=== PATIENT | female | born 1960 | race Caucasian/White ===

== ENCOUNTER 2023-12-07 20:04 | Inpatient (IN) | payer OTHER, SELFPAY ==
[2023-12-07 15:18] VITALS: BP 152/59
--- NOTE | 2023-12-07 15:21 | ED.PDOC.TRB ---
ED Provider Triage
-
Patient seen by provider in Triage?: Seen in Triage
Attestation: A medical screening examination has been initiated by a qualified medical provider. Based on the assessment performed at this time, it has been determined that an emergent medical condition may exist and the patient has been informed
that further medical evaluation and possible additional diagnostic testing may be needed.
HPI: 63-year-old female presents for evaluation of generalized, nausea, urinary urgency, dysuria, and right flank pain. Symptoms have been ongoing for at least the past 2 weeks, saw her primary care physician last week and was started on Cipro.
She has taken half of the antibiotics thus far. She suspects her doctor did send a urine culture but there is no results available to her yet. No fevers or vomiting
GENERAL: Alert , in no apparent distress
EYE: No visual abnormalities.
NECK: Trachea midline
ENT: No visible abnormalities.
LUNGS: No acute respiratory distress
NEUROLOGICAL: Alert and oriented
SKIN: Skin intact. No visible changes.
MUSCULOSKELETAL: Moving extremities normally
PSYCH: Normal and appropriate interaction.
Assessment: Patient appears well clinically and vital signs are stable. Will check basic labs and repeat urinalysis. No urine culture is noted on the chart at this time
This is a medical evaluation conducted in person to initiate diagnostic evaluation and provide initial therapeutics. Please see further documentation by the treating clinician.
[2023-12-07 15:48] LABS: % Basophils 0.1 % (0-2); % Eosinophils 0.3 % (0-6); % Immature Granulocytes 0.3 % (0-0.5); % Lymphocytes 13.5 % (20.5-51.1); % Monocytes 6.4 % (1.7-9.3); % Neutrophils 79.4 % (42.2-75.2); Absolute Lymphocytes 0.9 10^3/uL (1.2-3.4); Absolute Monocytes 0.4 10^3/uL (0.1-0.6); Absolute Neutrophils 5.4 10^3/uL (1.4-6.5); Hematocrit 29.9 % (37.0-47.0); Hemoglobin 10.4 g/dL (12.0-16.0); Mean Corp Hgb Conc. 34.8 g/dL (33.0-37.0); Mean Corpuscular Hgb 30.4 pg (27.0-31.0); Mean Corpuscular Volume 87.4 fL (81.0-99.0); Mean Platelet Volume 10.4 fL (7.4-10.4); Nucleated Red Blood Cells % 0 %; Platelet Count 156 10^3/uL (130-400); Red Blood Cell Count 3.42 10^6/uL (4.20-5.40); Red Cell Dist. Width 13.5 % (11.5-14.5); White Blood Cell Count 6.8 10^3/uL (4.8-10.8)
[2023-12-07 16:09] LABS: Urine Albumin Trace (Neg - Trace); Urine Bilirubin Negative (Negative); Urine Character Clear (Clear); Urine Color Straw; Urine Glucose Negative (Negative); Urine Ketone Negative (Negative); Urine Leukocyte Negative (Negative); Urine Nitrite Negative (Negative); Urine Occult Blood 3+ (Negative); Urine Urobilinogen Negative (Neg - 1+)
[2023-12-07 16:14] LABS: ALT (SGPT) 12 U/L (0-35); AST (SGOT) 20 U/L (14-36); Albumin 4.4 g/dl (3.5-5.0); Alkaline Phosphatase 56 U/L (38-126); Blood Urea Nitrogen 58 mg/dl (7-17); Calcium 9.5 mg/dl (8.4-10.2); Carbon Dioxide 19 mmol/L (22-30); Chloride 103 mmol/L (98-107); Glucose 105 mg/dl (70-99); Potassium 5.1 mmol/L (3.5-5.1); Sodium 141 mmol/L (135-145); Total Bilirubin 0.6 mg/dl (0.2-1.3); Total Protein 6.6 g/dl (6.3-8.2); eGFR 11.07
[2023-12-07 16:31] LABS: Urine Bacteria Few (Negative)
--- NOTE | 2023-12-07 16:52 | ED.GENMED ---
History of Present Illness
General
Chief Complaint: Urinary Symptoms
Source: patient
Time Seen by Provider: 12/07/23 16:12
History of Present Illness
History of Present Illness:
63-year-old female with past medical history of cervical cancer, left kidney atrophy/dysfunction, bipolar disorder/depression presenting to the emergency department for evaluation of urinary frequency noting she often goes to the bathroom 8 or 9
times overnight, nausea, no vomiting but does admit to decreased p.o. intake to solids, generalized fatigue and generally feeling unwell. This has been ongoing since the end of October, saw primary care provider about 1 week ago and was started on
ciprofloxacin for suspected UTI. Patient estimates she is taken about half of the pills for UTI but states she is not feeling any better and possibly worse. Patient denies any fevers, chills, rigors, abdominal pain, back or flank pain, hematuria,
dysuria, stool changes or any other concerns. She does note that at a follow-up visit at [facility] 2 weeks ago her creatinine was 1.7 and had a GFR of 35 which was atypical for her.
Past History
Past History
ED Past Medical History: Cancer (cervical), Psychiatric and Other (lactose intolerance, gallstones, migraines)
ED Past Surgical History: Gynecological, Tonsilectomy and Urological
Social History
Tobacco: Non-smoker
Alcohol: Occasional
Drug: None
Personal: Single
Living: with family (Lives with mother)
Family History
Family History: Unable to obtain
Review of Systems
Review of Systems
All Other Systems: ROS reviewed and negative except as documented in HPI and ROS
Phy Exam
Physical Exam
Physical Exam:
GENERAL: Alert , in no apparent distress, thin, soft-spoken but pleasant
EYE: clear conjunctiva b/l
HEAD: NCAT
ENT: o/p clr, mmm.
CARDIAC: Regular rate and rhythm .
LUNGS: Clear breath sounds bilaterally, no acute respiratory distress, no wheezes/rales/rhonchi
ABDOMEN: Soft, without focal tenderness, no r/g, no cvat
NEUROLOGICAL: Alert and oriented
SKIN: Warm and dry, skin intact.
MUSCULOSKELETAL: No edema, well perfused.
PSYCH: Normal and appropriate interaction.
Scores
Heart Failure Risk
Heart Failure Risk Score: Not Applicable
Heart Score for Chest Pain Patients
STEMI patient?: Not applicable
Withdrawal Assessment of Alcohol
Withdrawal Assessment Completed?: Not applicable
Course
Orders/Labs/Results
Orders:
Orders
12/07/23 Lunch
Potassium, 2 Gram
12/07/23 15:32
Complete Blood Count/With Diff Urgent
Comprehensive Metabolic Panel Urgent
Urinalysis Reflex To Culture Urgent
Date Specimen was Collected: 12/07/23
Time Specimen was Collected: 15:28
Urine Creatinine Urgent
Date Specimen was Collected: 12/07/23
Time Specimen was Collected: 15:28
Comment: ADD ON
Urine Microscopic Reflex Cult Urgent
Urine Protein Urgent
Date Specimen was Collected: 12/07/23
Time Specimen was Collected: 15:28
Comment: ADD ON
12/07/23 16:26
CT Abd/pel Without Iv Or Oral Urgent
Comment:
Reason For Exam: acute renal failure, micro hematuria
12/07/23 16:27
Electrocardiogram (*1) Urgent
Reason for Study: Other
Other Reason for Exam: renal failure
EKG- Treatment ONCE
12/07/23 17:07
Add On- LAB Urgent
Tests Added?: Urine Creatine Urine Protein
12/07/23 17:15
NEPHROLOGY CONSULT Routine
Consulting Provider: Manuel Levin
Was physician already notified: Yes
Reason for consult: acute renal failure
12/07/23 17:44
Appiah Catheter [Catheter- Indwelling] As Directed
Reason for insertion: Acute Kidney Injury
Discontinue Date/Time: 12/10/23 0600
12/07/23 17:45
0.9% Sodium Chloride 1000 ml [Nss] 1,000 ml IV 80 mls/hr
12/07/23 17:46
Intake/ Output As Directed
Frequency: Per unit guidelines
Comment: strict intake and output monitoring
Weight As Directed
Frequency: Daily
12/07/23 19:33
Admit/Transfer Patient As Directed
Co-Sign Provider:
Level of Care: Inpatient admission
Assign to:: Telemetry
Physician / Group: Darrin Wellington
Diagnosis: LUCHO w new right hydronephrosis
Reason for Telemetry: Arrhythmia
Date to Stop Telemetry: 12/10/23
Time to Stop Telemetry: 11:00
Reason for Hospitalization: LUCHO w new right hydronephrosis
Expected length of stay greater than two midnights?: Yes
ELOS- Estimated Length of Stay in days: 2
I certify the patient meets the requirements for IP care: Yes
PRN Pain Medication Management As Directed
May give lesser potent ordered pain med per pt: Yes
preference::
Protocol:: Medication orders for pain may be administered in a
manner that supports deferring to patient preference
when the pt is:
- Requesting an ordered lesser potent pain medication.
Least to most potent pain medications are defined
as: acetaminophen < NSAID < tramadol < opioids
(morphine, oxycodone, hydromorphone).
- Requesting a lesser dose of the same medication IF
ORDERED.
- Requesting a less intrusive route of administration
if both routes are prescribed by the provider (PO <
IV).
12/07/23 19:40
Code Status As Directed
Resuscitation Status: Full Code
12/08/23 Breakfast
NPO
Allow oral meds: Yes
Allow clear liquids: Sips of Clears
NPO with Ice Chips: Yes
12/10/23 11:00
DC Protocol for Telemetry ONCE
Abnormal Lab Results
12/07/23
15:32
RBC 3.42 L 10^6/uL
(4.20-5.40)
Hgb 10.4 L g/dL
(12.0-16.0)
Hct 29.9 L %
(37.0-47.0)
Absolute Lymphs (auto) 0.9 L 10^3/uL
(1.2-3.4)
Neutrophils % 79.4 H %
(42.2-75.2)
Lymphocytes % 13.5 L %
(20.5-51.1)
Carbon Dioxide 19 L mmol/L
(22-30)
BUN 58 H mg/dl
(7-17)
Creatinine 4.3 H* mg/dL
(0.6-1.0)
Glucose 105 H mg/dl
(70-99)
Ur Occult Blood Reflex 3+ A
(Negative)
Urine RBC 11-15 A /HPF
(0-2)
Urine Bacteria (Reflex) Few A
(Negative)
Urine Total Protein 34 H mg/dl
(0-12)
12/07/23 15:32
12/07/23 15:32
Vital Signs
Initial and Last Documented VS:
Initial Vital Signs
Pulse Resp BP Pulse Ox
66 18 152/59 98
12/07/23 15:18 12/07/23 15:18 12/07/23 15:18 12/07/23 15:18
Last Documented Vital Signs
Pulse Resp BP Pulse Ox
66 18 152/59 98
12/07/23 15:18 12/07/23 15:18 12/07/23 15:18 12/07/23 19:15
MDM/Problems Addressed
Differential Diagnosis Includes:
Diabetes, urinary tract infection, renal dysfunction, less concern for an acute infectious etiology other than a urinary source, kidney stone
MDM/Problems Addressed:
63-year-old female presenting to the emergency department for evaluation of urinary frequency, nausea, diminished p.o. intake and generally feeling unwell over close to 3 weeks. No change in symptoms today but continues to feel unwell. Was at [facility] 2 weeks ago as part of follow-up visits, currently not undergoing any chemotherapy. Arrives to the ER hemodynamically stable. Labs were initiated in triage. Awaiting urinalysis. Disposition pending
*Radiology
Radiology exam reviewed: radiology read reviewed
*Pulse Oximetry
Patient hypoxic: no
*School Services Officer Interpretation
Rate: normal
Rhythm: sinus
*Critical Care Note
Total Time (30-74mins, 75-104mins- exclusive of procedures): Not Applicable
Data Reviewed
Review of Other/Old Records Reveals: Labs and Records
Source: patient
Comment
Comment:
Patient's labs reveal a mild anemia and there is significant acute kidney injury with patient having a BUN of 58, creatinine of 4.3 and a GFR of 11. I did add on a CT scan given patient's urinalysis had 3+ blood to evaluate for possible stone.
This would also evaluate for hydronephrosis or other obstructive process. Given her acute kidney injury I do feel patient would be best served being admitted with nephrology team in consult. Will admit to hospitalist team pending CT scan results.
Patient Management
Discussion with other providers: Hospitalist and Chief Internal Auditor
Escalation/DeEscalation of care consider admission/obs:
CT scan shows new right-sided moderate hydronephrosis. Nephrology aware and will consult. Hospitalist team is aware and accepts for continued evaluation and treatment.
ED Attending Note
-
Portions of this chart may have been created with voice recognition software.� Occasional wrong word or��sound alike� substitutions may have occurred due to the inherent limitations of voice recognition software.
Discharge Plan
Departure
Patient Disposition: Admit
Date of Disposition: 12/07/23
Time of Disposition: 17:07
Presentation/result/management discussed w/ accepting MD/DO: Hospitalist
Discharge Problem:
Acute renal failure, Hydronephrosis of right kidney
Interventions
Interventions:
*Risk Screen - Suicide Last Done: 12/07/23 17:00
*General Assessment Last Done: 12/07/23 17:00
ED- Fall Risk Assessment Last Done: 12/07/23 17:00
*ED COVID-19 Vaccine History Last Done: 12/07/23 17:00
ED-Female Genitourinary Assessment Last Done: 12/07/23 17:00
[2023-12-07 17:06] VITALS: BMI 17.6
[2023-12-07 17:29] LABS: Urine Protein 34 mg/dl (0-12)
--- NOTE | 2023-12-07 17:34 | W.CON.NEPH ---
Consultation
-
Date/Time Consultation Requested: 12/07/23 1600
Date/Time Consultation Performed: 12/07/23 1730
Requesting Provider: Dr. Buitrago
Performing Provider:
Reason for Consultation: LUCHO
Medical History
-
Chief Complaint: Malaise
History of Present Illness:
This is a 63-year-old female who has known left renal atrophy due to obstructive uropathy in the past. This was followed back in 2019 by her report. She had stenting performed but ultimately was felt that no recovery of kidney function would be
possible in the left side. She follows with urology at [facility]. Her creatinine however at baseline is typically around 1.0. She does have history of stage Ib cervical cancer status post total hysterectomy and radiation. She also has bipolar
disorder controlled with Prozac. She says that she had recent blood work on November 15 which showed a creatinine of 1.7 with a GFR of 35. Also given recent complaints of urinary frequency she was given ciprofloxacin though this did not change her
symptoms. She had then come to the emergency room for evaluation and was noted to have a creatinine of 4.3. Her potassium was upper limit of normal. CT scan disclosed new right-sided hydronephrosis. No stone could be seen.
Past Medical History
Cervical cancer, radiation, hysterectomy
Chronic left hydronephrosis
Bipolar
Migraines
Gallstones
Radiation colitis
Social History
Tobacco: Non-Smoker
Alcohol: Occasional
Family History
Family History: Not Pertinent
Allergies / Home Medications
Allergy/AdvReac Type Severity Reaction Status Date / Time
nitrofurantoin Allergy fever Verified 12/07/23 15:21
macrocrystalline
[From Macrodantin]
tuberculin,PPD,multi-puncture Allergy Rash Verified 12/07/23 15:21
Dairy Allergy Unknown Uncoded 12/07/23 15:21
�Medication �Instructions �Recorded �Confirmed �Type
fluoxetine 20 mg capsule 60 mg PO DAILY Mental 01/16/20 12/07/23 History
Health/Anxiety
alprazolam 1 mg tablet 1 mg PO HS 12/07/23 12/07/23 History
ascorbic acid (vitamin C) 500 mg 500 mg PO DAILY 12/07/23 12/07/23 History
tablet (Vitamin C)
cholecalciferol (vitamin D3) 25 25 mcg PO DAILY 12/07/23 12/07/23 History
mcg (1,000 unit) tablet
ciprofloxacin HCl 250 mg tablet 250 mg PO Q12H 12/07/23 12/07/23 History
divalproex 500 mg tablet,delayed 500 mg PO DAILY 12/07/23 12/07/23 History
release
magnesium oxide 400 mg (241.3 mg 400 mg PO DAILY 12/07/23 12/07/23 History
magnesium) tablet
lxwztkeh-vjjrzzmp-ypu C 250 1 tab PO DAILY 12/07/23 12/07/23 History
mg-herbal no.124 11.66 mg
chewable tablet (Airborne Gummy)
Review of Systems
-
Urinary frequency, malaise, nausea
All other systems: Negative unless noted
Physical Exam
Vital Signs
Vital Signs
Pulse Resp BP Pulse Ox
66 18 152/59 98
12/07/23 15:18 12/07/23 15:18 12/07/23 15:18 12/07/23 15:18
Lab Results
WBC 6.8 10^3/uL (4.8-10.8) 12/07/23 15:32
RBC 3.42 10^6/uL (4.20-5.40) L 12/07/23 15:32
Hgb 10.4 g/dL (12.0-16.0) L 12/07/23 15:32
Hct 29.9 % (37.0-47.0) L 12/07/23 15:32
Plt Count 156 10^3/uL (130-400) 12/07/23:
Sodium 141 mmol/L (135-145) 12/07/23:
Potassium 5.1 mmol/L (3.5-5.1) 12/07/23:
Chloride 103 mmol/L (98-107) 12/07/23:
Carbon Dioxide 19 mmol/L (22-30) L 12/07/23:
BUN 58 mg/dl (7-17) H 12/07/23:
Creatinine 4.3 mg/dL (0.6-1.0) H* 12/07/23
eGFR 11.07 12/07/23:
Glucose 105 mg/dl (70-99) H 12/07/23:
Calcium 9.5 mg/dl (8.4-10.2) 12/07/23:
Albumin 4.4 g/dl (3.5-5.0) 12/07/23:
CT
FINDINGS:
There is severe left-sided hydronephrosis and left hydroureter with severe loss of renal cortical volume left suggesting that this is standing
There is moderate right-sided hydronephrosis, new when compared with the prior study
There is hysterectomy with multiple surgical clips in the pelvis
No definitive distal ureteral calculi are demonstrated, however, with the presence of the multiple surgical clips, evaluation for distal ureteral calculi is limited.
Physical Exam
Patient is awake alert oriented and in no distress. Mood and affect were pleasant, insight and judgment were good. Pupils are equal round and reactive to light, extraocular movements are intact, sclera were anicteric. Hearing was normal, ears and
nose are intact. Oropharynx was clear. Neck was supple with trachea midline and no thyromegaly. Heart was regular rate and rhythm without rubs. Lower extremities without edema. Lungs were clear to auscultation bilaterally and with normal
excursion. Abdomen was soft, nontender, with normal active bowel sounds, and no hepatosplenomegaly. Skin was without rash and with normal turgor.
Data Reviewed
-
CT Scan: Report Reviewed by me
Labs: Labs Reviewed by me
Old Records: Reviewed
Assessment/Plan
-
Assessment
Acute kidney injury
New right hydronephrosis
Chronic left hydronephrosis, essential solitary functioning right kidney
History of cervical cancer with hysterectomy and clips
Migraines
Plan
Appiah catheter
Urology evaluation
Follow BMP
IV fluids with saline
Treat potassium as necessary
--- NOTE | 2023-12-07 19:33 | HPS.HSE ---
Family Physician
-
Family Physician: Jarek Pereira
Chief Complaint
-
Urinary Frequency
History of Present Illness
63F hx cervical cancer, left kidney atrophy/dysfunction/chronic hydronephrosis, bipolar disorder/depression p/w urinary frequency, nausea, general malaise, fatigue ongoing since end october, pcp evaluated 1 week ago and started pt on ciprofloxacin
suspected UTI. Prescribed 7 days, patient completed 3 days without any relief or improvement in symptoms prompting ED evaluation. Denies fevers, abdominal pain, back/flank pain, or dysuria. Reported having labwork 2 weeks ago where her Cr was
noted at 1.7. VSS, labs notable for significant rise in Cr 4.3. CT was also notable for new moderate right-sided hydronephrosis. No ureteral stones were noted. However, per report study limited by surgical clips from past hysterectomy.
Medical History
Past Medical History
Past Medical History: Reports Other (as above)
Past Surgical History: Reports Other (as above)
Social History
Tobacco: Non-smoker
Alcohol: None
Drug: None
Personal: Other (Engaged)
Living: Other (Lives w/ Fiancee)
Family History
Family History: Not pertinent (reviewed)
Allergies / Home Medications
Allergies reflects when Allergies were last updated in [facility].
Home Medications with original date entered in [facility]
Allergy/Medication List:
Allergies
Allergy/AdvReac Type Severity Reaction Status Date / Time
Milk Containing Products Allergy Unknown Verified 12/07/23 17:57
(Dairy)
nitrofurantoin Allergy fever Verified 12/07/23 15:21
macrocrystalline
[From Macrodantin]
tuberculin,PPD,multi-puncture Allergy Rash Verified 12/07/23 15:21
Home Medications
fluoxetine 20 mg capsule 60 mg PO DAILY Mental Health/Anxiety 01/16/20
alprazolam 1 mg tablet 1 mg PO HS 12/07/23
ascorbic acid (vitamin C) 500 mg tablet (Vitamin C) 500 mg PO DAILY 12/07/23
cholecalciferol (vitamin D3) 25 mcg (1,000 unit) tablet 25 mcg PO DAILY 12/07/23
ciprofloxacin HCl 250 mg tablet 250 mg PO Q12H 12/07/23
divalproex 500 mg tablet,delayed release 500 mg PO DAILY 12/07/23
magnesium oxide 400 mg (241.3 mg magnesium) tablet 400 mg PO DAILY 12/07/23
jrqkyvvq-yitjddzm-ics C 250 mg-herbal no.124 11.66 mg chewable tablet (Airborne Gummy) 1 tab PO DAILY 12/07/23
Review of Systems
-
A 12 point ROS was completed and negative except as noted: Yes
Constitutional: Reports Sleep Disturbance (as below)
Physical Exam
Vital Signs
Vital Signs
Pulse Resp BP Pulse Ox
66 18 152/59 98
12/07/23 15:18 12/07/23 15:18 12/07/23 15:18 12/07/23 19:15
Physical Exam
General: Other (as below)
Laboratory Results
-
12/07/23 15:32
12/07/23 15:32
Laboratory Results
Total Bilirubin 0.6 mg/dl (0.2-1.3) 12/07/23 15:32
AST 20 U/L (14-36) 12/07/23 15:32
ALT 12 U/L (0-35) 12/07/23 15:32
Alkaline Phosphatase 56 U/L (38-126) 12/07/23 15:32
Impression/Plan
-
ROS
General: Denies fever reports chronic chills weight loss
Neuro: Denies seizure shaking loss of consciousness dizziness vertigo
Psych: denies depression hallucinations confusion manic episodes
Endocrine: Denies polyuria polydipsia polyphagia heat/cold intolerance
HEENT: Denies blindness visual disturbances epistaxis
Pulmonary: denies coughing hemoptysis sneezing sob dyspnea on exertion
Cardiovascular: denies chest pain palpitations leg swelling
Hematology: denies signs symptoms of anemia easy bruising/bleeding
Gastrointestinal: reports intermittent nausea denies vomiting constipation hematemesis hematochezia melena reports chronic issues with appetite
Genito-Urinary: Reports urinary frequency/urgency denies dysuria flank pain
Musculoskeletal: denies joint pain weakness
Dermatology: denies rash laceration bruising
Physical Exam
General: No pallor, cyanosis, or jaundice. Cachectic Appearance
HEENT: Throat clear. PERRLA Normocephalic atraumatic
NECK: Supple. No JVD Carotid Bruits
RESPIRATORY: Lungs clear to auscultation. No crackles wheezes stridor
CVS: S1, S2 normal. RRR. No murmur, rub or gallop.
ABDOMEN: Soft, non-tender. No distension. BS+/normal.
EXTREMITIES: No peripheral cyanosis or edema.
CENSUS ENUMERATOR: AOx3. No focal deficits.
IMPRESSION:
63F hx cervical cancer, left kidney atrophy/dysfunction/chronic hydronephrosis, bipolar disorder/depression p/w urinary frequency, nausea, general malaise, fatigue ongoing since end of October, pcp evaluated 1 week ago and started pt on ciprofloxacin
suspected UTI. Prescribed 7 days, patient completed 3 days without any relief or improvement in symptoms prompting ED evaluation. Denies fevers, abdominal pain, back/flank pain, or dysuria. Reported having labwork 2 weeks ago where her Cr was
noted at 1.7. VSS, labs notable for significant rise in Cr 4.3. CT was also notable for new moderate right-sided hydronephrosis. No ureteral stones were noted. However, per report study limited by surgical clips from past hysterectomy.
PLAN:
#LUCHO
#New Right Hydronephrosis no flank pain
#Possible urinary frequency d/t urinary retention overflow incontinence
Nephro eval appreciated
IVF
Appiah
Monitor Renal Function
Potassium restricted diet for now (K at high side of normal), npo after midnight for possible urologic intervention tomorrow
urology eval requested
Urinalysis not suggestive of UTI at this time, though patient did complete 3 days cipro
Monitor for signs of systemic infection off abx for now
If develops fever
-check blood cultures
-start empiric ceftriaxone
#Bipolar/depression
#Insomnia
Cont home divalproex, fluoxetine, bedtime Xanax
Check Valproate level in AM
#Cachectic Appearance
#Endorses chronic poor appetite
nutrition eval
dvt ppx scd
Full Code
Discussed with patient and patient's tomy Feldman
I spent a total of 80 minutes with the patient or on the floor. More than 50% of this time involved counseling and coordination of care.
[2023-12-07 19:52] VITALS: BP 116/58
[2023-12-07 20:30] VITALS: BP 105/56; BMI 15.7
--- NOTE | 2023-12-07 20:45 | PTCARENOTE ---
Received pt from ED via stretcher. Pt ambulated to bed independently. Anxious. flexographic press set up operator placed. AAOx3. Pt complained of migraine, WINDOW DECORATOR made aware, new order provided, pt refused medication. Assessed and oriented to room. Pt verbalize
understanding of call warner. Call warner within close reach. Will continue to monitor.
[2023-12-07] MEDS: NSS 1000 IV (21:57)
[2023-12-07] MEDS: XANAX 1 MG PO (22:08)
--- NOTE | 2023-12-07 22:30 | PTCARENOTE ---
Pt vomiting. STIFF NECK LOADER made aware, new order provided, see MAR.
[2023-12-07] MEDS: ZOFRAN 4 MG IV (22:48)
--- NOTE | 2023-12-07 23:30 | PTCARENOTE ---
Orders reviewed, indwelling Appiah catheter placed per order. Pt tolerated. Pt complained of itching and burning around catheter. Perineal area cleansed with wipes, burning and itching continued. Pt stated, 'I need you to take this out, I am going to
refuse it and I will talk to the doctor tomorrow about it'. OPTICS TECHNICAL OFFICER made aware. Appiah catheter removed.
[2023-12-07 23:43] VITALS: BP 110/52
[2023-12-08] VITALS (9 sets, daily range): BP systolic 103–154; BP diastolic 53–78; BMI 15.6
--- NOTE | 2023-12-08 03:12 | W.PN.UPDATE ---
Update Note
Progress Note Update
pt allowed RN to place thompson per nephrology order, but shortly after insertion made RN remove it due to discomfort.
--- NOTE | 2023-12-08 04:01 | DOWNTIME ---
There was a [facility] Client Vp Ancillary Downtime on 12/08/2023 from 0100 to 12/08/2023 at 0300. Downtime documentation of patient's care, including medication administrations, has been reconciled in the electronic record per guidelines. Refer to the
patient's paper chart under the miscellaneous tab to see printed paper medication records and downtime forms.
--- NOTE | 2023-12-08 07:16 | CON.MD ---
Addendum entered and electronically signed by Chao Gallego Jr., MD 12/08/23 08:39:
reviewed again with pt
she is willing to have precs placed
arranged with IR- should be done later today
Original Note:
Consultation - Medical
-
see dictated note
in brief- pt has a hx of cervical cancer s/p resection and xrt
long hx of what was believed to be xrt stx of left ureter
managed with stent at one point and considered for reconstruction- but pt declined and had stent removed and observed
followed at [facility] for both oncology and urology
recent visit with urology in oct- at that time had studies dating back to oct 2022- cr at 1.2/ had PET concerning for ca recurrent in pelvic- also there was a suspicion for possible fistula- bx and cysto were rec- pt declined saying she would refuse
any other treatment and declined f/u PET
now with recurrent infx's- bladder irritation
presents with bladder discomfort/nausea/fatigue
ct shows now bilateral hydro and cr up to 4- also i thing there is a pelvic mass
pt comfortable and non-toxic this am
plan
extensive review with pt at bedside
concerned that right hydro now due to ca recurrence
i would rec bilateral PCN's with IR as stents are unlikely to be effective in this case and pt has had a severe intolerance in the past- ignacia slater then f/u with [facility] urology and oncology to discuss next steps
she wnats to consider and i will be in contact with her and arrange with IR if she wants to proceed with perc's
[2023-12-08 07:44] LABS: Hemoglobin 9.6 g/dL (12.0-16.0); Mean Corp Hgb Conc. 35.6 g/dL (33.0-37.0); Mean Corpuscular Hgb 29.4 pg (27.0-31.0); Mean Corpuscular Volume 82.8 fL (81.0-99.0); Mean Platelet Volume 10.1 fL (7.4-10.4); Platelet Count 132 10^3/uL (130-400); Red Blood Cell Count 3.26 10^6/uL (4.20-5.40); Red Cell Dist. Width 13.5 % (11.5-14.5); White Blood Cell Count 5.5 10^3/uL (4.8-10.8)
[2023-12-08 07:58] LABS: INR 1.18; PT 15.1 Sec (11.4-14.6)
--- NOTE | 2023-12-08 08:08 | W.PN.HOSP.TC ---
Today's Communication/Plan
-
NPO for b/l nephrostomy tubes placement w/ IR
once lokelma
Psych eval
monitor renal function
cont IVF
monitor K, restrict potassium intake when diet resumed
Assessment / Plan
Assessment / Plan
Physical Exam
General: No pallor, cyanosis, or jaundice. Cachectic Appearance
HEENT: Throat clear. PERRLA Normocephalic atraumatic
NECK: Supple. No JVD Carotid Bruits
RESPIRATORY: Lungs clear to auscultation. No crackles wheezes stridor
CVS: S1, S2 normal. RRR. No murmur, rub or gallop.
ABDOMEN: Soft, non-tender. No distension. BS+/normal.
EXTREMITIES: No peripheral cyanosis or edema.
SLIPCOVER CUTTER: AOx3. No focal deficits.
IMPRESSION:
63F hx cervical cancer, left kidney atrophy/dysfunction/chronic hydronephrosis, bipolar disorder/depression p/w urinary frequency, nausea, general malaise, fatigue ongoing since end of October, pcp evaluated 1 week ago and started pt on ciprofloxacin
suspected UTI. Prescribed 7 days, patient completed 3 days without any relief or improvement in symptoms prompting ED evaluation. Denies fevers, abdominal pain, back/flank pain, or dysuria. Reported having labwork 2 weeks ago where her Cr was
noted at 1.7. VSS, labs notable for significant rise in Cr 4.3. CT was also notable for new moderate right-sided hydronephrosis. No ureteral stones were noted. However, per report study limited by surgical clips from past hysterectomy.
PLAN:
#LUCHO
#New Right Hydronephrosis no flank pain likely due to cancer resurgence resulting in outlet obstruction
#Possible urinary frequency d/t urinary retention overflow incontinence
#Hyperkalemia
once lokelma
Nephro eval appreciated
IVF
[facility] patient unfortunately could not tolerate since discontinued
Monitor Renal Function
urology IR eval appreciated NPO for b/l nephrostomy placement
Urinalysis not suggestive of UTI at this time, though patient did complete 3 days cipro
Monitor for signs of systemic infection off abx for now
If develops fever
-check blood cultures
-start empiric ceftriaxone
#Bipolar/depression
#Insomnia
Cont home divalproex, fluoxetine, bedtime Xanax
Valproate level therapeutic
Psych eval appreciated
#Cachectic Appearance
#Endorses chronic poor appetite
#Cervical ca hx hysterectomy radiation chemo
#suspected cancer resurgence, pt follows [facility] urology
nutrition eval
Follow up with [facility] recommended
dvt ppx scd
DNR as per patient's request
Discussed with patient, patient's mother Grecia, and patient's Brother Serg
I spent a total of 50 minutes with the patient or on the floor. More than 50% of this time involved counseling and coordination of care.
Anticipated Discharge: 24 - 48 hours
Subjective/Interval History
-
Date of Service: December 08, 2023
Seen and examined a bedside in no acute distress. Family at bedside during evaluation (Mother Grecia and Brother Serg)
Objective Data
-
Labs:
Laboratory Results
12/08/23
07:33
WBC 5.5
Hgb 9.6 L
Hct 27.0 L
Plt Count 132
PT 15.1 H
INR 1.18
Sodium Pending
Potassium Pending
Chloride Pending
Carbon Dioxide Pending
BUN Pending
Creatinine Pending
Glucose Pending
Calcium Pending
Vital Signs:
Vital Signs
Temp Pulse Resp BP Pulse Ox
97.8 F 59 17 120/65 100
12/08/23 07:52 12/08/23 07:52 12/08/23 07:52 12/08/23 07:52 12/08/23 07:52
I&O
12/07/23 12/08/23 12/09/23
06:59 06:59 06:59
Intake Total 1000 / 1000
Output Total 400 / 400
Balance 600 / 600
[2023-12-08 08:34] LABS: Blood Urea Nitrogen 57 mg/dl (7-17); Calcium 9.3 mg/dl (8.4-10.2); Carbon Dioxide 20 mmol/L (22-30); Chloride 106 mmol/L (98-107); Estimated Creatinine Clearance 9 ml/min; Glucose 82 mg/dl (70-99); Magnesium 1.6 mg/dl (1.6-2.3); Potassium 5.7 mmol/L (3.5-5.1); Sodium 139 mmol/L (135-145); eGFR 11.07
[2023-12-08] MEDS: PROZAC 60 MG PO (09:09)
[2023-12-08] MEDS: MAG-TAB SR PO ×2 (09:10→09:35)
[2023-12-08] MEDS: VITAMIN C 500 MG PO (09:10)
[2023-12-08] MEDS: DEPAKOTE (12 HR RELEASE) 500 MG PO (09:10)
[2023-12-08] MEDS: VITAMIN D3 (cholecalciferol) 25 MCG PO (09:10)
[2023-12-08] MEDS: LOKELMA 5 GRAM PO ×2 (09:10→13:28)
[2023-12-08] MEDS: NSS 1000 IV (09:14)
--- NOTE | 2023-12-08 12:43 | W.PN.NEPH.PH ---
Today's Communication / Plan
-
Lokelma
labs later today
Assessment/Plan
-
Assessment
Acute kidney injury
New right hydronephrosis
Chronic left hydronephrosis, essential solitary functioning right kidney
History of cervical cancer with hysterectomy and clips
Migraines
Plan
LUCHO-obstructive uropathy
cr stable at 4.3, oliguria with thompson
plan bilat PCN today by IR- follows
pt hesitant for PCN and wants to , on further conversation agreeable for procedure, remains DNR
Thompson catheter per
hyperkalemia-likely from above, Lokelma total 10gm
wean off IVF if once po intake is adequate
d/w pt in detail and mom at bedside
d/w nursing
-
-
Date of Service: December 08, 2023
CC / HPI / ROS
-
Chief Complaint:
LUCHO
History of Present Illness:
cr no change at 4.3, k high 5.7
met acidosis stable bicarb 20
BP improving
oliguria with thompson
Review of Systems:
no fever
no n/v
Labs
-
Labs:
WBC 5.5 10^3/uL (4.8-10.8) 12/08/23 07:33
RBC 3.26 10^6/uL (4.20-5.40) L 12/08/23 07:33
Hgb 9.6 g/dL (12.0-16.0) L 12/08/23 07:33
Hct 27.0 % (37.0-47.0) L 12/08/23 07:33
Plt Count 132 10^3/uL (130-400) 12/08/23 07:33
Sodium 139 mmol/L (135-145) 12/08/23 07:33
Potassium 5.7 mmol/L (3.5-5.1) H 12/08/23 07:33
Chloride 106 mmol/L (98-107) 12/08/23 07:33
Carbon Dioxide 20 mmol/L (22-30) L 12/08/23 07:33
BUN 57 mg/dl (7-17) H 12/08/23 07:33
Creatinine 4.3 mg/dL (0.6-1.0) H* 12/08/23 07:33
eGFR 11.07 12/08/23 07:33
Glucose 82 mg/dl (70-99) 12/08/23 07:33
Calcium 9.3 mg/dl (8.4-10.2) 12/08/23 07:33
Albumin 4.4 g/dl (3.5-5.0) 12/07/23 15:32
Physical Exam
-
Vital Signs:
Vital Signs
Temp Pulse Resp BP Pulse Ox
98.6 F 63 17 154/74 99
12/08/23 11:32 12/08/23 11:32 12/08/23 11:32 12/08/23 11:32 12/08/23 11:32
Cardiovascular:: Regular rate and rhythm
Respiratory:: Bilateral: CTA
Lung Excursion:: Normal
Abdomen:: Nontender and Soft
Extremity Edema:: None: Bilateral:
Thompson Catheter: Yes
--- NOTE | 2023-12-08 12:48 | CON.MD ---
Consultation - Medical
-
patient seen chart reviewed. discussed w nursing. mother and brother at bedside. the patient is a 63 year old woman dx w cervical cancer in 2016. at the time stage was 1 b. she has since undergone radiation which she feels did more harm than good
and hysterectomy. she comes to with urinary sx and was found to have bilateral obstructive uropathy. she said she was always told at [facility] where she is treated that they did not 'get all the cancer' and it is possible mets are the cause of
her current kidney issue cr is 4.3. she had initially refused procedure to relieve pressure on kidney but today she has agreed to bilateral pcn tube placement. she is considering how far she wishes to go w her medical rx and there seems to be some
conflict between her wishes and her family's wishes for her. she has changed today to dnr. she has hx of depression for many years. she has a psych dr tasha de la rosa. she takes depakote 500 mg daily prozac 60 mg daily and xanax one mg hs dx
bipolar . she has taken these for years without ill effects and feels they help her. she is NOT suicidal. there is nothing to suggest psychosis. she has little appetite and poor energy which she attributes to her medical illness
medical/psych hx patient w hx anxiety and affective disorder see above. ecg is normal qtc 436 cr 4.3 hx migraine. patient has had meningitis yeasr ago. she has hx gallstones renal stones and radiation colitis
fh non contributory
substance abuse denied
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 mother and father alive but dad's parkinson's has taken a turn for the worse this summer and he is in
a nh which is very upsetting for patient
mse alert ox3 cooperative speech and thought process nl affect is appropriate mood is s/w anxious no si no psychosis above aver intelligence insight and judgment are good
recommendations patient does seem to benefit from support. there does seem to be a lot of pressure on her from family to do everything possible in terms of her rx but she may not want to and i reassured her that this is her prerogative. also
however recommended to her that she take things one day at a t aracely. she has decided to do the procedure....see how it goes....ask a lot of questions so she is clear about the possibilities etc and she is free to decide yes or no re continuing. she
has taken the step of opting for dnr. she is aware that hospice is a possibility. will dc xanax which is metabolized by kidney. substitute ativan 1 mg q hs for xanax and have written a prn for anxiety of o.5 mg will follow
[2023-12-08] MEDS: ROCEPHIN 2000 MG IV (16:14)
[2023-12-08] MEDS: STERILE WATER FOR INJECTION 20 ML IV (16:14)
--- NOTE | 2023-12-08 16:50 | CM ---
Alert awake oriented patient who lives with her sascha Lynch in a 2 story home with 0 steps to enter and 13 steps to bed/bathroom. She is independent in driving and all activates of daily living.She uses no DME.No adaptive devices.Pt for surgery today.
Had VN in past . No SNF hx
Pharmacy [facility]
PCP Dr Pereira
PLAN Home with no anticipated needs
[2023-12-08] MEDS: ATIVAN 1 MG PO (21:30)
[2023-12-08 22:00] LABS: Blood Urea Nitrogen 54 mg/dl (7-17); Calcium 8.4 mg/dl (8.4-10.2); Carbon Dioxide 18 mmol/L (22-30); Chloride 107 mmol/L (98-107); Estimated Creatinine Clearance 10 ml/min; Glucose 100 mg/dl (70-99); Sodium 141 mmol/L (135-145); eGFR 11.72
[2023-12-09] MEDS: NSS 1000 IV (01:41)
[2023-12-09 03:49] VITALS: BP 119/68
[2023-12-09 06:00] VITALS: BMI 15.8
[2023-12-09 06:16] LABS: Hematocrit 24.9 % (37.0-47.0); Hemoglobin 8.7 g/dL (12.0-16.0); Mean Corp Hgb Conc. 34.9 g/dL (33.0-37.0); Mean Corpuscular Hgb 29.4 pg (27.0-31.0); Mean Corpuscular Volume 84.1 fL (81.0-99.0); Mean Platelet Volume 10.9 fL (7.4-10.4); Platelet Count 116 10^3/uL (130-400); Red Blood Cell Count 2.96 10^6/uL (4.20-5.40); Red Cell Dist. Width 13.7 % (11.5-14.5); White Blood Cell Count 5.2 10^3/uL (4.8-10.8)
[2023-12-09 06:51] LABS: Blood Urea Nitrogen 49 mg/dl (7-17); Calcium 8.3 mg/dl (8.4-10.2); Carbon Dioxide 20 mmol/L (22-30); Chloride 107 mmol/L (98-107); Estimated Creatinine Clearance 10 ml/min; Glucose 135 mg/dl (70-99); Magnesium 1.4 mg/dl (1.6-2.3); Potassium 4.8 mmol/L (3.5-5.1); Sodium 143 mmol/L (135-145); eGFR 12.07
--- NOTE | 2023-12-09 07:32 | W.PN.HOSP.TC ---
Today's Communication/Plan
-
Potassium restriction diet lifted
completed IVF
monitor renal function
Assessment / Plan
Assessment / Plan
Physical Exam
General: No pallor, cyanosis, or jaundice. Cachectic Appearance
HEENT: Throat clear. PERRLA Normocephalic atraumatic
NECK: Supple. No JVD Carotid Bruits
RESPIRATORY: Lungs clear to auscultation. No crackles wheezes stridor
CVS: S1, S2 normal. RRR. No murmur, rub or gallop.
ABDOMEN: Soft, non-tender. No distension. BS+/normal.
EXTREMITIES: No peripheral cyanosis or edema.
BOBBIN DUMPER: AOx3. No focal deficits.
IMPRESSION:
63F hx cervical cancer, left kidney atrophy/dysfunction/chronic hydronephrosis, bipolar disorder/depression p/w urinary frequency, nausea, general malaise, fatigue ongoing since end of October, pcp evaluated 1 week ago and started pt on ciprofloxacin
suspected UTI. Prescribed 7 days, patient completed 3 days without any relief or improvement in symptoms prompting ED evaluation. Denies fevers, abdominal pain, back/flank pain, or dysuria. Reported having labwork 2 weeks ago where her Cr was
noted at 1.7. VSS, labs notable for significant rise in Cr 4.3. CT was also notable for new moderate right-sided hydronephrosis. No ureteral stones were noted. However, per report study limited by surgical clips from past hysterectomy.
PLAN:
#LUCHO
#New Right Hydronephrosis no flank pain likely due to cancer resurgence resulting in outlet obstruction
#Possible urinary frequency d/t urinary retention overflow incontinence
#Hyperkalemia resolved
once lokelma
Nephro eval appreciated
IVF completed
[facility] patient unfortunately could not tolerate since discontinued
Monitor Renal Function
urology IR eval appreciated right nephrostomy tube placed (b/l was recommended but patient refused)
Urinalysis not suggestive of UTI at this time, though patient did complete 3 days cipro
Monitor for signs of systemic infection off abx for now
If develops fever
-check blood cultures
-start empiric ceftriaxone
#Bipolar/depression
#Insomnia
Cont home divalproex, fluoxetine, bedtime Xanax
Valproate level therapeutic
Psych eval appreciated
#Cachectic Appearance
#Endorses chronic poor appetite
#Cervical ca hx hysterectomy radiation chemo
#suspected cancer resurgence, pt follows [facility] urology
nutrition eval
Follow up with [facility] recommended
#Anemia
monitor H&H
drop since admission likely dilutional
#Hypomagnesemia
monitor and replete as necessary
dvt ppx scd
DNR as per patient's request
Discussed with patient and patient's mother Grecia
I spent a total of 50 minutes with the patient or on the floor. More than 50% of this time involved counseling and coordination of care.
Anticipated Discharge: 24 - 48 hours
Subjective/Interval History
-
Date of Service: December 09, 2023
No acute distress appears comfortable. Mother present during evaluation. Right percutaneous nephrostomy tube in placed draining without issues.
Objective Data
-
Labs:
Laboratory Results
12/08/23 12/09/23
21:37 05:30
WBC 5.2
Hgb 8.7 L
Hct 24.9 L
Plt Count 116 L
Sodium 141 143
Potassium 5.0 4.8
Chloride 107 107
Carbon Dioxide 18 L 20 L
BUN 54 H 49 H
Creatinine 4.1 H* 4.0 H
Glucose 100 H 135 H
Calcium 8.4 8.3 L
Vital Signs:
Vital Signs
Temp Pulse Resp BP Pulse Ox
98.5 F 62 18 119/68 96
12/09/23 03:49 12/09/23 03:49 12/09/23 03:49 12/09/23 03:49 12/09/23 03:49
I&O
12/08/23 12/09/23 12/10/23
06:59 06:59 06:59
Intake Total 1000 / 1000 480 / 480
Output Total 400 / 400 2250 / 2250
Balance 600 / 600 -1770 / -1770
[2023-12-09 07:41] VITALS: BP 120/56
[2023-12-09] MEDS: PROZAC 60 MG PO (08:01)
[2023-12-09] MEDS: VITAMIN D3 (cholecalciferol) PO ×2 (08:02→08:22)
[2023-12-09] MEDS: DEPAKOTE (12 HR RELEASE) 500 MG PO (08:02)
[2023-12-09] MEDS: VITAMIN C PO ×2 (08:02→08:22)
[2023-12-09] MEDS: MAG-TAB SR PO ×2 (08:02→08:21)
--- NOTE | 2023-12-09 10:48 | W.PN.NEPH.PH ---
Today's Communication / Plan
-
wean off IVF, replace mg
Assessment/Plan
-
Assessment
Acute kidney injury
New right hydronephrosis
Chronic left hydronephrosis, essential solitary functioning right kidney
History of cervical cancer with hysterectomy and clips
Migraines
Plan
LUCHO-obstructive uropathy
cr improving slowly at 4, non oliguric with right PCN
hyperkalemia improved now
psych follows for depression
off Thompson catheter per
wean off IVF if once po intake is adequate
reaplce mg
d/w pt and mom at bedside
-
-
Date of Service: December 09, 2023
CC / HPI / ROS
-
Chief Complaint:
LUCHO
History of Present Illness:
cr better at 4 k better 4.8
met acidosis stable bicarb 20
BP improving
oliguria with thompson
hb decreasing 8.7 on IVF
Review of Systems:
no fever
no n/v
better emotionally
Labs
-
Labs:
WBC 5.2 10^3/uL (4.8-10.8) 12/09/23 05:30
RBC 2.96 10^6/uL (4.20-5.40) L 12/09/23 05:30
Hgb 8.7 g/dL (12.0-16.0) L 12/09/23 05:30
Hct 24.9 % (37.0-47.0) L 12/09/23 05:30
Plt Count 116 10^3/uL (130-400) L 12/09/23 05:30
Sodium 143 mmol/L (135-145) 12/09/23 05:30
Potassium 4.8 mmol/L (3.5-5.1) 12/09/23 05:30
Chloride 107 mmol/L (98-107) 12/09/23 05:30
Carbon Dioxide 20 mmol/L (22-30) L 12/09/23 05:30
BUN 49 mg/dl (7-17) H 12/09/23 05:30
Creatinine 4.0 mg/dL (0.6-1.0) H 12/09/23 05:30
eGFR 12.07 12/09/23 05:30
Glucose 135 mg/dl (70-99) H 12/09/23 05:30
Calcium 8.3 mg/dl (8.4-10.2) L 12/09/23 05:30
Albumin 4.4 g/dl (3.5-5.0) 12/07/23 15:32
Physical Exam
-
Vital Signs:
Vital Signs
Temp Pulse Resp BP Pulse Ox
98.5 F 62 17 120/56 94
12/09/23 07:41 12/09/23 07:41 12/09/23 07:41 12/09/23 07:41 12/09/23 07:41
Cardiovascular:: Regular rate and rhythm
Respiratory:: Bilateral: CTA
Lung Excursion:: Normal
Abdomen:: Nontender and Soft
Extremity Edema:: None: Bilateral:
Thompson Catheter: No
[2023-12-09 11:23] VITALS: BP 118/65
--- NOTE | 2023-12-09 11:41 | W.PN.UPDATE ---
Update Note
Progress Note Update
patient seen chart reviewed. mother at bedside. spoke with nursing. the patient is in a somewhat better frame of mind today. nephrostomy tube placed. she does have some questions....how will she be able to get dressed and go to work with external
urinary bag. we brainstormed how this might be accomplished. she was pleased w dr abbott felt he had been warm and kind. she said she almost refused to have the procedure but she felt [facility] had also been supportive. she has more questions re
duration of tube in placement...if renal function improves can it be removed. i encouraged her to keep a list of her questions and to ask them. she was happy that she slept better with the ativan last evening instead of xanax. there is some tiny
improvement in cr today. mother brought up that she needs to eat and drink more consistently. patient reports that for years she has had little or no appetite. she has a lot of food aversions....and even going through the menu in detail it was
difficult to find things she felt she might eat with interest. suggested spool carrier but she said she already spoke to her and it was not very helpful. patient expressed concern about mother having to visit her dad in [place] and her here at . mother
told her she should not feel guilty...mom wants to be here and be supportive to her d. will follow
[2023-12-09] MEDS: MAGNESIUM SULFATE 50 IV (12:01)
--- NOTE | 2023-12-09 12:32 | W.PN.URO.CBU ---
Today's Communication / Plan
-
continue perc tube
Assessment / Plan
-
ARF due to bilateral ureteral obstruction- on left combo of xrt stx (known) and pelvic mass- on right due to pelvic mass
suspected recurrent cervical ca
pt only agreed to right perc tube- refused thompson
urine clear
her renal function is stable- hopeful for recovery with high outpt from perc tube
bladder sx's due to mass- can use pyridium/ditropan/etc
ideally pt would have bilateral percs- but she refuses
not much left to do urologically- long conversation with pt and mother at bedside- when medically stable- discharge with perc and outpt f/u with [facility] to discuss options
[facility] consult for help with home management of perc tube
Diagnosis
-
Date of Service: December 09, 2023
-
Patient Diagnosis:
ARF
bilateral ureteral obstruction- chronic on left- acute right- likely malignant
Subjective
-
pt only agreed to right perc yesterday
high output- cr essentially unchanged
urine clear
please note- urology did NOT make a dispo on thompson- pt demanded it be removed
Objective
-
Vital Signs
Temp Pulse Resp BP Pulse Ox
98.6 F 68 17 118/65 97
12/09/23 11:23 12/09/23 11:23 12/09/23 11:23 12/09/23 11:23 12/09/23 11:23
Intake and Output
12/08/23 12/09/23 12/10/23
06:59 06:59 06:59
Intake Total 1000 / 1000 480 / 480
Output Total 400 / 400 2250 / 2250
Balance 600 / 600 -1770 / -1770
Intake:
Oral fluids 360 / 360 480 / 480
IV fluids (Total) 640 / 640
Output:
Emesis 100 / 100
Urinary Drain Output (Total) 2249 / 2249
Right Nephrostomy 2249 / 2249
Urine, Thompson 300 / 300
Other:
Number of approximated SMALL 2
amounts of urine
Number of approximated MODERATE 2 2
amounts of urine
Laboratory Results
12/09/23 05:30
Review of Systems
-
Constitutional: Fatigue
Respiratory: No Symptoms
Cardiac: No Symptoms
Abdomen/GI: Nausea
: Frequency
Physical Exam
-
General - no acute distress
Abdomen - soft, non-tender, right perc in place
Counseling
-
30 minutes spent counselling pt and mother on clinical course and options
[2023-12-09 12:59] LABS: Hematocrit 24.9 % (37.0-47.0); Hemoglobin 8.7 g/dL (12.0-16.0)
[2023-12-09 15:55] VITALS: BP 119/63
[2023-12-09] MEDS: DILAUDID 0.25 MG IV (18:16)
[2023-12-09 19:22] VITALS: BP 138/65
--- NOTE | 2023-12-09 21:33 | PTCARENOTE ---
Pt complaining of 10/10 migraine with nausea. Stated that tylenol does not help and takes excedrin at home. AUTO BRAKE TECHNICIAN made aware. Order obtained for compazine, see MAR. Care ongoing.
[2023-12-09] MEDS: ATIVAN 1 MG PO (21:35)
[2023-12-09] MEDS: COMPAZINE 5 MG IV (21:49)
[2023-12-09 23:09] VITALS: BP 115/61
--- NOTE | 2023-12-10 00:50 | PTCARENOTE ---
Pt complaining of 10/10 migraine with nausea. Stated that tylenol does not help and takes excedrin at home. UI ARCHITECT made aware. Order obtained for compazine, see MAR. Care ongoing.
[2023-12-10 03:12] VITALS: BP 128/67
[2023-12-10 06:00] VITALS: BMI 16.6
[2023-12-10 07:09] LABS: Hematocrit 28.5 % (37.0-47.0); Hemoglobin 9.9 g/dL (12.0-16.0); Mean Corp Hgb Conc. 34.7 g/dL (33.0-37.0); Mean Corpuscular Volume 86.4 fL (81.0-99.0); Mean Platelet Volume 10.4 fL (7.4-10.4); Platelet Count 125 10^3/uL (130-400); Red Cell Dist. Width 13.5 % (11.5-14.5); White Blood Cell Count 5.2 10^3/uL (4.8-10.8)
[2023-12-10] MEDS: TYLENOL 650 MG PO (07:27)
[2023-12-10] MEDS: PROZAC 60 MG PO (07:27)
[2023-12-10] MEDS: DEPAKOTE (12 HR RELEASE) 500 MG PO (07:28)
[2023-12-10] MEDS: MAG-TAB SR 84 MG PO (07:30)
[2023-12-10] MEDS: VITAMIN D3 (cholecalciferol) PO (07:30)
[2023-12-10] MEDS: VITAMIN C PO (07:30)
--- NOTE | 2023-12-10 07:32 | W.PN.HOSP.TC ---
Today's Communication/Plan
-
monitor renal function
prn antiemetic
pain control
check stool studies
Assessment / Plan
Assessment / Plan
Physical Exam
General: No pallor, cyanosis, or jaundice. Cachectic Appearance
HEENT: Throat clear. PERRLA Normocephalic atraumatic
NECK: Supple. No JVD Carotid Bruits
RESPIRATORY: Lungs clear to auscultation. No crackles wheezes stridor
CVS: S1, S2 normal. RRR. No murmur, rub or gallop.
ABDOMEN: Soft, non-tender. No distension. BS+/normal.
EXTREMITIES: No peripheral cyanosis or edema.
MEDICAL EDUCATION MANAGER: AOx3. No focal deficits.
IMPRESSION:
63F hx cervical cancer, left kidney atrophy/dysfunction/chronic hydronephrosis, bipolar disorder/depression p/w urinary frequency, nausea, general malaise, fatigue ongoing since end of October, pcp evaluated 1 week ago and started pt on ciprofloxacin
suspected UTI. Prescribed 7 days, patient completed 3 days without any relief or improvement in symptoms prompting ED evaluation. Denies fevers, abdominal pain, back/flank pain, or dysuria. Reported having labwork 2 weeks ago where her Cr was
noted at 1.7. VSS, labs notable for significant rise in Cr 4.3. CT was also notable for new moderate right-sided hydronephrosis. No ureteral stones were noted. However, per report study limited by surgical clips from past hysterectomy.
PLAN:
#LUCHO
#New Right Hydronephrosis no flank pain likely due to cancer resurgence resulting in outlet obstruction
#Possible urinary frequency d/t urinary retention overflow incontinence
#Hyperkalemia resolved
once lokelma
Nephro eval appreciated
IVF completed
[facility] patient unfortunately could not tolerate since discontinued
Monitor Renal Function
urology IR eval appreciated right nephrostomy tube placed (b/l was recommended but patient refused)
Urinalysis not suggestive of UTI at this time, though patient did complete 3 days cipro
Monitor for signs of systemic infection off abx for now
If develops fever
-check blood cultures
-start empiric ceftriaxone
#Bipolar/depression
#Insomnia
Cont home divalproex, fluoxetine, bedtime Xanax
Valproate level therapeutic
Psych eval appreciated
#Cachectic Appearance
#Endorses chronic poor appetite
#Cervical ca hx hysterectomy radiation chemo
#suspected cancer resurgence, pt follows [facility] urology
nutrition eval
Follow up with [facility] recommended
#Anemia
monitor H&H
drop since admission likely dilutional
#Hypomagnesemia
monitor and replete as necessary
#Loose Stools
follow up stool studies
dvt ppx scd
DNR
Discussed with patient and patient's mother Grecia
I spent a total of 50 minutes with the patient or on the floor. More than 50% of this time involved counseling and coordination of care.
Anticipated Discharge: 24 - 48 hours
Subjective/Interval History
-
Date of Service: December 10, 2023
Reports overall feeling well/improved. Intermittent nausea poor appetite persists. Hematuria also noted on right nephrostomy tube
Objective Data
-
Labs:
Laboratory Results
12/10/23
06:47
WBC 5.2
Hgb 9.9 L
Hct 28.5 L
Plt Count 125 L
Sodium Pending
Potassium Pending
Chloride Pending
Carbon Dioxide Pending
BUN Pending
Creatinine Pending
Glucose Pending
Calcium Pending
Vital Signs:
Vital Signs
Temp Pulse Resp BP Pulse Ox
98.7 F 78 16 128/67 97
12/10/23 03:12 12/10/23 03:12 12/10/23 03:12 12/10/23 03:12 12/10/23 03:12
I&O
12/09/23 12/10/23 12/11/23
06:59 06:59 06:59
Intake Total 480 / 480 120 / 120
Output Total 2250 / 2250 2750 / 2750 700 / 700
Balance -1770 / -1770 -2630 / -2630 -700 / -700
[2023-12-10 07:49] VITALS: BP 116/79
[2023-12-10 08:31] LABS: Blood Urea Nitrogen 34 mg/dl (7-17); Carbon Dioxide 19 mmol/L (22-30); Chloride 106 mmol/L (98-107); Estimated Creatinine Clearance 14 ml/min; Glucose 97 mg/dl (70-99); Magnesium 1.6 mg/dl (1.6-2.3); Potassium 4.4 mmol/L (3.5-5.1); Sodium 141 mmol/L (135-145); eGFR 17.75
--- NOTE | 2023-12-10 09:41 | W.PN.URO.CBU ---
Today's Communication / Plan
-
continue perc
call with any further questions
Assessment / Plan
-
ARF due to bilateral ureteral obstruction- on left combo of xrt stx (known) and pelvic mass- on right due to pelvic mass
suspected recurrent cervical ca
pt only agreed to right perc tube- refused thompson
urine clear
her renal function is stable- hopeful for recovery with high outpt from perc tube
bladder sx's due to mass- can use pyridium/ditropan/etc
ideally pt would have bilateral percs- but she refuses
plan to continue single perc
nephrology following
pt to schedule appointment at [facility]
are available for any ?'s- did emphasize to pt that perc will need exchange in 12 weeks and that she can contact our office to arrange
Diagnosis
-
Date of Service: December 10, 2023
-
Patient Diagnosis:
ARF
bilateral ureteral obstruction- chronic on left- acute right- likely malignant
s/p right nephrostomy 12/07
Subjective
-
pt with migraine
good UO from perc
cr downtrending
Objective
-
Vital Signs
Temp Pulse Resp BP Pulse Ox
98.5 F 74 16 116/79 96
12/10/23 07:49 12/10/23 07:49 12/10/23 07:49 12/10/23 07:49 12/10/23 07:49
Intake and Output
12/09/23 12/10/23 12/11/23
06:59 06:59 06:59
Intake Total 480 / 480 120 / 120
Output Total 2250 / 2250 2750 / 2750 700 / 700
Balance -1770 / -1770 -2630 / -2630 -700 / -700
Intake:
Oral fluids 480 / 480 120 / 120
Output:
Urinary Drain Output (Total) 2250 / 2250 2750 / 2750 700 / 700
Right Nephrostomy 2250 / 2250 2750 / 2750 700 / 700
Other:
Number of approximated SMALL 2
amounts of urine
Number of approximated MODERATE 2
amounts of urine
Number of immeasurable emeses? 1
Laboratory Results
12/10/23 06:47
12/10/23 06:47
Review of Systems
-
Constitutional: Fatigue
Respiratory: No Symptoms
Cardiac: No Symptoms
Abdomen/GI: Nausea (improved)
Neurological: Headache
Physical Exam
-
General - no acute distress
Abdomen - right perc in place
[2023-12-10 09:58] LABS: Phosphorus 4.9 mg/dl (2.5-4.5)
--- NOTE | 2023-12-10 10:18 | W.PN.NEPH.PH ---
Today's Communication / Plan
-
follow BMP
Assessment/Plan
-
Assessment
Acute kidney injury
New right hydronephrosis
Chronic left hydronephrosis, essential solitary functioning right kidney
History of cervical cancer with hysterectomy and clips
Migraines
Plan
follow BMP
maintain right PCN
eventually will need bx of pelvic mass as she would not do additional tx for CA if recurrent
-
-
Date of Service: December 10, 2023
CC / HPI / ROS
-
Chief Complaint:
LUCHO
History of Present Illness:
LUCHO/Cr down to 2.9
Hbg stable 9.9
met acidosis stable bicarb 19
BP stable
right PCN in place
Review of Systems:
no fever
no n/v
Labs
-
Labs:
WBC 5.2 10^3/uL (4.8-10.8) 12/10/23 06:47
RBC 3.30 10^6/uL (4.20-5.40) L 12/10/23 06:47
Hgb 9.9 g/dL (12.0-16.0) L 12/10/23 06:47
Hct 28.5 % (37.0-47.0) L 12/10/23 06:47
Plt Count 125 10^3/uL (130-400) L 12/10/23 06:47
Sodium 141 mmol/L (135-145) 12/10/23 06:47
Potassium 4.4 mmol/L (3.5-5.1) 12/10/23 06:47
Chloride 106 mmol/L (98-107) 12/10/23 06:47
Carbon Dioxide 19 mmol/L (22-30) L 12/10/23 06:47
BUN 34 mg/dl (7-17) H 12/10/23 06:47
Creatinine 2.9 mg/dL (0.6-1.0) H 12/10/23 06:47
eGFR 17.75 12/10/23 06:47
Glucose 97 mg/dl (70-99) 12/10/23 06:47
Calcium 9.0 mg/dl (8.4-10.2) 12/10/23 06:47
Phosphorus 4.9 mg/dl (2.5-4.5) H 12/10/23 06:47
Albumin 4.4 g/dl (3.5-5.0) 12/07/23 15:32
Physical Exam
-
Vital Signs:
Vital Signs
Temp Pulse Resp BP Pulse Ox
98.5 F 74 16 116/79 96
12/10/23 07:49 12/10/23 07:49 12/10/23 07:49 12/10/23 07:49 12/10/23 07:49
Cardiovascular:: Regular rate and rhythm
Respiratory:: Bilateral: CTA
Lung Excursion:: Normal
Abdomen:: Nontender and Soft
Bowel Sounds:: Normal
Extremity Edema:: None: Bilateral:
[2023-12-10 11:32] LABS: Urine Albumin 2+ (Neg - Trace); Urine Bilirubin Negative (Negative); Urine Character Slightly Cloudy (Clear); Urine Color Red; Urine Glucose Negative (Negative); Urine Ketone Negative (Negative); Urine Leukocyte 1+ (Negative); Urine Nitrite Negative (Negative); Urine Occult Blood 4+ (Negative); Urine Specific Gravity 1.015 (<1.030); Urine Urobilinogen Negative (Neg - 1+)
--- NOTE | 2023-12-10 11:37 | W.PN.UPDATE ---
Update Note
Progress Note Update
patient seen chart reviewed. spoke with nursing. mother and patient's brother are at bedside. patient was pleased to hear that creatinine is better (2.9). we discussed that hopefully this is the beginning of progress towards getting her out of
the hospital [facility] to [facility] for assessment and plan of treatment for the cervical cancer and urinary obstruction. she is still struggling to eat and drink adequately. she just has no appetite. i do not think this is as a result of her psych
medications. (depakote should actually fish bait picker the appetite). offered support. she does seem to be in a better frame of mind today than when she was seen on wednesday. psych will see her in the am
[2023-12-10 11:46] VITALS: BP 109/60
[2023-12-10 12:30] LABS: Urine Bacteria Few (Negative); Urine Red Blood Cell 70-80 /HPF (0-2); Urine Squamous Cell 0-2 /LPF (Few); Urine White Cell 0-2 /HPF (0-5)
--- NOTE | 2023-12-10 13:37 | CM ---
spoke with pt in room offered VN she declined .
she has nephrostomy tube.
IMM reviewed signed on chart,
SO will drive her home.
PLAN Home declined VN
[2023-12-10 16:06] VITALS: BP 114/70
[2023-12-10 19:57] VITALS: BP 117/72
[2023-12-10] MEDS: ATIVAN 1 MG PO (21:34)
[2023-12-10 23:58] VITALS: BP 101/68
[2023-12-11 03:18] VITALS: BP 108/57
[2023-12-11 06:00] VITALS: BMI 15.8
[2023-12-11 07:05] LABS: Hematocrit 30.3 % (37.0-47.0); Hemoglobin 10.5 g/dL (12.0-16.0); Mean Corp Hgb Conc. 34.7 g/dL (33.0-37.0); Mean Corpuscular Hgb 30.2 pg (27.0-31.0); Mean Corpuscular Volume 87.1 fL (81.0-99.0); Platelet Count 137 10^3/uL (130-400); Red Blood Cell Count 3.48 10^6/uL (4.20-5.40); Red Cell Dist. Width 13.3 % (11.5-14.5); White Blood Cell Count 4.6 10^3/uL (4.8-10.8)
[2023-12-11 07:26] LABS: Blood Urea Nitrogen 31 mg/dl (7-17); Calcium 9.1 mg/dl (8.4-10.2); Carbon Dioxide 28 mmol/L (22-30); Chloride 100 mmol/L (98-107); Estimated Creatinine Clearance 16 ml/min; Glucose 83 mg/dl (70-99); Magnesium 1.4 mg/dl (1.6-2.3); Potassium 4.4 mmol/L (3.5-5.1); Sodium 142 mmol/L (135-145); eGFR 21.21
--- NOTE | 2023-12-11 07:27 | W.PN.HOSP.TC ---
Today's Communication/Plan
-
resume IVF
ensure clear supplement
monitor renal function
Imodium prn
Assessment / Plan
Assessment / Plan
Physical Exam
General: No pallor, cyanosis, or jaundice. Cachectic Appearance
HEENT: Throat clear. PERRLA Normocephalic atraumatic
NECK: Supple. No JVD Carotid Bruits
RESPIRATORY: Lungs clear to auscultation. No crackles wheezes stridor
CVS: S1, S2 normal. RRR. No murmur, rub or gallop.
ABDOMEN: Soft, non-tender. No distension. BS+/normal.
EXTREMITIES: No peripheral cyanosis or edema.
MOTHER SUPERIOR: AOx3. No focal deficits.
IMPRESSION:
63F hx cervical cancer, left kidney atrophy/dysfunction/chronic hydronephrosis, bipolar disorder/depression p/w urinary frequency, nausea, general malaise, fatigue ongoing since end of October, pcp evaluated 1 week ago and started pt on ciprofloxacin
suspected UTI. Prescribed 7 days, patient completed 3 days without any relief or improvement in symptoms prompting ED evaluation. Denies fevers, abdominal pain, back/flank pain, or dysuria. Reported having labwork 2 weeks ago where her Cr was
noted at 1.7. VSS, labs notable for significant rise in Cr 4.3. CT was also notable for new moderate right-sided hydronephrosis. No ureteral stones were noted. However, per report study limited by surgical clips from past hysterectomy.
PLAN:
#LUCHO
#New Right Hydronephrosis no flank pain likely due to cancer resurgence resulting in outlet obstruction
#Possible urinary frequency d/t urinary retention overflow incontinence
#Hyperkalemia resolved
once lokelma
Nephro eval appreciated
IVF completed, resumed due to diarrhea slowing improvement in kidney function
[facility] patient unfortunately could not tolerate since discontinued
Monitor Renal Function
urology IR eval appreciated right nephrostomy tube placed (b/l was recommended but patient refused)
Urinalysis not suggestive of UTI at this time, cultures consistently neg of antibiotics (urinalysis culture repeated d/t hematuria right nephrostomy tube discussed with urology likely d/t irritation recommended to encourage hydration)
#Bipolar/depression
#Insomnia
Cont home divalproex, fluoxetine, bedtime Xanax
Valproate level therapeutic
Psych eval appreciated
#Cachectic Appearance
#Endorses chronic poor appetite
#Cervical ca hx hysterectomy radiation chemo
#suspected cancer resurgence, pt follows [facility] u[facility]
nutrition eval
Follow up with [facility] recommended
Ensure Clear Supplement (unable to tolerate Ensure w/ milk)
#Anemia
monitor H&H
drop since admission likely dilutional
Improving
#Hypomagnesemia
monitor and replete as necessary
#Loose Stools/diarrhea
Cdiff neg
stool cultures pending but suspicion low
imodium prn
dvt ppx scd
DNR
Discussed with patient and patient's mother Grecia
I spent a total of 50 minutes with the patient or on the floor. More than 50% of this time involved counseling and coordination of care.
Anticipated Discharge: 24 - 48 hours
Subjective/Interval History
-
Date of Service: December 11, 2023
Reports diarrhea. Hematuria right nephrostomy tube persists. Poor appetite oral intake also persists.
Objective Data
-
Labs:
Laboratory Results
12/11/23
06:30
WBC 4.6 L
Hgb 10.5 L
Hct 30.3 L
Plt Count 137
Sodium 142
Potassium 4.4
Chloride 100
Carbon Dioxide 28
BUN 31 H
Creatinine 2.5 H
Glucose 83
Calcium 9.1
Vital Signs:
Vital Signs
Temp Pulse Resp BP Pulse Ox
97.8 F 75 16 108/57 97
12/11/23 03:18 12/11/23 03:18 12/11/23 03:18 12/11/23 03:18 12/11/23 03:18
I&O
12/10/23 12/11/23 12/12/23
06:59 06:59 06:59
Intake Total 120 / 120 660 / 900 240 / 240
Output Total 2750 / 2750 1865 / 2590 725 / 725
Balance -2630 / -2630 -1205 / -1690 -485 / -485
[2023-12-11 07:35] VITALS: BP 115/70
[2023-12-11] MEDS: DEPAKOTE (12 HR RELEASE) 500 MG PO (08:14)
[2023-12-11] MEDS: PROZAC 60 MG PO (08:14)
[2023-12-11] MEDS: MAG-TAB SR 84 MG PO (08:14)
--- NOTE | 2023-12-11 09:06 | W.PN.NEPH.PH ---
Today's Communication / Plan
-
supplements
Assessment/Plan
-
Assessment
Acute kidney injury
New right hydronephrosis
Chronic left hydronephrosis, essential solitary functioning right kidney
History of cervical cancer with hysterectomy and clips
Migraines
Plan
follow BMP
maintain right PCN
eventually will need bx of pelvic mass as she would not do additional tx for CA if recurrent
add ensure clear
-
-
Date of Service: December 11, 2023
CC / HPI / ROS
-
Chief Complaint:
LUCHO
History of Present Illness:
LUCHO/Cr down to 2.5
Hbg stable 10.5
met acidosis better
BP stable
right PCN in place
Review of Systems:
no fever
no n/v
Labs
-
Labs:
WBC 4.6 10^3/uL (4.8-10.8) L 12/11/23 06:30
RBC 3.48 10^6/uL (4.20-5.40) L 12/11/23 06:30
Hgb 10.5 g/dL (12.0-16.0) L 12/11/23 06:30
Hct 30.3 % (37.0-47.0) L 12/11/23 06:30
Plt Count 137 10^3/uL (130-400) 12/11/23 06:30
Sodium 142 mmol/L (135-145) 12/11/23 06:30
Potassium 4.4 mmol/L (3.5-5.1) 12/11/23 06:30
Chloride 100 mmol/L (98-107) 12/11/23 06:30
Carbon Dioxide 28 mmol/L (22-30) 12/11/23 06:30
BUN 31 mg/dl (7-17) H 12/11/23 06:30
Creatinine 2.5 mg/dL (0.6-1.0) H 12/11/23 06:30
eGFR 21.21 12/11/23 06:30
Glucose 83 mg/dl (70-99) 12/11/23 06:30
Calcium 9.1 mg/dl (8.4-10.2) 12/11/23 06:30
Phosphorus 4.9 mg/dl (2.5-4.5) H 12/10/23 06:47
Albumin 4.4 g/dl (3.5-5.0) 12/07/23 15:32
Physical Exam
-
Vital Signs:
Vital Signs
Temp Pulse Resp BP Pulse Ox
98.4 F 68 16 115/70 97
12/11/23 07:35 12/11/23 07:35 12/11/23 07:35 12/11/23 07:35 12/11/23 07:35
Cardiovascular:: Regular rate and rhythm
Respiratory:: Bilateral: CTA
Lung Excursion:: Normal
Abdomen:: Nontender and Soft
Bowel Sounds:: Normal
Extremity Edema:: None: Bilateral:
[2023-12-11] MEDS: VITAMIN C PO (09:12)
[2023-12-11] MEDS: VITAMIN D3 (cholecalciferol) PO (09:13)
[2023-12-11] MEDS: MAGNESIUM SULFATE 50 IV (11:04)
[2023-12-11] MEDS: NSS 1000 IV ×2 (11:10→22:29)
[2023-12-11 11:20] VITALS: BP 135/63
--- NOTE | 2023-12-11 13:06 | W.PN.UPDATE ---
Update Note
Progress Note Update
Psychiatry follow up. Patient reports being in contact with her outpatient psychiatrist of many years Dr. Roy while in the hospital and states she has a tentative appointment scheduled with him for 12/13 if she is discharged by then. She
showed me her text messages between them and provided me his contact # ([phone]). She states she continues to struggle with depression/anxiety since both her own health issues and her father's have worsened. Reports strong family support.
MSE- thin, sitting on bed. cooperative. tearful at times. good eye contact. fluent speech. slowed thought process but goal directed. Denies active SI. Fair I/J.
A/P- 63 yo female with bipolar depression and anxiety. Continue current medications. Check VPA level. tentative follow up with outpatient psychiatrist 12/13. Will check in with her tomorrow.
[2023-12-11 15:37] VITALS: BP 107/62
[2023-12-11 19:39] VITALS: BP 101/59
[2023-12-11] MEDS: ATIVAN 0.5 MG PO (19:57)
--- NOTE | 2023-12-11 20:00 | PTCARENOTE ---
RN was altered to see pt in Room. Pt found in tears, insisting that she 'should have never agreed to get drain', while reaching back and pilling at dressing and tubing on PCN. Pt also verbalizing that she was 'very upset and not one has discussed
why I'm still here, what are they waiting for, why is this happening to me? What did I do to deserve this? who wished this on me. I can't work like this. My father has Parkinson's and just moved to [facility], he needs me. My poor mother has
to take care of us both. If I have to keep this tub I want to , I have no quality of life.' Administered PRN Ativan. Stayed with pt and reviewed notes and plan of care, and support channels, and spoke to her for a period of time until she was in
a calmer, more agreeable state. Pt aggreed to continue with plan of care and was ready for bed. Will continue to monitor and follow plan of care.
[2023-12-11] MEDS: IMODIUM LIQUID 4 MG PO (20:21)
[2023-12-11] MEDS: ATIVAN 1 MG PO (22:30)
[2023-12-11] MEDS: DILAUDID 0.25 MG IV (22:36)
[2023-12-11 23:28] VITALS: BP 114/58
[2023-12-12 03:14] VITALS: BP 113/98
[2023-12-12 06:00] VITALS: BMI 15.3
--- NOTE | 2023-12-12 07:16 | W.PN.HOSP.TC ---
Today's Communication/Plan
-
cont IVF support
encourage oral intake, Ensure Clear
monitor renal function
monitor electrolytes, replete as necessary
Assessment / Plan
Assessment / Plan
Physical Exam
General: No pallor, cyanosis, or jaundice. Cachectic Appearance
HEENT: Throat clear. PERRLA Normocephalic atraumatic
NECK: Supple. No JVD Carotid Bruits
RESPIRATORY: Lungs clear to auscultation. No crackles wheezes stridor
CVS: S1, S2 normal. RRR. No murmur, rub or gallop.
ABDOMEN: Soft, non-tender. No distension. BS+/normal.
EXTREMITIES: No peripheral cyanosis or edema.
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 No focal deficits.
IMPRESSION:
63F hx cervical cancer, left kidney atrophy/dysfunction/chronic hydronephrosis, bipolar disorder/depression p/w urinary frequency, nausea, general malaise, fatigue ongoing since end of October, pcp evaluated 1 week ago and started pt on ciprofloxacin
suspected UTI. Prescribed 7 days, patient completed 3 days without any relief or improvement in symptoms prompting ED evaluation. Denies fevers, abdominal pain, back/flank pain, or dysuria. Reported having labwork 2 weeks ago where her Cr was
noted at 1.7. VSS, labs notable for significant rise in Cr 4.3. CT was also notable for new moderate right-sided hydronephrosis. No ureteral stones were noted. However, per report study limited by surgical clips from past hysterectomy.
PLAN:
#LUCHO
#New Right Hydronephrosis no flank pain likely due to cancer resurgence resulting in outlet obstruction
#Possible urinary frequency d/t urinary retention overflow incontinence
#Hyperkalemia resolved
once lokelma
Nephro eval appreciated
IVF previously completed, resumed due to diarrhea slowing improvement in kidney function
[place] patient unfortunately could not tolerate since discontinued
Monitor Renal Function
urology IR eval appreciated right nephrostomy tube placed (b/l was recommended but patient refused)
Urinalysis not suggestive of UTI at this time, cultures consistently neg of antibiotics (urinalysis culture repeated d/t hematuria right nephrostomy tube discussed with urology, likely d/t irritation recommended to encourage hydration)
#Bipolar/depression
#Insomnia
Cont home divalproex, fluoxetine, bedtime Xanax
Valproate level therapeutic
Psych eval appreciated
#Cachectic Appearance
#Endorses chronic poor appetite
#Cervical ca hx hysterectomy radiation chemo
#suspected cancer resurgence, pt follows [facility] urology
nutrition eval
Follow up with [facility] recommended
Ensure Clear Supplement (unable to tolerate Ensure w/ milk)
#Anemia
monitor H&H
drop since admission likely dilutional
Improving
#Hypomagnesemia
monitor and replete as necessary
#Loose Stools/diarrhea
Cdiff neg
stool cultures pending but suspicion low
imodium prn, symptoms since improved
dvt ppx scd
DNR
Discussed with patient and patient's mother Grecia
I spent a total of 50 minutes with the patient or on the floor. More than 50% of this time involved counseling and coordination of care.
Anticipated Discharge: 24 - 48 hours
Subjective/Interval History
-
Date of Service: December 12, 2023
No acute distress. Reports improvement diarrhea w/ imodium. Appetite remains poor
Objective Data
-
Labs:
Laboratory Results
12/12/23
06:00
WBC Pending
Hgb Pending
Hct Pending
Plt Count Pending
Sodium Pending
Potassium Pending
Chloride Pending
Carbon Dioxide Pending
BUN Pending
Creatinine Pending
Glucose Pending
Calcium Pending
Vital Signs:
Vital Signs
Temp Pulse Resp BP Pulse Ox
98.0 F 75 17 113/98 98
12/12/23 03:14 12/12/23 03:14 12/12/23 03:14 12/12/23 03:14 12/12/23 03:14
I&O
12/11/23 12/12/23 12/13/23
06:59 06:59 06:59
Intake Total 660 / 900 2039 / 2039
Output Total 1865 / 2590 3065 / 3065
Balance -1205 / -1690 -1025 / -1025
[2023-12-12 07:45] VITALS: BP 110/58
[2023-12-12 09:00] LABS: Depakane 45.2 ug/ml (50.0-120.0)
[2023-12-12 09:17] LABS: Hematocrit 26.4 % (37.0-47.0); Hemoglobin 9.1 g/dL (12.0-16.0); Mean Corp Hgb Conc. 34.5 g/dL (33.0-37.0); Mean Corpuscular Hgb 29.1 pg (27.0-31.0); Mean Corpuscular Volume 84.3 fL (81.0-99.0); Mean Platelet Volume 10.4 fL (7.4-10.4); Platelet Count 118 10^3/uL (130-400); Red Blood Cell Count 3.13 10^6/uL (4.20-5.40); Red Cell Dist. Width 13.4 % (11.5-14.5); White Blood Cell Count 3.4 10^3/uL (4.8-10.8)
[2023-12-12 09:22] LABS: Blood Urea Nitrogen 27 mg/dl (7-17); Calcium 8.6 mg/dl (8.4-10.2); Carbon Dioxide 28 mmol/L (22-30); Chloride 105 mmol/L (98-107); Estimated Creatinine Clearance 18 ml/min; Glucose 84 mg/dl (70-99); Magnesium 1.6 mg/dl (1.6-2.3); Potassium 4.4 mmol/L (3.5-5.1); Sodium 141 mmol/L (135-145); eGFR 26.15
[2023-12-12] MEDS: DEPAKOTE (12 HR RELEASE) 500 MG PO (09:29)
[2023-12-12] MEDS: MAG-TAB SR 84 MG PO (09:29)
[2023-12-12] MEDS: VITAMIN D3 (cholecalciferol) 25 MCG PO (09:29)
[2023-12-12] MEDS: PROZAC 60 MG PO (09:29)
[2023-12-12] MEDS: VITAMIN C 500 MG PO (09:29)
[2023-12-12] MEDS: NSS 1000 IV ×2 (09:31→20:33)
--- NOTE | 2023-12-12 09:43 | W.PN.NEPH.PH ---
Today's Communication / Plan
-
follow BMP
Assessment/Plan
-
Assessment
Acute kidney injury
New right hydronephrosis
Chronic left hydronephrosis, essential solitary functioning right kidney
History of cervical cancer with hysterectomy and clips
Migraines
Plan
follow BMP
maintain right PCN
eventually will need bx of pelvic mass as she would not do additional tx for CA if recurrent
add ensure clear
-
-
Date of Service: December 12, 2023
CC / HPI / ROS
-
Chief Complaint:
LUCHO
History of Present Illness:
LUCHO/Cr down to 2.1
Hgb down to 9.1
met acidosis better
BP stable
right PCN in place
Review of Systems:
no fever
no n/v
Labs
-
Labs:
WBC 3.4 10^3/uL (4.8-10.8) L 12/12/23 08:24
RBC 3.13 10^6/uL (4.20-5.40) L 12/12/23 08:24
Hgb 9.1 g/dL (12.0-16.0) L 12/12/23 08:24
Hct 26.4 % (37.0-47.0) L 12/12/23 08:24
Plt Count 118 10^3/uL (130-400) L 12/12/23 08:24
Sodium 141 mmol/L (135-145) 12/12/23 08:24
Potassium 4.4 mmol/L (3.5-5.1) 12/12/23 08:24
Chloride 105 mmol/L (98-107) 12/12/23 08:24
Carbon Dioxide 28 mmol/L (22-30) 12/12/23 08:24
BUN 27 mg/dl (7-17) H 12/12/23 08:24
Creatinine 2.1 mg/dL (0.6-1.0) H 12/12/23 08:24
eGFR 26.15 12/12/23 08:24
Glucose 84 mg/dl (70-99) 12/12/23 08:24
Calcium 8.6 mg/dl (8.4-10.2) 12/12/23 08:24
Phosphorus 4.9 mg/dl (2.5-4.5) H 12/10/23 06:47
Albumin 4.4 g/dl (3.5-5.0) 12/07/23 15:32
Physical Exam
-
Vital Signs:
Vital Signs
Temp Pulse Resp BP Pulse Ox
98.2 F 82 16 110/58 97
12/12/23 07:45 12/12/23 07:45 12/12/23 07:45 12/12/23 07:45 12/12/23 07:45
Cardiovascular:: Regular rate and rhythm
Respiratory:: Bilateral: Coarse
Lung Excursion:: Normal
Abdomen:: Nontender and Soft
Bowel Sounds:: Normal
Extremity Edema:: None: Bilateral:
[2023-12-12 11:17] VITALS: BP 103/60
--- NOTE | 2023-12-12 12:53 | W.PN.UPDATE ---
Update Note
Progress Note Update
Psychiatry follow up. Patient is currently sleeping but arousable. She continues to struggle with depression/anxiety. Reports strong family support. Has a current visitor who is also sleeping.
VPA 45.2 today
A/P- 63 yo female with bipolar depression and anxiety. Continue current medications. Management will be continued as an outpatient. Has tentative follow up with outpatient psychiatrist Dr. Iraheta on [phone] if discharged by then.
[2023-12-12 16:00] VITALS: BP 110/57
--- NOTE | 2023-12-12 19:30 | PTCARENOTE ---
During walking rounds pt found sleeping comfortably in bed. Spoke with pt briefly about how she was doing today and plan of care. Pt said she was doing much better, and appeared as such. Pt did ask for PRN Ativan. Will review chart and continue plan
of care.
[2023-12-12] MEDS: ATIVAN 0.5 MG PO (20:33)
[2023-12-12 23:00] VITALS: BP 127/60
[2023-12-13] MEDS: ATIVAN 1 MG PO ×2 (00:11→21:27)
[2023-12-13 06:00] VITALS: BMI 15.4
[2023-12-13] MEDS: NSS 1000 IV (06:16)
[2023-12-13] MEDS: PROZAC 60 MG PO (07:42)
[2023-12-13] MEDS: MAG-TAB SR 84 MG PO (07:42)
[2023-12-13] MEDS: DEPAKOTE (12 HR RELEASE) 500 MG PO (07:42)
[2023-12-13] MEDS: VITAMIN D3 (cholecalciferol) PO (07:45)
[2023-12-13] MEDS: VITAMIN C PO (07:45)
[2023-12-13 07:53] VITALS: BP 136/72
[2023-12-13 08:19] LABS: Hematocrit 25.3 % (37.0-47.0); Hemoglobin 8.8 g/dL (12.0-16.0); Mean Corp Hgb Conc. 34.8 g/dL (33.0-37.0); Mean Corpuscular Hgb 29.5 pg (27.0-31.0); Mean Corpuscular Volume 84.9 fL (81.0-99.0); Mean Platelet Volume 10.1 fL (7.4-10.4); Platelet Count 122 10^3/uL (130-400); Red Blood Cell Count 2.98 10^6/uL (4.20-5.40); Red Cell Dist. Width 13.1 % (11.5-14.5); White Blood Cell Count 3.7 10^3/uL (4.8-10.8)
[2023-12-13 09:54] LABS: Blood Urea Nitrogen 23 mg/dl (7-17); Calcium 8.6 mg/dl (8.4-10.2); Carbon Dioxide 21 mmol/L (22-30); Chloride 107 mmol/L (98-107); Estimated Creatinine Clearance 21 ml/min; Glucose 83 mg/dl (70-99); Magnesium 1.2 mg/dl (1.6-2.3); Potassium 4.2 mmol/L (3.5-5.1); Sodium 141 mmol/L (135-145); eGFR 31.46
[2023-12-13 15:00] VITALS: BP 114/59
--- NOTE | 2023-12-13 15:38 | W.PN.NEPH.PH ---
Today's Communication / Plan
-
replace mg, d/c IVF
marinol
Assessment/Plan
-
Assessment
Acute kidney injury
New right hydronephrosis
Chronic left hydronephrosis, essential solitary functioning right kidney
History of cervical cancer with hysterectomy and clips
Migraines
Plan
improving renal function cr 1.8
maintain right PCN, non oliguric-d/c IVF
eventually will need bx of pelvic mass as she would not do additional tx for CA if recurrent
Pt also looking to get PET scan too
Mom concern of poor appetite and wants some medication
consider marinol
pt does not like Ensure and can not tolerate dairy products
follow h/h
BP stable
replace mg
-
-
Date of Service: December 13, 2023
CC / HPI / ROS
-
Chief Complaint:
LUCHO
History of Present Illness:
LUCHO/Cr down to 1.8
Hgb down to 8.8
met acidosis better
BP stable
right PCN in place, non oliguric
Review of Systems:
no fever
no n/v
mild hematuria
Labs
-
Labs:
WBC 3.7 10^3/uL (4.8-10.8) L 12/13/23 07:15
RBC 2.98 10^6/uL (4.20-5.40) L 12/13/23 07:15
Hgb 8.8 g/dL (12.0-16.0) L 12/13/23 07:15
Hct 25.3 % (37.0-47.0) L 12/13/23 07:15
Plt Count 122 10^3/uL (130-400) L 12/13/23 07:15
Sodium 141 mmol/L (135-145) 12/13/23 07:16
Potassium 4.2 mmol/L (3.5-5.1) 12/13/23 07:16
Chloride 107 mmol/L (98-107) 12/13/23 07:16
Carbon Dioxide 21 mmol/L (22-30) L 12/13/23 07:16
BUN 23 mg/dl (7-17) H 12/13/23 07:16
Creatinine 1.8 mg/dL (0.6-1.0) H 12/13/23 07:16
eGFR 31.46 12/13/23 07:16
Glucose 83 mg/dl (70-99) 12/13/23 07:16
Calcium 8.6 mg/dl (8.4-10.2) 12/13/23 07:16
Phosphorus 4.9 mg/dl (2.5-4.5) H 12/10/23 06:47
Albumin 4.4 g/dl (3.5-5.0) 12/07/23 15:32
Physical Exam
-
Vital Signs:
Vital Signs
Temp Pulse Resp BP Pulse Ox
98.3 F 73 20 136/72 97
12/13/23 07:53 12/13/23 07:53 12/13/23 07:53 12/13/23 07:53 12/13/23 07:53
Cardiovascular:: Regular rate and rhythm
Respiratory:: Bilateral: CTA
Lung Excursion:: Normal
Abdomen:: Nontender and Soft
Extremity Edema:: None: Bilateral:
[place] Catheter: No
[2023-12-13] MEDS: MAGNESIUM SULFATE 50 IV (15:59)
--- NOTE | 2023-12-13 16:53 | W.PN.HOSP.TC ---
Today's Communication/Plan
-
Monitor creatinine.
Right PCN is in place.
Assessment / Plan
Assessment / Plan
IMPRESSION:
63F hx cervical cancer, left kidney atrophy/dysfunction/chronic hydronephrosis, bipolar disorder/depression p/w urinary frequency, nausea, general malaise, fatigue ongoing since end of October, pcp evaluated 1 week ago and started pt on ciprofloxacin
suspected UTI. Prescribed 7 days, patient completed 3 days without any relief or improvement in symptoms prompting ED evaluation. Denies fevers, abdominal pain, back/flank pain, or dysuria. Reported having labwork 2 weeks ago where her Cr was
noted at 1.7. VSS, labs notable for significant rise in Cr 4.3. CT was also notable for new moderate right-sided hydronephrosis. No ureteral stones were noted. However, per report study limited by surgical clips from past hysterectomy.
PLAN:
#LUCHO
#New Right Hydronephrosis no flank pain likely due to cancer resurgence resulting in outlet obstruction
#Possible urinary frequency d/t urinary retention overflow incontinence
#Hyperkalemia resolved
once lokelma
Nephro eval appreciated
IVF previously completed, resumed due to diarrhea slowing improvement in kidney function
[place] patient unfortunately could not tolerate since discontinued
Monitor Renal Function
urology IR eval appreciated right nephrostomy tube placed (b/l was recommended but patient refused)
Urinalysis not suggestive of UTI at this time, cultures consistently neg of antibiotics (urinalysis culture repeated d/t hematuria right nephrostomy tube discussed with urology, likely d/t irritation recommended to encourage hydration)
#Bipolar/depression
#Insomnia
Cont home divalproex, fluoxetine, bedtime Xanax
Valproate level therapeutic
Psych eval appreciated
#Cachectic Appearance
#Endorses chronic poor appetite
#Cervical ca hx hysterectomy radiation chemo
#suspected cancer resurgence, pt follows [facility] urology
nutrition eval
Follow up with [facility] recommended
Ensure Clear Supplement (unable to tolerate Ensure w/ milk)
#Anemia
monitor H&H
drop since admission likely dilutional
Improving
#Hypomagnesemia
monitor and replete as necessary
#Loose Stools/diarrhea
Cdiff neg
stool cultures pending but suspicion low
imodium prn, symptoms since improved
dvt ppx scd
DNR
Discussed with patient and patient's mother Grecia
I spent a total of 50 minutes with the patient or on the floor. More than 50% of this time involved counseling and coordination of care.
Anticipated Discharge: 24 - 48 hours
Subjective/Interval History
-
Date of Service: December 13, 2023
Objective Data
-
Labs:
Laboratory Results
12/13/23 12/13/23
07:15 07:16
WBC 3.7 L
Hgb 8.8 L
Hct 25.3 L
Plt Count 122 L
Sodium 141
Potassium 4.2
Chloride 107
Carbon Dioxide 21 L
BUN 23 H
Creatinine 1.8 H
Glucose 83
Calcium 8.6
Vital Signs:
Vital Signs
Temp Pulse Resp BP Pulse Ox
98.2 F 77 17 114/59 99
12/13/23 15:00 12/13/23 15:00 12/13/23 15:00 12/13/23 15:00 12/13/23 15:00
I&O
12/12/23 12/13/23 12/14/23
06:59 06:59 06:59
Intake Total 2039 / 2039 3000 / 3000
Output Total 3065 / 3065 2700 / 2700
Balance -1025 / -1025 300 / 300
Physical Exam
-
General: Well Developed and No Apparent Distress
HEENT: Normocephalic, Atraumatic and Moist Mucous Membranes
Respiratory: Clear to Auscultation
Cardiac: Regular Rhythm and S1/S2; Negative Murmur, Rub or Gallop
GI: Soft, Nontender, Nondistended and Normal Bowel Sounds; Negative Organomegaly
Rectal: Deferred by Provider
Genito-urinary: Other (Right PCN is in place)
Musculoskeletal: No Clubbing, No Cyanosis and No Edema
Skin: Negative Rash
Neuro: Nonfocal/Grossly Intact
--- NOTE | 2023-12-13 17:13 | CM ---
Continues to watch Cr levels.
She has Right nephrostomy tube.
SO will drive her home.
PLAN Home declined VN
[2023-12-13] MEDS: NSS IV (17:53)
[2023-12-13 23:43] VITALS: BP 119/50
[2023-12-14 03:46] VITALS: BMI 15.5
[2023-12-14 07:46] VITALS: BP 116/58
[2023-12-14 07:47] LABS: Hematocrit 25.2 % (37.0-47.0); Hemoglobin 8.9 g/dL (12.0-16.0); Mean Corp Hgb Conc. 35.3 g/dL (33.0-37.0); Mean Corpuscular Hgb 29.3 pg (27.0-31.0); Mean Corpuscular Volume 82.9 fL (81.0-99.0); Mean Platelet Volume 10.1 fL (7.4-10.4); Platelet Count 121 10^3/uL (130-400); Red Blood Cell Count 3.04 10^6/uL (4.20-5.40); Red Cell Dist. Width 13.1 % (11.5-14.5); White Blood Cell Count 4.2 10^3/uL (4.8-10.8)
[2023-12-14] MEDS: MAG-TAB SR 84 MG PO (08:00)
[2023-12-14] MEDS: DEPAKOTE (12 HR RELEASE) 500 MG PO (08:00)
[2023-12-14] MEDS: PROZAC 60 MG PO (08:01)
[2023-12-14] MEDS: DILAUDID 0.25 MG IV (08:05)
[2023-12-14] MEDS: VITAMIN D3 (cholecalciferol) PO (08:11)
[2023-12-14] MEDS: VITAMIN C PO (08:11)
[2023-12-14 08:43] LABS: Blood Urea Nitrogen 23 mg/dl (7-17); Calcium 8.8 mg/dl (8.4-10.2); Carbon Dioxide 27 mmol/L (22-30); Chloride 103 mmol/L (98-107); Estimated Creatinine Clearance 23 ml/min; Glucose 81 mg/dl (70-99); Magnesium 1.7 mg/dl (1.6-2.3); Potassium 4.5 mmol/L (3.5-5.1); Sodium 140 mmol/L (135-145)
--- NOTE | 2023-12-14 12:08 | W.PN.NEPH.PH ---
Today's Communication / Plan
-
follow labs off IVF
Assessment/Plan
-
Assessment
Acute kidney injury
New right hydronephrosis
Chronic left hydronephrosis, essential solitary functioning right kidney
History of cervical cancer with hysterectomy and clips
Migraines
Plan
improving renal function cr 1.7
maintain right PCN, non oliguric-off IVF
eventually will need bx of pelvic mass as she would not do additional tx for CA if recurrent
Pt also looking to get PET scan too, asked to get through [facility]
Mom concern of poor appetite and wants some medication
consider marinol
follow h/h
BP stable
mg repleted
-
-
Date of Service: December 14, 2023
CC / HPI / ROS
-
Chief Complaint:
LUCHO
History of Present Illness:
LUCHO/Cr down to 1.7
Hgb stable at 8.9
met acidosis better
BP stable
right PCN in place, non oliguric
Review of Systems:
no fever
no n/v
mild hematuria intermittenly
Labs
-
Labs:
WBC 4.2 10^3/uL (4.8-10.8) L 12/14/23 07:17
RBC 3.04 10^6/uL (4.20-5.40) L 12/14/23 07:17
Hgb 8.9 g/dL (12.0-16.0) L 12/14/23 07:17
Hct 25.2 % (37.0-47.0) L 12/14/23 07:17
Plt Count 121 10^3/uL (130-400) L 12/14/23 07:17
Sodium 140 mmol/L (135-145) 12/14/23 07:17
Potassium 4.5 mmol/L (3.5-5.1) 12/14/23 07:17
Chloride 103 mmol/L (98-107) 12/14/23 07:17
Carbon Dioxide 27 mmol/L (22-30) 12/14/23 07:17
BUN 23 mg/dl (7-17) H 12/14/23 07:17
Creatinine 1.7 mg/dL (0.6-1.0) H 12/14/23 07:17
eGFR 33.70 12/14/23 07:17
Glucose 81 mg/dl (70-99) 12/14/23 07:17
Calcium 8.8 mg/dl (8.4-10.2) 12/14/23 07:17
Phosphorus 4.9 mg/dl (2.5-4.5) H 12/10/23 06:47
Albumin 4.4 g/dl (3.5-5.0) 12/07/23 15:32
Physical Exam
-
Vital Signs:
Vital Signs
Temp Pulse Resp BP Pulse Ox
98.5 F 74 16 116/58 97
12/14/23 07:46 12/14/23 07:46 12/14/23 07:46 12/14/23 07:46 12/14/23 07:46
Extremity Edema:: None: Bilateral:
Appiah Catheter: No
Other Findings::
Appears in no distress
skin no rashes in exposed area
speech clear, grossly non focal
--- NOTE | 2023-12-14 14:40 | W.DS.TRANS ---
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
-
Discharge Instructions:
Discharge Diagnosis/Procedures Obstructive uropathy
Diet Regular
Blood Work BMP on 12/17/23
Wound Care you may shower with perc tube in- chenge
dressing around perc tube daily and place small
amount of neosporin ointment on tube insertion
site each day with dressing change
Instructions:
Stand-Alone Forms:
Changes to Home Medications: No
Discharge Medications:
DC Medications w/original date entered in [facility]
fluoxetine 20 mg capsule 60 mg PO DAILY Mental Health/Anxiety 01/16/20
alprazolam 1 mg tablet 1 mg PO HS Mental Health/Anxiety 12/07/23
ascorbic acid (vitamin C) 500 mg tablet (Vitamin C) 500 mg PO DAILY Supplement 12/07/23
gbkrhgj-dqyhdoxuxgpns-ltkoejms 250 mg-250 mg-65 mg tablet (Excedrin Migraine) 250 tab PO PRN PRN Migraines 12/07/23
cholecalciferol (vitamin D3) 25 mcg (1,000 unit) tablet 25 mcg PO DAILY Supplement 12/07/23
divalproex 500 mg tablet,delayed release 500 mg PO DAILY mental health 12/07/23
magnesium oxide 400 mg (241.3 mg magnesium) tablet 400 mg PO DAILY Electrolyte Repletion 12/07/23
zlayvjyf-cjduvexp-hod C 250 mg-herbal no.124 11.66 mg chewable tablet (Airborne Gummy) 1 tab PO DAILY Supplement 12/07/23
Home Medication Changes
Pending Results: No
[2023-12-14 14:46] VITALS: BP 118/65
--- NOTE | 2023-12-14 14:49 | CM ---
MD entered a discharge order.
Spoke with pt she agreed with [facility] at [place]. Kyra Khan liaison [facility] aware of referral.
Syed SO will be driving her home.
She has Right nephrostomy tube.
IMM completed she agreed with ne today.
PLAN Home with [facility]
--- NOTE | 2023-12-14 15:04 | VNURNOTE ---
Home Health Liaison met with patient and friend at bedside to discuss [facility] nurse/therapy, visits, schedule and homebound status. Explained and assessed homebound requirements several times w/patient. Patient is agreeable and understands that
visits at home will be 2-3 x per week to assess and teach medical management. 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 Reinforced that patient has to be available and homebound for services. [facility] brochure provided with
contact information. Patient is aware that [facility] will contact them for start of care in 1-2 days after discharge from . [facility] referral completed in [facility].
--- NOTE | 2023-12-14 15:10 | PN.CDI ---
CDI
- -
CDI:
Physician Documentation Request
Admit Date: 12/07/23 20:04
Dear Doctor Belen,
Patient admitted for LUCHO.
Laboratory Tests
12/12/23 12/13/23 12/14/23
08:24 07:15 07:17
WBC 3.4 L 3.7 L 4.2 L
RBC 3.13 L 2.98 L 3.04 L
Hgb 9.1 L 8.8 L 8.9 L
Plt Count 118 L 122 L 121 L
Based on the above, could you clarify in the progress notes, the appropriate diagnosis, if significant, that supports the above abnormalities and additional evaluation, monitoring and/or treatment rendered:
Pancytopenia
Abnormal lab value insignificant
Other
Use of terms such as suspected, likely, concern for, or probable (associated with a specific diagnosis that is being evaluated, monitored, or treated as if it exists) are acceptable and can be coded in the inpatient setting, when documented at the
time of discharge.
Thank you,
Brandy Pratt RN, BSN
CDI Specialist
Available via Frannie text
Please use your independent medical judgment in providing your response.
== END 2023-12-14 15:39 | disposition home health service (06) | DRG 682 ==
LOC: 3 WEST ACU 20:04
PROVIDERS: Internal Medicine; Physician Assistant; Psychiatry & Neurology Psychiatry; Radiology Vascular & Interventional Radiology; ADMITTING PHYSICIAN Internal Medicine; ATTENDING PHYSICIAN Internal Medicine; CONSULT PHYSICIAN Psychiatry & Neurology Psychiatry; CONSULT PHYSICIAN Specialist; EMERGENCY PHYSICIAN Emergency Medicine; FAMILY PHYSICIAN Family Medicine
PROC: 0T9030Z Drainage of Right Kidney with Drainage Device, Percutaneous Approach (ICD-10-PCS; 2023-12-08)
DX: N17.9 Acute kidney failure, unspecified (principal); E43 Unspecified severe protein-calorie malnutrition; R64 Cachexia; Z68.1 Body mass index [BMI] 19.9 or less, adult; E87.20 Acidosis, unspecified; D61.818 Other pancytopenia; N13.1 Hydronephrosis with ureteral stricture, not elsewhere classified; N26.1 Atrophy of kidney (terminal); G43.909 Migraine, unspecified, not intractable, without status migrainosus; F31.9 Bipolar disorder, unspecified; G47.00 Insomnia, unspecified; E87.5 Hyperkalemia; R35.0 Frequency of micturition; D63.8 Anemia in other chronic diseases classified elsewhere; E73.8 Other lactose intolerance; R19.00 Intra-abdominal and pelvic swelling, mass and lump, unspecified site; F41.9 Anxiety disorder, unspecified; R19.7 Diarrhea, unspecified; Z90.710 Acquired absence of both cervix and uterus; Z88.3 Allergy status to other anti-infective agents; Z85.41 Personal history of malignant neoplasm of cervix uteri; Z79.899 Other long term (current) drug therapy; Z92.21 Personal history of antineoplastic chemotherapy; Z92.3 Personal history of irradiation
CPT/HCPCS: 50432; 74176; 80048; 80053; 80164; 81003; 81015; 82570; 83735; 84100; 84156; 85014; 85018; 85025; 85027; 85610; 86850; 86900; 86901; 87045; 87046; 87086; 87324; 87427; 87449; 93005; 99152; 99153; 99285; C1729; C1769

== ENCOUNTER 2024-01-01 18:58 | Emergency (ER) | payer OTHER, SELFPAY ==
[2024-01-01 19:00] VITALS: BP 92/57
--- NOTE | 2024-01-01 19:24 | ED.GENMED ---
History of Present Illness
General
Chief Complaint: Fever
Time Seen by Provider: 01/01/24 19:22
History of Present Illness
History of Present Illness:
TIME OF INITIAL ENCOUNTER: 7:30 PM
HPI: Patient comes in due to concerns of fevers and left-sided headache. She has some associated photophobia but no nausea. When she had meningitis in 2013, it was viral and it was diffuse headache. She has no shortness of breath or UTI symptoms
EXAM:
GENERAL: Appears chronically ill, she is febrile, appears cachectic
HEENT: Moist oral mucosa, excellent chin to chest, no meningeal signs, negative Brudzinski's and Kernig signs
CARDIOVASCULAR: No murmurs, borderline tachycardic heart rate, regular rhythm, No chest wall tenderness
PULMONARY: No respiratory distress, breath sounds are clear and equal
ABDOMEN: Soft with no peritoneal signs, no tenderness, nephrostomy tube noted
NEUROLOGIC: Fair strength all extremities, no coordination deficits
PSYCHIATRIC: Appropriate mental status, normal insight and judgement
EXTREMITIES: Nontender, no edema, moves all extremities equally
SKIN: No rash, no lesions
NUMBER AND COMPLEXITY OF PROBLEMS ADDRESSED AT THE ENCOUNTER
� Chronic conditions affecting care: Cervical cancer, bipolar, depression, CKD
� Acute Exacerbation and/or Progression of Chronic Illness: This is an acute problem
� Differential Diagnosis includes: Viral syndrome, sepsis, bacteremia, meningitis
AMOUNT AND/OR COMPLEXITY OF DATA TO BE REVIEWED AND ANALYZED
� I performed an independent evaluation of and my interpretation is:
EKG:
CT:
X-rays: Chest x-ray shows hyperaeration
Laboratory Studies: White count normal, hemoglobin 9.3 which is near baseline, creatinine 1.8 which is also near recent baseline, COVID-negative, flu negative
Other:
� Review of other/old records: I reviewed discharge summary from last month�the patient was here with LUCHO related to obstruction in the right ureter and now has nephrostomy tube
� Clinical information was obtained by an independent historian: I spoke to family number at bedside
� Prescriptions/Medications Considered but not given:
� Further testing considered but not performed:
RISK OF COMPLICATIONS AND/OR MORBIDITY OR MORTALITY OF PATIENT MANAGEMENT
� Social determinants of health affecting care: Lives at home
� Discussion with other providers:
� Escalation of care including admission/observation vs risk of discharge considered: Since patient has had viral meningitis in the past I offered and considered LP. However she has no meningeal signs, has excellent chin to
chest and appears fairly comfortable. She has 2+ leukocyte esterase on urinalysis but less than 5 white cells per high-powered field. Flu and COVID-negative. Chest x-ray negative.
ANY OTHER UPDATES:
8:40 PM: After patient was given IV fluids, Reglan and Benadryl, she overall feels improved. Blood pressure has been low but patient states that her normal blood pressure is 90/50. I again offered LP but she again declines to have LP performed.
9:20 PM: The patient overall feels improved. Tylenol given for fever. She was given IV fluids. Offered and considered admission given her comorbidities however the patient feels comfortable with going home. She was encouraged to return here if
worse.
Past History
Past History
ED Past Medical History: Cancer (cervical), Psychiatric and Other (lactose intolerance, gallstones, migraines)
ED Past Surgical History: Gynecological, Tonsilectomy and Urological
Social History
Tobacco: Non-smoker
Alcohol: Occasional
Drug: None
Personal: Single
Living: with family (Lives with mother)
Family History
Family History: Unable to obtain
Phy Exam
Physical Exam
Physical Exam:
See HPI
Sepsis
Sepsis Screening
Sepsis Assessment: Sepsis Ruled Out
Sepsis Screen
Sepsis Screen: Sepsis Ruled Out
Date: 01/01/24
Time: 21:48
Course
Orders/Labs/Results
Orders:
Orders
01/01/24 19:26
CR Chest Portable - 1 View Urgent
Comment:
Reason For Exam: sepsis
Reason Study Needs to be Portable: Patient Unstable
01/01/24 19:35
COVID-19 Antigen Urgent
Source: Nasal Swab
Complete Blood Count/With Diff Urgent
Comprehensive Metabolic Panel Urgent
Urinalysis Reflex To Culture Urgent
Date Specimen was Collected: 01/01/24
Time Specimen was Collected: 19:31
Urine Microscopic Reflex Cult Urgent
Blood Culture Routine
JEREMÍAS Source: Blood/Venous
Specimen Description:
Blood Culture Urgent
JEREMÍAS Source: Blood/Venous
Specimen Description:
Influenza A+B Rapid Molecular Urgent
JEREMÍAS Source: Nasal Swab
Specimen Description:
Urine Culture Urgent
JEREMÍAS Source: U
Specimen Description:
Date Specimen was Collected: 01/01/24
Time Specimen was Collected: 19:31
01/01/24 19:41
Diphenhydramine [Benadryl] 25 mg IV NOW STA
Metoclopramide [Reglan] 10 mg IV NOW STA
01/01/24 20:14
Lactic Acid Urgent
01/01/24 20:44
0.9% Sodium Chloride 500 ml [Nss] 500 ml IV BOLUS
01/01/24 21:11
Acetaminophen [Tylenol] 1,000 mg PO NOW STA
Abnormal Lab Results
01/01/24
19:35
RBC 3.22 L 10^6/uL
(4.20-5.40)
Hgb 9.3 L g/dL
(12.0-16.0)
Hct 26.4 L %
(37.0-47.0)
RDW 14.7 H %
(11.5-14.5)
Abs Immat Gran (auto) 0.1 H 10^3/uL
(0-0.05)
Absolute Lymphs (auto) 0.6 L 10^3/uL
(1.2-3.4)
Absolute Monos (auto) 0.7 H 10^3/uL
(0.1-0.6)
Immature Gran % 0.7 H %
(0-0.5)
Neutrophils % 82.0 H %
(42.2-75.2)
Lymphocytes % 7.5 L %
(20.5-51.1)
Monocytes % 9.6 H %
(1.7-9.3)
Sodium 134 L mmol/L
(135-145)
Potassium 3.3 L mmol/L
(3.5-5.1)
Chloride 95 L mmol/L
(98-107)
BUN 22 H mg/dl
(7-17)
Creatinine 1.8 H mg/dL
(0.6-1.0)
Glucose 102 H mg/dl
(70-99)
Ur Occult Blood Reflex 2+ A
(Negative)
Leukocyte Esterase Rfl 2+ A
(Negative)
Urine Bacteria (Reflex) Moderate A
(Negative)
Urine Albumin (Reflex) 1+ A
(Neg - Trace)
01/01/24 19:35
01/01/24 19:35
Vital Signs
Initial and Last Documented VS:
Initial Vital Signs
Temp Pulse Resp BP Pulse Ox
101 F H 102 16 92/57 97
01/01/24 19:00 01/01/24 19:00 01/01/24 19:00 01/01/24 19:00 01/01/24 19:00
Last Documented Vital Signs
Temp Pulse Resp BP Pulse Ox
101 F H 67 14 99/57 97
01/01/24 19:00 01/01/24 21:04 01/01/24 21:04 01/01/24 21:04 01/01/24 21:04
*Critical Care Note
Total Time (30-74mins, 75-104mins- exclusive of procedures): Not Applicable
ED Attending Note
-
Portions of this chart may have been created with voice recognition software.� Occasional wrong word or��sound alike� substitutions may have occurred due to the inherent limitations of voice recognition software.
Discharge Plan
Departure
Patient Disposition: Home (Routine Discharge)
Date of Disposition: 01/01/24
Time of Disposition: 21:11
Patient with high blood pressure during this ER visit?: Yes
Discharge Problem:
Viral syndrome
Prescriptions:
No Action
fluoxetine 20 MG capsule
60 mg PO DAILY
alprazolam 1 mg tablet
1 mg PO HS
Patient Comments:
12/07/2023: last filled 12/03/23, 60 tabs for 30 days from [id number]
divalproex 500 mg tablet,delayed release (DR/EC)
500 mg PO DAILY
magnesium oxide 400 mg (241.3 mg magnesium) tablet
400 mg PO DAILY
ascorbic acid (vitamin C) [Vitamin C] 500 mg Tablet
500 mg PO DAILY
cholecalciferol (vitamin D3) 25 mcg (1,000 unit) Tablet
25 mcg PO DAILY
Airborne Gummy 250-11.66 mg Tablet,Chewable
1 tab PO DAILY
Excedrin Migraine 250-250-65 mg Tablet
250 tab PO PRN PRN (Reason: Migraines)
Referrals:
Jarek Pereira, DO [Family Provider] -
Interventions
Interventions:
*Risk Screen - Suicide Last Done: 01/01/24 19:00
*Neglect/Abuse Screening Last Done: 01/01/24 19:00
ED- Fall Risk Assessment Last Done: 01/01/24 19:32
*Nursing Disposition Last Done: 01/01/24 21:31
ED- Neurological Assessment Last Done: 01/01/24 19:32
ED-Skin Assessment Last Done: 01/01/24 19:32
Discharge Date and Time
Discharge Date/Time: 01/01/24 21:32
Print Language: LIBYAN
[2024-01-01 19:51] LABS: % Basophils 0.1 % (0-2); % Eosinophils 0.1 % (0-6); % Immature Granulocytes 0.7 % (0-0.5); % Lymphocytes 7.5 % (20.5-51.1); % Monocytes 9.6 % (1.7-9.3); Absolute Immature Granulocytes 0.1 10^3/uL (0-0.05); Absolute Lymphocytes 0.6 10^3/uL (1.2-3.4); Absolute Monocytes 0.7 10^3/uL (0.1-0.6); Hematocrit 26.4 % (37.0-47.0); Hemoglobin 9.3 g/dL (12.0-16.0); Mean Corp Hgb Conc. 35.2 g/dL (33.0-37.0); Mean Corpuscular Hgb 28.9 pg (27.0-31.0); Mean Platelet Volume 10.1 fL (7.4-10.4); Nucleated Red Blood Cells % 0 %; Platelet Count 152 10^3/uL (130-400); Red Blood Cell Count 3.22 10^6/uL (4.20-5.40); Red Cell Dist. Width 14.7 % (11.5-14.5); White Blood Cell Count 7.3 10^3/uL (4.8-10.8)
[2024-01-01 20:07] LABS: COVID-19 Antigen Negative (Negative)
[2024-01-01] MEDS: REGLAN 10 MG IV (20:11)
[2024-01-01] MEDS: BENADRYL 25 MG IV (20:11)
[2024-01-01 20:15] LABS: ALT (SGPT) 13 U/L (0-35); AST (SGOT) 21 U/L (14-36); Albumin 3.7 g/dl (3.5-5.0); Alkaline Phosphatase 56 U/L (38-126); Blood Urea Nitrogen 22 mg/dl (7-17); Carbon Dioxide 22 mmol/L (22-30); Chloride 95 mmol/L (98-107); Glucose 102 mg/dl (70-99); Potassium 3.3 mmol/L (3.5-5.1); Sodium 134 mmol/L (135-145); Total Bilirubin 0.3 mg/dl (0.2-1.3); Total Protein 6.3 g/dl (6.3-8.2); eGFR 31.46
[2024-01-01 20:29] LABS: Urine Albumin 1+ (Neg - Trace); Urine Bilirubin Negative (Negative); Urine Character Very Cloudy (Clear); Urine Color Straw; Urine Glucose Negative (Negative); Urine Ketone Negative (Negative); Urine Leukocyte 2+ (Negative); Urine Nitrite Negative (Negative); Urine Occult Blood 2+ (Negative); Urine Specific Gravity 1.015 (<1.030); Urine Urobilinogen Negative (Neg - 1+)
[2024-01-01 20:35] LABS: Urine Squamous Cell 0-2 /LPF (Few)
[2024-01-01 20:36] LABS: Urine Bacteria Moderate (Negative)
[2024-01-01 20:37] LABS: Urine Red Blood Cell 0-2 /HPF (0-2)
[2024-01-01 20:46] LABS: Lactic Acid 0.9 mmol/L (0.7-2.0)
[2024-01-01] MEDS: NSS 500 IV (20:51)
[2024-01-01 21:04] VITALS: BP 99/57
[2024-01-01] MEDS: TYLENOL 1000 MG PO (21:24)
== END 2024-01-01 21:32 | disposition home or self-care (01) ==
LOC: EMR 18:58
PROVIDERS: EMERGENCY PHYSICIAN Emergency Medicine; FAMILY PHYSICIAN Family Medicine
DX: B34.9 Viral infection, unspecified (principal); Z11.52 Encounter for screening for COVID-19; R51.9 Headache, unspecified; R03.0 Elevated blood-pressure reading, without diagnosis of hypertension; G43.909 Migraine, unspecified, not intractable, without status migrainosus; E73.9 Lactose intolerance, unspecified; F31.9 Bipolar disorder, unspecified; F32.A Depression, unspecified; N18.9 Chronic kidney disease, unspecified; Z85.41 Personal history of malignant neoplasm of cervix uteri; Z86.61 Personal history of infections of the central nervous system; Z88.8 Allergy status to other drugs, medicaments and biological substances
CPT/HCPCS: 99284; 96374; 96375; 71045; 80053; 81003; 81015; 83605; 85025; 87040; 87086; 87502; 87811

== ENCOUNTER 2024-01-08 13:38 | Inpatient (IN) | payer OTHER, SELFPAY ==
[2024-01-08] VITALS (11 sets, daily range): BP systolic 81–129; BP diastolic 44–63; BMI 15.2; BMI 14.9
--- NOTE | 2024-01-08 10:32 | ED.GENMED ---
History of Present Illness
General
Chief Complaint: Fever
Source: patient
Time Seen by Provider: 01/08/24 10:05
History of Present Illness
History of Present Illness:
63-year-old female presents to the emergency room complaining of fevers. Patient states that her maximum temperature at home was 104.5. The last time she had a temperature at this level was 4 AM. She took 2 Excedrin. Patient states that she has
been feeling unwell for the past couple weeks. She was seen here in the emergency room a week ago and had a negative workup. Patient was hospitalized in November with failure that was deemed to progression of cervical cancer that was causing
ureteral obstruction on the right. Patient previously mwn-iien-kig junction on the left resulting in complete atrophy of the left kidney. During her recent hospitalization the patient had a nephrostomy tube placed. She denies any cough. She has
been tolerating oral intake but has poor appetite.
Past History
Past History
ED Past Medical History: Cancer (cervical), Psychiatric and Other (lactose intolerance, gallstones, migraines)
ED Past Surgical History: Gynecological, Tonsilectomy and Urological
Social History
Tobacco: Non-smoker
Alcohol: Occasional
Drug: None
Personal: Single
Living: with family (Lives with mother)
Family History
Family History: Unable to obtain
Phy Exam
Physical Exam
Physical Exam:
General: Awake, Alert, Oriented X3. Appears cachectic and chronically ill
Vitals: Hypotensive
Head: Atraumatic
Eyes: Pupils equal, EOMI
Throat: Airway intact, no exudates, dry mucosa
Neck: Trachea midline
Lungs: Clear and equal b/l
Heart: Regular rate, no murmurs
Abd: Soft, Nontender, No pulsatile mass
Back: Right nephrostomy tube in place. No erythema noted in the site
Neuro: Nonfocal
Skin: Warm, dry, no rash
Extremities: pulses equal b/l, no edema
Course
Orders/Labs/Results
Orders:
Orders
01/08/24 10:22
0.9% Sodium Chloride 1000 ml [Nss] 1,000 ml IV BOLUS
01/08/24 10:24
CR Chest - 2 Views Urgent
Comment:
Reason For Exam: fever
01/08/24 10:38
Complete Blood Count/With Diff Urgent
Comprehensive Metabolic Panel Urgent
Lactic Acid Q4H
Comment: CANCEL 2nd LACTIC ACID IF 1st LACTIC ACID IS LESS THAN 2
Procalcitonin Urgent
PCT Algorithmm Indication: Sepsis
Blood Culture Urgent
JEREMÍAS Source: Blood/Venous
Specimen Description:
01/08/24 10:49
Urinalysis Reflex To Culture Urgent
Date Specimen was Collected: 01/08/24
Time Specimen was Collected: 10:45
Comment: from nephrostomy
Urine Microscopic Reflex Cult Urgent
Urine Culture Urgent
JEREMÍAS Source: U
Specimen Description:
Date Specimen was Collected: 01/08/24
Time Specimen was Collected: 10:45
01/08/24 11:29
Blood Culture Routine
JEREMÍAS Source: Blood/Venous
Specimen Description:
01/08/24 12:12
Cefepime HCl [Maxipime] 2,000 mg IV NOW STA
01/08/24 12:19
Sterile Water [Sterile Water For Injection] 20 ml .ROUTE .STK-MED
01/08/24 12:20
CT Abd/pel Without Iv Or Oral Urgent
Comment:
Reason For Exam: fever, elevated creat, r nephrostomy tube
01/08/24 12:46
Admit/Transfer Patient As Directed
Co-Sign Provider:
Level of Care: Inpatient admission
Assign to:: IMU- Intermediate Care
Physician / Group: aden
Diagnosis: sepsis
Reason for Hospitalization: sepsis
Expected length of stay greater than two midnights?: Yes
ELOS- Estimated Length of Stay in days: 3
I certify the patient meets the requirements for IP care: Yes
01/08/24 12:48
Code Status As Directed
Resuscitation Status: Do not resuscitate
Reached after discussion with pt or family/Healthcare POA: Yes
DNR Bracelet Application ONCE
Abnormal Lab Results
01/08/24 01/08/24
10:38 10:49
WBC 16.6 H 10^3/uL
(4.8-10.8)
RBC 2.99 L 10^6/uL
(4.20-5.40)
Hgb 8.7 L g/dL
(12.0-16.0)
Hct 24.5 L %
(37.0-47.0)
RDW 15.2 H %
(11.5-14.5)
Abs Immat Gran (auto) 0.1 H 10^3/uL
(0-0.05)
Absolute Neuts (auto) 15.0 H 10^3/uL
(1.4-6.5)
Absolute Lymphs (auto) 0.6 L 10^3/uL
(1.2-3.4)
Absolute Monos (auto) 0.8 H 10^3/uL
(0.1-0.6)
Immature Gran % 0.7 H %
(0-0.5)
Neutrophils % 90.6 H %
(42.2-75.2)
Lymphocytes % 3.7 L %
(20.5-51.1)
BUN 24 H mg/dl
(7-17)
Creatinine 2.0 H mg/dL
(0.6-1.0)
Procalcitonin 0.94 H ng/ml
(0.0-0.25)
Ur Occult Blood Reflex 2+ A
(Negative)
Leukocyte Esterase Rfl 2+ A
(Negative)
Urine RBC 3-6 A /HPF
(0-2)
Urine WBC (Reflex) 50-60 A /HPF
(0-5)
Urine Bacteria (Reflex) Few A
(Negative)
01/08/24 10:38
01/08/24 10:38
Vital Signs
Initial and Last Documented VS:
Initial Vital Signs
Temp Pulse Resp BP Pulse Ox
98.7 F 78 16 81/48 97
01/08/24 09:45 01/08/24 09:45 01/08/24 09:45 01/08/24 09:45 01/08/24 09:45
Last Documented Vital Signs
Temp Pulse Resp BP Pulse Ox
98.7 F 67 13 101/56 97
01/08/24 09:45 01/08/24 13:30 01/08/24 13:30 01/08/24 13:00 01/08/24 10:45
MDM/Problems Addressed
Differential Diagnosis Includes:
Pneumonia, urinary tract infection, bacteremia, endocarditis, tumor fever
MDM/Problems Addressed:
Patient presents with persistent fever at home. Patient is not febrile here but she states she did take aspirin prior to arrival. She appears cachectic and chronically ill. Her labs show an elevated white blood cell count. She was here a week
ago and it is elevated compared to a measurement at that time. BUN is relatively unchanged, creatinine mildly elevated at 2.0 from 1.8. Urine from her right nephrostomy tube shows 50-60 WBCs per high-power field. There are 6-10 squames documented
on the urinalysis however this is coming from the nephrostomy tube so there really should not be any squamous epithelial cells. Patient's chest x-ray shows no acute abnormalities. Broad-spectrum antibiotics initiated. Patient will do CT to assess
placement of the nephrostomy tube. She will require hospitalization at this point given her persistent fever, elevated WBCs and abnormal urine.
*Radiology
Radiology exam reviewed: preliminary read by ED provider (No acute disease on chest x-ray)
*Pulse Oximetry
Patient hypoxic: no
*Critical Care Note
Total Time (30-74mins, 75-104mins- exclusive of procedures): Not Applicable
ED Attending Note
-
Portions of this chart may have been created with voice recognition software.� Occasional wrong word or��sound alike� substitutions may have occurred due to the inherent limitations of voice recognition software.
Discharge Plan
Departure
Patient Disposition: Admit
Date of Disposition: 01/08/24
Time of Disposition: 12:19
Presentation/result/management discussed w/ accepting MD/DO: Hospitalist
Condition: Fair
Discharge Problem:
Fever, UTI (urinary tract infection), Hx of nephrostomy
Interventions
Interventions:
*Risk Screen - Suicide Last Done: 01/08/24 10:05
*Neglect/Abuse Screening Last Done: 01/08/24 10:05
ED- Fall Risk Assessment Last Done: 01/08/24 10:07
*ED COVID-19 Vaccine History Last Done: 01/08/24 10:05
ED- Neurological Assessment Last Done: 01/08/24 10:06
ED-Skin Assessment Last Done: 01/08/24 10:07
[2024-01-08] MEDS: NSS 1000 IV ×2 (10:48→18:20)
[2024-01-08 10:51] LABS: % Basophils 0.2 % (0-2); % Immature Granulocytes 0.7 % (0-0.5); % Lymphocytes 3.7 % (20.5-51.1); % Monocytes 4.8 % (1.7-9.3); % Neutrophils 90.6 % (42.2-75.2); Absolute Immature Granulocytes 0.1 10^3/uL (0-0.05); Absolute Lymphocytes 0.6 10^3/uL (1.2-3.4); Absolute Monocytes 0.8 10^3/uL (0.1-0.6); Hematocrit 24.5 % (37.0-47.0); Hemoglobin 8.7 g/dL (12.0-16.0); Mean Corp Hgb Conc. 35.5 g/dL (33.0-37.0); Mean Corpuscular Hgb 29.1 pg (27.0-31.0); Mean Corpuscular Volume 81.9 fL (81.0-99.0); Mean Platelet Volume 9.4 fL (7.4-10.4); Nucleated Red Blood Cells % 0 %; Platelet Count 241 10^3/uL (130-400); Red Blood Cell Count 2.99 10^6/uL (4.20-5.40); Red Cell Dist. Width 15.2 % (11.5-14.5); White Blood Cell Count 16.6 10^3/uL (4.8-10.8)
[2024-01-08 11:17] LABS: Urine Albumin Trace (Neg - Trace); Urine Bilirubin Negative (Negative); Urine Character Slightly Cloudy (Clear); Urine Color Yellow; Urine Glucose Negative (Negative); Urine Ketone Negative (Negative); Urine Leukocyte 2+ (Negative); Urine Nitrite Negative (Negative); Urine Occult Blood 2+ (Negative); Urine Urobilinogen Negative (Neg - 1+)
[2024-01-08 11:21] LABS: Procalcitonin 0.94 ng/ml (0.0-0.25)
[2024-01-08 11:23] LABS: ALT (SGPT) 10 U/L (0-35); AST (SGOT) 17 U/L (14-36); Albumin 3.5 g/dl (3.5-5.0); Alkaline Phosphatase 64 U/L (38-126); Blood Urea Nitrogen 24 mg/dl (7-17); Calcium 9.2 mg/dl (8.4-10.2); Carbon Dioxide 23 mmol/L (22-30); Chloride 98 mmol/L (98-107); Estimated Creatinine Clearance 19 ml/min; Glucose 95 mg/dl (70-99); Potassium 3.7 mmol/L (3.5-5.1); Sodium 135 mmol/L (135-145); Total Bilirubin 0.2 mg/dl (0.2-1.3); Total Protein 6.3 g/dl (6.3-8.2); eGFR 27.73
[2024-01-08 11:49] LABS: Urine Bacteria Few (Negative); Urine Granular Cast 0-2 /LPF (0); Urine White Cell 50-60 /HPF (0-5)
--- NOTE | 2024-01-08 12:23 | HPS.HSE ---
Family Physician
-
Family Physician: Jarek Pereira
Chief Complaint
-
fever
History of Present Illness
63-year-old female with past medical history for meningitis, cervical cancer status post radiation and hysterectomy patient follows with [facility], chronic kidney disease, hydronephrosis migraines, bipolar, depression, anxiety presented to us with
intermittent fever for past few weeks. Patient was taking Excedrin for fever patient complained of intermittent headache. Denied nausea or vomiting. She had diarrhea this morning. Patient denied any runny nose, congestion, cough. Patient denied
chest pain or short of breath. Patient has nephrostomy tube.
Patient was hospitalized in November with failure that was deemed to progression of cervical cancer that was causing ureteral obstruction on the right. During her recent hospitalization the patient had a nephrostomy tube placed.
Patient received fluids and cefepime in ER. Admitting for further management
Medical History
Past Medical History
Past Medical History: Reports Other
Additional Past Medical History:
Depression
Anxiety
Cervical cancer
Panic disorder
Hydronephrosis
Atrophic cornea
Bipolar
CKD
Past Surgical History: Reports Other
Additional Past Surgical History:
Hysterectomy
Left kidney stones
Nephrostomy tube
Social History
Tobacco: Non-smoker
Alcohol: Occasional
Drug: None
Personal: Single
Living: With Family
Employment: Employed
Family History
Family History: Not pertinent
Allergies / Home Medications
Allergies reflects when Allergies were last updated in [employer].
Home Medications with original date entered in [employer]
Allergy/Medication List:
Allergies
Allergy/AdvReac Type Severity Reaction Status Date / Time
Milk Containing Products Allergy Unknown Verified 01/08/24 10:04
(Dairy)
nitrofurantoin Allergy fever Verified 01/08/24 10:04
macrocrystalline
[From Macrodantin]
tuberculin,PPD,multi-puncture Allergy Rash Verified 01/08/24 10:04
Home Medications
fluoxetine 20 mg capsule 60 mg PO DAILY Mental Health/Anxiety 01/16/20
alprazolam 1 mg tablet 1 mg PO HS Mental Health/Anxiety 12/07/23
ascorbic acid (vitamin C) 500 mg tablet (Vitamin C) 500 mg PO DAILY Supplement 12/07/23
xaewift-shgqcdbgyzsqa-ymdxqpwf 250 mg-250 mg-65 mg tablet (Excedrin Migraine) 250 tab PO DAILYPRN PRN Migraines 12/07/23
cholecalciferol (vitamin D3) 25 mcg (1,000 unit) tablet 25 mcg PO DAILY Supplement 12/07/23
divalproex 500 mg tablet,delayed release 500 mg PO DAILY mental health 12/07/23
Review of Systems
-
Constitutional: Reports No Symptoms and Fever
EENT: Reports No Symptoms
Respiratory: Reports No Symptoms
Cardiac: Reports No Symptoms
Abdomen/GI: Reports Diarrhea
: Reports Other (Nephrostomy tube)
Musculoskeletal: Reports No Symptoms
Skin: Reports No Symptoms
Neurological: Reports No Symptoms
Endocrine: Reports No Symptoms
Hematologic/Lymphatic: Reports No Symptoms
Psych: Reports No Symptoms
Physical Exam
Vital Signs
Vital Signs
Temp Pulse Resp BP Pulse Ox
98.7 F 65 13 96/45 97
01/08/24 09:45 01/08/24 12:00 01/08/24 12:00 01/08/24 12:00 01/08/24 10:45
Physical Exam
General: Well Developed, Well Nourished and No Apparent Distress
HEENT: NormoCephalic, Moist mucous membranes and Atraumatic
Respiratory: Clear
Cardiac: S1/S2 and Regular Rhythm; No Murmur or Rub
GI: Soft, Non Tender, Non Distended and Normal Bowel Sounds; No Organomegaly
Rectal: Deferred by Provider
Musculoskeletal: No Clubbing, No Cyanosis and No Edema
Skin: No Rash
Neuro: AO x 3 and Nonfocal/grossly intact
Psych: Calm
Laboratory Results
-
01/08/24 10:38
01/08/24 10:38
Laboratory Results
Lactic Acid 1.0 mmol/L (0.7-2.0) 01/08/24 10:38
Total Bilirubin 0.2 mg/dl (0.2-1.3) 01/08/24 10:38
AST 17 U/L (14-36) 01/08/24 10:38
ALT 10 U/L (0-35) 01/08/24 10:38
Alkaline Phosphatase 64 U/L (38-126) 01/08/24 10:38
Data Reviewed
-
Diagnostic Radiology: Report Reviewed by me
Lab Data: Labs Reviewed by me
Impression/Plan
-
# Fever likely from urinary tract infection nephrostomy associated
# Nephrostomy tube due to obstruction from cervical cancer
-Sepsis as evident by WBC 16.6, procal 0.94, hypotension
-Chest x-ray Mild bilateral lung hyperinflation. No radiographic evidence for pneumonia.
-Blood and urine culture sent from ER
-CT abdomen pelvis pending
-Cefepime continued
-Fluids continued
# Anemia of chronic disease
-Hemoglobin stable at 8.7
-No acute bleeding
-Continue to trend
# CKD stage
-Creatinine 2.0
-Continue to monitor
#Bipolar/depression
#Insomnia/anxiety
-Cont home divalproex, fluoxetine, bedtime Xanax
#Cachectic Appearance
#Endorses chronic poor appetite
#Cervical ca hx hysterectomy radiation chemo
#suspected cancer resurgence, pt follows [facility] urology
Follow up with [facility] recommended
dvt ppx scd
DNR
[2024-01-08] MEDS: MAXIPIME 2000 MG IV (12:29)
--- NOTE | 2024-01-08 13:07 | W.PN.UPDATE ---
Update Note
Progress Note Update
This is an addendum to the H&P written by Randi Day on 01/08/2024.� Patient seen and examined independently with [employer].
63-year-old female past medical history of left kidney atrophy/dysfunction/chronic hydronephrosis with essentially solitary functioning right kidney, recent new right hydronephrosis status post right nephrostomy tube on 12/07, CKD,
bipolar/depression, cachexia, anemia of chronic disease, cervical carcinoma, chronic pancytopenia, migraines presenting with fever up to 104�for the past few weeks, associated with nausea, dry heaving and an episode of diarrhea today.
Urinalysis shows evidence of UTI.� Patient hypotensive with blood pressure of 80 systolic.� Clinically patient septic secondary to nephrostomy associated UTI.� CT abdomen pelvis to rule out pyelonephritis/blockage of nephrostomy tube.� Check urine
culture, blood culture.� IV fluids.� Cefepime given history of Pseudomonas UTI in the past.
[2024-01-08] MEDS: XANAX PO (22:47)
[2024-01-08] MEDS: TYLENOL 650 MG PO (23:08)
[2024-01-09] VITALS (8 sets, daily range): BP systolic 87–116; BP diastolic 48–61
--- NOTE | 2024-01-09 03:46 | PTCARENOTE ---
Pt AAOx3 anxious at times. Pt making this RN aware that she took her night time Xanax 1mg from home when her was here this evening. Ordered Xanax from MAR not given. Education given about home medications while in hospital. Pt took
rest of medications home. Through out night Pt needing emotional support and education about why she is in hospital and what's to come. Pt having fever during night, [employer] made aware, Tylenol ordered. Call warner within reach. Assessment care and vitals
as charted.
--- NOTE | 2024-01-09 07:14 | W.PN.HOSP.TC ---
Addendum entered and electronically signed by Darrin Wellington MD 01/09/24 17:31:
B12 Folate wnl
Iron studies appreciated:
Iron Deficiency
Anemia of Chronic Disease
-oral iron supplementation started
Original Note:
Today's Communication/Plan
-
cont abx
repeat H&H, type and screen, transfuse if Hgb<7
oncology eval requested
monitor BP, IVF bolus prn MAP<65 or SBP<90
PT/OT
ongoing goals of care discussion
Assessment / Plan
Assessment / Plan
Physical Exam
General: Cachectic, no acute distress, appears comfortable at this time
HEENT: NormoCephalic, Moist mucous membranes and Atraumatic
Respiratory: Clear
Cardiac: S1/S2 and Regular Rhythm; No Murmur or Rub
GI/abd: Soft, Non Tender, Non Distended and Normal Bowel Sounds; No Organomegaly right nephrostomy tube in place
Musculoskeletal: No Clubbing, No Cyanosis and No Edema
Skin: No Rash
Neuro: AO x 3
Psych: Calm
63F hx meningitis, cervical cancer status post radiation and hysterectomy follows with [facility], CKD3B, hydronephrosis 2/2 cervical cancer recurrence s/p rt nephrostomy, migraines, bipolar, depression, anxiety p/w intermittent fever past few weeks.
Urinalysis suggestive of uti. White count elevation and fever with borderline low BP concerning for severe sepsis. No significant lactic acidosis
# Fever likely from urinary tract infection nephrostomy associated
# Nephrostomy tube due to obstruction from cervical cancer recurrence
-Sepsis as evident by WBC 16.6, procal 0.94, hypotension
-Chest x-ray Mild bilateral lung hyperinflation. No radiographic evidence for pneumonia.
-Follow Blood and urine cultures NGTD
-CT abdomen pelvis appreciated hysterectomy 9x4cm mass suggestive recurrent malignancy, known severe left hydronephrosis, rt nephrostomy in satisfactory position, no significant Right hydronephrosis
-Cefepime continued
-Maintenance fluids discontinued per patient's request, Monitor BP and bolus as necessary goal MAP>65 and goal systolic >90
# Anemia of chronic disease
-Hemoglobin stable at 8.7 dropped to 7.0 following fluids likely dilutional
-Repeat H&H type and screen, patient consented to blood transfusion if necessary (consent attached to patient's medical chart/binder)
-transfuse if Hgb<7
-Follow up B12 Folate Iron TIBC
# CKD3B
#possible Mild LUCHO
-initial Creatinine 2.0
-Baseline 1.7-1.8
-monitor renal function
#Bipolar/depression
#Insomnia/anxiety
-Cont home divalproex, fluoxetine, bedtime Xanax
#Cachectic BMI 14.9
#Endorses chronic poor appetite
#Cervical ca hx hysterectomy radiation chemo
#suspected cancer resurgence, pt follows [facility] oncology urology
Patient reports she was told her prognosis was 9 mo and that chemo may give her an additional month
Patient also very vocal that she does not want to do chemo regardless potential benefit and has expressed interest in Hospice
Psych eval appreciated, patient at capacity to make her own medical decisions
Brother Sage , one of patient's POAs (patient has two brother who she named as her POAs) however has different understanding of patient's prognosis (accepts 9 mo prognosis w/o chemo but strongly disagrees w/ possible 1 mo benefit w
chemo- ostensibly he wants patient to reconsider doing chemo)
Oncology eval requested for further clarification prognosis, goals of care discussion.
dvt ppx scd
DNR
discussed with patient, patient's mother Grecia, patient's brother Sage POA , Nurse, and Case mgmt
I spent a total of 60 minutes with the patient or on the floor. More than 50% of this time involved counseling and coordination of care.
Anticipated Discharge: 24 - 48 hours
Subjective/Interval History
-
Date of Service: January 09, 2024
No acute distress resting comfortably in bed. Reports improvement in overall symptoms. Poor oral intake noted but has been chronic for months. Denies significant pain at this time.
Objective Data
-
Labs:
Laboratory Results
01/09/24
06:40
WBC Pending
Hgb Pending
Hct Pending
Plt Count Pending
Vital Signs:
Vital Signs
Temp Pulse Resp BP Pulse Ox
98.9 F 77 16 100/55 100
01/09/24 03:00 01/09/24 02:31 01/09/24 02:31 01/09/24 02:31 01/08/24 22:00
I&O
01/08/24 01/09/24 01/10/24
06:59 06:59 06:59
Intake Total 1440 / 1440
Output Total 1750 / 1750
Balance -310 / -310
[2024-01-09 07:31] LABS: Hematocrit 20.4 % (37.0-47.0); Mean Corp Hgb Conc. 34.3 g/dL (33.0-37.0); Mean Corpuscular Hgb 28.6 pg (27.0-31.0); Mean Corpuscular Volume 83.3 fL (81.0-99.0); Mean Platelet Volume 9.4 fL (7.4-10.4); Platelet Count 229 10^3/uL (130-400); Red Blood Cell Count 2.45 10^6/uL (4.20-5.40); Red Cell Dist. Width 14.9 % (11.5-14.5); White Blood Cell Count 10.8 10^3/uL (4.8-10.8)
[2024-01-09] MEDS: NSS IV (08:55)
[2024-01-09] MEDS: PROZAC 60 MG PO (08:56)
[2024-01-09] MEDS: DEPAKOTE (12 HR RELEASE) 500 MG PO (08:56)
--- NOTE | 2024-01-09 11:58 | CS.PSYCHR ---
Consult Summary - Psychiatry
-
Psychiatry consult to ensure goals of care decisions are not being affected by depression. 63 yo female with long history of bipolar disorder known to me from recent admission. Patient has terminal cervical cancer and is interested in hospice
palliative care evaluation. She states she is adherent to her psychiatric medications (noted below) and that they remain effective in managing her mood. She denies depressive manic or psychotic symptoms at this time. She is able to give details of
her medical conditions, treatment recommendations and alternatives as well as logical explanations for why she wants to avoid certain things like chemotherapy. She does not think her decisions are at all influenced by her mental health history. She
is fully oriented. Her fiance is present and supportive. He confirms the above.
MSE- good eye contact. fluent spontaneous speech. denies depression. denies SI. Denies HI/AVH. no delusions. fully oriented. goal directed. think and pale.
PMH- cervical cancer, with related complications, history of meningitis, history of gallstones and renal stones, cachexia. migraines
psych history- long history of depression. has [facility] outpatient psychiatrist dr tasha de la rosa. she takes depakote 500 mg daily prozac 60 mg daily and xanax one mg hs
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 parents alive but father ill with parkinsons. has a fiance
Substance abuse- denies
A/P- 63 yo female with history of bipolar disorder, controlled on current medication regimen. her mental health is not impacting her ability to make medical decisions. She does have the capacity to do so at this time. Would recommend continuing with
her current medications. She can follow up with her outpatient psychiatrist. Psych will sign off. please contact team with further questions or concerns.
[2024-01-09] MEDS: MAXIPIME 1000 MG IV (12:15)
[2024-01-09] MEDS: STERILE WATER FOR INJECTION 10 ML IV (12:16)
--- NOTE | 2024-01-09 13:16 | CM ---
Patient with Hx cervical cancer, Nephrostomy tube, anemia, bipolar disorder with Dx Fever likely UTI, sepsis, cachexia. Room air. Receiving IV Abx.
Met with patient, mother, brother & SO;
the patient resides with her fiancee in a 2nd floor condo with 13 outside stairs.
Patient states she has been independent in ADLs and ambulation.
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
No DME, prior VN or SNF.
PCP - Jarek Pereira
Pharmacy - [facility], [facility]
CM Consult: Hospice
Met with patient, mother, brother & SO; patient's understanding of her prognosis is different than her brother's. Patient says she was told she had 9 months to live without chemo and 1 extra month with chemo and as such she doesn't want to do
hospice at this time, in part because of the chemo side effects. Brother clearly wants her to do chemo and seems a little annoyed with the patient who is not agreeing to that, and tells the patient he doubts she is understanding what she was told
by MD. Explained hospice philosophy and benefits. Family also asking differences between hospice and palliative care- explained. Patient cannot decide on chemo or hospice and wants someone to explain prognosis again so she can decide. She
declines to speak with hospice nurse at this time.
Message to Dr Wellington re; above.
CM continuing to follow.
Plan TBD.
--- NOTE | 2024-01-09 15:24 | PTCARENOTE ---
pt refused 500mL fluid bolus. made aware. Pt drinking appropriately. Pt states that she is not dehydrated and has consumed approx 2400mL of water this shift.
[2024-01-09 15:25] LABS: Hematocrit 20.8 % (37.0-47.0); Hemoglobin 7.2 g/dL (12.0-16.0)
--- NOTE | 2024-01-09 15:27 | PTCARENOTE ---
extensive education and emotional support given throughout shift regarding goals of care and medications that are being provided while in hospital. Pt received clarification regarding blood transfusions, palliative care if that is her goal as she
expressed, antibiotics, IV fluids, lab work and urine cultures. After discussions throughout shift patient expressed that she has understanding. This RN explained to pt that if she has questions regarding her care she is always able to ask for
further clarification.
[2024-01-09 15:29] LABS: Iron 27 ug/dl (37-170)
[2024-01-09 15:39] LABS: Percent Saturation 16 % (20-50); Total Iron Binding Capacity 165 ug/dl (265-497)
[2024-01-09 16:31] LABS: Folate 16.5 ng/ml (2.76-20); Vitamin B12 442 pg/ml (239-931)
[2024-01-09] MEDS: ProAmatine 5 MG PO (17:39)
[2024-01-09] MEDS: NSS 1000 IV (17:40)
[2024-01-09] MEDS: XANAX 1 MG PO (23:01)
[2024-01-10] VITALS (12 sets, daily range): BP systolic 40–127; BP diastolic 14–68; BMI 14.9
--- NOTE | 2024-01-10 05:47 | PTCARENOTE ---
Pt had no complaints over night. Vitals stable at this time. Call warner within reach. Assessment care as charted.
[2024-01-10 06:08] LABS: Blood Urea Nitrogen 16 mg/dl (7-17); Calcium 8.4 mg/dl (8.4-10.2); Carbon Dioxide 21 mmol/L (22-30); Chloride 105 mmol/L (98-107); Estimated Creatinine Clearance 25 ml/min; Glucose 117 mg/dl (70-99); Magnesium 1.5 mg/dl (1.6-2.3); Phosphorus 4.2 mg/dl (2.5-4.5); Potassium 3.7 mmol/L (3.5-5.1); Sodium 139 mmol/L (135-145); eGFR 39.16
[2024-01-10 06:54] LABS: Hematocrit 21.1 % (37.0-47.0); Mean Corp Hgb Conc. 33.2 g/dL (33.0-37.0); Mean Corpuscular Hgb 28.2 pg (27.0-31.0); Mean Corpuscular Volume 85.1 fL (81.0-99.0); Mean Platelet Volume 9.5 fL (7.4-10.4); Platelet Count 283 10^3/uL (130-400); Red Blood Cell Count 2.48 10^6/uL (4.20-5.40); Red Cell Dist. Width 15.4 % (11.5-14.5); White Blood Cell Count 6.2 10^3/uL (4.8-10.8)
--- NOTE | 2024-01-10 09:39 | W.PN.HOSP.TC ---
Today's Communication/Plan
-
IV antibiotics. ID and oncology eval.
Assessment / Plan
Assessment / Plan
Physical Exam
General: Cachectic, no acute distress, appears comfortable at this time
HEENT: NormoCephalic, Moist mucous membranes and Atraumatic
Respiratory: Clear
Cardiac: S1/S2 and Regular Rhythm; No Murmur or Rub
GI/abd: Soft, Non Tender, Non Distended and Normal Bowel Sounds; No Organomegaly right nephrostomy tube in place
Musculoskeletal: No Clubbing, No Cyanosis and No Edema
Skin: No Rash
Neuro: AO x 3
Psych: Calm
A/P:
63F hx meningitis, cervical cancer status post radiation and hysterectomy follows with [facility], CKD3B, hydronephrosis 2/2 cervical cancer recurrence s/p rt nephrostomy, migraines, bipolar, depression, anxiety p/w intermittent fever past few weeks.
Urinalysis suggestive of uti. White count elevation and fever with borderline low BP concerning for severe sepsis. No significant lactic acidosis
# Fever likely from urinary tract infection nephrostomy associated
# Nephrostomy tube due to obstruction from cervical cancer recurrence
-Sepsis as evident by WBC 16.6, procal 0.94, hypotension
-Chest x-ray Mild bilateral lung hyperinflation. No radiographic evidence for pneumonia.
-Follow Blood and urine cultures NGTD
-CT abdomen pelvis appreciated hysterectomy 9x4cm mass suggestive recurrent malignancy, known severe left hydronephrosis, rt nephrostomy in satisfactory position, no significant Right hydronephrosis
-Cefepime continued
-Maintenance fluids discontinued per patient's request, Monitor BP and bolus as necessary goal MAP>65 and goal systolic >90
-ID consult today for further evaluation
# Anemia of chronic disease
-Hemoglobin stable at 8.7 dropped to 7.0 following fluids likely dilutional
-Repeat H&H type and screen, patient consented to blood transfusion if necessary (consent attached to patient's medical chart/binder)
-transfuse if Hgb<7
-Follow up B12 Folate Iron TIBC
-Hb 7 today
# CKD3B
#possible Mild LUCHO
-initial Creatinine 2.0
-Baseline 1.7-1.8
-monitor renal function
-Creatinine down to 1.5 today
#Bipolar/depression
#Insomnia/anxiety
-Cont home divalproex, fluoxetine, bedtime Xanax
#Cachectic BMI 14.9
#Endorses chronic poor appetite
#Cervical ca hx hysterectomy radiation chemo
#suspected cancer resurgence, pt follows [facility] oncology urology
Patient reports she was told her prognosis was 9 mo and that chemo may give her an additional month
Patient also very vocal that she does not want to do chemo regardless potential benefit and has expressed interest in Hospice
Psych eval appreciated, patient at capacity to make her own medical decisions
Brother Sage , one of patient's POAs (patient has two brother who she named as her POAs) however has different understanding of patient's prognosis (accepts 9 mo prognosis w/o chemo but strongly disagrees w/ possible 1 mo benefit w
chemo- ostensibly he wants patient to reconsider doing chemo)
Oncology eval requested for further clarification prognosis, goals of care discussion.
dvt ppx scd
DNR
discussed with patient.
Will discuss tomorrow, if patient allows me, with patient's mother Grecia, patient's brother Sage POA and it appears Dr. Wellington has discussed with them previously.
I spent a total of 60 minutes with the patient or on the floor. More than 50% of this time involved counseling and coordination of care.
Anticipated Discharge: > 48 hours
Subjective/Interval History
-
Date of Service: January 10, 2024
Patient with generalized weakness. Looks frail overall.
Objective Data
-
Labs:
Laboratory Results
01/10/24
05:03
WBC 6.2
Hgb 7.0 L
Hct 21.1 L
Plt Count 283 D
Sodium 139
Potassium 3.7
Chloride 105
Carbon Dioxide 21 L
BUN 16
Creatinine 1.5 H
Glucose 117 H
Calcium 8.4
Vital Signs:
Vital Signs
Temp Pulse Resp BP Pulse Ox
98.3 F 68 21 106/56 98
01/10/24 07:50 01/10/24 06:07 01/10/24 06:07 01/10/24 06:07 01/09/24 21:45
I&O
01/09/24 01/10/24 01/11/24
06:59 06:59 06:59
Intake Total 1440 / 1440 5160 / 5160
Output Total 1750 / 1750 3175 / 3175
Balance -310 / -310 1984
[2024-01-10] MEDS: DEPAKOTE (12 HR RELEASE) 500 MG PO (10:09)
[2024-01-10] MEDS: ProAmatine 5 MG PO ×2 (10:09→13:38)
[2024-01-10] MEDS: FEOSOL 325 MG PO (10:09)
[2024-01-10] MEDS: PROZAC 60 MG PO (10:10)
--- NOTE | 2024-01-10 12:01 | PTOTSP ---
Attempted to see patient for PT evaluation - patient declined despite explaining goals/purpose, reporting she is independent with mobility and refuses evaluation. Patient agreeable to PT signing off and is aware our services are available if needed.
Please reconsult if needs arise.
[2024-01-10] MEDS: MAXIPIME 1000 MG IV (13:38)
[2024-01-10] MEDS: STERILE WATER FOR INJECTION 10 ML IV (13:38)
--- NOTE | 2024-01-10 15:51 | CON.ID ---
Consultation
-
Date/Time Consultation Requested: January 10, 2024 1256
Date/Time Consultation Performed: January 10, 2020 1552
Requesting Provider: Dr. Zhen Li
Performing Provider: Dr. Shania Reilly
Reason for Consultation: Fever
Chief Complaint / Past History
Chief Complaint
Fever
History of Present Illness
64-year-old female with history of recurrent cervical cancer not on chemo, bilateral hydronephrosis due to pelvic mass, left atrophic kidney, status post right percutaneous nephrostomy November 2023 who presented to the hospital January 07 due to
fevers. She reports she has been having intermittent fevers up to 104 for the past 2 weeks. Positive malaise. She presented to the ER on December 31 with negative chest x-ray, negative blood culture. She was told she had a viral syndrome.
However she continued to have fevers and therefore came back to the hospital on January 07. Admission white count of 16.6. On January 08 she had temperature up to 102.9. She was started on cefepime. Blood pressure has been relatively low.
Patient has mild left sided headache, no neck stiffness. No sinus congestion or sore throat. No cough or shortness of breath. No nausea vomiting abdominal pain or diarrhea. No flank pain. She makes very little urine from the urethra. She still
has the nephrostomy tube on the right. Urine culture from the nephrostomy bag shows mixed carlene. Patient feels little bit better today.
Past History
Additional Past Medical History:
Cervical CA s/p XRT, hysterectomy with recurrence, pt declined chemo
Chronic left hydro from pelvic mass
Hx right hydronephrosis s/p perc neph 11/2023
CKD
Bipolar disorder
Anxiety/depression
Panic disorder
Migraines
Allergy History:
Milk Containing Products (Dairy) Allergy (Verified 01/08/24 10:04)
Unknown
nitrofurantoin macrocrystalline [From Macrodantin] Allergy (Verified 01/08/24 10:04)
fever
tuberculin,PPD,multi-puncture Allergy (Verified 01/08/24 10:04)
Rash
Medications Reviewed: Yes
Current Antibiotics:
Cefepime d3
Social History
Tobacco: Non-Smoker
Alcohol: Occasional
Drug: None
Family History
Family History: Not Pertinent
Review of Systems
Review of Systems
General: Change in Appetite
HEENT: Negative Stiff Neck, Sinus Problems or Pharyngitis
Cardiovascular: Negative Chest Pain, Dyspnea or Edema
Respiratory: Negative Dyspnea or Cough
Gasteroenterology: Negative Nausea, Vomiting or Diarrhea
Genital / Urological: Negative Dysuria or Flank Pain
Endocrine: Weakness
Skin / Hair / Nails: Negative Rash
Neurological: Negative Dizziness
All systems: All other systems were reviewed and were negative
Vital Signs
Temp Pulse Resp BP Pulse Ox
98.5 F 57 21 115/43 98
01/10/24 11:50 01/10/24 13:38 01/10/24 06:07 01/10/24 13:38 01/09/24 21:45
Physical Exam
Physical Exam
Constitutional: No Acute Distress and Cachetic
Head: Other (No frontal of maxillary sinus tenderness)
Eyes: No Conjunctival Hemorrhage and Sclera Anicteric
Cardiovascular: Regular Rate and S1/S2
Pulmonary: Clear
Gastrointestinal: Soft, Non Tender, Non Distended and Normal Bowel Sounds
Genito-Urinary: Other (right perc neph clear urine); Negative CVA Tenderness
Extremities: Negative Edema
Neurological: AO x 3
Lab / Diagnostic Study Results
01/10/24 05:03
01/10/24 05:03
Abs Immat Gran (auto) 0.1 10^3/uL (0-0.05) H 01/08/24 10:38
Absolute Neuts (auto) 15.0 10^3/uL (1.4-6.5) H 01/08/24 10:38
Absolute Lymphs (auto) 0.6 10^3/uL (1.2-3.4) L 01/08/24 10:38
Absolute Monos (auto) 0.8 10^3/uL (0.1-0.6) H 01/08/24 10:38
Absolute Basos (auto) 0.0 10^3/uL (0-0.2) 01/08/24 10:38
Immature Gran % 0.7 % (0-0.5) H 01/08/24 10:38
Neutrophils % 90.6 % (42.2-75.2) H 01/08/24 10:38
Lymphocytes % 3.7 % (20.5-51.1) L 01/08/24 10:38
Monocytes % 4.8 % (1.7-9.3) 01/08/24 10:38
Eosinophils % 0.0 % (0-6) 01/08/24 10:38
Basophils % 0.2 % (0-2) 01/08/24 10:38
Lactic Acid Cancelled 01/08/24 14:30
Procalcitonin 0.94 ng/ml (0.0-0.25) H 01/08/24 10:38
Ur Squamous Epith Cells 6-10 /LPF (Few) 01/08/24 10:49
Microbiology Results
Micro:
01/08/24 11:29 Blood Culture - Preliminary
Blood/Venous No Growth in 48 hours- Final report to follow
01/08/24 10:38 Blood Culture - Preliminary
Blood/Venous No Growth in 48 hours- Final report to follow
01/08/24 10:49 Urine Culture - Final
Urine
01/08/24 CT a/p: There is hysterectomy with a 9 x 4 cm in diameter lobular soft tissue mass at the upper margin of the vaginal cuff suspicious for recurrent malignancy. There is severe left hydronephrosis associated with severe left-sided renal
cortical atrophy
01/01/24 CXR: no pneumonia
Assessment / Plan
# Cervical cancer with recurrence, not on tx
# Fever- resolving
# Leukocytosis resolved
# Right obstructive uropathy from pelvic ca s/p perc neph 12/08/23
# Chronic left hydronephrosis with atrophic nonfunctional kidney
- Blood cx neg to date, CXR no PNA, CT a/p patent right perc neph.
- Possible right perc neph CAUTI
Right nephrostomy urine + pyuria, cx >100K mixed carlene, likely contaminant.
Repeat Ucx from right nephrostomy tube
-Continue cefepime for now.
--- NOTE | 2024-01-10 17:11 | CM ---
Patient with Hx cervical cancer, nephrostomy tube, anemia, bipolar disorder with Dx Fever likely UTI, sepsis, anemia, cachexia. Room air. Regular diet. Receiving IV Abx. Patient declined to work with PT today. Per nursing; A/O, activity by
self.
CM continuing to follow for d/c needs.
Plan likely home.
[2024-01-10] MEDS: ProAmatine PO (17:33)
[2024-01-10] MEDS: MIRALAX 17 GRAMS PO (18:15)
--- NOTE | 2024-01-10 18:21 | PTCARENOTE ---
Patient has poor appetite, drinking shake beverage with visitors at bedside. Patient complaining of constipation, bowel regimen ordered. Urostomy draining clear yellow urine. Patient in good spirits.
[2024-01-10] MEDS: MAGNESIUM SULFATE 50 IV (19:14)
--- NOTE | 2024-01-10 20:10 | CON.ONC ---
Impression
Impression
Progressive metastatic adenocarcinoma of cervix, no prior systemic therapy
Obstructive uropathy due to tumor, now s/p PCN
Urosepsis
Cancer cachexia
Plan
Plan
Pt has adequate PS for systemic therapy.
Discussed possibility of a single agent or doublet therapy to try to arrest disease process. She would be a candidate for tisotumab antibody drug conjugate, possibly immunotherapy although previously told tissue was PD-L1 negative.
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
Discussed options of treatment, best supportive care or hospice.
Advised that she the hospital admission will likely continue with increasing frequency on best supportive care.
She is a long-time pt of Dr. Harper, but we could see her in the office to discuss possible treatment options as second opinion.
She could use a nutrition consult and some medical marijuana for the cachexia.
Thank you for consult, will follow along with you.
Patient History
History of Present Illness
63-year-old woman diagnosed with cervical adenocarcinoma in 2015. She has been cared for by Dr. Jeancarlos Tai at [facility] since then. The cancer was localized at diagnosis. Patient declined radical hysterectomy in favor of radiation which was given
in 2016. She was felt to have residual active disease. She was on expectant observation until March 10 when she developed progression requiring radical hysterectomy. Ovaries were left in place. Once again, patient's understanding is that
the surgery 'did not get it all' because she would have required pelvic exenteration. Sounds as though she was diagnosed with distant progression to lung and liver in April of this year. 6-month follow-up study was done. She was found to have
severe right hydronephrosis requiring percutaneous nephrostomy tube which was placed on December 07. She now comes in with urosepsis and acute on chronic cytopenias. Patient tells me that she was not felt to be a candidate for single agent
immunotherapy due to absence of PD-L1 expression. Dr. Harper has offered carbo/Taxol/Avastin Keytruda, patient does not feel she could handle this treatment. Of note, patient lives independently with well-preserved performance status. Patient
hide strongly prefers not to have any intravenous treatment and also would not want to lose her hair. Patient feels ready patient's family members are encouraging her to consider treatment.
Past-Medical/Surgical History
PMHx:
Depression
Anxiety
Cervical cancer
Panic disorder
Hydronephrosis
Atrophic cornea
Bipolar
CKD
PSHx:
Hysterectomy
Left kidney stones
Nephrostomy tube
Social History:
Tobacco: Non-smoker
Alcohol: Occasional
Drug: None
Personal: Single
Living: With Family
Employment: Employed
Family :History
Family History: Not pertinent
Patient Medication
�Medication �Instructions �Recorded �Confirmed �Last Taken �Type
fluoxetine 20 mg capsule 60 mg PO DAILY Mental 01/16/20 01/08/24 12/06/23 History
Health/Anxiety
alprazolam 1 mg tablet 1 mg PO HS Mental Health/Anxiety 12/07/23 01/08/24 12/06/23 History
ascorbic acid (vitamin C) 500 mg 500 mg PO DAILY Supplement 12/07/23 01/08/24 1 Week Ago History
tablet (Vitamin C) ~11/30/23
krhttza-iioyomfnmwrsp-wgbjtgmi 250 250 tab PO DAILYPRN PRN Migraines 12/07/23 01/08/24 3 Days Ago History
mg-250 mg-65 mg tablet (Excedrin ~12/04/23
Migraine)
cholecalciferol (vitamin D3) 25 25 mcg PO DAILY Supplement 12/07/23 01/08/24 1 Week Ago History
mcg (1,000 unit) tablet ~11/30/23
divalproex 500 mg tablet,delayed 500 mg PO DAILY mental health 12/07/23 01/08/24 12/06/23 History
release
Active Medications
Generic Name Dose Route Start Last Admin
Trade Name Freq PRN Reason Stop Dose Admin
Acetaminophen 650 mg 01/10/24 17:21
Acetaminophen 325 Mg Tablet PO 02/07/24 17:20
Q6HPRN PRN
mild pain/ fever>100.5F
Alprazolam 1 mg 01/08/24 22:00 01/09/24 23:01
Alprazolam 1 Mg Tablet PO 02/05/24 21:59 1 mg
HS JADEN Administration
Cefepime HCl 1,000 mg 01/09/24 12:00 01/10/24 13:38
Cefepime Hcl 1,000 Mg/11.3 Ml Vial IV 1,000 mg
Q24H JADEN Administration
Divalproex Sodium 500 mg 01/09/24 08:00 01/10/24 10:09
Divalproex 500 Mg Delayed Release (12 Hr) Tablet PO 02/06/24 07:59 500 mg
DAILY JADEN Administration
Ferrous Sulfate 325 mg 01/10/24 08:00 01/10/24 10:09
Ferrous Sulfate 325 Mg Tablet PO 02/07/24 07:59 325 mg
DAILY JADEN Administration
Fluoxetine HCl 60 mg 01/09/24 08:00 01/10/24 10:10
Fluoxetine 20 Mg Capsule PO 02/06/24 07:59 60 mg
DAILY JADEN Administration
Midodrine 5 mg 01/09/24 18:00 01/10/24 17:33
Midodrine 5 Mg Tablet PO 02/06/24 17:59 Not Given
TID@0800,1300,1800 JADEN
Polyethylene Glycol 17 grams 01/10/24 18:00 01/10/24 18:15
Polyethylene Glycol Powder 17 Grams Packet PO 02/07/24 17:59 17 grams
DAILY JADEN Administration
Sennosides 8.6 mg 01/10/24 20:00
Sennosides (Senokot) 8.6 Mg Tablet PO 02/07/24 19:59
BID JADEN
Sodium Chloride 0 flush 01/09/24 14:00
Sodium Chloride 0.9% (Flush) Syringe IV 02/06/24 13:59
PER PROTOCOL JADEN
Sterile Water 10 ml 01/09/24 12:00 01/10/24 13:38
Sterile Water For Injection 10 Ml Vial IV 02/06/24 11:59 10 ml
Q24H JADEN Administration
Review of Systems
-
Denies pain.
Physical Exam
-
General: Cachetic
HEENT: Moist Mucous Membranes; Negative Jaundice
Cardiology: Normal Sinus Rhythm, S1 and S2
Pulmonary: Clear; Negative Wheezes
GI: Soft and Normal Bowel Sounds
Musculoskeletal: Other (Cachectic)
Extremities: No C/C/E
Neurology: Non Focal
Skin: Warm and Dry
Hematologic / Lymphatic: No Lymphadenopathy
Psych: Calm
Labs
Lab Results
WBC 6.2 10^3/uL (4.8-10.8) 01/10/24 05:03
RBC 2.48 10^6/uL (4.20-5.40) L 01/10/24 05:03
Hgb 7.0 g/dL (12.0-16.0) L 01/10/24 05:03
Hct 21.1 % (37.0-47.0) L 01/10/24 05:03
MCV 85.1 fL (81.0-99.0) 01/10/24 05:03
MCH 28.2 pg (27.0-31.0) 01/10/24 05:03
MCHC 33.2 g/dL (33.0-37.0) 01/10/24 05:03
RDW 15.4 % (11.5-14.5) H 01/10/24 05:03
Plt Count 283 10^3/uL (130-400) D 01/10/24 05:03
MPV 9.5 fL (7.4-10.4) 01/10/24 05:03
Abs Immat Gran (auto) 0.1 10^3/uL (0-0.05) H 01/08/24 10:38
Absolute Neuts (auto) 15.0 10^3/uL (1.4-6.5) H 01/08/24 10:38
Absolute Lymphs (auto) 0.6 10^3/uL (1.2-3.4) L 01/08/24 10:38
Absolute Monos (auto) 0.8 10^3/uL (0.1-0.6) H 01/08/24 10:38
Absolute Eos (auto) 0.0 10^3/uL (0-0.7) 01/08/24 10:38
Absolute Basos (auto) 0.0 10^3/uL (0-0.2) 01/08/24 10:38
Immature Gran % 0.7 % (0-0.5) H 01/08/24 10:38
Neutrophils % 90.6 % (42.2-75.2) H 01/08/24 10:38
Lymphocytes % 3.7 % (20.5-51.1) L 01/08/24 10:38
Monocytes % 4.8 % (1.7-9.3) 01/08/24 10:38
Eosinophils % 0.0 % (0-6) 01/08/24 10:38
Basophils % 0.2 % (0-2) 01/08/24 10:38
Creatinine 1.5 mg/dL (0.6-1.0) H 01/10/24 05:03
Vital Signs
Vital Signs
Temp Pulse Resp BP Pulse Ox
98.6 F 55 13 109/49 99
01/10/24 15:55 01/10/24 18:18 01/10/24 18:18 01/10/24 18:18 01/10/24 18:00
[2024-01-10] MEDS: SENOKOT PO (23:01)
[2024-01-10] MEDS: MAGNESIUM OXIDE 500 MG PO (23:01)
[2024-01-10] MEDS: XANAX 1 MG PO (23:01)
[2024-01-11] VITALS (11 sets, daily range): BP systolic 82–124; BP diastolic 44–63
[2024-01-11] MEDS: TYLENOL 650 MG PO ×3 (02:09→17:20)
--- NOTE | 2024-01-11 02:13 | PTCARENOTE ---
pt c/o burning at iv site where magnesium infusing, attempted to slow down rate and dilute with NSS piggy back, but pt unable to tolerate. INÉS Erwin made aware and ordered po magnesium replacement instead. pt c/o feeling like she has a fever and
'the shakes'. temp 99.7; prn tylenol provided. urine sent from nephrostomy tube. discussed with pt her prognosis. pt states she has 9 months left to live and wants to go home on hospice. support provided, pt thankful.
[2024-01-11 05:41] LABS: Hematocrit 21.2 % (37.0-47.0); Hemoglobin 7.3 g/dL (12.0-16.0); Mean Corp Hgb Conc. 34.4 g/dL (33.0-37.0); Mean Corpuscular Hgb 29.8 pg (27.0-31.0); Mean Corpuscular Volume 86.5 fL (81.0-99.0); Platelet Count 239 10^3/uL (130-400); Red Blood Cell Count 2.45 10^6/uL (4.20-5.40); Red Cell Dist. Width 15.2 % (11.5-14.5); White Blood Cell Count 8.2 10^3/uL (4.8-10.8)
[2024-01-11 06:05] LABS: Blood Urea Nitrogen 16 mg/dl (7-17); Calcium 8.7 mg/dl (8.4-10.2); Carbon Dioxide 23 mmol/L (22-30); Chloride 102 mmol/L (98-107); Estimated Creatinine Clearance 27 ml/min; Glucose 94 mg/dl (70-99); Magnesium 1.5 mg/dl (1.6-2.3); Phosphorus 3.2 mg/dl (2.5-4.5); Potassium 4.1 mmol/L (3.5-5.1); Sodium 136 mmol/L (135-145); eGFR 42.54
[2024-01-11] MEDS: MIRALAX 17 GRAMS PO (09:25)
[2024-01-11] MEDS: PROZAC 60 MG PO (09:25)
[2024-01-11] MEDS: FEOSOL 325 MG PO (09:25)
[2024-01-11] MEDS: SENOKOT 8.6 MG PO (09:26)
[2024-01-11] MEDS: ProAmatine 5 MG PO ×2 (09:26→14:45)
[2024-01-11] MEDS: DEPAKOTE (12 HR RELEASE) 500 MG PO (09:26)
--- NOTE | 2024-01-11 09:27 | W.PN.ID1 ---
Date of Service
Date of Service: January 11, 2024
Today's Communication
-Can transition cefepime to cipro 500 mg po once a day through 01/13
Assessment / Plan
# Cervical cancer with recurrence, not on tx
# Fever- resolved
# Leukocytosis resolved
# Right obstructive uropathy from pelvic ca s/p perc neph 12/08/23
# Chronic left hydronephrosis with atrophic nonfunctional kidney
# LUCHO on CKD improving
- Blood cx neg to date, CXR no PNA, CT a/p patent right perc neph.
- Possible right perc neph CAUTI
Right nephrostomy urine + pyuria, cx >100K mixed carlene, likely contaminant.
Repeat Ucx from right nephrostomy tube pending (suspect will be negative as pt on IV abx)
-Can transition cefepime to cipro 500 mg po once a day through 01/13.
Chief Complaint
-: Fever
Subjective / Review of Systems
Asking when she can go home. Has mild GELLER.
Vital Signs / Physical Exam
Vital Signs
Vital Signs
Temp Pulse Resp BP Pulse Ox
98.8 F 65 22 102/52 98
01/11/24 07:12 01/11/24 06:00 01/11/24 06:00 01/11/24 04:00 01/11/24 02:13
Physical Exam
Constitutional: No Acute Distress, Non-toxic and Cachetic
Pulmonary: Clear
Gastrointestinal: Soft, Non Tender and Non Distended
Genito-Urinary: Clear Urine (right perc neph); Negative CVA Tenderness
Extremities: Negative Edema
Neurological: AO x 3
Objective Data
Lab Data
Lab Results
01/11/24 05:21
01/11/24 05:21
Estimated Creat Clear 27 ml/min 01/11/24 05:21
Lactic Acid Cancelled 01/08/24 14:30
Total Bilirubin 0.2 mg/dl (0.2-1.3) 01/08/24 10:38
AST 17 U/L (14-36) 01/08/24 10:38
ALT 10 U/L (0-35) 01/08/24 10:38
Alkaline Phosphatase 64 U/L (38-126) 01/08/24 10:38
Most recent labs reviewed.
Micro Results:
01/10/24 23:16 Urine Culture - Pending
Urine
01/08/24 11:29 Blood Culture - Preliminary
Blood/Venous No Growth in 48 hours- Final report to follow
01/08/24 10:38 Blood Culture - Preliminary
Blood/Venous No Growth in 48 hours- Final report to follow
01/08/24 10:49 Urine Culture - Final
Urine
01/08/24 CT a/p: There is hysterectomy with a 9 x 4 cm in diameter lobular soft tissue mass at the upper margin of the vaginal cuff suspicious for recurrent malignancy. There is severe left hydronephrosis associated with severe left-sided renal
cortical atrophy
01/01/24 CXR: no pneumonia
--- NOTE | 2024-01-11 09:40 | W.PN.HOSP.TC ---
Addendum entered and electronically signed by Zhen Li MD 01/12/24 09:31:
After study LUCHO has been ruled out
Addendum entered and electronically signed by Zhen Li MD 01/11/24 14:49:
Severe protein calorie malnutrition.
Original Note:
Today's Communication/Plan
-
Discharge planning in progress.
Assessment / Plan
Assessment / Plan
Physical Exam
General: Cachectic, no acute distress, appears comfortable at this time
HEENT: NormoCephalic, Moist mucous membranes and Atraumatic
Respiratory: Clear
Cardiac: S1/S2 and Regular Rhythm; No Murmur or Rub
GI/abd: Soft, Non Tender, Non Distended and Normal Bowel Sounds; No Organomegaly right nephrostomy tube in place
Musculoskeletal: No Clubbing, No Cyanosis and No Edema
Skin: No Rash
Neuro: AO x 3
Psych: Calm
A/P:
Sepsis due to right percutaneous nephrostomy catheter associated urinary tract infection:
On IV cefepime changing to oral Cipro today until 01/13
ID consult appreciated
Chest x-ray clear, blood cultures no growth, CT of the abdomen with patent right percutaneous nephrostomy.
ID cleared her for discharge today
Discussed with brother who is POA over the phone today and also discussed with mother at bedside today on 01/10.
station manager for discharge disposition
Advancing metastatic adenocarcinoma of cervix:
No prior systemic therapy
Oncology consult appreciated
Oncology has offered systemic therapy and possibly immunotherapy but patient would like to discuss via telehealth with her outpatient oncology first.
Patient is also considering hospice but will discuss with oncology first.
Ultimately I discussed with patient and family that there will be up to her for final decision.
LUCHO on CKD:
Creatinine 1.4 today
Creatinine as high as 2 on 01/07
Hypotension:
Improved after treatment of sepsis and hydration nevertheless requires midodrine
Continue midodrine as outpatient
Cachexia with severe protein calorie malnutrition:
Nutrition consult
Anemia of chronic disease:
Hemoglobin has some dilutional drop
Hemoglobin today 7.3
Bipolar and anxiety:
Continue fluoxetine and Depakote and benzodiazepines
Psychiatry consulted and felt her medical decision capacity is intact.
DVT prophylaxis:
SCDs
CODE STATUS:
DNR
Anticipated Discharge: Today
Subjective/Interval History
-
Date of Service: January 11, 2024
Patient feels better overall but deconditioned and weak. Afebrile
Objective Data
-
Labs:
Laboratory Results
01/11/24
05:21
WBC 8.2
Hgb 7.3 L
Hct 21.2 L
Plt Count 239
Sodium 136
Potassium 4.1
Chloride 102
Carbon Dioxide 23
BUN 16
Creatinine 1.4 H
Glucose 94
Calcium 8.7
Vital Signs:
Vital Signs
Temp Pulse Resp BP Pulse Ox
98.8 F 68 22 100/54 98
01/11/24 07:12 01/11/24 09:26 01/11/24 06:00 01/11/24 09:26 01/11/24 02:13
I&O
01/10/24 01/11/24 01/12/24
06:59 06:59 06:59
Intake Total 5160 / 5160 440 / 440
Output Total 3175 / 3175 1710 / 1710
Balance 1984 / 1984 -1270 / -1270
--- NOTE | 2024-01-11 10:12 | W.PN.ONC ---
Today's Communication / Plan
-
Patient has telehealth visit with Dr. Harper today. Was advised to discuss treatment plans with her team at [employer], but we could see her in the office to discuss possible treatment options as second opinion. Continue oral antibiotic therapy
through 01/13.
Pt is stable for discharge.
Impression
Impression
Progressive metastatic adenocarcinoma of cervix, no prior systemic therapy
Obstructive uropathy due to tumor, now s/p PCN
Urosepsis - now resolved
CKD - Cr 1.4 today
Cancer cachexia
Plan
Plan
Pt has adequate PS for systemic therapy. 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
Could consider single agent or doublet therapy to try to arrest disease process. She would be a candidate for tisotumab antibody drug conjugate, possibly immunotherapy although previously told tissue was PD-L1 negative.
She could use a nutrition consult and some medical marijuana for the cachexia.
Subjective/Objective
Subjective/Objective
Vital Signs:
Vital Signs
Temp Pulse Resp BP Pulse Ox
98.8 F 68 22 100/54 98
01/11/24 07:12 01/11/24 09:26 01/11/24 06:00 01/11/24 09:26 01/11/24 02:13
Lab Results:
Laboratory Data
WBC 8.2 10^3/uL (4.8-10.8) 01/11/24 05:21
Hgb 7.3 g/dL (12.0-16.0) L 01/11/24 05:21
Plt Count 239 10^3/uL (130-400) 01/11/24 05:21
eGFR 42.54 01/11/24 05:21
[2024-01-11] MEDS: CIPRO 500 MG PO (10:36)
--- NOTE | 2024-01-11 12:54 | PN.CDI ---
CDI
- -
CDI:
Physician Documentation Request
Admit Date: 01/08/24 13:38
Dear Doctor Guillermo,
01/09 notes/assessment 'severe protein calorie malnutrition. 5% unintentional weigh loss in 1 month. Patient meets ASPEN guidelines for severe calorie malnutrition of chronic illness. The patient has consumed less than 75% of her nutritional
needs for more than 1 month.... Also has severe temporal muscle loss'
Based on the above information and your assessment, which of the following most accurately represents the patient's nutritional status?
Severe protein calorie malnutrition.
Other (please specify)
Yeso Criteria ([facility] Hospitalist 2017)
2 or more criteria must be present for either
non severe or severe malnutrition
Note that the criteria differs related to the
presence of an acute or chronic illness
Acute Illness Chronic Illness
Energy Intake Non Severe: <75% for >7 days Non Severe: <75% for >1 month
Severe: <50% for >5 days Severe: <75% for >1 month
Weight Loss Non Severe: 1-2% over 1 week Non Severe: 5% over 1 month
5% over 1 month 7.5% over 3 months
7.5% over 3 months 10% over 6 months
1 year N/A 20% over 1 year
Severe: >2% over 1 week Severe: >5% over 1 month
>5% over 1 month >7.5% over 3 months
>7.5% over 3 months >10% over 6 months
1 year N/A >20% over 1 year
Body Fat Non Severe: Mild Decrease Non Severe: Mild Loss
Severe: Moderate Decrease Severe: Severe Loss
Muscle Mass Non Severe: Mild Decrease Non Severe: Mild Loss
Severe: Moderate Decrease Severe: Severe Loss
Fluid Accumulation Non Severe: Mild Accumulation Non Severe: Mild Accumulation
Severe: Moderate to severe Severe: Moderate to severe
accumulation accumulation
Reduced Mr[employer] Engineer Strength Non Severe: N/A Non Severe: N/A
Severe: Measurably reduced Severe: Measurably reduced
Use of terms such as suspected, likely, concern for, or probable (associated with a specific diagnosis that is being evaluated, monitored, or treated as if it exists) are acceptable and can be coded in the inpatient setting, when documented at the
time of discharge.
Thank you,
Jovanna Fuchs RN, BSN
CDI Specialist
tiger text
Please use your independent medical judgment in providing your response.
--- NOTE | 2024-01-11 13:19 | W.DCSUMMARY ---
Discharge Summary
Discharge Data
Date of Admission: 01/08/24
Date of Discharge: 01/11/24
-
Pending Results: No
Hospital Course
Patient is 63 years old female history of advanced adenocarcinoma of the cervix, bilateral hydronephrosis status post right percutaneous nephrostomy back in November 2023, came into the hospital with fevers. Patient was found to be in sepsis and
she was given IV fluids and IV antibiotics. Blood cultures no growth, chest x-ray no evidence of pneumonia, and urinalysis abnormal but no growth and urine culture pending after antibiotics given. ID consulted. ID felt source of infection was
from her right percutaneous nephrostomy catheter associated urinary tract infection. She was treated with IV cefepime and transition to oral ciprofloxacin. Patient also was started on midodrine for chronic hypotension. Oncology was consulted and
she was offered systemic therapy but patient would like to discuss with her own oncologist and decide if she wants to pursue treatment or rather hospice. In any event, patient has improved although she remains relatively weak and with decreased
oral intake so recommended rehab but patient adamantly does not want to go to rehab and she wants to go home. She has been cleared by ID and oncology for discharge today. Discussed with family and patient and if she is still insists on going home
rather than rehab then she will be discharged with home care today.
Discharge duration: 35 minutes
Discharge Plan
-
Patient Disposition: Home with Home Care
Discharge Diagnosis/Procedures: Sepsis due to urinary tract infection. Chronic kidney disease. Progressive metastatic adenocarcinoma of cervix. History obstructive uropathy. Cachexia.
Diet: Regular
Activity: As tolerated
Blood Work: Please PCP to order CBC, BMP within 1 week.
Referrals:
Jarek Pereira DO [Family Provider] - in less than 1 week
Ijeoma Iniguez MD [Active] - in two to four weeks
Prescriptions:
New
midodrine 5 mg Tablet
5 mg PO TID@0800,1300,1800 30 Days Qty: 90 0RF
ciprofloxacin HCl 500 mg Tablet
500 mg PO DAILY 3 Days Qty: 3 0RF
Continued
fluoxetine 20 MG capsule
60 mg PO DAILY
alprazolam 1 mg tablet
1 mg PO HS
Patient Comments:
01/08/2024: last filled 12/03/23, 60 tabs for 30 days from [id number]
divalproex 500 mg tablet,delayed release (DR/EC)
500 mg PO DAILY
ascorbic acid (vitamin C) [Vitamin C] 500 mg Tablet
500 mg PO DAILY
cholecalciferol (vitamin D3) 25 mcg (1,000 unit) Tablet
25 mcg PO DAILY
Excedrin Migraine 250-250-65 mg Tablet
250 tab PO DAILYPRN PRN (Reason: Migraines)
Discharge Orders:
Discharge Patient (As Directed); Ordered 01/11/24
Ordered By: Zhen Li
Discharge Date and Time
Discharge Date/Time: 01/11/24 18:24
Print Language: MALAWIAN
--- NOTE | 2024-01-11 14:41 | CM ---
CM reviewed chart and noted dc order
Bedside meeting with pt to review dc planning
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
Notes she has been self caring for nephrostomy tube prior to admission for the last month or so
She is independent with drain care and no dc needs noted
IMM verbally reviewed- copy provided
Discharge Disposition- home, declined VN, SO transport home
[2024-01-11] MEDS: ProAmatine PO (17:21)
--- NOTE | 2024-01-11 18:20 | PTCARENOTE ---
Patient out of bed, walking independently in room. Nephrostomy drain dressing loose, new dressing applied. Tube site has one suture, skin in this area is without redness, drainage. Wound care provided and patient educated. Patient given supplies for
home use.
--- NOTE | 2024-01-12 09:01 | PN.CDI ---
CDI
- -
CDI:
Physician Documentation Request
Admit Date: 01/08/24 13:38
Dear Doctor Guillermo,
Progress notes include a diagnosis of LUCHO
The following are the creatinine results during hospitalization including 12/31 result 7 days prior to admission.
01/01/24 01/08/24 01/10/24
19:35 10:38 05:03
Creatinine 1.8 H 2.0 H 1.5 H
01/11/24
05:21
Creatinine 1.4 H
Criteria for LUCHO*
1 Increase in serum creatinine by > or = to 0.3 mg/dL (> or = to 26.5 micromol/L) within 48 hours, OR
2 Increase in serum creatinine to > or = to 1.5 times baseline, which is known or presumed to have occurred within 7 days, OR
3 Urine volume < 0.5 nL/kg/hour for six hours
Based on the above information and the recognized standard for LUCHO could you please verify this diagnoses is still accurate and reflective of the patient�s condition to ensure quality of the medical record.
Please clarify in the Progress Notes:
�LUCHO is/was present and is a clinical diagnosis based on (please include this additional support in the medical
record)
�After study LUCHO has been ruled out
�Other
Use of terms such as suspected, likely, concern for, or probable (associated with a specific diagnosis that is being evaluated, monitored, or treated as if it exists) are acceptable and can be coded in the inpatient setting, when documented at the
time of discharge.
Thank you,
Jovanna Fuchs RN, BSN
CDI Specialist
tiger text
Please use your independent medical judgment in providing your response.
== END 2024-01-11 18:24 | disposition home or self-care (01) | DRG 698 ==
LOC: IMU 13:38
PROVIDERS: Internal Medicine; Registered Nurse; ADMITTING PHYSICIAN Hospitalist; ATTENDING PHYSICIAN Hospitalist; EMERGENCY PHYSICIAN Emergency Medicine; FAMILY PHYSICIAN Family Medicine; OTHER PHYSICIAN Internal Medicine Hematology & Oncology; OTHER PHYSICIAN Internal Medicine Infectious Disease; OTHER PHYSICIAN Psychiatry & Neurology Psychiatry
DX: T83.512A Infection and inflammatory reaction due to nephrostomy catheter, initial encounter (principal); A41.9 Sepsis, unspecified organism; E43 Unspecified severe protein-calorie malnutrition; R64 Cachexia; Z68.1 Body mass index [BMI] 19.9 or less, adult; N13.6 Pyonephrosis; D63.1 Anemia in chronic kidney disease; F31.9 Bipolar disorder, unspecified; N18.9 Chronic kidney disease, unspecified; C53.9 Malignant neoplasm of cervix uteri, unspecified; Z66 Do not resuscitate; Y83.3 Surgical operation with formation of external stoma as the cause of abnormal reaction of the patient, or of later complication, without mention of misadventure at the time of the procedure; E73.8 Other lactose intolerance; F41.0 Panic disorder [episodic paroxysmal anxiety]; G43.909 Migraine, unspecified, not intractable, without status migrainosus; G47.00 Insomnia, unspecified; I95.89 Other hypotension; Z96.0 Presence of urogenital implants; N26.1 Atrophy of kidney (terminal); R19.7 Diarrhea, unspecified; R53.81 Other malaise; R63.0 Anorexia; Z79.899 Other long term (current) drug therapy; Z86.61 Personal history of infections of the central nervous system; Z90.710 Acquired absence of both cervix and uterus; Z92.3 Personal history of irradiation; Z87.19 Personal history of other diseases of the digestive system; Z87.442 Personal history of urinary calculi
CPT/HCPCS: 71046; 74176; 80048; 80053; 81003; 81015; 82607; 82746; 83540; 83550; 83605; 83735; 84100; 84145; 85014; 85018; 85025; 85027; 86850; 86900; 86901; 87040; 87077; 87086; 87186; 96361; 96365; 99285; J2916

== ENCOUNTER 2024-01-23 22:15 | Inpatient (IN) | payer OTHER, SELFPAY ==
[2024-01-23] VITALS (7 sets, daily range): BP systolic 97–112; BP diastolic 53–73; BMI 15.8; BMI 15.1
--- NOTE | 2024-01-23 19:36 | ED.GENMED ---
History of Present Illness
General
Chief Complaint: Fever
Source: patient
Exam Limitations: none
Time Seen by Provider: 01/23/24 19:08
History of Present Illness
History of Present Illness:
This is a 63 year old female that comes in with c/o fever. States that all day today she has not felt good. States that she has been tired and weak and that at home she had a fever of 101.5. States that she did not take anything for this. States
that she has a headache and no appetite. Denies any chills, chest pain, SOB, abd pain, nausea, vomiting, diarrhea, dizziness, urinary burning.
Past History
Past History
ED Past Medical History: Cancer (cervical), Psychiatric (Bipolar, Depression, ) and Other (lactose intolerance, gallstones, migraines, meningitis, Left kidney atrophy)
ED Past Surgical History: Gynecological (Hysterectomy), Tonsilectomy (Adenoids) and Urological (Ureteral stent, Right Nephrostomy tube)
Social History
Tobacco: Non-smoker
Alcohol: Occasional
Drug: None
Personal: Single
Living: with family (Lives with mother)
Family History
Family History: Unable to obtain
Review of Systems
Review of Systems
All Other Systems: ROS reviewed and negative except as documented in HPI and ROS
Constitutional: Reports fever; Denies chills
EENT: Reports no symptoms
Cardiac: Reports no symptoms; Denies chest pain
ABD/GI: Reports no symptoms; Denies abdominal pain, nausea, vomiting or diarrhea
: Reports no symptoms; Denies dysuria, frequency or urgency
Musculoskeletal: Reports no symptoms
Skin: Reports no symptoms
Neurological: Reports headache; Denies dizzy
Psychiatric: Reports no symptoms
Phy Exam
General Physical Exam
General Presentation: no apparent distress
General age: appears stated age
General Skin: warm and dry
General Habitus: normal
General Mental: alert
General Hydration: dry mucous membranes
ENT Exam
ENT Exam: TM's normal, pharynx normal and neck supple
Eye Exam
Eye Exam: EOMI
Cardiovascular Exam
Cardiovascular Exam: regular rate/rhythm, no edema, no murmur and normal peripheral pulses
Pulmonary Exam
Pulmonary Exam: lungs clear, no respiratory distress, no rales, chest non tender, no crackles, no rhonchi, no wheezing and no cough
Gastrointestinal Exam
Gastrointestinal Exam: normal bowel sounds, non tender, soft, no organomegaly, no pulsatile mass and non distended
Genitourinary Exam Female
Exam Female: other (Right nephrostomy tube site clean and dry .)
Musculoskeletal Exam
Musculoskeletal Exam: full ROM and no edema
Skin Exam
Skin Exam: normal color, warm/dry, no rash and no petechia
Psychiatric Exam
Psychiatric Exam: normal mood/affect
Course
Orders/Labs/Results
Orders:
Orders
01/23/24 19:35
0.9% Sodium Chloride 1000 ml [Nss] 1,000 ml IV BOLUS
Acetaminophen [Tylenol] 1,000 mg PO NOW STA
01/23/24 19:57
COVID-19 Antigen Urgent
Source: Nasal Swab
Complete Blood Count/With Diff Urgent
Comprehensive Metabolic Panel Urgent
Lactic Acid Urgent
Urinalysis Reflex To Culture Urgent
Date Specimen was Collected: 01/23/24
Time Specimen was Collected: 19:36
Urine Microscopic Reflex Cult Urgent
Blood Culture Urgent
JEREMÍAS Source: Blood/Venous
Specimen Description:
Urine Culture Urgent
JEREMÍAS Source: U
Specimen Description:
Date Specimen was Collected: 01/23/24
Time Specimen was Collected: 19:36
01/23/24 20:07
Blood Culture Urgent
JEREMÍAS Source: Blood/Venous
Specimen Description:
01/23/24 20:32
CefTRIAXone [Rocephin] 1,000 mg IV NOW STA
01/23/24 21:02
CR Chest - 2 Views Urgent
Comment:
Reason For Exam: fever
01/23/24 21:38
Admit/Transfer Patient As Directed
Co-Sign Provider:
Level of Care: Inpatient admission
Assign to:: Medical/Surgical
Physician / Group: aden
Diagnosis: catheter associated uti
Reason for Hospitalization: catheter associated uti
Expected length of stay greater than two midnights?: Yes
ELOS- Estimated Length of Stay in days: 2
I certify the patient meets the requirements for IP care: Yes
Code Status As Directed
Resuscitation Status: Do not resuscitate
Reached after discussion with pt or family/Healthcare POA: Yes
DNR Bracelet Application ONCE
PRN Pain Medication Management As Directed
May give lesser potent ordered pain med per pt: Yes
preference::
Protocol:: Medication orders for pain may be administered in a
manner that supports deferring to patient preference
when the pt is:
- Requesting an ordered lesser potent pain medication.
Least to most potent pain medications are defined
as: acetaminophen < NSAID < tramadol < opioids
(morphine, oxycodone, hydromorphone).
- Requesting a lesser dose of the same medication IF
ORDERED.
- Requesting a less intrusive route of administration
if both routes are prescribed by the provider (PO <
IV).
Abnormal Lab Results
01/23/24
19:57
RBC 2.69 L 10^6/uL
(4.20-5.40)
Hgb 8.1 L g/dL
(12.0-16.0)
Hct 23.1 L %
(37.0-47.0)
RDW 15.9 H %
(11.5-14.5)
Absolute Lymphs (auto) 0.8 L 10^3/uL
(1.2-3.4)
Neutrophils % 80.3 H %
(42.2-75.2)
Lymphocytes % 11.2 L %
(20.5-51.1)
Chloride 97 L mmol/L
(98-107)
BUN 25 H mg/dl
(7-17)
Creatinine 1.7 H mg/dL
(0.6-1.0)
Glucose 105 H mg/dl
(70-99)
Total Protein 6.1 L g/dl
(6.3-8.2)
Ur Occult Blood Reflex 3+ A
(Negative)
Urine Nitrite (Reflex) Positive A
(Negative)
Leukocyte Esterase Rfl 2+ A
(Negative)
Urine WBC (Reflex) >100 A /HPF
(0-5)
Urine Albumin (Reflex) 1+ A
(Neg - Trace)
01/23/24 19:57
01/23/24 19:57
H/H low but increased from prior labs, Dehydrtion, Glucose nonfasting. Urine positive for infection. Lactic acid normal at 0.9, COVID negative.
Vital Signs
Initial and Last Documented VS:
Initial Vital Signs
Temp Pulse Resp BP Pulse Ox
98.7 F 83 20 105/58 97
01/23/24 18:57 01/23/24 18:57 01/23/24 18:57 01/23/24 18:57 01/23/24 18:57
Last Documented Vital Signs
Temp Pulse Resp BP Pulse Ox
100.5 F H 68 18 112/55 97
01/23/24 19:55 01/23/24 21:00 01/23/24 21:00 01/23/24 21:00 01/23/24 21:00
MDM/Problems Addressed
Differential Diagnosis Includes:
COVID, Urinary infection
MDM/Problems Addressed:
This is a 63 year old female that comes in with c/o fever. States that she is just not feeling good today. States that she was recently here with Sepsis. States that at home she has a temp of 101.5.
will check labs. Blood culture, Urine.
Back into see patient. Explained that she would be admitted as her urine appears to be infected. With patient having a nephrostomy and recent sepsis will admit. Hospitalist notified.
Chronic conditions affecting care:
nephrostomy tube
Acute Exacerbation and/or Progression of Chronic Illness:
Nephrostomy tube
*Radiology
Radiology exam reviewed: preliminary read by ED provider (Chest- Negative for any cardiopulmonary disease. )
*Pulse Oximetry
Patient hypoxic: no
*EKG
Interpreted by ED Provider?: NA
Rate: EKG- N/A
*Media Production Support Manager Interpretation
Rate: normal
Heart Rate: 79
*Critical Care Note
Total Time (30-74mins, 75-104mins- exclusive of procedures): Not Applicable
ED Attending Note
-
Portions of this chart may have been created with voice recognition software.� Occasional wrong word or��sound alike� substitutions may have occurred due to the inherent limitations of voice recognition software.
Discharge Plan
Departure
Patient Disposition: Admit
Date of Disposition: 01/23/24
Time of Disposition: 21:52
Admit to: Med/Surg
Presentation/result/management discussed w/ accepting MD/DO: Hospitalist
Patient with high blood pressure during this ER visit?: No
Condition: Good
Discharge Problem:
Fever, Urinary tract infection
Prescriptions:
No Action
fluoxetine 20 MG capsule
60 mg PO DAILY
alprazolam 1 mg tablet
1 mg PO HS
Patient Comments:
01/08/2024: last filled 12/03/23, 60 tabs for 30 days from [id number]
divalproex 500 mg tablet,delayed release (DR/EC)
500 mg PO DAILY
ascorbic acid (vitamin C) [Vitamin C] 500 mg Tablet
500 mg PO DAILY
cholecalciferol (vitamin D3) 25 mcg (1,000 unit) Tablet
25 mcg PO DAILY
Excedrin Migraine 250-250-65 mg Tablet
250 tab PO DAILYPRN PRN (Reason: Migraines)
Referrals:
Jarek Pereira, DO [Family Provider] -
Interventions
Interventions:
*Risk Screen - Suicide Last Done: 01/23/24 18:57
*General Assessment Last Done: 01/23/24 18:57
*Neglect/Abuse Screening Last Done: 01/23/24 18:57
ED- Fall Risk Assessment Last Done: 01/23/24 20:24
ED- Neurological Assessment Last Done: 01/23/24 20:24
ED-Skin Assessment Last Done: 01/23/24 20:24
Discharge Date and Time
Print Language: FAROESE
[2024-01-23] MEDS: NSS 1000 IV ×2 (20:07→23:40)
[2024-01-23] MEDS: TYLENOL 1000 MG PO (20:09)
[2024-01-23 20:19] LABS: % Basophils 0.1 % (0-2); % Eosinophils 0.1 % (0-6); % Immature Granulocytes 0.3 % (0-0.5); % Lymphocytes 11.2 % (20.5-51.1); % Neutrophils 80.3 % (42.2-75.2); Absolute Lymphocytes 0.8 10^3/uL (1.2-3.4); Absolute Monocytes 0.6 10^3/uL (0.1-0.6); Absolute Neutrophils 5.9 10^3/uL (1.4-6.5); Hematocrit 23.1 % (37.0-47.0); Hemoglobin 8.1 g/dL (12.0-16.0); Mean Corp Hgb Conc. 35.1 g/dL (33.0-37.0); Mean Corpuscular Hgb 30.1 pg (27.0-31.0); Mean Corpuscular Volume 85.9 fL (81.0-99.0); Mean Platelet Volume 9.7 fL (7.4-10.4); Nucleated Red Blood Cells % 0 %; Platelet Count 144 10^3/uL (130-400); Red Blood Cell Count 2.69 10^6/uL (4.20-5.40); Red Cell Dist. Width 15.9 % (11.5-14.5); White Blood Cell Count 7.4 10^3/uL (4.8-10.8)
[2024-01-23 20:21] LABS: Urine Albumin 1+ (Neg - Trace); Urine Bilirubin Negative (Negative); Urine Character Slightly Cloudy (Clear); Urine Color Yellow; Urine Glucose Negative (Negative); Urine Ketone Negative (Negative); Urine Leukocyte 2+ (Negative); Urine Nitrite Positive (Negative); Urine Occult Blood 3+ (Negative); Urine Specific Gravity 1.015 (<1.030); Urine Urobilinogen Negative (Neg - 1+)
[2024-01-23 20:29] LABS: Lactic Acid 0.9 mmol/L (0.7-2.0); Urine White Cell >100 /HPF (0-5)
[2024-01-23 20:37] LABS: COVID-19 Antigen Negative (Negative)
[2024-01-23 20:38] LABS: ALT (SGPT) < 10 U/L (0-35); AST (SGOT) 16 U/L (14-36); Albumin 3.6 g/dl (3.5-5.0); Alkaline Phosphatase 47 U/L (38-126); Blood Urea Nitrogen 25 mg/dl (7-17); Calcium 8.8 mg/dl (8.4-10.2); Carbon Dioxide 28 mmol/L (22-30); Chloride 97 mmol/L (98-107); Estimated Creatinine Clearance 23 ml/min; Glucose 105 mg/dl (70-99); Sodium 136 mmol/L (135-145); Total Bilirubin 0.4 mg/dl (0.2-1.3); Total Protein 6.1 g/dl (6.3-8.2)
[2024-01-23 20:43] LABS: Potassium 3.7 mmol/L (3.5-5.1)
[2024-01-23] MEDS: ROCEPHIN 1000 MG IV (21:04)
--- NOTE | 2024-01-23 21:49 | HPS.HSE ---
Family Physician
-
Family Physician: Jarek Pereira
Chief Complaint
-
fever, weakness
History of Present Illness
63-year-old female past medical history of left kidney atrophy/dysfunction/chronic hydronephrosis with essentially solitary functioning right kidney, recent new right hydronephrosis status post right nephrostomy tube on 12/07, CKD,
bipolar/depression, cachexia, anemia of chronic disease, cervical carcinoma, chronic pancytopenia, migraines presenting for fever. She felt weak all day today. She had fever of 101.5 today she has headache and lack of appetite. Denies chest pain,
shortness breath, abdominal pain, nausea vomiting, diarrhea, dizziness or urinary symptoms.
Patient was recently admitted from 01/07 to 01/10 for right percutaneous nephrostomy catheter associated UTI. Patient was treated with IV cefepime transition to ciprofloxacin because urine culture grew Enterococcus. She was started on midodrine
for chronic hypotension. Patient has progressive metastatic adenocarcinoma cervix was seen by oncology and she was offered systemic therapy the patient would like to discuss with her own oncologist. She refused rehab on discharge.
Denies smoking or alcohol use.
Medical History
Past Medical History
Past Medical History: Reports Other ( left kidney atrophy/dysfunction/chronic hydronephrosis with essentially solitary functioning right kidney, recent new right hydronephrosis status post right nephrostomy tube on 12/07, CKD, bipolar/depression,
cachexia, anemia of chronic disease, cervical carcinoma, chronic pancytopenia, migraines)
Past Surgical History: Reports Other (Gynecological (Hysterectomy), Tonsilectomy (Adenoids) and Urological (Ureteral stent, Right Nephrostomy tube))
Social History
Tobacco: Non-smoker
Alcohol: None
Drug: None
Family History
Family History: Not pertinent
Allergies / Home Medications
Allergies reflects when Allergies were last updated in [facility].
Home Medications with original date entered in [facility]
Allergy/Medication List:
Allergies
Allergy/AdvReac Type Severity Reaction Status Date / Time
Milk Containing Products Allergy Unknown Verified 01/23/24 18:55
(Dairy)
nitrofurantoin Allergy fever Verified 01/23/24 18:55
macrocrystalline
[From Macrodantin]
tuberculin,PPD,multi-puncture Allergy Rash Verified 01/23/24 18:55
Home Medications
fluoxetine 20 mg capsule 60 mg PO DAILY Mental Health/Anxiety 01/16/20
alprazolam 1 mg tablet 1 mg PO HS Mental Health/Anxiety 12/07/23
ascorbic acid (vitamin C) 500 mg tablet (Vitamin C) 500 mg PO DAILY Supplement 12/07/23
rwrttmh-swqbjhakqhbul-vbizrjlz 250 mg-250 mg-65 mg tablet (Excedrin Migraine) 250 tab PO DAILYPRN PRN Migraines 12/07/23
cholecalciferol (vitamin D3) 25 mcg (1,000 unit) tablet 25 mcg PO DAILY Supplement 12/07/23
divalproex 500 mg tablet,delayed release 500 mg PO DAILY mental health 12/07/23
Review of Systems
-
History Source: Patient
A 12 point ROS was completed and negative except as noted: Yes
Constitutional: Reports No Symptoms
EENT: Reports No Symptoms
Respiratory: Reports No Symptoms
Cardiac: Reports No Symptoms
Abdomen/GI: Reports See HPI
: Reports See HPI
Musculoskeletal: Reports No Symptoms
Skin: Reports No Symptoms
Neurological: Reports No Symptoms
Endocrine: Reports No Symptoms
Hematologic/Lymphatic: Reports No Symptoms
Psych: Reports No Symptoms
Physical Exam
Vital Signs
Vital Signs
Temp Pulse Resp BP Pulse Ox
100.5 F H 68 18 112/55 97
01/23/24 19:55 01/23/24 21:00 01/23/24 21:00 01/23/24 21:00 01/23/24 21:00
Physical Exam
General: Well Developed, Well Nourished and No Apparent Distress
HEENT: NormoCephalic, Moist mucous membranes and Atraumatic
Respiratory: Clear
Cardiac: S1/S2 and Regular Rhythm; No Murmur or Rub
GI: Soft, Non Tender, Non Distended and Normal Bowel Sounds; No Organomegaly
Rectal: Deferred by Provider
Musculoskeletal: No Clubbing, No Cyanosis and No Edema
Skin: No Rash
Neuro: Nonfocal/grossly intact
Laboratory Results
-
01/23/24 19:57
01/23/24 19:57
Laboratory Results
Lactic Acid 0.9 mmol/L (0.7-2.0) 01/23/24 19:57
Total Bilirubin 0.4 mg/dl (0.2-1.3) 01/23/24 19:57
AST 16 U/L (14-36) 01/23/24 19:57
ALT < 10 U/L (0-35) 01/23/24 19:57
Alkaline Phosphatase 47 U/L (38-126) 01/23/24 19:57
Data Reviewed
-
Lab Data: Labs Reviewed by me
Old Records: Reviewed
Impression/Plan
-
IMPRESSION:
PLAN:
# Sepsis (fever) secondary to right percutaneous nephrostomy catheter associated UTI
-Urinalysis strongly indicative of infection, urine culture
-Check blood cultures
-IV fluids
-Recent urine culture grew Enterococcus sensitive to Levaquin
-Given cefepime in ER, switch to Levaquin
-ID consulted
History of left kidney atrophy/dysfunction/chronic hydronephrosis essentially solitary functioning right kidney
Advanced metastatic adenocarcinoma of cervix
-Patient followed up with her oncologist at [place] who recommended chemotherapy but patient is adamant that she does not want chemotherapy
-Would likely not be a good candidate for chemotherapy given frequent UTIs
Chronic kidney disease
-Renal function at baseline
Chronic hypotension
Bipolar depression/anxiety
-Continue alprazolam, Depakote, fluoxetine
Anemia of chronic disease
-Hemoglobin of 8.1 which is stable
Ataxia with severe protein calorie malnutrition
DNR/DNI
DVT prophylaxis�heparin
Regular diet
--- NOTE | 2024-01-23 23:23 | TRANSFER ---
Pt admitted to unit from ED with right nephrostomy. Pt ambulated to bed with nursing staff. AAXO3. Pt reported headache. Pt refused Tylenol. Pt instructed to have family bring Excedrin. Pt reports 'it does help.' Pt oriented to room with call warner
in reach. Plan of care ongoing.
[2024-01-23] MEDS: XANAX 1 MG PO (23:58)
[2024-01-24] MEDS: LEVAQUIN 100 IV (00:37)
[2024-01-24 07:35] VITALS: BP 104/57
[2024-01-24] MEDS: VITAMIN C 500 MG PO (08:11)
[2024-01-24] MEDS: PROZAC 60 MG PO (08:12)
[2024-01-24] MEDS: VITAMIN D3 (cholecalciferol) 25 MCG PO (08:13)
[2024-01-24] MEDS: DEPAKOTE (12 HR RELEASE) 500 MG PO (08:13)
--- NOTE | 2024-01-24 09:25 | CON.ID ---
Addendum entered and electronically signed by Jf Eugene DO 01/24/24 12:26:
I personally performed a history and physical exam of the patient and discussed management with the resident.
I reviewed the resident's note and agree with the documented findings and plan of care HPI/CC.
Patient without any right flank pain. Reports that prior to admission, PCN bag was draining appropriately, although she was not specifically aware of amounts of drainage.
Continue with current empiric antibiotics (levofloxacin).
Blood cultures and urine cultures are currently pending.
Await further culture data to guide antimicrobial selection and potential de-escalation.
Original Note:
Consultation
-
Requesting Provider:
Performing Provider: /
Chief Complaint / Past History
Chief Complaint
Fever and weakness
History of Present Illness
This is a 63 year old female patient with PMH of left kidney atrophy/dysfunction/chronic hydronephrosis with essentially solitary functioning right kidney, recent new right hydronephrosis status post right nephrostomy tube on 12/07, CKD,
bipolar/depression, cachexia, anemia of chronic disease, cervical carcinoma, chronic pancytopenia, migraines who presented to the ED with fever and weakness. She noticed that she had a high temperature at home 101.5 but denied any chills, abdominal
pain, nausea or vomiting. She also noticed general weakness but still able to walk which is new for her as she states that she is active and able to ambulate for long periods of time. She also denies any flank pain or dysuria.
She follows with [facility] for her metastatic adenocarcinoma of the cervix.
She was recently admitted from 01/07 to 01/10 for right percutaneous nephrostomy catheter associated UTI and was treated initially with cefepime then transitioned to ciprofloxacin due to urine culture growing Enterococcus.
Past History
Past Medical History: Other ( left kidney atrophy/dysfunction/chronic hydronephrosis with essentially solitary functioning right kidney, recent new right hydronephrosis status post right nephrostomy tube on 12/07, CKD, bipolar/depression, cachexia,
anemia of chronic disease, cervical carcinoma, chronic pancytopenia, migraines)
Past Surgical History: Gynecological (Hysterectomy) and Other (Tonsillectomy, Ureteral stent, Right Nephrostomy tube)
Allergy History:
Milk Containing Products (Dairy) Allergy (Verified 01/23/24 18:55)
Unknown
nitrofurantoin macrocrystalline [From Macrodantin] Allergy (Verified 01/23/24 18:55)
fever
tuberculin,PPD,multi-puncture Allergy (Verified 01/23/24 18:55)
Rash
Social History
Tobacco: Non-Smoker
Alcohol: None
Drug: None
Family History
Family History: Not Pertinent
Review of Systems
Review of Systems
General: Negative Fever or Chills
Endocrine: Weakness
All systems: All other systems were reviewed and were negative
Vital Signs
Temp Pulse Resp BP Pulse Ox
98.1 F 72 18 104/57 98
01/24/24 07:35 01/24/24 07:35 01/24/24 07:35 01/24/24 07:35 01/24/24 07:35
Physical Exam
Physical Exam
Constitutional: No Acute Distress
Head: Normocephalic
Cardiovascular: Regular Rate and S1/S2
Pulmonary: Clear
Gastrointestinal: Soft, Non Tender and Non Distended
Skin: Warm and Dry
Neurological: Awake, Alert and Oriented
Lab / Diagnostic Study Results
Abs Immat Gran (auto) 0.0 10^3/uL (0-0.05) 01/23/24 19:57
Absolute Neuts (auto) 5.9 10^3/uL (1.4-6.5) 01/23/24 19:57
Absolute Lymphs (auto) 0.8 10^3/uL (1.2-3.4) L 01/23/24 19:57
Absolute Monos (auto) 0.6 10^3/uL (0.1-0.6) 01/23/24 19:57
Absolute Basos (auto) 0.0 10^3/uL (0-0.2) 01/23/24 19:57
Immature Gran % 0.3 % (0-0.5) 01/23/24 19:57
Neutrophils % 80.3 % (42.2-75.2) H 01/23/24 19:57
Lymphocytes % 11.2 % (20.5-51.1) L 01/23/24 19:57
Monocytes % 8.0 % (1.7-9.3) 01/23/24 19:57
Eosinophils % 0.1 % (0-6) 01/23/24 19:57
Basophils % 0.1 % (0-2) 01/23/24 19:57
Lactic Acid 0.9 mmol/L (0.7-2.0) 01/23/24 19:57
Ur Squamous Epith Cells 3-5 /LPF (Few) 01/23/24 19:57
Microbiology Results
Micro:
01/23/24 19:57 Urine Culture - Pending
Urine
01/23/24 20:07 Blood Culture - Pending
Blood/Venous
01/23/24 19:57 Blood Culture - Pending
Blood/Venous
Assessment / Plan
Impression/Assessment:This is a 63 year old female patient with PMH of left kidney atrophy/dysfunction/chronic hydronephrosis with essentially solitary functioning right kidney, recent new right hydronephrosis status post right nephrostomy tube on
12/07, CKD, bipolar/depression, cachexia, anemia of chronic disease, cervical carcinoma, chronic pancytopenia, migraines who presented to the ED with fever and weakness.
Right percutaneous nephrostomy catheter associated UTI
Chronic left hydronephrosis with atrophic nonfunctional kidney
Metastatic adenocarcinoma of cervix not on treatment - [facility] follow up
Recommendations:
-Afebrile witth stable vitals
-WBC within normal limits
-UA showed >100 WBCs, unable to show chris due to numerous WBCs, 2+ leucocyte esterase, +nitrates
- Blood and urine cultures pending
-Urine cx from 01/09 growing Enterococcus
-Initially given ceftriaxone in ED, transitioned to Levofloxacin based on sensitivity report
-Continue Levofloxacin, pending urine cx
-Monitor temp curve and white blood cell count
[2024-01-24 09:36] LABS: % Basophils 0.3 % (0-2); % Eosinophils 0.2 % (0-6); % Immature Granulocytes 0.3 % (0-0.5); % Lymphocytes 10.1 % (20.5-51.1); % Monocytes 9.5 % (1.7-9.3); % Neutrophils 79.6 % (42.2-75.2); Absolute Lymphocytes 0.6 10^3/uL (1.2-3.4); Absolute Monocytes 0.6 10^3/uL (0.1-0.6); Hemoglobin 7.2 g/dL (12.0-16.0); Mean Corp Hgb Conc. 34.3 g/dL (33.0-37.0); Mean Corpuscular Hgb 29.5 pg (27.0-31.0); Mean Corpuscular Volume 86.1 fL (81.0-99.0); Mean Platelet Volume 10.7 fL (7.4-10.4); Nucleated Red Blood Cells % 0 %; Platelet Count 136 10^3/uL (130-400); Red Blood Cell Count 2.44 10^6/uL (4.20-5.40); Red Cell Dist. Width 15.7 % (11.5-14.5); White Blood Cell Count 6.2 10^3/uL (4.8-10.8)
--- NOTE | 2024-01-24 10:08 | W.PN.HOSP.TC ---
Addendum entered and electronically signed by Zoltan Brooke MD 01/24/24 16:20:
Imaging
CXR
IMPRESSION:
No acute cardiopulmonary process.
No interval change.
CTAP 01/07 (Previous admit)
IMPRESSION:
1).There is hysterectomy with a 9 x 4 cm in diameter lobular soft tissue mass at the upper margin of the vaginal cuff suspicious for recurrent malignancy.
2). There is severe left hydronephrosis associated with severe left-sided renal cortical atrophy
3). There is new right percutaneous nephrostomy in satisfactory position.
There is no right-sided hydronephrosis
Physical Exam
NAD, resting comfortably in bed
Scleral anicteric
Moist mucous membranes
No JVD
CTA bilateral
Normal S1-S2 no murmurs
Soft nontender nondistended bowel sounds active
No peripheral pitting edema
Moves extremities spontaneously
AAOx3
Assessment and Plan
Sepsis, source UTI�recurrent, fever and respiratory rate
-Previous urine culture sensitive to levofloxacin for Enterococcus
--Continue levofloxacin
--Check EKG for QTc as fluoroquinolones can cause prolongation
-Follow-up urine culture
Advanced metastatic adenocarcinoma of cervix
-Follows with [facility], recommended further chemotherapy however denied
-Has received full dose radiation therefore no longer a candidate
-Palliative care
Anemia of chronic disease
-Stable
-Outpatient follow up
Original Note:
Today's Communication/Plan
-
Palliative care consult
Nutrition consult
Urology consult
IR consult to consider left PCN
Assessment / Plan
Assessment / Plan
IMPRESSION:
63 female past medical history of left-sided kidney atrophy/dysfunction, metastatic cervical cancer, chronic pancytopenia, migraines presents for fever and weakness.
PLAN:
# Sepsis
secondary to right percutaneous nephrostomy catheter associated UTI
Urinalysis strongly indicative of infection, urine culture pending
Blood cultures pending
Continue IV fluids
Recent urine culture grew Enterococcus sensitive to Levaquin
Given cefepime in ER
Continue IV Levaquin, day 2
ID consult
#Solitary functioning right kidney
History of left kidney atrophy/dysfunction and chronic hydro nephrosis
Currently has right-sided nephrostomy tube
Frequent infections, previous hospitalization infected with Enterococcus
Urology consult
#Advanced metastatic adenocarcinoma of cervix
Patient follows oncology at [place], adamant about not wanting chemo
Not a candidate for surgery or radiation
Patient reports wanting to be comfortable, however not ready for hospice
Palliative care consult
#Migraine
Patient endorses chronic migraines
Patient's family brought Excedrin from home
Encouraged giving Excedrin to nurse so we can record how much medication she takes
#Chronic kidney disease
Renal function at baseline
#Bipolar depression/anxiety
Continue alprazolam, Depakote, fluoxetine
#Anemia of chronic disease
Hemoglobin of 7.2
Decreasing
Transfuse if below 7
Daily CBC
#Severe protein calorie malnutrition
BMI 15, patient cachectic
Patient has no appetite
Formal nutrition consult
Initiate Prosource
Patient does not like Ensure
DNR/DNI
DVT prophylaxis SCDs, pt refusing heparin
Regular diet
Anticipated Discharge: > 48 hours
Subjective/Interval History
-
Date of Service: January 24, 2024
pt reports migrane
Objective Data
-
Labs:
Laboratory Results
01/24/24
09:20
WBC 6.2
Hgb 7.2 L
Hct 21.0 L
Plt Count 136
Sodium Pending
Potassium Pending
Chloride Pending
Carbon Dioxide Pending
BUN Pending
Creatinine Pending
Glucose Pending
Calcium Pending
Total Bilirubin Pending
AST Pending
ALT Pending
Alkaline Phosphatase Pending
Vital Signs:
Vital Signs
Temp Pulse Resp BP Pulse Ox
98.1 F 72 18 104/57 98
01/24/24 07:35 01/24/24 07:35 01/24/24 07:35 01/24/24 07:35 01/24/24 07:35
I&O
01/23/24 01/24/24 01/25/24
06:59 06:59 06:59
Intake Total 788 / 788
Output Total 925 / 925 150 / 150
Balance -137 / -137 -150 / -150
Review of Systems
-
History Source: Patient
Constitutional: Reports No Appetite
Respiratory: Reports No Symptoms
Cardiac: Reports No Symptoms
Abdomen/GI: Reports No Symptoms
Genitourinary: Reports Other (Right-sided nephrostomy tube)
Physical Exam
-
General: Appears in Distress, Appears Chronically Ill and Cachectic
Respiratory: Clear to Auscultation
Cardiac: Regular Rhythm and S1/S2
GI: Soft, Nontender and Nondistended
Genito-urinary: Nephrostomy Tubes (Right-sided draining clear, straw-colored urine)
Musculoskeletal: No Edema
Skin: Warm and Dry
Neuro: Awake, Alert, Oriented and AO x 3
Psych: Calm, Intact Judgement/Insight and Depressed
Data Reviewed
-
CT Scan: Report Reviewed by me and Discussed with Physician
Labs: Labs Reviewed by me and Discussed with Physician
[2024-01-24 10:10] LABS: ALT (SGPT) < 10 U/L (0-35); AST (SGOT) 15 U/L (14-36); Alkaline Phosphatase 49 U/L (38-126); Blood Urea Nitrogen 20 mg/dl (7-17); Calcium 8.4 mg/dl (8.4-10.2); Carbon Dioxide 23 mmol/L (22-30); Chloride 104 mmol/L (98-107); Estimated Creatinine Clearance 25 ml/min; Glucose 86 mg/dl (70-99); Potassium 4.1 mmol/L (3.5-5.1); Sodium 138 mmol/L (135-145); Total Bilirubin 0.4 mg/dl (0.2-1.3); Total Protein 5.4 g/dl (6.3-8.2); eGFR 39.16
[2024-01-24] MEDS: NSS 1000 IV (11:18)
--- NOTE | 2024-01-24 12:09 | W.CON.PAL ---
Consultation
-
Date/Time Consultation Requested: 01/24/2024
Date/Time Consultation Performed: 01/24/2024
Requesting Provider: Dr. lopez
Performing Provider: dr. bee
Reason for Consult: Goals of Care Discussion
Primary Diagnosis: Cervical Carcinoma
Primary Care Physician: Dr. Pereira
Reason for Admission
Illness Course/HPI
Keshia is a 63 y/o female with cervical carcinoma and recent nephrostomy tube placement on right , admitted to hospital with fever, weakness.
Palliative care consulted for goals of care discussion
Patient and patient's mother present for discussion on goals of care.
Functional Status
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
Does not use assistive device. Is independant of nephrostomy tube management.
Family lives nearby, has a fiance as well
Goals of Care Discussion
-
Individuals Present for Discussion & Relationship to Patient:
Patient, patient's mother present
Patient able to participate in discussion at time of visit: Yes
Patient's Information Preferences: Fully Involved/Able to Participate
Patient Goals
Discussed palliative care services as well as hospice services.
patient reports she is not a canddiate for further radiation treatments, and not eligible for immunotherapy. She is not interted in chemotherapy.
She would still want IV antibiotics and treatment for her UTI, she is not interested in transitioning to hospice care at this time.
Discussed palliative care services and provided her our phone number.
Patient reports she has completed an advanced directive, would be DNR at end of life, and has appointed her brothers as her medical poa.
Pain & Symptom Assessment
[place] Symptom Scale 0=none, 10=worst
Pain: 0
Nausea: 0
Appetite: 5 (reports decreased appetite. finds benefits from small meals )
Shortness of Breath: 0
-
Denies pain, constipation, nausea, vomiting.
reports poor appetite - discussed nutritional supplementaiton
Objective Data
-
Objective Data:
Vital Signs
Temp Pulse Resp BP Pulse Ox
98.1 F 72 18 104/57 97
01/24/24 07:35 01/24/24 07:35 01/24/24 07:35 01/24/24 07:35 01/24/24 08:10
Laboratory Results
01/24/24 09:20
01/24/24 09:20
Total Protein 5.4 g/dl (6.3-8.2) L 01/24/24 09:20
Albumin 3.0 g/dl (3.5-5.0) L 01/24/24 09:20
Urine Color Yellow 01/23/24 19:57
Urine Clarity Slightly cloudy (Clear) 01/23/24 19:57
Urine pH 6.0 (5.0-9.0) 01/23/24 19:57
Ur Specific [place] 1.015 (<1.030) 01/23/24 19:57
Urine Ketones Negative (Negative) 01/23/24 19:57
Urine Bilirubin Negative (Negative) 01/23/24 19:57
Palliative Performance Scale
Palliative Performance Scale:
PPS Level Ambulation Activity & Evidence of Disease Self Care Intake Conscious Level
100% Full Normal Activity & Work; Full Intake Full
No Evidence of Disease
90% Full Normal Activity & Work; Full Normal Full
Some Evidence of Disease
80% Full Normal Activity with Effort Full Normal or Full
Some Evidence of Disease Reduced
70% Reduced Unable Normal Job/Work Full Normal or Full
Significant Disease Reduced
60% Reduced Unable Hobby/Housework Occasional Normal or Full or Confusion
Significant Disease Assistance Reduced
50% Mainly Sit/Lie Unable to do Any Work Considerable Normal or Full or Confusion
Extensive Disease Assistance Req'd Reduced
40% Mainly in Bed Unable to do Most Activity Mainly Assistance Normal or Full or Drowsy;
Extensive Disease Reduced +/- Confusion
30% Totally Bed Unable to do Any Activity Total Care Normal or Full or Drowsy;
Bound Extensive Disease Reduced +/- Confusion
20% Totally Bed Bound Unable to do Any Activity Total Care Minimal to Full or Drowsy;
Extensive Disease Sips +/- Confusion
10% Totally Bed Bound Unable to do Any Activity Total Care Mouth Care Drowsy or Coma;
Extensive Disease Only +/- Confusion
0%
PPS Score Level:
Palliative Performance Score Response
Palliative Performance Score Response: 60%
Physical Exam
-
General: No Apparent Distress and Cachectic
Psych: Calm and Intact Judgement/Insight
Assessment / Plan
-
Assessment/Plan:
Patient does not want further cancer directed treatment
Patient is not yet interested in hospice care, would still want IV antibiotics for treatment of UTI
Provided phone number for outpatient palliative care office
Has completed advanced directives. brother would be medical pOA
[2024-01-24 15:08] VITALS: BP 89/55
[2024-01-24] MEDS: NSS 500 IV (15:19)
--- NOTE | 2024-01-24 16:09 | CM ---
banquet manager reviewed patient's chart and met with patient and patient lives with her tomy in a 2nd floor condo, 13 steps outside condo, patient is independent with adl's and ambulation.
PCP: Dr. Jarek Pereira
Pharmacy [facility] in [place].
Plan; Home when stable.
[2024-01-24 16:43] VITALS: BMI 15.1
--- NOTE | 2024-01-24 18:27 | CONS.URO ---
Consultation
-
Performing Provider: Peffer
Reason for Consultation: Hydronephrosis, ureteral obstruction
Medical History
History of Present Illness
63F known to our service for bilateral ureteral obstruction
Also seen at [facility] for advanced cervical cancer and by Dr. Mckeon urologic oncology
Hx of severe chronic left kidney atrophy/dysfunction/chronic hydronephrosis with essentially solitary functioning right kidney, recent new right hydronephrosis status post right nephrostomy tube on 12/07,
Hospital admission last month for fever suspected to be due to UTI with culture from nephrostomy growing enterococcus
Discharged home on fluoroquinolone finished 01/13
Now presenting with fevers. She felt weak all day today. She had fever of 101.5 today she has headache and lack of appetite. Denies chest pain, shortness breath, abdominal pain, nausea vomiting, diarrhea, dizziness or urinary symptoms. She only
voids a small amount per urethra every few days
Past Medical History
Past Medical History: Other (CKD, bipolar/depression, cachexia, anemia of chronic disease, cervical carcinoma, chronic pancytopenia, migraines)
Past Surgical History: Urological (R PCN)
Social History
Tobacco: Non-smoker
Alcohol: None
Drug: None
Family History
Family History: Reviewed & Not Pertinent
Allergies/Home Medications
Allergies
Allergy/AdvReac Type Severity Reaction Status Date / Time
Milk Containing Products Allergy Unknown Verified 01/23/24 18:55
(Dairy)
nitrofurantoin Allergy fever Verified 01/23/24 18:55
macrocrystalline
[From Macrodantin]
tuberculin,PPD,multi-puncture Allergy Rash Verified 01/23/24 18:55
Home Medications
�Medication �Instructions �Recorded �Confirmed �Type
fluoxetine 20 mg capsule 60 mg PO DAILY Mental 01/16/20 01/23/24 History
Health/Anxiety
alprazolam 1 mg tablet 1 mg PO HS Mental Health/Anxiety 12/07/23 01/23/24 History
ascorbic acid (vitamin C) 500 mg 500 mg PO DAILY Supplement 12/07/23 01/23/24 History
tablet (Vitamin C)
orhplsp-udeerriycwzdq-ijgvnpfl 250 250 tab PO DAILYPRN PRN Migraines 12/07/23 01/23/24 History
mg-250 mg-65 mg tablet (Excedrin
Migraine)
cholecalciferol (vitamin D3) 25 25 mcg PO DAILY Supplement 12/07/23 01/23/24 History
mcg (1,000 unit) tablet
divalproex 500 mg tablet,delayed 500 mg PO DAILY mental health 12/07/23 01/23/24 History
release
Physical Exam
Vital Signs
Vital Signs
Temp Pulse Resp BP Pulse Ox
98.4 F 67 16 89/55 98
01/24/24 15:08 01/24/24 15:08 01/24/24 15:08 01/24/24 15:08 01/24/24 15:08
Lab / Testing Results
Laboratory Results
01/24/24 09:20
01/24/24 09:20
Physical Exam
General: Well Developed, No Apparent Distress and Other (cachexia)
Respiratory: Clear and Non Labored Respirations
GI: Soft and Non Tender
Genito-urinary: No Costovertebral Tend
Neuro: AO x 3
Psych: Calm and Intact Judgement
Assessment / Plan
-
63F with advanced cervical cancer s/p radiation, managed at [facility]
Currently not on any active treatment as she did not want to undergo chemotherapy for inoperable tumor
History of bilateral ureteral obstruction with completely obstructed and atrophic L kidney
R hydronephrosis s/p R nephrostomy placement 11/2023
Presenting with fevers suspected to be UTI, second admission for this since discharge with enterococcus UTI last month
- Continue antibiotics
- Follow up urine/blood cultures
- Recommend IR consult to replace R nephrostomy tube prior to discharge
- Discussed possibility of infected L kidney. Could consider placement of L nephrostomy as well, however she has not had symptoms to localize infection to this area, and given high grade obstruction, I would expect her sepsis to respond poorly to
antibiotics alone if this were the source. Patient is currently opposed to L nephrostomy and I would not strongly recommend it at this time. Could revisit if sepsis worsens or infection recurs again in short time
[2024-01-24] MEDS: XANAX 1 MG PO (21:30)
[2024-01-24 23:20] VITALS: BP 119/59
[2024-01-25] MEDS: LEVAQUIN 750 MG PO (07:45)
[2024-01-25] MEDS: PROZAC 60 MG PO (07:46)
[2024-01-25] MEDS: DEPAKOTE (12 HR RELEASE) 500 MG PO (07:46)
[2024-01-25] MEDS: VITAMIN C PO (07:47)
[2024-01-25] MEDS: VITAMIN D3 (cholecalciferol) PO (07:48)
[2024-01-25 07:54] VITALS: BP 109/62
[2024-01-25] MEDS: NSS IV (08:00)
--- NOTE | 2024-01-25 08:03 | W.PN.UPDATE ---
Update Note
Progress Note Update
pt afebrile since admit
wbc and cx pending
right nephrostomy functional- no let flank pain
pt has met with [facility] oncology- declining any further intervention
from gu standpoint- would rec treating UTI and exchange of right perc prior to discharge if patient allows
no indication for any other gu intervention at this time
please call with any questions
[2024-01-25 08:33] LABS: Hematocrit 21.1 % (37.0-47.0); Hemoglobin 7.3 g/dL (12.0-16.0); Mean Corp Hgb Conc. 34.6 g/dL (33.0-37.0); Mean Corpuscular Hgb 30.8 pg (27.0-31.0); Platelet Count 130 10^3/uL (130-400); Red Blood Cell Count 2.37 10^6/uL (4.20-5.40); Red Cell Dist. Width 15.8 % (11.5-14.5); White Blood Cell Count 4.7 10^3/uL (4.8-10.8)
--- NOTE | 2024-01-25 08:46 | W.PN.HOSP.TC ---
Addendum entered and electronically signed by Zoltan Brooke MD 01/25/24 13:49:
Imaging
CXR
IMPRESSION:
No acute cardiopulmonary process.
No interval change.
CTAP 01/07 (Previous admit)
IMPRESSION:
1).There is hysterectomy with a 9 x 4 cm in diameter lobular soft tissue mass at the upper margin of the vaginal cuff suspicious for recurrent malignancy.
2). There is severe left hydronephrosis associated with severe left-sided renal cortical atrophy
3). There is new right percutaneous nephrostomy in satisfactory position.
There is no right-sided hydronephrosis
Culture:
Urine Culture Final 01/25/24-113
CC: Greater than 100,000 CFU/ML Mixed carlene present:
Probable contamination - please repeat culture if clinically
relevant.
Physical Exam
NAD, resting comfortably in bed, thin, cachectic
Scleral anicteric
Moist mucous membranes
No JVD
CTA bilateral
Normal S1-S2 no murmurs
Soft nontender nondistended bowel sounds active
No peripheral pitting edema
Right PCN draining urine
Moves extremities spontaneously
AAOx3
Assessment and Plan
Sepsis, source UTI�recurrent, fever and respiratory rate
-Previous urine culture sensitive to levofloxacin for Enterococcus
--Continue levofloxacin
--QTc with in normal
-Urine culture: Mixed carlene sensitivities were not checked
-Follow up with ID, obtain final recs, likely DC home on PO atb to completge full 5-7days of atb
--As she has been on atb for 3days, afebrile and low normal wbc count while on iv atb, likely repeat urine cx would not be helpful due to yield of study. will not repeat at this time as clinically she is improving
--PCN exchange today with IR
-Uro recs against Left PCN at this time
--Outpatient Uro follow up
Advanced metastatic adenocarcinoma of cervix
-Follows with [facility], recommended further chemotherapy however denied
-Has received full dose radiation therefore no longer a candidate
-Palliative care
Anemia of chronic disease
-Stable
-Outpatient follow up
More than 30 minutes spent in discharge including
Final examination of the patient
Summarizing hospital stay
Instructions for continuing care to all relevant caregivers
Preparation of discharge records, prescriptions, and referral forms
Total time spent (in minutes): 33mins
Original Note:
Today's Communication/Plan
-
IR consult for right nephrostomy tube placement
Continue IV Levaquin
Symptomatic management
Can discharge after urine culture and sensitivity returns with transition to p.o. antibiotics
Assessment / Plan
Assessment / Plan
IMPRESSION:
63 female past medical history of left-sided kidney atrophy/dysfunction, metastatic cervical cancer, chronic pancytopenia, migraines presents for fever and weakness.
PLAN:
# Sepsis
secondary to right percutaneous nephrostomy catheter associated UTI
Urinalysis strongly indicative of infection, urine culture pending
Blood cultures resulted no growth in 24 hours, final read pending
Continue IV fluids
Previous urine culture grew Enterococcus sensitive to Levaquin
Given cefepime in ER
Continue IV Levaquin, day 3
ID consult
#Solitary functioning right kidney
History of left kidney atrophy/dysfunction and chronic hydro nephrosis
Currently has right-sided nephrostomy tube
Frequent infections, previous hospitalization infected with Enterococcus
Urology recommending replacing right nephrostomy tube
Will consult IR to facilitate right nephrostomy tube placement
#Advanced metastatic adenocarcinoma of cervix
Patient follows oncology at [place]
Not a candidate for surgery or radiation, adamant about not wanting chemo
Patient reports wanting to be comfortable, however not ready for hospice
Palliative care consult
#Migraine
Patient endorses chronic migraines
Patient's family brought Excedrin from home
Encouraged giving Excedrin to nurse so we can record how much medication she takes
#Chronic kidney disease, unspecified stage
Renal function at baseline
#Bipolar depression/anxiety
Continue alprazolam, Depakote, fluoxetine
#Anemia of chronic disease
Hemoglobin of 7.3
Stable
Transfuse if below 7
Daily CBC
#Severe protein calorie malnutrition
BMI 15, patient cachectic
Patient has no appetite
Formal nutrition consult
Initiate Prosource
Patient does not like Ensure
#Palliative care discussion
Explained to patient that she is approaching the end of her life
Patient reports wanting to be comfortable and does want treatment for her UTI/infections
She is not interested in hospice at this time
Patient reports having completed an advanced directive, has appointed brothers to be medical POA and confirmed she would like to be DNR
DNR/DNI
DVT prophylaxis SCDs, pt refusing heparin
Regular diet with protein supplementation
Anticipated Discharge: > 48 hours
Subjective/Interval History
-
Date of Service: January 25, 2024
No acute events overnight
Objective Data
-
Labs:
Laboratory Results
01/25/24
07:44
WBC 4.7 L
Hgb 7.3 L
Hct 21.1 L
Plt Count 130
Sodium Pending
Potassium Pending
Chloride Pending
Carbon Dioxide Pending
BUN Pending
Creatinine Pending
Glucose Pending
Calcium Pending
Vital Signs:
Vital Signs
Temp Pulse Resp BP Pulse Ox
98.8 F 64 18 109/62 99
01/25/24 07:54 01/25/24 07:54 01/25/24 07:54 01/25/24 07:54 01/25/24 07:54
I&O
01/24/24 01/25/24 01/26/24
06:59 06:59 06:59
Intake Total 788 / 788 2520 / 2520
Output Total 925 / 925 4175 / 4175
Balance -137 / -137 -1655 / -1655
Review of Systems
-
History Source: Patient
Constitutional: Reports Weight Loss
Respiratory: Reports No Symptoms
Cardiac: Reports No Symptoms
Abdomen/GI: Reports No Symptoms
Physical Exam
-
General: Appears Chronically Ill and Cachectic
Respiratory: Clear to Auscultation
Cardiac: Regular Rhythm and S1/S2
GI: Soft, Nontender and Nondistended
Genito-urinary: Nephrostomy Tubes (Right-sided nephrostomy tube, currently draining yellow clear fluid)
Skin: Warm and Dry
Neuro: Awake, Alert, Oriented and AO x 3
Psych: Calm, Intact Judgement/Insight and Depressed
Data Reviewed
-
Labs: Labs Reviewed by me and Discussed with Physician
[2024-01-25 09:20] LABS: Blood Urea Nitrogen 14 mg/dl (7-17); Carbon Dioxide 22 mmol/L (22-30); Chloride 106 mmol/L (98-107); Estimated Creatinine Clearance 29 ml/min; eGFR 46.49
[2024-01-25 09:30] LABS: Calcium 8.4 mg/dl (8.4-10.2); Glucose 89 mg/dl (70-99); Sodium 140 mmol/L (135-145)
[2024-01-25 13:05] VITALS: BP 105/47; BP_SYST 65
--- NOTE | 2024-01-25 13:28 | PN.CDI ---
CDI
- -
CDI:
Physician Documentation Request
Admit Date: 01/23/24 22:15
Dear Doctor,
Please review the following and provide your response in the progress notes.
Clinical Indicators:
- 01/24 PN 'Chronic kidney disease' without specificity for stage
- 'Renal function at baseline'
Laboratory Tests
01/23/24 01/24/24 01/25/24
19:57 09:20 07:44
Creatinine 1.7 H 1.5 H 1.3 H
eGFR 33.70 39.16 46.49
Please clarify which of the following accurately represents the patient's renal status:
CKD 3a
CKD 3b
Other (please specify)
Criteria for LUCHO*
1 Increase in serum creatinine by > or = to 0.3 mg/dL (> or = to 26.5 micromol/L) within 48 hours, OR
2 Increase in serum creatinine to > or = to 1.5 times baseline, which is known or presumed to have occurred within 7 days, OR
3 Urine volume < 0.5 nL/kg/hour for six hours
Stages of Chronic Kidney Disease*
Level Description GFR
G1 Normal or High >90
G2 Mildly decreased 60-89
G3a Mildly to moderately decreased 45-59
G3b Moderately to severely decreased 30-44
G4 Severely decreased 15-29
G5 Kidney failure <15
Use of terms such as suspected, likely, concern for, or probable (associated with a specific diagnosis that is being evaluated, monitored, or treated as if it exists) are acceptable and can be coded in the inpatient setting, when documented at the
time of discharge.
Thank you,
Giuliano Hankins RN
CDI Specialist
Please use your independent medical judgment in providing your response.
*Source: Kidney Disease: Improving Global Outcomes (KDIGO) 2012
--- NOTE | 2024-01-25 14:25 | CM ---
Home when stable, no needs.
Plan; Home with patient.
--- NOTE | 2024-01-25 14:42 | W.PN.ID1 ---
Date of Service
Date of Service: January 25, 2024
Today's Communication
Continue antibiotics.
Assessment / Plan
Suspected complicated urinary tract infection
Chronic right PCN secondary to obstructive uropathy
Episode of fever; resolved
CKD
Metastatic cervical adenocarcinoma (no current treatment)
Chronic left hydronephrosis/atrophic nonfunctioning kidney
Depression
Cachexia of malignancy
Anemia of chronic disease
Recommendations:
White count remains normal. Patient remains afebrile.
Urine culture contaminated.
Continue with oral Levaquin for an additional 4 days.
Suspect UTIs may be recurrent unfortunately.
����������������������������������������������������������
Chief Complaint
-: UTI
Subjective / Review of Systems
Patient seen and examined. Had right PCN replaced earlier today. No issues since then. Overall feels improved from admission.
Review of Systems: No Fever and No Chills
Vital Signs / Physical Exam
Vital Signs
Vital Signs
Temp Pulse Resp BP Pulse Ox
98.1 F 65 16 105/47 95
01/25/24 13:05 01/25/24 13:05 01/25/24 13:05 01/25/24 13:05 01/25/24 13:05
Physical Exam
Constitutional: No Acute Distress, Comfortable and Non-toxic
Pulmonary: Clear and Non Labored
Gastrointestinal: Non Distended
Genito-Urinary: Clear Urine (right perc neph) and Other (Right PCN in place with clear urine.); Negative CVA Tenderness
Extremities: Negative Edema
Neurological: AO x 3
Objective Data
Lab Data
Lab Results
01/25/24 07:44
01/25/24 07:44
Estimated Creat Clear 29 ml/min 01/25/24 07:44
Lactic Acid 0.9 mmol/L (0.7-2.0) 01/23/24 19:57
Total Bilirubin 0.4 mg/dl (0.2-1.3) 01/24/24 09:20
AST 15 U/L (14-36) 01/24/24 09:20
ALT < 10 U/L (0-35) 01/24/24 09:20
Alkaline Phosphatase 49 U/L (38-126) 01/24/24 09:20
Most recent labs reviewed.
Micro Results:
01/23/24 19:57 Urine Culture - Final
Urine
01/23/24 20:07 Blood Culture - Preliminary
Blood/Venous No Growth in 24 hours- Final report to follow
01/23/24 19:57 Blood Culture - Preliminary
Blood/Venous No Growth in 24 hours- Final report to follow
Care Review
Plan reviewed with: Physician (Resident)
--- NOTE | 2024-01-25 15:10 | W.DCSUMMARY ---
Addendum entered and electronically signed by Zoltan Brooke MD 01/26/24 12:16:
Sepsis was present on admission and is now resolved
Addendum entered and electronically signed by Zoltan Brooke MD 01/25/24 18:03:
ckd stage 3a to 3b
Original Note:
Documented by User: Harinder Candelario DO, Resident 01/25/24 15:52
Discharge Summary
Discharge Data
Date of Admission: 01/23/24
Date of Discharge: 01/25/24
-
Pending Results: No
Hospital Course
Discharging Physician : Edwardo Candelario
Disposition : Home
Primary care physician : Dr Jarek Pereira
Principal Discharge diagnosis : Complicated urinary tract infection
Chronic Discharge diagnosis : Metastatic cervical carcinoma, left hydronephrosis/atrophic nonfunctioning kidney, depression, cachexia of malignancy, anemia of chronic disease, migraine, severe protein calorie malnutrition
Hospital Course : 63-year-old female with a past medical history of left kidney atrophy/dysfunction/chronic hydronephrosis with essentially solitary functioning right kidney presents for new right sided hydronephrosis. She is status post right
nephrostomy tube placement on 12/07. Other relevant past medical history includes chronic kidney disease, advanced metastatic cervical carcinoma, cachexia of malignancy, migraines. She presented to the ED with a fever, feeling weak her temperature
was 100.5. She was recently admitted for a urinary tract infection with Enterococcus sensitive to Levaquin, she had just recently completed an outpatient course of oral Levaquin for this. In the ED she received 1 dose of ceftriaxone. Infectious
disease was consulted and patient was started on empiric IV Levaquin every 48 hours, she received 2 doses while inpatient and was discharged with a course of 4 tablets every 48 hours totaling 6 doses total. While patient was here, we consulted
palliative care to speak to her about their services they offer. Patient reinforced that she is not interested in hospice at this time. She has advanced metastatic cervical cancer, she is not a surgical candidate, she is not a candidate for
radiation and she recently refused chemotherapy. She follows oncology at [facility]. Patient was noted to have a BMI 15, and had cachexia of malignancy, she was given a formal nutrition consult and we recommended that she start
protein supplements. Urology was consulted regarding her recurrent infections of her nephrostomy tube, they recommended replacement of the nephrostomy tube which was successfully done on 01/25/2024. Patient reported having no pain after the
procedure, she was given instructions on how to shower with her tube and was given an oral course of antibiotics to take as an outpatient. Patient was discharged home with oral Levaquin, 4 tablets every 48 hours and instructed to follow-up with her
primary care physician within 1 week of discharge. She was also encouraged to take protein supplements as often as possible and encouraged to call the number on the palliative care packet to utilize the services they provide.
Important imaging findings :
01/23/2024 chest x-ray, impression:
No acute cardiopulmonary process.
No interval change.
Procedure findings :
01/25/2024 right nephrostomy tube exchange
FINDINGS:
Satisfactory position of RIGHT percutaneous nephrostomy tube post exchange.
IMPRESSION:
Successful fluoroscopically guided exchange of RIGHT percutaneous nephrostomy tube.
Discharge Plan
-
Patient Disposition: Home (Routine Discharge)
Discharge Diagnosis/Procedures: Recurrent complicated urinary tract infection, recurrent metastatic cervical carcinoma
Condition: Fair
Diet: No restrictions and Other diet
Additional Diets: Protein supplements
Activity: As tolerated
Driving Restrictions: As prior to admission
Bathing Restrictions: follow Ir advice on showering with nephrostomy
Activity Restrictions/Additional Instructions:
Please follow-up with your primary care physician in less than 1 week of discharge
Please consider calling palliative care number on your packet to utilize the services they offer
Please use protein supplements daily, whatever supplements you enjoy
Referrals:
Jarek Pereira, DO [Family Provider] - in less than 1 week
Additional Discharge Medication Instructions: please use levofloxacin by mouth every 48 hours for a total of 8 days- 4 tablets in total
Prescriptions:
New
levofloxacin 750 mg Tablet
750 mg PO Q48H Qty: 4 0RF
Continued
fluoxetine 20 MG capsule
60 mg PO DAILY
alprazolam 1 mg tablet
1 mg PO HS
Patient Comments:
01/08/2024: last filled 12/03/23, 60 tabs for 30 days from [facility]#[id number]
divalproex 500 mg tablet,delayed release (DR/EC)
500 mg PO DAILY
ascorbic acid (vitamin C) [Vitamin C] 500 mg Tablet
500 mg PO DAILY
cholecalciferol (vitamin D3) 25 mcg (1,000 unit) Tablet
25 mcg PO DAILY
Excedrin Migraine 250-250-65 mg Tablet
250 tab PO DAILYPRN PRN (Reason: Migraines)
Discharge Orders:
Discharge Patient (As Directed); Ordered 01/25/24
Ordered By: Harinder Candelario
Discharge Date and Time
Discharge Date/Time: 01/25/24 16:57
Print Language: LEBANESE

Documented by User: Zoltan Brooke MD 01/25/24 18:03
Discharge Summary
Discharge Data
Date of Admission: 01/23/24
Date of Discharge: 01/25/24
Discharge Plan
-
Patient Disposition: Home (Routine Discharge)
Discharge Diagnosis/Procedures: Recurrent complicated urinary tract infection, recurrent metastatic cervical carcinoma
Condition: Fair
Diet: No restrictions and Other diet
Additional Diets: Protein supplements
Activity: As tolerated
Driving Restrictions: As prior to admission
Bathing Restrictions: follow Ir advice on showering with nephrostomy
Activity Restrictions/Additional Instructions:
Please follow-up with your primary care physician in less than 1 week of discharge
Please consider calling palliative care number on your packet to utilize the services they offer
Please use protein supplements daily, whatever supplements you enjoy
Referrals:
Jarek Pereira, DO [Family Provider] - in less than 1 week
Additional Discharge Medication Instructions: please use levofloxacin by mouth every 48 hours for a total of 8 days- 4 tablets in total
Prescriptions:
New
levofloxacin 750 mg Tablet
750 mg PO Q48H Qty: 4 0RF
Continued
fluoxetine 20 MG capsule
60 mg PO DAILY
alprazolam 1 mg tablet
1 mg PO HS
Patient Comments:
01/08/2024: last filled 12/03/23, 60 tabs for 30 days from [facility][id number]
divalproex 500 mg tablet,delayed release (DR/EC)
500 mg PO DAILY
ascorbic acid (vitamin C) [Vitamin C] 500 mg Tablet
500 mg PO DAILY
cholecalciferol (vitamin D3) 25 mcg (1,000 unit) Tablet
25 mcg PO DAILY
Excedrin Migraine 250-250-65 mg Tablet
250 tab PO DAILYPRN PRN (Reason: Migraines)
Discharge Orders:
Discharge Patient (As Directed); Ordered 01/25/24
Ordered By: Harinder Candelario
Discharge Date and Time
Discharge Date/Time: 01/25/24 16:57
Print Language: LEBANESE
[2024-01-25 15:56] VITALS: BP 104/52
--- NOTE | 2024-01-26 08:12 | PN.CDI ---
CDI
- -
CDI:
Physician Documentation Request
Admit Date: 01/23/24 22:15
Dear Doctor,
Please review the following and provide your response in the progress notes.
Clinical Indicators:
The diagnosis of sepsis was documented on 01/24 PN but is not noted in 01/24 DC Summary
- 01/24 PN 'Sepsis secondary to right percutaneous nephrostomy catheter associated UTI'
- 01/25 DC Summary primary diagnosis 'Complicated urinary tract infection... presents for new right sided hydronephrosis.'
Please clarify the following:
____ - Sepsis was present on admission and is now resolved.
____ - Sepsis was ruled out
____ - Other
Use of terms such as suspected, likely, concern for, or probable (associated with a specific diagnosis that is being evaluated, monitored, or treated as if it exists) are acceptable and can be coded in the inpatient setting, when documented at the
time of discharge.
Thank you,
Giuliano Hankins RN
CDI Specialist
Please use your independent medical judgment in providing your response.
== END 2024-01-25 16:57 | disposition home or self-care (01) | DRG 698 ==
LOC: 4 WEST ACU 22:15
PROVIDERS: Clinical Nurse Specialist Family Health; ADMITTING PHYSICIAN Hospitalist; ATTENDING PHYSICIAN Hospitalist; CONSULT PHYSICIAN Internal Medicine Hospice and Palliative Medicine; CONSULT PHYSICIAN Urology; EMERGENCY PHYSICIAN Emergency Medicine; FAMILY PHYSICIAN Family Medicine; OTHER PHYSICIAN Internal Medicine Infectious Disease
DX: T83.512A Infection and inflammatory reaction due to nephrostomy catheter, initial encounter (principal); A41.9 Sepsis, unspecified organism; E43 Unspecified severe protein-calorie malnutrition; D61.818 Other pancytopenia; N13.6 Pyonephrosis; R64 Cachexia; F31.30 Bipolar disorder, current episode depressed, mild or moderate severity, unspecified; Z68.1 Body mass index [BMI] 19.9 or less, adult; D63.8 Anemia in other chronic diseases classified elsewhere; Z66 Do not resuscitate; C53.9 Malignant neoplasm of cervix uteri, unspecified; N18.31 Chronic kidney disease, stage 3a; B95.2 Enterococcus as the cause of diseases classified elsewhere; Y83.3 Surgical operation with formation of external stoma as the cause of abnormal reaction of the patient, or of later complication, without mention of misadventure at the time of the procedure; N26.1 Atrophy of kidney (terminal); E73.9 Lactose intolerance, unspecified; G43.909 Migraine, unspecified, not intractable, without status migrainosus; I95.89 Other hypotension; R27.0 Ataxia, unspecified; Z79.82 Long term (current) use of aspirin; Z79.899 Other long term (current) drug therapy; Z87.19 Personal history of other diseases of the digestive system; Z86.79 Personal history of other diseases of the circulatory system; Z90.710 Acquired absence of both cervix and uterus
CPT/HCPCS: 50435; 71046; 80048; 80053; 81003; 81015; 83605; 85025; 85027; 87040; 87086; 87811; 93005; 96374; 99285

== ENCOUNTER 2024-03-31 09:47 | Observation (INO) | payer OTHER, SELFPAY ==
[2024-03-31] VITALS (18 sets, daily range): BP systolic 63–128; BP diastolic 49–62; BMI 15.5
[2024-03-31 06:02] LABS: % Basophils 0.2 % (0-2); % Eosinophils 0.7 % (0-6); % Immature Granulocytes 0.3 % (0-0.5); % Lymphocytes 9.6 % (20.5-51.1); % Monocytes 12.7 % (1.7-9.3); % Neutrophils 76.5 % (42.2-75.2); Absolute Lymphocytes 0.6 10^3/uL (1.2-3.4); Absolute Monocytes 0.8 10^3/uL (0.1-0.6); Absolute Neutrophils 4.6 10^3/uL (1.4-6.5); Hematocrit 31.9 % (37.0-47.0); Hemoglobin 10.8 g/dL (12.0-16.0); Mean Corp Hgb Conc. 33.9 g/dL (33.0-37.0); Mean Corpuscular Hgb 29.3 pg (27.0-31.0); Mean Corpuscular Volume 86.4 fL (81.0-99.0); Mean Platelet Volume 9.1 fL (7.4-10.4); Nucleated Red Blood Cells % 0 %; Platelet Count 162 10^3/uL (130-400); Red Blood Cell Count 3.69 10^6/uL (4.20-5.40); Red Cell Dist. Width 12.3 % (11.5-14.5); White Blood Cell Count 6.1 10^3/uL (4.8-10.8)
[2024-03-31 06:12] LABS: ALT (SGPT) < 10 U/L (0-35); AST (SGOT) 17 U/L (14-36); Albumin 3.5 g/dl (3.5-5.0); Alkaline Phosphatase 57 U/L (38-126); Blood Urea Nitrogen 40 mg/dl (7-17); Calcium 8.4 mg/dl (8.4-10.2); Carbon Dioxide 28 mmol/L (22-30); Chloride 96 mmol/L (98-107); Estimated Creatinine Clearance 14 ml/min; Glucose 99 mg/dl (70-99); Potassium 4.4 mmol/L (3.5-5.1); Sodium 134 mmol/L (135-145); Total Bilirubin 0.3 mg/dl (0.2-1.3); Total Protein 5.8 g/dl (6.3-8.2); eGFR 18.51
--- NOTE | 2024-03-31 07:41 | ED.GENMED ---
History of Present Illness
General
Chief Complaint: Catheter/Tube Problem
Source: patient
Exam Limitations: none
Time Seen by Provider: 03/31/24 06:50
Nursing documentation reviewed up to this point in time: agreed with
History of Present Illness
History of Present Illness:
63-year-old female presents emergency department due to right flank discomfort, and lack of drainage from right nephrostomy tube. She has a history of ureteral stricture. She called urology who told her to come to the emergency department.
Past History
Past History
ED Past Medical History: Cancer (cervical), Psychiatric (Bipolar, Depression, ) and Other (lactose intolerance, gallstones, migraines, meningitis, Left kidney atrophy)
ED Past Surgical History: Gynecological (Hysterectomy), Tonsilectomy (Adenoids) and Urological (Ureteral stent, Right Nephrostomy tube)
Social History
Tobacco: Non-smoker
Alcohol: Occasional
Drug: None
Personal: Single
Living: with family (Lives with mother)
Family History
Family History: Unable to obtain
Review of Systems
Review of Systems
Allergies reviewed?: Yes
All Other Systems: Not applicable
Constitutional: Reports no symptoms
EENT: Reports no symptoms
Respiratory: Reports no symptoms
Cardiac: Reports no symptoms
ABD/GI: Reports no symptoms
: Reports flank pain, difficulty voiding and dark urine
Musculoskeletal: Reports no symptoms
Skin: Reports no symptoms
Neurological: Reports no symptoms
Endocrine: Reports no symptoms
Hematologic/Lymphatic: Reports no symptoms
Psychiatric: Reports no symptoms
Phy Exam
Physical Exam
Physical Exam:
Physical Exam
General: Thin, afebrile
Neck: supple. no meningeal signs. normal posterior pharynx
Heart: s1/s2 regular rate and rhythm, no murmur. equal radial
pulses.
HEENT: Pupils equal round reactive to light, EOMI
Lungs: no acute respiratory distress. clear bilaterally
Abdomen: normal bowel sounds. not tender. no CVAT, right nephrostomy tube, 200 mL drainage
Neuro: alert and oriented. no focal neurological deficits cranial nerves II through XII intact
Skin: no rash
Psychiatric: well kept. interactive and cooperative
Extremities: no edema. no calf tenderness. negative homans. good distal pulses
Course
Orders/Labs/Results
Orders:
Orders
03/31/24 05:49
Complete Blood Count/With Diff Urgent
Comprehensive Metabolic Panel Urgent
03/31/24 07:28
Consult Interventional Radiology [IRAD CONSULT] Urgent
Consulting Provider: Darrell Canada
Was physician already notified: Yes
Reason for Consult/Procedure: malfunctioning nephrostomy tube
Acknowledgement that appropriate orders are entered: Yes
03/31/24 07:34
Urinalysis Reflex To Culture Urgent
Date Specimen was Collected: 03/31/24
Time Specimen was Collected: 07:32
Abnormal Lab Results
03/31/24
05:49
RBC 3.69 L 10^6/uL
(4.20-5.40)
Hgb 10.8 L g/dL
(12.0-16.0)
Hct 31.9 L %
(37.0-47.0)
Absolute Lymphs (auto) 0.6 L 10^3/uL
(1.2-3.4)
Absolute Monos (auto) 0.8 H 10^3/uL
(0.1-0.6)
Neutrophils % 76.5 H %
(42.2-75.2)
Lymphocytes % 9.6 L %
(20.5-51.1)
Monocytes % 12.7 H %
(1.7-9.3)
Sodium 134 L mmol/L
(135-145)
Chloride 96 L mmol/L
(98-107)
BUN 40 H mg/dl
(7-17)
Creatinine 2.8 H mg/dL
(0.6-1.0)
Total Protein 5.8 L g/dl
(6.3-8.2)
03/31/24 05:49
03/31/24 05:49
Vital Signs
Initial and Last Documented VS:
Initial Vital Signs
Temp Pulse Resp BP Pulse Ox
99.5 F 71 18 119/52 98
03/31/24 05:09 03/31/24 05:09 03/31/24 05:09 03/31/24 05:09 03/31/24 05:09
Last Documented Vital Signs
Temp Pulse Resp BP Pulse Ox
99.5 F 71 18 118/59 99
03/31/24 05:09 03/31/24 05:09 03/31/24 05:09 03/31/24 06:00 03/31/24 06:15
MDM/Problems Addressed
Differential Diagnosis Includes:
LUCHO, nephrostomy tube dysfunction/displacement
MDM/Problems Addressed:
63-year-old female with right nephrostomy tube dysfunction, decreased urine output, acute kidney injury.
Chronic conditions affecting care: Kidney disease and Cancer (Cervical)
Acute Exacerbation and/or Progression of Chronic Illness: Kidney disease and Cancer (Cervical)
*Pulse Oximetry
Patient hypoxic: no
*Critical Care Note
Total Time (30-74mins, 75-104mins- exclusive of procedures): Not Applicable
Data Reviewed
Review of Other/Old Records Reveals: Labs (Prior creatinine 1.3 on 01/25/2024)
Source: records
Patient Management
Social determinants of health affecting care: Living situation
Discussion with other providers: Hospitalist and Supervisor [employer] (Discussed with urology, who recommends nephrostomy tube evaluation by IR, hold off on CT scan until IR eval)
Escalation/DeEscalation of care consider admission/obs:
Admit indicated
ED Attending Note
-
Portions of this chart may have been created with voice recognition software.� Occasional wrong word or��sound alike� substitutions may have occurred due to the inherent limitations of voice recognition software.
Discharge Plan
Departure
Patient Disposition: Admit
Date of Disposition: 03/31/24
Time of Disposition: 07:36
Admit to: Med/Surg
Presentation/result/management discussed w/ accepting MD/DO: Hospitalist
Patient with high blood pressure during this ER visit?: No
Condition: Good
Discharge Problem:
Acute renal failure, Hx of cervical cancer, Complication of nephrostomy
Prescriptions:
No Action
fluoxetine 20 MG capsule
60 mg PO DAILY
alprazolam 1 mg tablet
1 mg PO HS
Patient Comments:
01/08/2024: last filled 12/03/23, 60 tabs for 30 days from [id number]
divalproex 500 mg tablet,delayed release (DR/EC)
500 mg PO DAILY
ascorbic acid (vitamin C) [Vitamin C] 500 mg Tablet
500 mg PO DAILY
cholecalciferol (vitamin D3) 25 mcg (1,000 unit) Tablet
25 mcg PO DAILY
Excedrin Migraine 250-250-65 mg Tablet
250 tab PO DAILYPRN PRN (Reason: Migraines)
levofloxacin 750 mg Tablet
750 mg PO Q48H Qty: 4 0RF
Referrals:
Jarek Pereira, DO [Family Provider] -
Interventions
Interventions:
*Risk Screen - Suicide Last Done: 03/31/24 05:09
*Neglect/Abuse Screening Last Done: 03/31/24 05:09
*ED COVID-19 Vaccine History Last Done: 03/31/24 05:09
DD-Mwefrx-Jgdgkxgknb Assessment Last Done: 03/31/24 05:39
ED-Female Genitourinary Assessment Last Done: 03/31/24 05:39
Discharge Date and Time
Print Language: LIBYAN
[2024-03-31 08:16] LABS: Urine Albumin 1+ (Neg - Trace); Urine Bilirubin Negative (Negative); Urine Character Very Cloudy (Clear); Urine Color Yellow; Urine Glucose Negative (Negative); Urine Ketone Negative (Negative); Urine Leukocyte 2+ (Negative); Urine Nitrite Positive (Negative); Urine Occult Blood 4+ (Negative); Urine Specific Gravity 1.015 (<1.030); Urine Urobilinogen Negative (Neg - 1+)
--- NOTE | 2024-03-31 08:23 | HPS.HSE ---
Addendum entered and electronically signed by Serg Pennington DO 03/31/24 17:19:
DNR
Original Note:
Family Physician
-
Family Physician: Jarek Pereira
Chief Complaint
-
Right nephrostomy tube malfunction
History of Present Illness
63-year-old female with ureteral stricture s/p right nephrostomy tube, CKD 3a, AoCD, anxiety/depression, H/O cervical cancer C/B obstructive uropathy, S/P hysterectomy with left renal atrophy, H/O meningitis that is presenting to the ED with right
flank discomfort and lack of drainage from right-sided nephrostomy tube. Problem was noted on day prior to arrival. She called her urologist who instructed her to come into the emergency department. AFVSS through ED course. Labs with hemoglobin
10.8, sodium 134, creatinine 2.8, BUN 40. Urinalysis pending. No imaging obtained in ED. Interventional radiology was consulted.
Medical History
Past Medical History
Past Medical History: Reports Cancer (Cervical, suspected recurrence), Renal Failure (CKD3a), Psychiatric (Anxiety and depression) and Other
Past Surgical History: Reports Gynocological (Hysterectomy) and Urological (Bilateral percutaneous nephrostomy tubes, history of ureteral stent)
Social History
Tobacco: Non-smoker
Alcohol: None
Drug: None
Family History
Family History: Not pertinent
Allergies / Home Medications
Allergies reflects when Allergies were last updated in [facility].
Home Medications with original date entered in [facility]
Allergy/Medication List:
Allergies
Allergy/AdvReac Type Severity Reaction Status Date / Time
Milk Containing Products Allergy Unknown Verified 03/31/24 05:09
(Dairy)
nitrofurantoin Allergy fever Verified 03/31/24 05:09
macrocrystalline
[From Macrodantin]
tuberculin,PPD,multi-puncture Allergy Rash Verified 03/31/24 05:09
Home Medications
fluoxetine 20 mg capsule 60 mg PO DAILY Mental Health/Anxiety 01/16/20
alprazolam 1 mg tablet 1 mg PO HS Mental Health/Anxiety 12/07/23
ascorbic acid (vitamin C) 500 mg tablet (Vitamin C) 500 mg PO DAILY Supplement 12/07/23
wsqhfjq-vkyvfgcxduxfy-ppoxrkkh 250 mg-250 mg-65 mg tablet (Excedrin Migraine) 2 tab PO DAILYPRN PRN Migraines 12/07/23
cholecalciferol (vitamin D3) 25 mcg (1,000 unit) tablet 25 mcg PO DAILY Supplement 12/07/23
divalproex 500 mg tablet,delayed release 500 mg PO DAILY mental health 12/07/23
Review of Systems
-
A 12 point ROS was completed and negative except as noted: Yes
Constitutional: Reports No Symptoms
Physical Exam
Vital Signs
Vital Signs
Temp Pulse Resp BP Pulse Ox
99.5 F 71 18 118/59 99
03/31/24 05:09 03/31/24 05:09 03/31/24 05:09 03/31/24 06:00 03/31/24 06:15
Physical Exam
General: Well Developed, No Apparent Distress, Comfortable and Cachectic
HEENT: NormoCephalic, Anicteric, Moist mucous membranes, Atraumatic and PERRLA
Respiratory: Clear and Non Labored Respirations; No Accessory Resp Muscle Use
Cardiac: S1/S2 and Regular Rhythm; No Murmur, Rub, Gallop or Peripheral Edema
GI: Soft, Non Tender, Non Distended and Normal Bowel Sounds
Genito-urinary: Clear Urine, Nephrostomy Tubes and Other (No flank tenderness)
Musculoskeletal: No Clubbing, No Cyanosis and Other (No gross deformity)
Skin: Warm, Dry and IV/Catheter Site (No erythema, purulence noted from nephrostomy sites); No Rash or Jaundice
Neuro: AO x 3 and Nonfocal/grossly intact
Hematologic/Lymphatic: No Lymphadenopathy
Psych: Calm
Laboratory Results
-
03/31/24 05:49
03/31/24 05:49
Laboratory Results
Total Bilirubin 0.3 mg/dl (0.2-1.3) 03/31/24 05:49
AST 17 U/L (14-36) 03/31/24 05:49
ALT < 10 U/L (0-35) 03/31/24 05:49
Alkaline Phosphatase 57 U/L (38-126) 03/31/24 05:49
Data Reviewed
-
Lab Data: Labs Reviewed by me, Discussed with Physician (Interventional radiology, emergency medicine) and Discussed with Patient
Impression/Plan
-
#LUCHO on CKD 3a
#Malfunctioning right nephrostomy tube
#H/O Left ureteral stricture 2/2 XRT
#S/P B/L PCN
-Has chronic renal disease secondary to obstructive uropathy associated with history of cervical cancer
-Baseline creatinine near 1.3-1.5; presented with BUN of 40 and creatinine 2.8
-Was noted to have reduced output from right nephrostomy tube as well as flank pain
-No fevers, no leukocytosis, symptomatically without signs of infection
-IR consulted for correction of nephrostomy, will discuss any pertinent imaging prior to replacement
-Trend BMP, monitor UOP, avoid nephrotoxic agents
#H/O cervical cancer
-Follows with [place] oncology, suspected advancement
-Status post XRT complicated by stricture, s/p hysterectomy
-Most recent PET concerning for recurrence in the pelvis
-Patient previously declined further treatment/repeat PET
-Understands she will eventually need hospice but not at that point yet
#Severe protein calorie malnutrition
#Lactose intolerance
-Has a chronically poor appetite, possible recurrence of cervical cancer
-BMI on admission 15.5 kg/m�
-Start calorie counts and nutritional shakes
-Regular diet, avoid lactose
# Anemia of chronic disease
-Secondary to cancer with suspected recurrence
-Hemoglobin baseline likely near 10, 10.8 on arrival
-No signs of active bleeding
DVT prophylaxis: Subcutaneous heparin
Diet: Regular, lactose-free
CODE STATUS: Full code
[2024-03-31 08:36] LABS: Urine Bacteria Many (Negative); Urine Squamous Cell 0-2 /LPF (Few)
[2024-03-31 08:37] LABS: Urine White Cell 26-30 /HPF (0-5)
--- NOTE | 2024-03-31 09:23 | CONS.URO ---
Consultation
-
Date/Time Consultation Requested: 03/31/2024 0735
Requesting Provider: ED - Dr West
Performing Provider: Joshua
Medical History
History of Present Illness
63 yo female with history of cervical cancer, having undergone a
total abdominal hysterectomy and salpingo-oophorectomy with
subsequent radiation. Known to have longstanding chronic left hydronephrosis,
believed secondary to her malignancy treatment history; managed with stent at one point and considered for reconstruction- but pt declined and had stent removed and observed
--followed at [facility] for both oncology and urology
12/08/2023 Right PCN tube placed by IR here at
01/25/2024 Right PCN tube exchanged
03/31/2024 Pt presented to ED reporting poor urine drainage volume per PCN tube -- admitted to [facility]
Past Medical History
Past Medical History: Other (Cervical cancer -- metastatic, Renal Failure (CKD3a) due to malignant ureteral obstruction, Anxiety and Depression)
Past Surgical History: Gynocological (Cervical cancer exenteration + XRT)
Allergies/Home Medications
Allergies
Allergy/AdvReac Type Severity Reaction Status Date / Time
Milk Containing Products Allergy Unknown Verified 03/31/24 05:09
(Dairy)
nitrofurantoin Allergy fever Verified 03/31/24 05:09
macrocrystalline
[From Macrodantin]
tuberculin,PPD,multi-puncture Allergy Rash Verified 03/31/24 05:09
Home Medications
�Medication �Instructions �Recorded �Confirmed �Type
fluoxetine 20 mg capsule 60 mg PO DAILY Mental 01/16/20 03/31/24 History
Health/Anxiety
alprazolam 1 mg tablet 1 mg PO HS Mental Health/Anxiety 12/07/23 03/31/24 History
ascorbic acid (vitamin C) 500 mg 500 mg PO DAILY Supplement 12/07/23 03/31/24 History
tablet (Vitamin C)
aswirbu-jhrcqtfemmnmo-vpnqaklq 250 2 tab PO DAILYPRN PRN Migraines 12/07/23 03/31/24 History
mg-250 mg-65 mg tablet (Excedrin
Migraine)
cholecalciferol (vitamin D3) 25 25 mcg PO DAILY Supplement 12/07/23 03/31/24 History
mcg (1,000 unit) tablet
divalproex 500 mg tablet,delayed 500 mg PO DAILY mental health 12/07/23 03/31/24 History
release
Physical Exam
Vital Signs
Vital Signs
Temp Pulse Resp BP Pulse Ox
99.5 F 71 18 105/50 96
03/31/24 05:09 03/31/24 05:09 03/31/24 05:09 03/31/24 08:00 03/31/24 08:30
Lab / Testing Results
Laboratory Results
03/31/24 05:49
03/31/24 05:49
Assessment / Plan
-
Malfunctioning Right PCN tube with consequent azotemia in patient with solitary functional kidney
no signs of sepsis
Rec: Right PCN tube change by IR
Data Reviewed
-
Lab Data: Labs Reviewed
Old Records: Reviewed
[2024-03-31] MEDS: LR 1000 IV (17:07)
--- NOTE | 2024-03-31 18:28 | PTCARENOTE ---
pt admitted to 2S room 2100 from the ED at 1700. pt assisted to transfer from stretcher to bed w/assist of 1. generally weak. oriented to room, bed controls and plan of care with verbalized understanding. Pt verbalized she is a DNR-attending MD
made aware and purple DNR bracelet placed. pt verbalized poor appetite and instructed regarding regular diet and process to order. IVF started as ordered. will observe.
[2024-03-31] MEDS: XANAX 1 MG PO (21:00)
[2024-04-01 03:00] VITALS: BP 100/57
[2024-04-01 05:45] LABS: % Basophils 0.2 % (0-2); % Eosinophils 0.8 % (0-6); % Immature Granulocytes 0.2 % (0-0.5); % Lymphocytes 18.3 % (20.5-51.1); % Monocytes 10.6 % (1.7-9.3); % Neutrophils 69.9 % (42.2-75.2); Absolute Lymphocytes 0.9 10^3/uL (1.2-3.4); Absolute Monocytes 0.5 10^3/uL (0.1-0.6); Absolute Neutrophils 3.4 10^3/uL (1.4-6.5); Hematocrit 29.7 % (37.0-47.0); Mean Corp Hgb Conc. 33.7 g/dL (33.0-37.0); Mean Corpuscular Hgb 29.2 pg (27.0-31.0); Mean Corpuscular Volume 86.6 fL (81.0-99.0); Mean Platelet Volume 9.5 fL (7.4-10.4); Nucleated Red Blood Cells % 0 %; Platelet Count 176 10^3/uL (130-400); Red Blood Cell Count 3.43 10^6/uL (4.20-5.40); Red Cell Dist. Width 12.4 % (11.5-14.5); White Blood Cell Count 4.9 10^3/uL (4.8-10.8)
[2024-04-01 06:08] LABS: Blood Urea Nitrogen 35 mg/dl (7-17); Calcium 8.3 mg/dl (8.4-10.2); Carbon Dioxide 28 mmol/L (22-30); Chloride 99 mmol/L (98-107); Estimated Creatinine Clearance 16 ml/min; Glucose 100 mg/dl (70-99); Magnesium 1.5 mg/dl (1.6-2.3); Potassium 4.8 mmol/L (3.5-5.1); Sodium 136 mmol/L (135-145); eGFR 22.28
[2024-04-01 07:00] VITALS: BP 108/54
[2024-04-01] MEDS: DEPAKOTE (12 HR RELEASE) 500 MG PO (09:33)
[2024-04-01] MEDS: TYLENOL 650 MG PO (09:49)
[2024-04-01 11:00] VITALS: BP 94/70
--- NOTE | 2024-04-01 11:15 | W.PN.URO.CBU ---
Today's Communication / Plan
-
READY FOR D/C
Assessment / Plan
-
valente e today folow up [facility] AND [facility]
Diagnosis
-
Date of Service: April 01, 2024
-
Patient Diagnosis:
onbstructed rt nephrostomy tube in pt w solitary rt kidney and inoperable metastatic ovarian cancer
Post Op Day:
Subjective
-
tube functioning and feels well
Objective
-
Vital Signs
Temp Pulse Resp BP Pulse Ox
98.3 F 63 16 108/54 98
04/01/24 07:00 04/01/24 07:00 04/01/24 07:00 04/01/24 07:00 04/01/24 07:00
Intake and Output
03/31/24 04/01/24 04/02/24
06:59 06:59 06:59
Intake Total 580 / 580
Output Total 1450 / 1450 250 / 250
Balance -870 / -870 -250 / -250
Intake:
Oral fluids 480 / 480
IV fluids (Total) 100 / 100
Output:
Urinary Drain Output (Total) 1450 / 1450 250 / 250
Right Nephrostomy 1450 / 1450 250 / 250
Laboratory Results
04/01/24 05:19
04/01/24 05:19
Review of Systems
-
Constitutional: Weight Loss and Fatigue
Physical Exam
-
General -cachectic
Chest - clear bilaterally
Abdomen - soft, non-tender, positive bowel sounds, no CVAT, no incisional pain or distention
Genitalia - normal
Rectal - normal
Skin - warm & dry with no rash
Neuro - AOx3, no motor deficits
Extremities - no clubbing, no cyanosis, no edema
Incision - clean, dry
Dressing - clean, dry, intact
Care Review
Data Reviewed
Discussed with: Hospitalist, Nursing and IRAD
CT Scan: Image Pers Reviewed
[2024-04-01] MEDS: PROZAC 60 MG PO (12:06)
--- NOTE | 2024-04-01 12:15 | W.PN.HOSP.TC ---
Today's Communication/Plan
-
5 mg oxy every 6 as needed x 3 days
BMP in 5 to 7 days
Discharge
Assessment / Plan
Assessment / Plan
#LUCHO on CKD 3a
#Malfunctioning right nephrostomy tube
#H/O Left ureteral stricture 2/2 XRT
#S/P B/L PCN
-Has chronic renal disease secondary to obstructive uropathy associated with history of cervical cancer
-Baseline creatinine near 1.3-1.5; presented with BUN of 40 and creatinine 2.8
-Was noted to have reduced output from right nephrostomy tube as well as flank pain
-No fevers, no leukocytosis, symptomatically without signs of infection
-Status post IR, right nephrostomy tube with clear yellow urine output
-Renal function downtrending, repeat BMP in 5 to 7 days as OP
#H/O cervical cancer
-Follows with [place] oncology, suspected advancement
-Status post XRT complicated by stricture, s/p hysterectomy
-Most recent PET concerning for recurrence in the pelvis
-Patient previously declined further treatment/repeat PET
-Understands she will eventually need hospice but not at that point yet
#Severe protein calorie malnutrition
#Lactose intolerance
-Has a chronically poor appetite, possible recurrence of cervical cancer
-BMI on admission 15.5 kg/m�
-Start calorie counts and nutritional shakes
-Regular diet, avoid lactose
# Anemia of chronic disease
-Secondary to cancer with suspected recurrence
-Hemoglobin baseline likely near 10, 10.8 on arrival
-No signs of active bleeding
DVT prophylaxis: Subcutaneous heparin
Diet: Regular, lactose-free
CODE STATUS: Full code
Anticipated Discharge: Today
Subjective/Interval History
-
Date of Service: April 01, 2024
Objective Data
-
Labs:
Laboratory Results
04/01/24
05:19
WBC 4.9
Hgb 10.0 L
Hct 29.7 L
Plt Count 176
Sodium 136
Potassium 4.8
Chloride 99
Carbon Dioxide 28
BUN 35 H
Creatinine 2.4 H
Glucose 100 H
Calcium 8.3 L
Vital Signs:
Vital Signs
Temp Pulse Resp BP Pulse Ox
98.5 F 84 16 94/70 97
04/01/24 11:00 04/01/24 11:00 04/01/24 11:00 04/01/24 11:00 04/01/24 11:00
I&O
03/31/24 04/01/24 04/02/24
06:59 06:59 06:59
Intake Total 580 / 580
Output Total 1450 / 1450 250 / 250
Balance -870 / -870 -250 / -250
--- NOTE | 2024-04-01 14:14 | CM ---
IA completed with pt at beside.
Pt is a 63yr old female admitted for a nephrostomy tube malfunction and tube change.
PT is OBS and signed a LA
Pt has hx of cervical CA that she has declined treatment for, but is not ready for Hospice at this point.
Pt lives with her fiance in a 2nd floor condo with [address]ste. 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
At this point, pt does not have or use equipment prior to admission.
JAZMIN spoke with pt about Palliative. Pt is struggling because she has expressed she does not want treatment, but her family thinks she is making the wrong decision.
PCP; Jarek Pereira
Pharm; [facility]
PLAN; DC today with no needs. SW encouraged her to talk to her PCP or oncologist about Palliative.
[2024-04-01 15:15] VITALS: BP 132/86
--- NOTE | 2024-04-01 16:51 | W.DCSUMMARY ---
Discharge Summary
Discharge Data
Date of Admission: 03/31/24
Date of Discharge: 04/01/24
-
Pending Results: No
Hospital Course
63-year-old female with metastatic cervical cancer, CKD stage IIIb, history of right ureteral stricture and atrophic kidney, s/p left nephrostomy tube that presented with obstruction to her right nephrostomy tube. Had LUCHO on CKD due to obstructive
uropathy. Was evaluated by interventional radiology on day of admission who performed repositioning of her nephrostomy tube. Renal function improved, was given supportive IV fluids as well. Was discharged on day after arrival, given prescription
for BMP to be performed outpatient. To follow-up with urology, family physician
Discharge Plan
-
Patient Disposition: Home (Routine Discharge)
Discharge Diagnosis/Procedures: Obstructed right nephrostomy tube
Condition: Fair
Diet: No restrictions
Additional Diets: >64 ounce daily water intake recommended
Activity: As tolerated
Driving Restrictions: Not until seen by your Dr
Bathing Restrictions: None
Blood Work: BMP in 5 days to recheck kidney function
Activity Restrictions/Additional Instructions:
After discharge have follow-up appointment with family physician. Should be seen in office within 1 to 2 weeks
Instructions: Percutaneous nephrostomy
Referrals:
Jarek Pereira DO [Family Provider] -
Additional Discharge Medication Instructions: Oxycodone 5 mg every 6 hours as needed for 3 days
Prescriptions:
New
oxycodone 5 mg Tablet
5 mg PO Q6HPRN PRN (Reason: moderate-severe pain) 3 Days Qty: 14 0RF
Continued
fluoxetine 20 MG capsule
60 mg PO DAILY
alprazolam 1 mg tablet
1 mg PO HS
divalproex 500 mg tablet,delayed release (DR/EC)
500 mg PO DAILY
ascorbic acid (vitamin C) [Vitamin C] 500 mg Tablet
500 mg PO DAILY
cholecalciferol (vitamin D3) 25 mcg (1,000 unit) Tablet
25 mcg PO DAILY
Excedrin Migraine 250-250-65 mg Tablet
2 tab PO DAILYPRN PRN (Reason: Migraines)
Discharge Orders:
Discharge Patient (As Directed); Ordered 04/01/24
Ordered By: Serg Pennington
Discharge Date and Time
Discharge Date/Time: 04/01/24 16:00
Print Language: URUGUAYAN
== END 2024-04-01 16:00 | disposition home or self-care (01) ==
LOC: 2 SOUTH 09:47
PROVIDERS: Student in an Organized Health Care Education/Training Program; ADMITTING PHYSICIAN Internal Medicine; EMERGENCY PHYSICIAN Emergency Medicine; FAMILY PHYSICIAN Family Medicine; OTHER PHYSICIAN Specialist
DX: T83.012A Breakdown (mechanical) of nephrostomy catheter, initial encounter (principal); Y84.6 Urinary catheterization as the cause of abnormal reaction of the patient, or of later complication, without mention of misadventure at the time of the procedure; Y73.2 Prosthetic and other implants, materials and accessory gastroenterology and urology devices associated with adverse incidents; Y92.9 Unspecified place or not applicable; N13.9 Obstructive and reflux uropathy, unspecified; C53.9 Malignant neoplasm of cervix uteri, unspecified; D63.0 Anemia in neoplastic disease; E43 Unspecified severe protein-calorie malnutrition; N26.1 Atrophy of kidney (terminal); N18.32 Chronic kidney disease, stage 3b; F31.9 Bipolar disorder, unspecified; N17.9 Acute kidney failure, unspecified; E73.9 Lactose intolerance, unspecified; F41.9 Anxiety disorder, unspecified; Z66 Do not resuscitate; Z88.3 Allergy status to other anti-infective agents; Z68.1 Body mass index [BMI] 19.9 or less, adult; Z90.710 Acquired absence of both cervix and uterus; Z93.6 Other artificial openings of urinary tract status
CPT/HCPCS: 50435; 80048; 80053; 81003; 81015; 83735; 85025; 87086; 87147; 87186; 99284; C1729; C1769; G0378

== ENCOUNTER 2024-04-21 20:54 | Inpatient (IN) | payer OTHER, SELFPAY ==
[2024-04-21 11:20] VITALS: BP 90/69
[2024-04-21 11:46] LABS: % Basophils 0.2 % (0-2); % Eosinophils 0.1 % (0-6); % Immature Granulocytes 0.5 % (0-0.5); % Lymphocytes 13.3 % (20.5-51.1); % Monocytes 9.6 % (1.7-9.3); % Neutrophils 76.3 % (42.2-75.2); Absolute Lymphocytes 1.1 10^3/uL (1.2-3.4); Absolute Monocytes 0.8 10^3/uL (0.1-0.6); Absolute Neutrophils 6.5 10^3/uL (1.4-6.5); Hematocrit 33.1 % (37.0-47.0); Mean Corp Hgb Conc. 33.2 g/dL (33.0-37.0); Mean Corpuscular Hgb 28.7 pg (27.0-31.0); Mean Corpuscular Volume 86.4 fL (81.0-99.0); Nucleated Red Blood Cells % 0 %; Platelet Count 306 10^3/uL (130-400); Red Blood Cell Count 3.83 10^6/uL (4.20-5.40); Red Cell Dist. Width 12.4 % (11.5-14.5); Urine Albumin 2+ (Neg - Trace); Urine Bilirubin Negative (Negative); Urine Character Slightly Cloudy (Clear); Urine Color Yellow; Urine Glucose Negative (Negative); Urine Ketone 1+ (Negative); Urine Leukocyte 2+ (Negative); Urine Nitrite Positive (Negative); Urine Occult Blood 3+ (Negative); Urine Urobilinogen Negative (Neg - 1+); White Blood Cell Count 8.5 10^3/uL (4.8-10.8)
[2024-04-21 12:13] LABS: Urine Squamous Cell 0-2 /LPF (Few)
[2024-04-21 12:15] LABS: ALT (SGPT) 11 U/L (0-35); AST (SGOT) 19 U/L (14-36); Albumin 3.9 g/dl (3.5-5.0); Alkaline Phosphatase 53 U/L (38-126); Blood Urea Nitrogen 28 mg/dl (7-17); Calcium 8.8 mg/dl (8.4-10.2); Carbon Dioxide 24 mmol/L (22-30); Chloride 94 mmol/L (98-107); Glucose 106 mg/dl (70-99); Potassium 4.1 mmol/L (3.5-5.1); Sodium 135 mmol/L (135-145); Total Bilirubin 0.9 mg/dl (0.2-1.3); Total Protein 6.6 g/dl (6.3-8.2); Urine Bacteria Moderate (Negative); Urine Red Blood Cell 0-2 /HPF (0-2); Urine White Cell 26-30 /HPF (0-5); eGFR 23.45
[2024-04-21 15:00] VITALS: BP 90/50
--- NOTE | 2024-04-21 17:09 | ED.GENMED ---
History of Present Illness
General
Chief Complaint: Urinary Symptoms
Source: patient
Exam Limitations: none
Time Seen by Provider: 04/21/24 17:06
Nursing documentation reviewed up to this point in time: agreed with
History of Present Illness
History of Present Illness:
63 yo female w h/o cervical CA that spread to left kidney causing atrophy and failure of the left kidney. Has right nephrostomy tube draining clear paco urine, she denies abdominal pain. She also noted a very foul odorous '6-7 drops of really
smelly urine coming from my vaginal area. 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 She felt chilled last night but did not take her temperature. Took Excedrine went to bed and woke up
in a sweat. Denies n/v/d/c. Denies abdominal pain.
Past History
Past History
ED Past Medical History: Cancer (cervical), Psychiatric (Bipolar, Depression, ) and Other (lactose intolerance, gallstones, migraines, meningitis, Left kidney atrophy)
ED Past Surgical History: Gynecological (Hysterectomy), Tonsilectomy (Adenoids) and Urological (Ureteral stent, Right Nephrostomy tube)
Social History
Tobacco: Non-smoker
Alcohol: Occasional
Drug: None
Personal: Single
Living: with family (Lives with mother)
Family History
Family History: Unable to obtain
Review of Systems
Review of Systems
Allergies reviewed?: Yes
All Other Systems: ROS reviewed and negative except as documented in HPI and ROS
Constitutional: Denies fever
Respiratory: Denies trouble breathing
Cardiac: Denies chest pain
ABD/GI: Denies abdominal pain
: Reports discharge (malodorous vaginal discharge) and other (Right nephrostomy tube draining well)
Musculoskeletal: Reports no symptoms
Neurological: Reports no symptoms
Phy Exam
Physical Exam
Physical Exam:
GENERAL: No acute distress. A&Ox3.
CONSTITUTIONAL: Afebrile.
EYES: clear, conjunctivae normal
ENMT: moist mucus membranes, Pharynx nl
RESPIRATORY: Regular respirations, nonlabored, lungs clear.
CARDIOVASCULAR: Regular rate and rhythm, no murmurs, no rubs.
GI: Soft, nontender, normal BS
: no vaginal drainage visible, pt with atrophic vaginal area so at her request, no speculum exam done.
R nephrostomy tube draining paco urine
MUSCULOSKELETAL: Moves with ease. Well perfused.
SKIN: Warm, dry, pink
PSYCH: Normal mood and affect. Well kept, interactive and appropriate
NEUROLOGIC: Awake, alert and oriented. No focal neurological deficits
Course
Orders/Labs/Results
Orders:
Orders
04/21/24 11:34
Complete Blood Count/With Diff Urgent
Comprehensive Metabolic Panel Urgent
Urinalysis Reflex To Culture Urgent
Date Specimen was Collected: 04/21/24
Time Specimen was Collected: 11:25
Urine Microscopic Reflex Cult Urgent
Urine Culture Urgent
JEREMÍAS Source: U
Specimen Description:
Date Specimen was Collected: 04/21/24
Time Specimen was Collected: 11:25
04/21/24 Dinner
Regular
At Your Request: Full Participation
Does patient need a safe tray?: No
04/21/24 17:32
Urinalysis Reflex To Culture Urgent
Date Specimen was Collected: 04/21/24
Time Specimen was Collected: 17:30
Urine Microscopic Reflex Cult Urgent
Urine Culture Urgent
JEREMÍAS Source: U
Specimen Description:
Date Specimen was Collected: 04/21/24
Time Specimen was Collected: 17:30
04/21/24 18:37
UROLOGY CONSULT Urgent
Consulting Provider: Pk Lewis
Was physician already notified: Yes
Comment: UTI, nephrostomy
04/21/24 18:48
CefTRIAXone [Rocephin] 1,000 mg IV NOW STA
04/21/24 20:34
Admit/Transfer Patient As Directed
Co-Sign Provider:
Level of Care: Inpatient admission
Assign to:: Medical/Surgical
Physician / Group: jonathon núñez
Diagnosis: vaginal draingage susp fistula vs abscess
Reason for Hospitalization: vaginal draingage susp fistula vs abscess
Expected length of stay greater than two midnights?: Yes
ELOS- Estimated Length of Stay in days: 3
I certify the patient meets the requirements for IP care: Yes
Code Status As Directed
Resuscitation Status: Do not resuscitate
Reached after discussion with pt or family/Healthcare POA: Yes
Based on pt advanced directive or healthcare POA form: Yes
Decision communicated with: Per patient with at bedside
DNR Bracelet Application ONCE
04/21/24 20:45
PRN Pain Medication Management As Directed
May give lesser potent ordered pain med per pt: Yes
preference::
Protocol:: Medication orders for pain may be administered in a
manner that supports deferring to patient preference
when the pt is:
- Requesting an ordered lesser potent pain medication.
Least to most potent pain medications are defined
as: acetaminophen < NSAID < tramadol < opioids
(morphine, oxycodone, hydromorphone).
- Requesting a lesser dose of the same medication IF
ORDERED.
- Requesting a less intrusive route of administration
if both routes are prescribed by the provider (PO <
IV).
04/21/24 22:16
0.9% Sodium Chloride 1000 ml [Nss] 1,000 ml IV 60 mls/hr
Acetaminophen [Tylenol] 650 mg PO Q4HPRN PRN
Alprazolam [Xanax] 1 mg PO HS
Oxycodone [Roxicodone] 5 mg PO Q6HPRN PRN
hnuykue-fhxacxbtboexp-pdtfimbr [Excedrin Migraine] See Dose Instructions PO DAILYPRN PRN
04/21/24 22:16
Activity As Directed
Activity Level: As Tolerated
Intake/ Output As Directed
Frequency: Per unit guidelines
Vital Signs As Directed
Frequency: Per unit guidelines
Weight As Directed
Frequency: Daily
DX Deep Vein Thrombosis Video Routine
04/22/24 05:35
Complete Blood Count/With Diff IN AM
Comprehensive Metabolic Panel IN AM
04/22/24 08:00
Divalproex Delayed Rel. 12 Hr [Depakote (12 Hr Release)] 500 mg PO DAILY
Fluoxetine HCl [Prozac] 60 mg PO DAILY
Heparin 5,000 units SC Q12
04/22/24 20:00
CefTRIAXone [Rocephin] 1,000 mg IV Q24H
04/23/24 05:07
Complete Blood Count/With Diff IN AM
04/24/24 06:00
Complete Blood Count/With Diff IN AM
Abnormal Lab Results
04/21/24 04/21/24
11:34 17:32
RBC 3.83 L 10^6/uL
(4.20-5.40)
Hgb 11.0 L g/dL
(12.0-16.0)
Hct 33.1 L %
(37.0-47.0)
Absolute Lymphs (auto) 1.1 L 10^3/uL
(1.2-3.4)
Absolute Monos (auto) 0.8 H 10^3/uL
(0.1-0.6)
Neutrophils % 76.3 H %
(42.2-75.2)
Lymphocytes % 13.3 L %
(20.5-51.1)
Monocytes % 9.6 H %
(1.7-9.3)
Chloride 94 L mmol/L
(98-107)
BUN 28 H mg/dl
(7-17)
Creatinine 2.3 H mg/dL
(0.6-1.0)
Glucose 106 H mg/dl
(70-99)
Urine Ketones 1+ A
(Negative)
Ur Occult Blood Reflex 3+ A 4+ A
(Negative) (Negative)
Urine Nitrite (Reflex) Positive A
(Negative)
Leukocyte Esterase Rfl 2+ A 3+ A
(Negative) (Negative)
Urine RBC 7-10 A /HPF
(0-2)
Urine WBC (Reflex) 26-30 A /HPF 26-30 A /HPF
(0-5) (0-5)
Urine Bacteria (Reflex) Moderate A Many A
(Negative) (Negative)
Urine Albumin (Reflex) 2+ A 4+ A
(Neg - Trace) (Neg - Trace)
04/21/24 11:34
04/21/24 11:34
Vital Signs
Initial and Last Documented VS:
Initial Vital Signs
Temp Pulse Resp BP Pulse Ox
97.5 F 88 20 90/69 99
04/21/24 11:20 04/21/24 11:20 04/21/24 11:20 04/21/24 11:20 04/21/24 11:20
Last Documented Vital Signs
Temp Pulse Resp BP Pulse Ox
98.8 F 83 16 87/51 97
04/23/24 08:00 04/23/24 08:00 04/23/24 08:00 04/23/24 08:00 04/22/24 04:05
Occupational Therapy Director consulted with Physician
Occupational Therapy Director consulted with physician?: Yes
Name of Physician Consulted: Bud
MDM/Problems Addressed
Differential Diagnosis Includes:
UTI, pyelonephritis
MDM/Problems Addressed:
63 yo female w h/o cervical CA that spread to left kidney causing atrophy and failure of the left kidney. Has right nephrostomy tube draining clear paco urine, she denies abdominal pain. She also noted a very foul odorous '6-7 drops of really
smelly urine coming from my vaginal area. 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 She felt chilled last night but did not take her temperature. Took Excedrine went to bed and woke up
in a sweat. Denies n/v/d/c. Denies abdominal pain.
CBC unremarkable
CMP consistent with her baseline
U/a from nephrostomy bag: Positive nitrites, 2+ leukocytes, 26-30 WBCs, moderate bacteria.
I performed a simple vaginal exam, I straight cathed her for about 40 mL of malodorous thick purulent urine.
Temp 98.6
63-year-old female with one nonfunctioning left kidney and a nephrostomy tube in right kidney, soft blood pressure here, malodorous purulent urine on straight cath,
Plan: Admit: UTI, nephrostomy, single kidney
Hospitalist and Urology notified of admission.
Case discussed with Dr. Farrell who agrees with plan
*Critical Care Note
Total Time (30-74mins, 75-104mins- exclusive of procedures): Not Applicable
ED Attending Note
-
Portions of this chart may have been created with voice recognition software.� Occasional wrong word or��sound alike� substitutions may have occurred due to the inherent limitations of voice recognition software.
Discharge Plan
Departure
Patient Disposition: Admit
Date of Disposition: 04/21/24
Time of Disposition: 18:37
Admit to: Med/Surg
Presentation/result/management discussed w/ accepting MD/DO: Hospitalist
Condition: Fair
Discharge Problem:
UTI (urinary tract infection), Nephrostomy present
Interventions
Interventions:
*Risk Screen - Suicide Last Done: 04/21/24 23:21
*General Assessment Last Done: 04/21/24 11:20
*Neglect/Abuse Screening Last Done: 04/21/24 11:20
ED- Fall Risk Assessment Last Done: 04/21/24 22:14
*ED COVID-19 Vaccine History Last Done: 04/21/24 23:09
*Nursing Disposition Last Done: 04/21/24 22:14
ED-Female Genitourinary Assessment Last Done: 04/21/24 17:26
Discharge Date and Time
Discharge Date/Time: 04/21/24 22:14
[2024-04-21 17:28] VITALS: BP 90/52
[2024-04-21 17:45] LABS: Urine Albumin 4+ (Neg - Trace); Urine Bilirubin Negative (Negative); Urine Character Cloudy (Clear); Urine Color Yellow; Urine Glucose Negative (Negative); Urine Ketone Negative (Negative); Urine Leukocyte 3+ (Negative); Urine Nitrite Negative (Negative); Urine Occult Blood 4+ (Negative); Urine Specific Gravity 1.015 (<1.030); Urine Urobilinogen Negative (Neg - 1+); Urine pH 6.5 (5.0-9.0)
[2024-04-21 18:08] LABS: Urine Squamous Cell 0-2 /LPF (Few)
[2024-04-21 18:09] LABS: Urine Bacteria Many (Negative); Urine White Cell 26-30 /HPF (0-5)
[2024-04-21] MEDS: ROCEPHIN 1000 MG IV (19:13)
--- NOTE | 2024-04-21 19:48 | HPS.HSE ---
Family Physician
-
Family Physician: Jarek Pereira
Chief Complaint
-
Vaginal discharge
History of Present Illness
63-year-old female complains of right nephrostomy tube draining clear paco urine along with malodorous 6 to 8 drops of dark yellow fluid coming from the vaginal area. She believes she has a history of a vesicle�vaginal fistula but never had this
investigated. She states she would occasionally get 1 to 2 drops of drainage from the vaginal area but she never had this amount or this odor. She does report feeling chills this morning along with a headache so she took 2 Excedrin slept for 1
hour woke up in a sweat . She states her right nephrostomy tube is draining well since it was replaced on 03/31/2024 she denies abdominal pain, nausea, vomiting, diarrhea, chest pain, palpitations, cough, shortness of breath.
she was admitted 03/31 - 04/01/2024 secondary to an LUCHO on CKD with obstructing right nephrostomy tube that was replaced on 03/31/2024 by interventional radiology. She has prior left kidney atrophy/failure of kidney due to cervical cancer spread.
Other past medical history includes cervical cancer Dx January 2016, radiation 2017, hysterectomy 2019 with residual cancer in the abdomen chose not to have operation or chemo, recurrence and spread of cervical cancer to left kidney causing left
kidney atrophy/failure, mass near her right kidney requiring right nephrostomy tube for drainage, CKD 3 AA, severe protein calorie malnutrition, lactose intolerance, anemia of chronic disease, anxiety
Medical History
Past Medical History
Past Medical History: Reports Other
Additional Past Medical History:
cervical cancer Dx January 2016/ radiation 2017
hysterectomy 2019 with residual cancer in the abdomen chose not to have operation or chemo
recurrence and spread of cervical cancer to left kidney causing left kidney atrophy/failure
mass near her right kidney requiring right nephrostomy tube for drainage 12/08/2019 for first nephrostomy tube
CKD 3 A
severe protein calorie malnutrition
lactose intolerance, anemia of chronic disease
anxiety
Past Surgical History: Reports Other
Additional Past Surgical History:
LUCHO on CKD with obstructing right nephrostomy tube that was replaced on 03/31/2024 by interventional radiology. Prior nephrostomy tube 01/25/2024, 12/08/2023
Hysterectomy 2019 secondary to cervical cancer
Social History
Tobacco: Non-smoker
Alcohol: None
Drug: None
Personal:
Living: With Family
Employment: Disabled
Family History
Family History: Not pertinent
Allergies / Home Medications
Allergies reflects when Allergies were last updated in [facility].
Home Medications with original date entered in [facility]
Allergy/Medication List:
Allergies
Allergy/AdvReac Type Severity Reaction Status Date / Time
Milk Containing Products Allergy Unknown Verified 04/21/24 11:25
(Dairy)
nitrofurantoin Allergy fever Verified 04/21/24 11:25
macrocrystalline
[From Macrodantin]
tuberculin,PPD,multi-puncture Allergy Rash Verified 04/21/24 11:25
Home Medications
fluoxetine 20 mg capsule 60 mg PO DAILY Mental Health/Anxiety 01/16/20
alprazolam 1 mg tablet 1 mg PO HS Mental Health/Anxiety 12/07/23
kwppjib-ynzusqpgmshgf-hnzronfa 250 mg-250 mg-65 mg tablet (Excedrin Migraine) 2 tab PO DAILYPRN PRN Migraines 12/07/23
divalproex 500 mg tablet,delayed release 500 mg PO DAILY mental health 12/07/23
oxycodone 5 mg tablet 5 mg PO Q6HPRN PRN moderate-severe pain 3 days #14 tabs 04/01/24
Review of Systems
-
History Source: Patient and Family ( at bedside)
A 12 point ROS was completed and negative except as noted: Yes
Constitutional: Reports Chills (This morning); Denies Fever
EENT: Denies Sore Throat or Runny Nose
Respiratory: Denies Cough or Trouble Breathing
Cardiac: Denies Chest Pain, Diaphoresis, Palpitations or Syncope
Abdomen/GI: Denies Abdominal Pain, Nausea, Vomiting, Diarrhea, Constipated or Bloody Stools
: Reports Other (Right nephrostomy tube with normal drainage, reported vaginal dark yellow malodorous 6 to 8 drops of drainage since yesterday 04/20/2024)
Musculoskeletal: Denies Joint Pain, Joint Swelling or Edema
Skin: Denies Itching or Rash
Neurological: Reports Headache (This a.m. resolved after Excedrin); Denies Dizzy or Weakness
Endocrine: Reports No Symptoms
Hematologic/Lymphatic: Reports No Symptoms
Psych: Reports Calm
Physical Exam
Vital Signs
Vital Signs
Temp Pulse Resp BP Pulse Ox
97.7 F 73 18 90/52 98
04/21/24 17:28 04/21/24 17:28 04/21/24 17:28 04/21/24 17:28 04/21/24 17:28
Physical Exam
General: Chills and Cachectic; No Pain or Fever
HEENT: NormoCephalic, Anicteric, Moist mucous membranes, [place] Conjunctivae and No Ptosis
Respiratory: Clear; No Wheezes, Rales or Rhonchi
Cardiac: S1/S2 and Regular Rhythm; No Murmur, Rub, Gallop or Peripheral Edema
Breast: Deferred by me
GI: Soft, Non Tender, Non Distended, Normal Bowel Sounds and No Hepatosplenomegaly
Rectal: Deferred by Provider
Genito-urinary: Other (Right nephrostomy tube with yellow drainage, reported vaginal dark yellow malodorous 6 to 8 drops of drainage since yesterday 04/20/2024)
Musculoskeletal: No Clubbing, No Cyanosis and No Edema
Skin: Warm and Dry; No Rash
Neuro: AO x 3, No Motor Deficits, Cranial Nerves Intact and No Sensory Deficits; No Slurred Speech, Facial Droop, Tremors or Sedated
Psych: Calm
Laboratory Results
-
04/21/24 11:34
04/21/24 11:34
Laboratory Results
Total Bilirubin 0.9 mg/dl (0.2-1.3) 04/21/24 11:34
AST 19 U/L (14-36) 04/21/24 11:34
ALT 11 U/L (0-35) 04/21/24 11:34
Alkaline Phosphatase 53 U/L (38-126) 04/21/24 11:34
Impression/Plan
-
Impression/plan:
Admit to MedSurg
#Vaginal drainage conc for suspected vesicle�vaginal fistula vs abscess
-Consult urology
-IV Rocephin
-Follow CBC
-Monitor for fever
Tylenol as needed
Hx Cervical cancer spread to left kidney causing atrophy/failure of left kidney
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
Hx obstructed right nephrostomy tube present was repositioned on 04/01/2024 by IR prior 01/25/2024 and initial 12/08/2023
H/O Left ureteral stricture 2/2 XRT
#S/P B/L PCN
-Patient follows with [facility]
#H/O cervical cancer Dx January 2016, radiation 2017
-Follows with [facility], suspected advancement
-Status post XRT complicated by stricture, s/p hysterectomy 2018 with residual cancer in the abdomen area she chose not to have operated on in 2019
-Most recent PET concerning for recurrence in the pelvis
-Patient previously declined further treatment/repeat PET
-Understands she will eventually need hospice but not at that point yet according to notes April 01, 2024
-Continue oxycodone 5 mg p.o. every 6 hours as needed moderate to severe pain
CKD 3a
Creat 2.3 appears near baseline 2.4 on 04/01/2024, she had reported-Baseline creatinine near 1.3-1.5 on her April 01, 2024 admission
-Follow BMP
#Severe protein calorie malnutrition
#Lactose intolerance
-Patient was advised last admission to start calorie counts and nutritional shakes
-Regular diet, avoid lactose
# Anemia of chronic disease
-Secondary to cancer with suspected recurrence
-Hemoglobin 11 appears near baseline
-No signs of active bleeding
Anxiety
Continue divalproex 500 mg daily, fluoxetine 60 mg daily, Xanax 1 mg p.o. at bedtime
Migraines
Patient takes 2 tablets daily as needed migraine
DVT prophylaxis: Subcutaneous heparin
Diet: Regular, lactose-free
CODE STATUS: DNR per patient with at bedside
--- NOTE | 2024-04-21 20:47 | W.PN.UPDATE ---
Update Note
Progress Note Update
Patient seen in conjunction with SLUMBER ROOM ATTENDANT. I agree with the findings on exam physical. I concur with assessment and plan.
This is a 63-year-old with past medical history of cervical cancer status post XRT and ultimately incomplete hysterectomy in 2017 with resultant metastatic disease involving the omentum and resultant left kidney obstruction and failure and right
nephrostomy tube placement who presents to the emergency department with malodorous vaginal discharge. Patient has routine nephrostomy tube replacement and the last replacement was March 31. She reports more recently instead of having occasional
yellow drips which was malodorous. She reports she can feel a sense of urgency and the fluid is coming from the urethra. She reports about 6 drinks at a time when she states in the morning and 460s out. It recurs every few hours. Patient states
she only has 1 to 2 drops a month. She denies any burning sensation. She denies any flank pain. She reported having chills the previous evening. Now she denies fevers or chills. Patient is not having any pain. He has never had subcu discharge
before.
In the emergency department blood pressure was 90/52 with a temp of 97.778% on room air. CBC was completely unremarkable. Electrolytes BUN/creatinine were stable with a creatinine of 2.3. No imaging. Straight cath performed and UA shows some
leukocyte esterase, WBCs and bacteria. Patient has severely contracted pelvic region secondary to radiation with inability to examine the os. Urology consulted.
A&P
Vaginal discharge - recto-vaginal versus vesiculo-vaginal fistula or possible abscess. Unlikely vaginitis.
- admit to med/surg
- started rocephin for uti
- no acute imaging available due to chronic renal failure and inabilty to perform TVUS
- urology consulted and aware, likley to need cystoscopy
DVT PPX - hep sq
Code status - DNR
[2024-04-21 21:21] VITALS: BMI 14.8
[2024-04-21 21:23] VITALS: BMI 15.7
[2024-04-21 21:24] VITALS: BP 96/54
[2024-04-21] MEDS: NSS 1000 IV (22:47)
[2024-04-21] MEDS: XANAX 1 MG PO (22:50)
[2024-04-21 23:00] VITALS: BP 107/42
[2024-04-22 04:05] VITALS: BP 91/47
--- NOTE | 2024-04-22 04:10 | PTCARENOTE ---
Received patient at 2240, report from SHELBI Escobar. Completed admission questions and started patient on NSS at 60ml/hr via left wrist PIV. IV remains patent for continuous fluids. Second dose of Rocephin scheduled for 1999. Patient denies pain,
stated she had a headache in the AM prior to coming to the ED. Temperature initially 99.1F orally, now 101.1F. Patient does not want PRN Tylenol for temperature, is not diaphoretic and offers no complaints. B/P / which patient states is her
'norm.' Patient with Right nephrostomy tube, dressing C/D/I. Nephrostomy tube emptied prior to patient going to bed for 175ml clear yellow urine. Urine with foul odor. Labs scheduled for later this am. Urine culture pending. Will continue to monitor.
[2024-04-22 06:34] LABS: % Basophils 0.4 % (0-2); % Eosinophils 0.4 % (0-6); % Immature Granulocytes 0.4 % (0-0.5); % Lymphocytes 17.1 % (20.5-51.1); % Monocytes 13.3 % (1.7-9.3); % Neutrophils 68.4 % (42.2-75.2); Absolute Lymphocytes 0.9 10^3/uL (1.2-3.4); Absolute Monocytes 0.7 10^3/uL (0.1-0.6); Absolute Neutrophils 3.7 10^3/uL (1.4-6.5); Hematocrit 27.2 % (37.0-47.0); Hemoglobin 9.3 g/dL (12.0-16.0); Mean Corp Hgb Conc. 34.2 g/dL (33.0-37.0); Mean Corpuscular Hgb 28.9 pg (27.0-31.0); Mean Corpuscular Volume 84.5 fL (81.0-99.0); Mean Platelet Volume 9.1 fL (7.4-10.4); Nucleated Red Blood Cells % 0 %; Platelet Count 226 10^3/uL (130-400); Red Blood Cell Count 3.22 10^6/uL (4.20-5.40); Red Cell Dist. Width 12.3 % (11.5-14.5); White Blood Cell Count 5.4 10^3/uL (4.8-10.8)
[2024-04-22 06:40] LABS: ALT (SGPT) < 10 U/L (0-35); AST (SGOT) 17 U/L (14-36); Albumin 3.6 g/dl (3.5-5.0); Alkaline Phosphatase 59 U/L (38-126); Blood Urea Nitrogen 32 mg/dl (7-17); Calcium 8.8 mg/dl (8.4-10.2); Carbon Dioxide 23 mmol/L (22-30); Chloride 97 mmol/L (98-107); Estimated Creatinine Clearance 20 ml/min; Glucose 88 mg/dl (70-99); Potassium 4.4 mmol/L (3.5-5.1); Sodium 133 mmol/L (135-145); Total Bilirubin 0.5 mg/dl (0.2-1.3); Total Protein 6.3 g/dl (6.3-8.2); eGFR 27.73
[2024-04-22] MEDS: DEPAKOTE (12 HR RELEASE) 500 MG PO (07:36)
[2024-04-22] MEDS: PROZAC 60 MG PO (07:37)
[2024-04-22 07:44] VITALS: BP 100/35
--- NOTE | 2024-04-22 09:22 | W.PN.HOSP.TC ---
Today's Communication/Plan
-
see bold
Assessment / Plan
Assessment / Plan
HPI: 63-year-old with past medical history of cervical cancer status post XRT and ultimately incomplete hysterectomy in 2016 with resultant metastatic disease involving the omentum and resultant left kidney obstruction and failure and right
nephrostomy tube placement who presents to the emergency department with malodorous vaginal discharge. Patient has routine nephrostomy tube replacement and the last replacement was March 31. She reports more recently instead of having occasional
yellow drips which was malodorous. She reports she can feel a sense of urgency and the fluid is coming from the urethra.
#Fever
Unclear source, urine cultures growing diphtheroids
Check influenza, check COVID, check blood cultures, consult ID since she has a complex history and a right PCN tube
Continue IV Rocephin for now, trend fever and white count
#Vaginal discharge
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
Urology recommends follow-up with [facility]
Unable to order studies with contrast secondary to CKD
Consult Electric Meter Inspector
#Metastatic cervical cancer to the omentum and left kidney obstruction, resulting in atrophic left kidney
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
#History of obstructed right nephrostomy tube present was repositioned on 04/01/2024 by IR prior 01/25/2024 and initial 12/08/2023
Status post incomplete hysterectomy
Understands she will eventually need hospice but not at that point yet according to notes April 01, 2024
Continue oxycodone 5 mg p.o. every 6 hours as needed moderate to severe pain
Follow-up with [facility] outpatient
#Stage IIIa CKD
Monitor
#Severe protein calorie malnutrition
#Lactose intolerance
Patient was advised last admission to start calorie counts and nutritional shakes
Regular diet, avoid lactose
# Anemia of chronic disease
Secondary to cancer with suspected recurrence
Stable
#Anxiety
Continue divalproex 500 mg daily, fluoxetine 60 mg daily, Xanax 1 mg p.o. at bedtime
#Migraines
DVT prophylaxis�subcu heparin
DNR
Total time spent to see the patient on the floor, examine the patient, review data and lab results, discuss treatment plan with patient, nursing staff around 52 minutes.
Physical Exam
General: Thin, no acute distress
HEENT: Normocephalic, Atraumatic, EOMI, MMM
Respiratory: Clear to Auscultation bilaterally
Cardiac: Normal S1/S2, Regular Rate and Rhythm
GI: Soft, Nontender, Nondistended, Normal Bowel Sounds
Extremities: No Clubbing, Cyanosis, or Edema
Neuro: Nonfocal/Grossly Intact
Psych: Calm, Cooperative
Derm: No Visible lesions
Anticipated Discharge: 24 - 48 hours
Subjective/Interval History
-
Date of Service: April 22, 2024
Patient denies vaginal pain. Her last vaginal leakage was 2 days ago. No nausea, no vomiting. No chest pain, no shortness of breath. She was febrile overnight.
Objective Data
-
Labs:
Laboratory Results
04/22/24
05:35
WBC 5.4
Hgb 9.3 L
Hct 27.2 L
Plt Count 226 D
Sodium 133 L
Potassium 4.4
Chloride 97 L
Carbon Dioxide 23
BUN 32 H
Creatinine 2.0 H
Glucose 88
Calcium 8.8
Total Bilirubin 0.5
AST 17
ALT < 10
Alkaline Phosphatase 59
Vital Signs:
Vital Signs
Temp Pulse Resp BP Pulse Ox
98.4 F 77 20 100/35 97
04/22/24 07:44 04/22/24 07:44 04/22/24 07:44 04/22/24 07:44 04/22/24 04:05
I&O
04/21/24 04/22/24 04/23/24
06:59 06:59 06:59
Intake Total 510 / 510
Output Total 605 / 605
Balance -95 / -95
--- NOTE | 2024-04-22 10:53 | CONS.URO ---
Consultation
-
Performing Provider: Joshua
Reason for Consultation: fistula
Medical History
History of Present Illness
63 yo female with history of cervical cancer, having undergone a
total abdominal hysterectomy and salpingo-oophorectomy with
subsequent radiation. Known to have longstanding chronic left hydronephrosis,
believed secondary to her malignancy treatment history; managed with stent at one point and considered for reconstruction- but pt declined and had stent removed and observed
--followed at [facility] for both oncology and urology
12/08/2023 Right PCN tube placed by IR here at
01/25/2024 Right PCN tube exchanged
03/31/2024 Pt presented to ED reporting poor urine drainage volume per PCN tube -- admitted to [facility]
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
Past Medical History
Past Medical History: Other (Cervical cancer -- metastatic, Renal Failure (CKD3a) due to malignant ureteral obstruction, Anxiety and Depression)
Past Surgical History: Other (Cervical cancer exenteration + XRT; left PCN tube)
Social History
Personal: Partner
Family History
Family History: Reviewed & Not Pertinent
Allergies/Home Medications
Allergies
Allergy/AdvReac Type Severity Reaction Status Date / Time
Milk Containing Products Allergy Unknown Verified 04/21/24 11:25
(Dairy)
nitrofurantoin Allergy fever Verified 04/21/24 11:25
macrocrystalline
[From Macrodantin]
tuberculin,PPD,multi-puncture Allergy Rash Verified 04/21/24 11:25
Home Medications
�Medication �Instructions �Recorded �Confirmed �Type
fluoxetine 20 mg capsule 60 mg PO DAILY Mental 01/16/20 04/21/24 History
Health/Anxiety
alprazolam 1 mg tablet 1 mg PO HS Mental Health/Anxiety 12/07/23 04/21/24 History
ciitmet-stmgitkrmoyse-rpbnagnk 250 2 tab PO DAILYPRN PRN Migraines 12/07/23 04/21/24 History
mg-250 mg-65 mg tablet (Excedrin
Migraine)
divalproex 500 mg tablet,delayed 500 mg PO DAILY mental health 12/07/23 04/21/24 History
release
oxycodone 5 mg tablet 5 mg PO Q6HPRN PRN moderate-severe 04/01/24 04/21/24 Rx
pain 3 days #14 tabs
Physical Exam
Vital Signs
Vital Signs
Temp Pulse Resp BP Pulse Ox
98.4 F 77 20 100/35 97
04/22/24 07:44 04/22/24 07:44 04/22/24 07:44 04/22/24 07:44 04/22/24 04:05
Lab / Testing Results
Laboratory Results
04/22/24 05:35
04/22/24 05:35
Physical Exam
adult female in NAD
Genito-urinary: Other (left PCN tube draining yellow urine)
Neuro: Awake and Alert
Assessment / Plan
-
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
no indication for immediate intervention
patient should return to [facility] for further evaluation and possible surgical intervention
[2024-04-22] MEDS: NSS 1000 IV (15:32)
[2024-04-22 16:06] VITALS: BP 77/49
[2024-04-22 17:19] LABS: COVID-19 Antigen Negative (Negative)
[2024-04-22 20:00] VITALS: BP 102/51
[2024-04-22] MEDS: STERILE WATER FOR INJECTION 10 ML IV (20:20)
[2024-04-22] MEDS: ROCEPHIN 1000 MG IV (20:20)
--- NOTE | 2024-04-22 20:59 | PTCARENOTE ---
pt temp at 1999 101.8 degrees F. pt offered Tylenol and refused it. pt not diaphoretic or flushed. tolerated dinner well ate 100% of meatloaf and applesauce. HR and respirations WNL.
[2024-04-22] MEDS: XANAX 1 MG PO (21:57)
--- NOTE | 2024-04-22 23:47 | W.PN.UPDATE ---
Update Note
Progress Note Update
Went to evaluate patient after being consulted for possible vesicovaginal fistula. Patient had been experiencing new onset yellow discharge/drainage per vagina for 2-3 days prior to presentation to the hospital. Explained to her what the exam
entails and also that it can at times be hard to visualize a fistula. Explained even if present, I would defer management recommendations to her GynOnc at [facility]. Patient explains that after radiation therapy her vagina is very stenotic and even with
a pediatric speculum it is hard to do a pelvic exam on her. For this reason she does not want to have an evaluation by me. I therefore advised that once she is d/c and follows up with her GynOnc, then additional evaluation can be addressed at that
time.
[2024-04-23 00:23] VITALS: BP 94/45
[2024-04-23 04:00] VITALS: BP 80/63
--- NOTE | 2024-04-23 04:39 | PTCARENOTE ---
pt temp at 0000 101.1 degrees F and at 0400 100.8 degrees F. pt declined Tylenol.
[2024-04-23 05:41] LABS: % Basophils 0.2 % (0-2); % Eosinophils 0.4 % (0-6); % Immature Granulocytes 0.6 % (0-0.5); % Lymphocytes 15.1 % (20.5-51.1); % Monocytes 16.3 % (1.7-9.3); % Neutrophils 67.4 % (42.2-75.2); Absolute Lymphocytes 0.8 10^3/uL (1.2-3.4); Absolute Monocytes 0.8 10^3/uL (0.1-0.6); Absolute Neutrophils 3.5 10^3/uL (1.4-6.5); Hematocrit 25.8 % (37.0-47.0); Hemoglobin 8.8 g/dL (12.0-16.0); Mean Corp Hgb Conc. 34.1 g/dL (33.0-37.0); Mean Corpuscular Hgb 28.9 pg (27.0-31.0); Mean Corpuscular Volume 84.9 fL (81.0-99.0); Mean Platelet Volume 9.2 fL (7.4-10.4); Nucleated Red Blood Cells % 0 %; Platelet Count 213 10^3/uL (130-400); Red Blood Cell Count 3.04 10^6/uL (4.20-5.40); Red Cell Dist. Width 12.2 % (11.5-14.5); White Blood Cell Count 5.2 10^3/uL (4.8-10.8)
[2024-04-23 06:02] LABS: Blood Urea Nitrogen 23 mg/dl (7-17); Calcium 8.5 mg/dl (8.4-10.2); Carbon Dioxide 25 mmol/L (22-30); Chloride 101 mmol/L (98-107); Estimated Creatinine Clearance 22 ml/min; Glucose 100 mg/dl (70-99); Magnesium 1.8 mg/dl (1.6-2.3); Potassium 4.5 mmol/L (3.5-5.1); Sodium 136 mmol/L (135-145); eGFR 31.46
[2024-04-23 08:00] VITALS: BP 87/51
[2024-04-23] MEDS: PROZAC 60 MG PO (08:05)
[2024-04-23] MEDS: DEPAKOTE (12 HR RELEASE) 500 MG PO (08:06)
--- NOTE | 2024-04-23 08:35 | W.PN.HOSP.TC ---
Today's Communication/Plan
-
see bold
Assessment / Plan
Assessment / Plan
HPI: 63-year-old with past medical history of cervical cancer status post XRT and ultimately incomplete hysterectomy in 2016 with resultant metastatic disease involving the omentum and resultant left kidney obstruction and failure and right
nephrostomy tube placement who presents to the emergency department with malodorous vaginal discharge. Patient has routine nephrostomy tube replacement and the last replacement was March 31. She reports more recently instead of having occasional
yellow drips which was malodorous. She reports she can feel a sense of urgency and the fluid is coming from the urethra.
#Persistent fever
Unclear source, urine cultures growing diphtheroids
Covid/flu neg, f/u blood cultures, ID consult requested since she has a complex history and a right PCN tube
Continue IV Rocephin for now, trend fever and white count
#Vaginal discharge
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
Urology recommends follow-up with [facility]
Unable to order studies with contrast secondary to CKD
Appreciate UNIFORMS SALES REPRESENTATIVE input, unable to do pelvic exam as her vagina is stenotic
Recommend that she follows up with [facility] outpatient
#Metastatic cervical cancer to the omentum and left kidney obstruction, resulting in atrophic left kidney
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
#History of obstructed right nephrostomy tube present was repositioned on 04/01/2024 by IR prior 01/25/2024 and initial 12/08/2023
Status post incomplete hysterectomy
Understands she will eventually need hospice but not at that point yet according to notes April 01, 2024
Continue oxycodone 5 mg p.o. every 6 hours as needed moderate to severe pain
Follow-up with [facility] outpatient
#Stage IIIa CKD
Monitor
#Severe protein calorie malnutrition
#Lactose intolerance
Patient was advised last admission to start calorie counts and nutritional shakes
Regular diet, avoid lactose
# Anemia of chronic disease
Secondary to cancer with suspected recurrence
Stable
#Anxiety
Continue divalproex 500 mg daily, fluoxetine 60 mg daily, Xanax 1 mg p.o. at bedtime
#Migraines
DVT prophylaxis�subcu heparin
DNR
Total time spent to see the patient on the floor, examine the patient, review data and lab results, discuss treatment plan with patient, nursing staff around 50 minutes.
Physical Exam
General: Thin, no acute distress
HEENT: Normocephalic, Atraumatic, EOMI, MMM
Respiratory: Clear to Auscultation bilaterally
Cardiac: Normal S1/S2, Regular Rate and Rhythm
GI: Soft, Nontender, Nondistended, Normal Bowel Sounds
: R PCN tube w/ yellow urine
Extremities: No Clubbing, Cyanosis, or Edema
Neuro: Nonfocal/Grossly Intact
Anticipated Discharge: 24 - 48 hours
Subjective/Interval History
-
Date of Service: April 23, 2024
Patient continues to have fever, Tmax 101.8. States that she had leakage of yellow fluid which appears like urine through her vaginal wall yesterday. Denies chest pain, shortness of breath, palpitations. No vomiting.
Objective Data
-
Labs:
Laboratory Results
04/23/24
05:07
WBC 5.2
Hgb 8.8 L
Hct 25.8 L
Plt Count 213
Sodium 136
Potassium 4.5
Chloride 101
Carbon Dioxide 25
BUN 23 H
Creatinine 1.8 H
Glucose 100 H
Calcium 8.5
Vital Signs:
Vital Signs
Temp Pulse Resp BP Pulse Ox
100.8 F H 85 18 80/63 97
04/23/24 04:00 04/23/24 04:00 04/23/24 04:00 04/23/24 04:00 04/22/24 04:05
I&O
04/22/24 04/23/2404/24/25
06:59 06:59 06:59
Intake Total 510 / 510 2204 / 2204
Output Total 605 / 605 2149 / 2149
Balance -95 / -95 55 / 55
[2024-04-23 12:51] VITALS: BP 94/42
--- NOTE | 2024-04-23 14:25 | CM ---
Met with pt at bedside
Reports she lives with her SO in a 1 story condo; 13 steps to enter
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
SNF/HH - denies past hx
Has ride at d/c
PCP - Jarek Pereira
Pharm - [facility]
CM available for discharge needs - declined VN services
Plan - anticipate home no needs
[2024-04-23 17:06] VITALS: BP 84/48
--- NOTE | 2024-04-23 17:19 | PTCARENOTE ---
At 1625,temp was 101.1. Tylenol offered multiple times. Patient decline.
[2024-04-23] MEDS: STERILE WATER FOR INJECTION 10 ML IV (20:14)
[2024-04-23] MEDS: ROCEPHIN 1000 MG IV (20:15)
[2024-04-23 22:00] VITALS: BP 91/48
[2024-04-23] MEDS: XANAX 1 MG PO (22:03)
[2024-04-24 00:03] VITALS: BP 92/50
[2024-04-24 04:00] VITALS: BP 95/47
--- NOTE | 2024-04-24 04:44 | PTCARENOTE ---
pt temp 101.1 orally. pt refused tylenol.
[2024-04-24 06:28] LABS: % Basophils 0.2 % (0-2); % Eosinophils 0.2 % (0-6); % Immature Granulocytes 0.8 % (0-0.5); % Lymphocytes 10.5 % (20.5-51.1); % Neutrophils 74.3 % (42.2-75.2); Absolute Lymphocytes 0.5 10^3/uL (1.2-3.4); Absolute Monocytes 0.7 10^3/uL (0.1-0.6); Absolute Neutrophils 3.8 10^3/uL (1.4-6.5); Hematocrit 25.9 % (37.0-47.0); Hemoglobin 8.9 g/dL (12.0-16.0); Mean Corp Hgb Conc. 34.4 g/dL (33.0-37.0); Mean Corpuscular Hgb 28.7 pg (27.0-31.0); Mean Corpuscular Volume 83.5 fL (81.0-99.0); Mean Platelet Volume 9.3 fL (7.4-10.4); Nucleated Red Blood Cells % 0 %; Platelet Count 205 10^3/uL (130-400); White Blood Cell Count 5.1 10^3/uL (4.8-10.8)
[2024-04-24 06:50] LABS: Blood Urea Nitrogen 22 mg/dl (7-17); Calcium 8.6 mg/dl (8.4-10.2); Carbon Dioxide 23 mmol/L (22-30); Chloride 96 mmol/L (98-107); Estimated Creatinine Clearance 22 ml/min; Glucose 97 mg/dl (70-99); Potassium 4.3 mmol/L (3.5-5.1); Sodium 131 mmol/L (135-145); eGFR 31.46
[2024-04-24] MEDS: DEPAKOTE (12 HR RELEASE) 500 MG PO (07:43)
[2024-04-24] MEDS: PROZAC 60 MG PO (07:43)
[2024-04-24 08:35] VITALS: BP 88/50
--- NOTE | 2024-04-24 09:43 | PTCARENOTE ---
Pt has a right nephrostomy tube, dsg C/D/I.Pt Emptied for 150 ml of clear yellow urine.
--- NOTE | 2024-04-24 10:37 | CM ---
Chart reviewed. Met with pt
Pt reports feeling better
Will have ride at discharge
Declined VN
Given IMM
Plan - anticipate home no needs
[2024-04-24 12:28] VITALS: BP 88/50
--- NOTE | 2024-04-24 13:49 | PTCARENOTE ---
Pt Belen long texted, about pt and family wanted to talk to Md.
--- NOTE | 2024-04-24 14:22 | W.PN.HOSP.TC ---
Today's Communication/Plan
-
Spiking fever, although nontoxic-appearing.
Right PCN with clear urine and urine culture with diphtheroids which is likely contaminant
Empiric antibiotics/ceftriaxone pending ID evaluation.
Lower extremity Doppler with concern for DVT as a part of evaluation for fever pain
PT eval
Assessment / Plan
Assessment / Plan
HPI: 63-year-old with past medical history of cervical cancer status post XRT and ultimately incomplete hysterectomy in 2016 with resultant metastatic disease involving the omentum and resultant left kidney obstruction and failure and right
nephrostomy tube placement who presents to the emergency department with malodorous vaginal discharge. Patient has routine nephrostomy tube replacement and the last replacement was March 31. She reports more recently instead of having occasional
yellow drips which was malodorous. She reports she can feel a sense of urgency and the fluid is coming from the urethra.
#Persistent fever
Unclear source, urine cultures growing diphtheroids
Covid/flu neg, f/u blood cultures, ID consult requested since she has a complex history and a right PCN tube
Continue IV Rocephin for now, trend fever and white count.
Check lower extremity Doppler
#Vaginal discharge
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
Urology recommends follow-up with [facility]
Unable to order studies with contrast secondary to CKD
Appreciate BLUE PRINT CONTROL CLERK input, unable to do pelvic exam as her vagina is stenotic
Recommend that she follows up with [facility] outpatient
#Metastatic cervical cancer to the omentum and left kidney obstruction, resulting in atrophic left kidney
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
#History of obstructed right nephrostomy tube present was repositioned on 04/01/2024 by IR prior 01/25/2024 and initial 12/08/2023
Status post incomplete hysterectomy
Understands she will eventually need hospice but not at that point yet according to notes April 01, 2024
Continue oxycodone 5 mg p.o. every 6 hours as needed moderate to severe pain
Follow-up with [facility] outpatient
#Stage IIIa CKD
Monitor
#Severe protein calorie malnutrition
#Lactose intolerance
Patient was advised last admission to start calorie counts and nutritional shakes
Regular diet, avoid lactose
# Anemia of chronic disease
Secondary to cancer with suspected recurrence
Stable
#Anxiety
Continue divalproex 500 mg daily, fluoxetine 60 mg daily, Xanax 1 mg p.o. at bedtime
#Migraines
DVT prophylaxis�subcu heparin
DNR
Total time spent to see the patient on the floor, examine the patient, review data and lab results, discuss treatment plan with patient, nursing staff around 50 minutes.
Anticipated Discharge: 24 - 48 hours
Subjective/Interval History
-
Date of Service: April 24, 2024
Objective Data
-
Labs:
Laboratory Results
04/24/24
06:14
WBC 5.1
Hgb 8.9 L
Hct 25.9 L
Plt Count 205
Sodium 131 L
Potassium 4.3
Chloride 96 L
Carbon Dioxide 23
BUN 22 H
Creatinine 1.8 H
Glucose 97
Calcium 8.6
Vital Signs:
Vital Signs
Temp Pulse Resp BP Pulse Ox
98.8 F 64 18 88/50 98
04/24/24 08:35 04/24/24 08:35 04/24/24 08:35 04/24/24 08:35 04/24/24 08:35
I&O
04/23/24 04/24/24 04/25/24
06:59 06:59 06:59
Intake Total 2205 / 2205 2400 / 2400 150 / 150
Output Total 2150 / 2150 1550 / 1550 550 / 550
Balance 55 / 55 850 / 850 -400 / -400
Physical Exam
-
General: Appears Chronically Ill and Cachectic
Respiratory: Clear to Auscultation
Cardiac: Regular Rhythm and S1/S2
GI: Soft, Nontender and Nondistended
Genito-urinary: Nephrostomy Tubes (Right-sided nephrostomy tube, currently draining yellow clear fluid)
Skin: Warm and Dry
Neuro: Awake, Alert, Oriented and AO x 3
Psych: Calm, Intact Judgement/Insight and Depressed
[2024-04-24 15:28] VITALS: BP 88/50
--- NOTE | 2024-04-24 16:24 | CON.ID ---
Consultation
-
Date/Time Consultation Requested: April 24, 2024 1252
Date/Time Consultation Performed: April 24, 2024 1625
Requesting Provider: Dr. Prasanth Glover
Performing Provider: Dr. Shania Reilly
Reason for Consultation: UTI
Chief Complaint / Past History
Chief Complaint
Fever
History of Present Illness
63-year-old female with stage IV cervical cancer,history of radiation hysterectomy with recurrence, patient declines further treatment, pelvic mass with left hydronephrosis nonfunctional kidney, right hydronephrosis status post percutaneous
nephrostomy last exchange March 31, 2024 who presented to the hospital on April 22 due to new onset malodorous vaginal/urethral discharge. In ED patient noted to be febrile up to 101. Urine specimen obtained from the right nephrostomy as well
as from the urethra. 1 grew diphtheroid the other specimen mixed carlene. She has been on ceftriaxone since admission. Fever persists. + chills. Patient reports green malodorous drainage from urethra/vagina. She is concerned about bladder to
vagina fistula. However EMBLEM MAKER unable to examine since patient's vagina is very stenotic from history of radiation. The right nephrostomy tube is draining well. There is no change of the urethral drainage. No flank pain. Patient was told she has 9
months to live. She follows at [facility].
Past History
Past Medical History: Other ( left kidney atrophy/dysfunction/chronic hydronephrosis with essentially solitary functioning right kidney, recent new right hydronephrosis status post right nephrostomy tube on 12/07, CKD, bipolar/depression, cachexia,
anemia of chronic disease, cervical carcinoma, chronic pancytopenia, migraines)
Additional Past Medical History:
Cervical CA s/p XRT, hysterectomy with recurrence, pt declined chemo
Chronic left hydro from pelvic mass
Hx right hydronephrosis s/p perc neph 11/2023
CKD3
Bipolar disorder
Anxiety/depression
Panic disorder
Migraines
Past Surgical History: Gynecological (Hysterectomy) and Other (Tonsillectomy, Ureteral stent, Right Nephrostomy tube)
Allergy History:
Milk Containing Products (Dairy) Allergy (Verified 04/21/24 11:25)
Unknown
nitrofurantoin macrocrystalline [From Macrodantin] Allergy (Verified 04/21/24 11:25)
fever
tuberculin,PPD,multi-puncture Allergy (Verified 04/21/24 11:25)
Rash
Medications Reviewed: Yes
Current Antibiotics:
Ceftriaxone d3
Social History
Tobacco: Non-Smoker
Alcohol: None
Drug: None
Family History
Family History: Not Pertinent
Review of Systems
Review of Systems
General: Fever, Chills and Change in Appetite
HEENT: Negative Sinus Problems, Headache or Pharyngitis
Cardiovascular: Negative Chest Pain or Dyspnea
Respiratory: Negative Dyspnea or Cough
Gasteroenterology: Negative Nausea, Vomiting or Diarrhea
Endocrine: Weakness
Skin / Hair / Nails: Negative Rash
All systems: All other systems were reviewed and were negative
Vital Signs
Temp Pulse Resp BP Pulse Ox
98.6 F 62 18 88/50 98
04/24/24 12:28 04/24/24 12:28 04/24/24 12:28 04/24/24 12:28 04/24/24 12:28
Selected Entries
04/24/24
04:00
Temp 101.1 F H
Physical Exam
Physical Exam
Constitutional: Chronically Ill and Cachetic
Eyes: No Conjunctival Hemorrhage and Sclera Anicteric
Cardiovascular: Regular Rate and S1/S2
Pulmonary: Clear
Gastrointestinal: Soft, Non Tender, Non Distended and Normal Bowel Sounds
Genito-Urinary: Other (Right nephrostomy clear urine); Negative CVA Tenderness
Extremities: Negative Edema
Neurological: AO x 3
Lab / Diagnostic Study Results
04/24/24 06:14
04/24/24 06:14
Abs Immat Gran (auto) 0.0 10^3/uL (0-0.05) 04/24/24 06:14
Absolute Neuts (auto) 3.8 10^3/uL (1.4-6.5) 04/24/24 06:14
Absolute Lymphs (auto) 0.5 10^3/uL (1.2-3.4) L 04/24/24 06:14
Absolute Monos (auto) 0.7 10^3/uL (0.1-0.6) H 04/24/24 06:14
Absolute Basos (auto) 0.0 10^3/uL (0-0.2) 04/24/24 06:14
Immature Gran % 0.8 % (0-0.5) H 04/24/24 06:14
Neutrophils % 74.3 % (42.2-75.2) 04/24/24 06:14
Lymphocytes % 10.5 % (20.5-51.1) L 04/24/24 06:14
Monocytes % 14.0 % (1.7-9.3) H 04/24/24 06:14
Eosinophils % 0.2 % (0-6) 04/24/24 06:14
Basophils % 0.2 % (0-2) 04/24/24 06:14
Ur Squamous Epith Cells 0-2 /LPF (Few) 04/21/24 17:32
Microbiology Results
Micro:
04/22/24 16:49 Blood Culture - Preliminary
Blood/Venous No Growth in 24 hours- Final report to follow
04/22/24 16:48 Influenza Types A & B (JOSEFINA) - Final
Nasal Swab Negative for Influenza A & B, NAAT
Negative results must be combined with clinical observations
and patient history.
Nucleic Acid Amplification test (NAAT)performed on the
[employer] platform.
04/21/24 17:32 Urine Culture - Final
Urine Diptheroids
04/21/24 11:34 Urine Culture - Final
Urine
Assessment / Plan
# Persistent fever
-Tumor fever vs UTI
- Blood cx neg
-Follow temps
# New onset urethral/vaginal discharge
- Vesicle-vaginal fistula vs. malignancy vs. UTI
- Diphtheroid recovered from urine (presumably from nephrostomy) is contaminant.
- Admission urince cx (?urethra) mixed carlene
- Repeat urine cx from urethra
- Also send urethral discharge for cytology
- DC ceftriaxone
- After collection, start Zosyn 2.5gIV q6 to cover for Pseudomonas.
# Stage IV cervical ca
- cervical cancer Dx January 2016/ radiation 2017
hysterectomy 2019 with residual cancer in the abdomen chose not to have operation or chemo
recurrence and spread of cervical cancer to left kidney causing left kidney atrophy/failure
mass near her right kidney requiring right nephrostomy tube for drainage 12/08/2019 for first nephrostomy tube
Care Review
Plan reviewed with: Physician (Dr. Glover)
[2024-04-24] MEDS: ZOSYN 50 IV ×2 (17:55→23:49)
[2024-04-24 20:00] VITALS: BP 89/44
[2024-04-24] MEDS: XANAX 1 MG PO (20:24)
[2024-04-25] VITALS: BP 76/51
[2024-04-25 04:00] VITALS: BP 78/39
[2024-04-25 05:40] LABS: Blood Urea Nitrogen 24 mg/dl (7-17); Carbon Dioxide 27 mmol/L (22-30); Chloride 100 mmol/L (98-107); Estimated Creatinine Clearance 23 ml/min; Glucose 96 mg/dl (70-99); Potassium 4.8 mmol/L (3.5-5.1); Sodium 134 mmol/L (135-145)
[2024-04-25] MEDS: ZOSYN 50 IV ×3 (05:50→17:51)
[2024-04-25 06:14] VITALS: BP 77/39
--- NOTE | 2024-04-25 06:44 | PTCARENOTE ---
patient with low BP's thru the night. Patient verbalized her BP's run low and there is a medication the doctors would like her to take to increase BP's however patient verbalized she refuses to take.
[2024-04-25] MEDS: DEPAKOTE (12 HR RELEASE) 500 MG PO (08:03)
[2024-04-25] MEDS: PROZAC 60 MG PO (08:03)
[2024-04-25 08:55] VITALS: BP 91/50
--- NOTE | 2024-04-25 11:57 | PTOTSP ---
Patient independent with all bed mobility, transfers and ambulation. No skilled PT needs at this time. Will sign off.
--- NOTE | 2024-04-25 12:05 | CM ---
CM reviewed chart
PT eval- pt indep and no dc recs
IMM issued day prior
Discharge Disposition- home, no needs- family transport
--- NOTE | 2024-04-25 13:20 | W.PN.HOSP.TC ---
Today's Communication/Plan
-
Continue Zosyn pending repeated urine cultures from urinary tract
Monitor temperature curve.
Assessment / Plan
Assessment / Plan
HPI: 63-year-old with past medical history of cervical cancer status post XRT and ultimately incomplete hysterectomy in 2017 with resultant metastatic disease involving the omentum and resultant left kidney obstruction and failure and right
nephrostomy tube placement who presents to the emergency department with malodorous vaginal discharge. Patient has routine nephrostomy tube replacement and the last replacement was March 31. She reports more recently instead of having occasional
yellow drips which was malodorous. She reports she can feel a sense of urgency and the fluid is coming from the urethra.
#Persistent fever
Differential diagnosis: Complicated UTI, versus tumor fever
Unclear source, urine cultures growing diphtheroids
Lower extremity Doppler negative for DVT
Covid/flu neg, f/u blood cultures
Urine culture likely from nephrostomy indicative of contaminant/diphtheroid
ID input appreciated
Urine culture drawn from urethra, currently pending
Antibiotic broadened to Zosyn to cover Pseudomonas
#Vaginal discharge
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
Urology recommends follow-up with [facility]
Unable to order studies with contrast secondary to CKD
Appreciate LUMBER CHECKER input, unable to do pelvic exam as her vagina is stenotic
Recommend that she follows up with [facility] outpatient
#Metastatic cervical cancer to the omentum and left kidney obstruction, resulting in atrophic left kidney
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
#History of obstructed right nephrostomy tube present was repositioned on 04/01/2024 by IR prior 01/25/2024 and initial 12/08/2023
Status post incomplete hysterectomy
Understands she will eventually need hospice but not at that point yet according to notes April 01, 2024
Continue oxycodone 5 mg p.o. every 6 hours as needed moderate to severe pain
Follow-up with [facility] outpatient
#Stage IIIa CKD
Monitor
#Severe protein calorie malnutrition
#Lactose intolerance
Patient was advised last admission to start calorie counts and nutritional shakes
Regular diet, avoid lactose
# Anemia of chronic disease
Secondary to cancer with suspected recurrence
Stable
#Anxiety
Continue divalproex 500 mg daily, fluoxetine 60 mg daily, Xanax 1 mg p.o. at bedtime
#Migraines
DVT prophylaxis�subcu heparin
DNR
Total time spent to see the patient on the floor, examine the patient, review data and lab results, discuss treatment plan with patient, nursing staff around 50 minutes.
Anticipated Discharge: 24 - 48 hours
Subjective/Interval History
-
Date of Service: April 25, 2024
Objective Data
-
Labs:
Laboratory Results
04/25/24
04:45
Sodium 134 L
Potassium 4.8
Chloride 100
Carbon Dioxide 27
BUN 24 H
Creatinine 1.7 H
Glucose 96
Calcium 9.0
Vital Signs:
Vital Signs
Temp Pulse Resp BP Pulse Ox
98.0 F 63 16 91/50 98
04/25/24 12:50 04/25/24 12:50 04/25/24 12:50 04/25/24 08:55 04/24/24 12:28
I&O
04/24/24 04/25/24 04/26/24
06:59 06:59 06:59
Intake Total 2400 / 2400 500 / 500 480 / 480
Output Total 1550 / 1550 1300 / 1300 250 / 250
Balance 850 / 850 -800 / -800 230 / 230
Physical Exam
-
General: Appears Chronically Ill and Cachectic
Respiratory: Clear to Auscultation
Cardiac: Regular Rhythm and S1/S2
GI: Soft, Nontender and Nondistended
Genito-urinary: Nephrostomy Tubes (Right-sided nephrostomy tube, currently draining yellow clear fluid)
Skin: Warm and Dry
Neuro: Awake, Alert, Oriented and AO x 3
Psych: Calm, Intact Judgement/Insight and Depressed
--- NOTE | 2024-04-25 16:48 | W.PN.ID1 ---
Date of Service
Date of Service: April 25, 2024
Today's Communication
Continue zosyn.
Assessment / Plan
# Persistent fever resolving
-Tumor fever vs UTI
- Blood cx neg
-Follow temps
# New onset urethral/vaginal discharge
- Vesicle-vaginal fistula vs. malignancy vs. UTI
- Diphtheroid recovered from urine (presumably from nephrostomy) is contaminant.
- Admission urine cx (?urethra) mixed carlene
- Repeat urethra/vaginal drainage cx: sparse growth, in progress
- urethral/vaginal discharge cytology pending
- Continue Zosyn 2.5gIV q6 (d2) to cover for Pseudomonas.
Will de-escalate abx when culture available.
# Stage IV cervical ca
- cervical cancer Dx January 2016/ radiation 2016
hysterectomy 2019 with residual cancer in the abdomen chose not to have operation or chemo
recurrence and spread of cervical cancer to left kidney causing left kidney atrophy/failure
mass near her right kidney requiring right nephrostomy tube for drainage 12/08/2019 for first nephrostomy tube
Chief Complaint
-: Fever and UTI
Subjective / Review of Systems
She reports feeling better today.
Still with green vaginal/urethral discharge, unchanged.
Vital Signs / Physical Exam
Vital Signs
Vital Signs
Temp Pulse Resp BP Pulse Ox
98.0 F 63 16 91/50 98
04/25/24 12:50 04/25/24 12:50 04/25/24 12:50 04/25/24 08:55 04/24/24 12:28
Physical Exam
Constitutional: No Acute Distress, Chronically Ill and Cachetic
Pulmonary: Clear
Gastrointestinal: Soft, Non Tender, Non Distended and Normal Bowel Sounds
Genito-Urinary: Other (right nephrostomy clear); Negative CVA Tenderness
Extremities: Negative Edema
Neurological: AO x 3
Objective Data
Lab Data
Lab Results
04/24/24 06:14
04/25/24 04:45
Estimated Creat Clear 23 ml/min 04/25/24 04:45
Total Bilirubin 0.5 mg/dl (0.2-1.3) 04/22/24 05:35
AST 17 U/L (14-36) 04/22/24 05:35
ALT < 10 U/L (0-35) 04/22/24 05:35
Alkaline Phosphatase 59 U/L (38-126) 04/22/24 05:35
Most recent labs reviewed.
Micro Results:
04/24/24 17:21 Urine Culture - Preliminary
Urine Sparse growth, too young to be identified. Further results
to follow.
04/22/24 16:49 Blood Culture - Preliminary
Blood/Venous No Growth in 48 hours- Final report to follow
04/22/24 16:48 Influenza Types A & B (JOSEFINA) - Final
Nasal Swab Negative for Influenza A & B, NAAT
Negative results must be combined with clinical observations
and patient history.
Nucleic Acid Amplification test (NAAT)performed on the
[employer] NOW platform.
04/21/24 17:32 Urine Culture - Final
Urine Diptheroids
04/21/24 11:34 Urine Culture - Final
Urine
[2024-04-25 17:03] VITALS: BP 84/44
[2024-04-25] MEDS: XANAX 1 MG PO (21:14)
[2024-04-26] MEDS: ZOSYN 50 IV ×3 (00:05→11:42)
[2024-04-26 00:13] VITALS: BP 84/43
[2024-04-26 07:33] VITALS: BP 79/50
[2024-04-26] MEDS: DEPAKOTE (12 HR RELEASE) 500 MG PO (08:13)
[2024-04-26] MEDS: PROZAC 60 MG PO (08:13)
--- NOTE | 2024-04-26 09:23 | PTCARENOTE ---
pt aaox3. states no pain. is anxious to be discharged. room air breath sounds diminished at base. right nephrostomy tube in place draining yellow. pt states vaginal discharge has diminished a little. it comes and goes.
[2024-04-26 10:29] LABS: % Basophils 0.3 % (0-2); % Eosinophils 2.4 % (0-6); % Immature Granulocytes 4.1 % (0-0.5); % Lymphocytes 17.8 % (20.5-51.1); % Monocytes 12.7 % (1.7-9.3); % Neutrophils 62.7 % (42.2-75.2); Absolute Eosinophils 0.1 10^3/uL (0-0.7); Absolute Immature Granulocytes 0.1 10^3/uL (0-0.05); Absolute Lymphocytes 0.5 10^3/uL (1.2-3.4); Absolute Monocytes 0.4 10^3/uL (0.1-0.6); Absolute Neutrophils 1.8 10^3/uL (1.4-6.5); Hemoglobin 9.1 g/dL (12.0-16.0); Mean Corp Hgb Conc. 32.5 g/dL (33.0-37.0); Mean Corpuscular Hgb 28.3 pg (27.0-31.0); Mean Corpuscular Volume 87.2 fL (81.0-99.0); Mean Platelet Volume 9.1 fL (7.4-10.4); Nucleated Red Blood Cells % 0 %; Platelet Count 217 10^3/uL (130-400); Red Blood Cell Count 3.21 10^6/uL (4.20-5.40); Red Cell Dist. Width 12.2 % (11.5-14.5); White Blood Cell Count 2.9 10^3/uL (4.8-10.8)
[2024-04-26 11:23] LABS: Blood Urea Nitrogen 20 mg/dl (7-17); Calcium 8.8 mg/dl (8.4-10.2); Carbon Dioxide 29 mmol/L (22-30); Chloride 98 mmol/L (98-107); Estimated Creatinine Clearance 22 ml/min; Glucose 111 mg/dl (70-99); Potassium 3.9 mmol/L (3.5-5.1); Sodium 136 mmol/L (135-145); eGFR 31.46
--- NOTE | 2024-04-26 11:48 | CM ---
Chart reviewed. Met with pt
Poss d/c today pending cx
Has ride at discharge
Given IMM
Declined HH
Plan - anticipate home no needs
--- NOTE | 2024-04-26 11:49 | W.PN.HOSP.TC ---
Today's Communication/Plan
-
Follow-up final urine cultures from urinary tract.
Temperature curve improved at this point.
Assessment / Plan
Assessment / Plan
HPI: 63-year-old with past medical history of cervical cancer status post XRT and ultimately incomplete hysterectomy in 2017 with resultant metastatic disease involving the omentum and resultant left kidney obstruction and failure and right
nephrostomy tube placement who presents to the emergency department with malodorous vaginal discharge. Patient has routine nephrostomy tube replacement and the last replacement was March 31. She reports more recently instead of having occasional
yellow drips which was malodorous. She reports she can feel a sense of urgency and the fluid is coming from the urethra.
#Persistent fever
Differential diagnosis: Complicated UTI, versus tumor fever
Unclear source, urine cultures growing diphtheroids
Lower extremity Doppler negative for DVT
Covid/flu neg, f/u blood cultures
Urine culture likely from nephrostomy indicative of contaminant/diphtheroid
ID input appreciated
Urine culture drawn from urethra, currently pending
Antibiotic broadened to Zosyn to cover Pseudomonas
#Vaginal discharge
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
Urology recommends follow-up with [facility]
Unable to order studies with contrast secondary to CKD
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
Recommend that she follows up with [facility] outpatient
#Metastatic cervical cancer to the omentum and left kidney obstruction, resulting in atrophic left kidney
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
#History of obstructed right nephrostomy tube present was repositioned on 04/01/2024 by IR prior 01/25/2024 and initial 12/08/2023
Status post incomplete hysterectomy
Understands she will eventually need hospice but not at that point yet according to notes April 01, 2024
Continue oxycodone 5 mg p.o. every 6 hours as needed moderate to severe pain
Follow-up with [facility] outpatient
#Stage IIIa CKD
Monitor
#Severe protein calorie malnutrition
#Lactose intolerance
Patient was advised last admission to start calorie counts and nutritional shakes
Regular diet, avoid lactose
# Anemia of chronic disease
Secondary to cancer with suspected recurrence
Stable
#Anxiety
Continue divalproex 500 mg daily, fluoxetine 60 mg daily, Xanax 1 mg p.o. at bedtime
#Migraines
DVT prophylaxis�subcu heparin
DNR
Total time spent to see the patient on the floor, examine the patient, review data and lab results, discuss treatment plan with patient, nursing staff around 50 minutes.
Anticipated Discharge: 24 - 48 hours
Subjective/Interval History
-
Date of Service: April 26, 2024
Objective Data
-
Labs:
Laboratory Results
04/26/24
10:22
WBC 2.9 L
Hgb 9.1 L
Hct 28.0 L
Plt Count 217
Sodium 136
Potassium 3.9
Chloride 98
Carbon Dioxide 29
BUN 20 H
Creatinine 1.8 H
Glucose 111 H
Calcium 8.8
Vital Signs:
Vital Signs
Temp Pulse Resp BP Pulse Ox
97.6 F 62 17 79/50 98
04/26/24 07:33 04/26/24 07:33 04/26/24 07:33 04/26/24 07:33 04/26/24 07:33
I&O
04/25/24 04/26/24 04/27/24
06:59 06:59 06:59
Intake Total 500 / 500 1110 / 1110
Output Total 1300 / 1300 750 / 750
Balance -800 / -800 360 / 360
Physical Exam
-
General: Appears Chronically Ill and Cachectic
Respiratory: Clear to Auscultation
Cardiac: Regular Rhythm and S1/S2
GI: Soft, Nontender and Nondistended
Genito-urinary: Nephrostomy Tubes (Right-sided nephrostomy tube, currently draining yellow clear fluid)
Skin: Warm and Dry
Neuro: Awake, Alert, Oriented and AO x 3
Psych: Calm, Intact Judgement/Insight and Depressed
--- NOTE | 2024-04-26 13:31 | W.PN.ID1 ---
Date of Service
Date of Service: April 26, 2024
Today's Communication
DC home on doxycycline 100mg po bid x 7d
Assessment / Plan
# Fever resolved
-Tumor fever vs UTI
- Blood cx neg
-Follow temps
# New onset urethral/vaginal discharge
- Vesicle-vaginal fistula vs. malignancy vs. UTI
- Due to vaginal stenosis from XRT, unable to examine pelvis, per HOG PUSHER.
- Diphtheroid recovered from urine (presumably from nephrostomy) is contaminant.
- Admission urine cx (?urethra) mixed carlene
- Repeat urethra/vaginal drainage cx: Staph species
- urethral/vaginal discharge cytology pending
- DC Zosyn 2.5gIV q6 (d3)
- DC home on doxycycline 100mg po bid x 7d
# Stage IV cervical ca
- cervical cancer Dx January 2016/ radiation 2017
hysterectomy 2019 with residual cancer in the abdomen chose not to have operation or chemo
recurrence and spread of cervical cancer to left kidney causing left kidney atrophy/failure
mass near her right kidney requiring right nephrostomy tube for drainage 12/08/2019 for first nephrostomy tube
Chief Complaint
-: Fever and UTI
Subjective / Review of Systems
Wants to go home. Feels better. Still with vaginal discharge.
+ diarrhea x 2 over 24 hours.
Vital Signs / Physical Exam
Vital Signs
Vital Signs
Temp Pulse Resp BP Pulse Ox
97.6 F 62 17 79/50 98
04/26/24 07:33 04/26/24 07:33 04/26/24 07:33 04/26/24 07:33 04/26/24 07:33
Physical Exam
Constitutional: Chronically Ill and Cachetic
Gastrointestinal: Soft, Non Tender and Non Distended
Genito-Urinary: Other (right per neph clear urine); Negative CVA Tenderness
Neurological: AO x 3
Objective Data
Lab Data
Lab Results
04/26/24 10:22
04/26/24 10:22
Estimated Creat Clear 22 ml/min 04/26/24 10:22
Total Bilirubin 0.5 mg/dl (0.2-1.3) 04/22/24 05:35
AST 17 U/L (14-36) 04/22/24 05:35
ALT < 10 U/L (0-35) 04/22/24 05:35
Alkaline Phosphatase 59 U/L (38-126) 04/22/24 05:35
Most recent labs reviewed.
Micro Results:
04/24/24 17:21 Urine Culture - Preliminary
Urine Staphylococcus species
04/22/24 16:49 Blood Culture - Preliminary
Blood/Venous No Growth in 72 hours- Final report to follow
04/22/24 16:48 Influenza Types A & B (JOSEFINA) - Final
Nasal Swab Negative for Influenza A & B, NAAT
Negative results must be combined with clinical observations
and patient history.
Nucleic Acid Amplification test (NAAT)performed on the
[employer] platform.
04/21/24 17:32 Urine Culture - Final
Urine Diptheroids
04/21/24 11:34 Urine Culture - Final
Urine
Care Review
Plan reviewed with: Physician (Dr. Glover)
--- NOTE | 2024-04-26 13:51 | W.DS.TRANS ---
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
-
Discharge Instructions:
Discharge Diagnosis/Procedures Complicated UTI
Metastatic cervical CA
Diet Regular
Instructions:
Stand-Alone Forms:
Changes to Home Medications: Yes
Discharge Medications:
DC Medications w/original date entered in [facility]
fluoxetine 20 mg capsule 60 mg PO DAILY Mental Health/Anxiety 01/16/20
alprazolam 1 mg tablet 1 mg PO HS Mental Health/Anxiety 12/07/23
tdfjukb-xknwglbajpyyx-srhhjccu 250 mg-250 mg-65 mg tablet (Excedrin Migraine) 2 tab PO DAILYPRN PRN Migraines 12/07/23
divalproex 500 mg tablet,delayed release 500 mg PO DAILY mental health 12/07/23
oxycodone 5 mg tablet 5 mg PO Q6HPRN PRN moderate-severe pain 3 days #14 tabs 04/01/24
doxycycline monohydrate 100 mg capsule 100 mg PO BID #14 caps 04/26/24
Home Medication Changes
Oral antibiotic course
Pending Results: No
[2024-04-26 15:21] VITALS: BP 93/42
== END 2024-04-26 15:41 | disposition home or self-care (01) | DRG 760 ==
LOC: LDRP 20:54
PROVIDERS: Clinical Nurse Specialist Family Health; Family Medicine; Physician Assistant; Registered Nurse; ADMITTING PHYSICIAN Internal Medicine; ATTENDING PHYSICIAN Internal Medicine; CONSULT PHYSICIAN Internal Medicine Infectious Disease; CONSULT PHYSICIAN Specialist; EMERGENCY PHYSICIAN Emergency Medicine; FAMILY PHYSICIAN Family Medicine
DX: N82.0 Vesicovaginal fistula (principal); E43 Unspecified severe protein-calorie malnutrition; N13.6 Pyonephrosis; Z68.1 Body mass index [BMI] 19.9 or less, adult; C53.9 Malignant neoplasm of cervix uteri, unspecified; Z93.6 Other artificial openings of urinary tract status; Z85.038 Personal history of other malignant neoplasm of large intestine; N18.31 Chronic kidney disease, stage 3a; N26.1 Atrophy of kidney (terminal); Z92.3 Personal history of irradiation; E73.8 Other lactose intolerance; D63.0 Anemia in neoplastic disease; Z90.710 Acquired absence of both cervix and uterus; Z85.43 Personal history of malignant neoplasm of ovary; Z79.899 Other long term (current) drug therapy; Z66 Do not resuscitate; F31.9 Bipolar disorder, unspecified; F41.0 Panic disorder [episodic paroxysmal anxiety]; G43.909 Migraine, unspecified, not intractable, without status migrainosus; Z11.52 Encounter for screening for COVID-19
CPT/HCPCS: 88305; 51701; 80048; 80053; 81003; 81015; 83735; 85025; 87040; 87086; 87147; 87186; 87502; 87811; 88112; 93970; 96374; 97161; 99284

== ENCOUNTER → 2024-06-28 08:51 | Outpatient (REF) | payer OTHER, SELFPAY ==
[2024-06-28 09:33] VITALS: BP 117/66; BP_SYST 62
[2024-06-28 10:15] VITALS: BP 129/56; BP_SYST 63
== END ==
LOC: RADI 08:51
PROVIDERS: ATTENDING PHYSICIAN Specialist; FAMILY PHYSICIAN Family Medicine
DX: Z43.6 Encounter for attention to other artificial openings of urinary tract (principal); N13.1 Hydronephrosis with ureteral stricture, not elsewhere classified
CPT/HCPCS: 50435; C1729; C1769

== ENCOUNTER 2024-08-26 22:49 | Inpatient (IN) | payer OTHER, SELFPAY ==
[2024-08-26 20:25] VITALS: BP 116/66
[2024-08-26 20:39] VITALS: BMI 14.8
[2024-08-26 20:43] VITALS: BP 117/66
[2024-08-26 21:00] VITALS: BP 111/77
[2024-08-26 21:23] LABS: Urine Albumin 2+ (Neg - Trace); Urine Bilirubin Negative (Negative); Urine Character Slightly Cloudy (Clear); Urine Color Yellow; Urine Glucose Negative (Negative); Urine Ketone Negative (Negative); Urine Leukocyte 3+ (Negative); Urine Nitrite Positive (Negative); Urine Occult Blood 2+ (Negative); Urine Specific Gravity 1.015 (<1.030); Urine Urobilinogen Negative (Neg - 1+)
[2024-08-26 21:32] LABS: Urine Bacteria Many (Negative); Urine Red Blood Cell 16-20 /HPF (0-2); Urine White Cell 80-90 /HPF (0-5)
[2024-08-26 22:00] VITALS: BP 107/60
--- NOTE | 2024-08-26 22:00 | ED.GENMED ---
History of Present Illness
General
Chief Complaint: Urinary Symptoms
Source: patient and spouse
Exam Limitations: none
Time Seen by Provider: 08/26/24 21:27
Nursing documentation reviewed up to this point in time: agreed with
History of Present Illness
History of Present Illness:
64-year-old female presents emergency room due to foul-smelling urine. She has a nephrostomy tube on the right side, due to cervical cancer that she is not treating. She has a nonfunctioning left kidney due to atrophy.
Past History
Past History
ED Past Medical History: Cancer (cervical), Psychiatric (Bipolar, Depression, ) and Other (lactose intolerance, gallstones, migraines, meningitis, Left kidney atrophy)
ED Past Surgical History: Gynecological (Hysterectomy), Tonsilectomy (Adenoids) and Urological (Ureteral stent, Right Nephrostomy tube)
Social History
Tobacco: Non-smoker
Alcohol: Occasional
Drug: None
Personal: Single
Living: with family (Lives with mother)
Family History
Family History: Unable to obtain
Review of Systems
Review of Systems
Allergies reviewed?: Yes
All Other Systems: Not applicable
Constitutional: Reports no symptoms
EENT: Reports no symptoms
Respiratory: Reports no symptoms
Cardiac: Reports no symptoms
ABD/GI: Reports no symptoms
: Reports dark urine (Foul-smelling urine)
Musculoskeletal: Reports no symptoms
Skin: Reports no symptoms
Neurological: Reports no symptoms
Endocrine: Reports no symptoms
Hematologic/Lymphatic: Reports no symptoms
Psychiatric: Reports no symptoms
Phy Exam
Physical Exam
Physical Exam:
Physical Exam
General: no apparent distress, not acutely ill
Neck: supple. no meningeal signs. normal posterior pharynx
Heart: s1/s2 regular rate and rhythm, no murmur. equal radial
pulses.
HEENT: Pupils equal round reactive to light, EOMI
Lungs: no acute respiratory distress. clear bilaterally
Abdomen: normal bowel sounds. not tender. no CVAT, right side nephrostomy
Neuro: alert and oriented. no focal neurological deficits cranial nerves II through XII intact
Skin: no rash
Psychiatric: well kept. interactive and cooperative
Extremities: no edema. no calf tenderness. negative homans. good distal pulses
Course
Orders/Labs/Results
Orders:
Orders
08/26/24 20:34
Complete Blood Count/With Diff Urgent
Comprehensive Metabolic Panel Urgent
08/26/24 21:15
Urinalysis Reflex To Culture Urgent
Date Specimen was Collected: 08/26/24
Time Specimen was Collected: 20:34
Comment: Nephrostomy
Urine Microscopic Reflex Cult Urgent
Urine Culture Urgent
JEREMÍAS Source: U
Specimen Description:
Date Specimen was Collected: 08/26/24
Time Specimen was Collected: 20:34
Abnormal Lab Results
08/26/24
21:15
Ur Occult Blood Reflex 2+ A
(Negative)
Urine Nitrite (Reflex) Positive A
(Negative)
Leukocyte Esterase Rfl 3+ A
(Negative)
Urine RBC 16-20 A /HPF
(0-2)
Urine WBC (Reflex) 80-90 A /HPF
(0-5)
Urine Bacteria (Reflex) Many A
(Negative)
Urine Albumin (Reflex) 2+ A
(Neg - Trace)
Vital Signs
Initial and Last Documented VS:
Initial Vital Signs
Temp Pulse Resp BP Pulse Ox
98.0 F 67 17 116/66 99
08/26/24 20:25 08/26/24 20:25 08/26/24 20:25 08/26/24 20:25 08/26/24 20:25
Last Documented Vital Signs
Temp Pulse Resp BP Pulse Ox
98.0 F 67 17 111/77 100
08/26/24 20:25 08/26/24 20:25 08/26/24 20:25 08/26/24 21:00 08/26/24 21:00
MDM/Problems Addressed
Differential Diagnosis Includes:
uti, sepsis
MDM/Problems Addressed:
64-year-old female with right-sided pyelonephritis, nonfunctioning left kidney. IV cefepime and IV fluids initiated. Admit to hospitalist.
Chronic conditions affecting care: Kidney disease and Cancer (cervical cancer)
Acute Exacerbation and/or Progression of Chronic Illness: Kidney disease and Cancer (cervical)
*Pulse Oximetry
Patient hypoxic: no
*Critical Care Note
Total Time (30-74mins, 75-104mins- exclusive of procedures): Not Applicable
Data Reviewed
Review of Other/Old Records Reveals: Labs (prior cr 1.8)
Source: records
Patient Management
Social determinants of health affecting care: Living situation and Strong social support
Discussion with other providers: Hospitalist
Escalation/DeEscalation of care consider admission/obs:
admit indicated
ED Attending Note
-
Portions of this chart may have been created with voice recognition software.� Occasional wrong word or��sound alike� substitutions may have occurred due to the inherent limitations of voice recognition software.
Discharge Plan
Departure
Patient Disposition: Admit
Date of Disposition: 08/26/24
Time of Disposition: 22:07
Admit to: Med/Surg
Presentation/result/management discussed w/ accepting MD/DO: Hospitalist
Patient with high blood pressure during this ER visit?: No
Condition: Good
Discharge Problem:
Pyelonephritis of right kidney, Chronic kidney disease, stage 3b, Hx of nephrostomy, Atrophy of left kidney, Hx of cervical cancer
Prescriptions:
No Action
fluoxetine 20 MG capsule
60 mg PO DAILY
alprazolam 1 mg tablet
1 mg PO HS
divalproex 500 mg tablet,delayed release (DR/EC)
500 mg PO DAILY
Excedrin Migraine 250-250-65 mg Tablet
2 tab PO DAILYPRN PRN (Reason: Migraines)
oxycodone 5 mg Tablet
5 mg PO Q6HPRN PRN (Reason: moderate-severe pain) 3 Days Qty: 14 0RF
doxycycline monohydrate 100 mg capsule
100 mg PO BID Qty: 14 0RF
Referrals:
UNKNOWN - PT DOES,NOT KNOW [Family Provider]
Interventions
Interventions:
*Risk Screen - Suicide Last Done: 08/26/24 20:26
*General Assessment Last Done: 08/26/24 20:26
*Neglect/Abuse Screening Last Done: 08/26/24 20:26
*ED- Fall Risk Assessment Last Done: 08/26/24 20:40
*ED COVID-19 Vaccine History Last Done: 08/26/24 20:26
ED-Female Genitourinary Assessment Last Done: 08/26/24 20:43
Discharge Date and Time
Print Language: PASHTO
--- NOTE | 2024-08-26 22:09 | HPS.HSE ---
Family Physician
-
Family Physician: NOT KNOW UNKNOWN - PT DOES
Chief Complaint
-
Foul Smelling Urine
History of Present Illness
Patient is a 64 y/o female past medical history of metastatic cervical cancer, atrophic left kidney, chronic right percutaneous nephrostomy, chronic disease, anemia of chronic disease, and anxiety / bipolar disorder who presents with foul smelling
urine. Patient initially was seen at urgent care today for complaint of foul smelling urine. Blood work and urinalysis obtained at urgent care suggestive of urinary tract infection and she was sent to the emergency department for evaluation.
Patient denies any fevers, sweats or chills. She denies flank pain. She reports nephrostomy tube was last changed on June 28.
Medical History
Past Medical History
Past Medical History: Reports Other
Additional Past Medical History:
Metastatic Cervical Cancer
Atrophic Left Kidney
Chronic Right Kidney Nephrostomy
CKD Stage IIIA
Anemia of Chronic Disease
Anxiety / Depression / Bipolar Disorder
Past Surgical History: Reports Other
Additional Past Surgical History:
Hysterectomy
Right Percutaneous Nephrostomy
Social History
Tobacco: Non-smoker
Alcohol: None
Drug: None
Family History
Family History: Not pertinent
Allergies / Home Medications
Allergies reflects when Allergies were last updated in [facility].
Home Medications with original date entered in [facility]
Allergy/Medication List:
Allergies
Allergy/AdvReac Type Severity Reaction Status Date / Time
Milk Containing Products Allergy Unknown Verified 04/21/24 11:25
(Dairy)
nitrofurantoin Allergy fever Verified 04/21/24 11:25
macrocrystalline (From
Macrodantin)
tuberculin,PPD,multi-puncture Allergy Rash Verified 04/21/24 11:25
Home Medications
fluoxetine 20 mg capsule 60 mg PO DAILY Mental Health/Anxiety 01/16/20
alprazolam 1 mg tablet 2 mg PO HS Mental Health/Anxiety 12/07/23
divalproex 500 mg tablet,delayed release 500 mg PO DAILY mental health 12/07/23
Review of Systems
-
History Source: Patient
A 12 point ROS was completed and negative except as noted: Yes
Constitutional: Denies Fever or Chills
Respiratory: Denies Cough or Trouble Breathing
Cardiac: Denies Chest Pain or Palpitations
Abdomen/GI: Denies Abdominal Pain, Nausea or Vomiting
: Reports See HPI
Physical Exam
Vital Signs
Vital Signs
Temp Pulse Resp BP Pulse Ox
98.0 F 67 17 111/77 100
08/26/24 20:25 08/26/24 20:25 08/26/24 20:25 08/26/24 21:00 08/26/24 21:00
Physical Exam
General: Comfortable, Conversant, Appears Chronically Ill and Cachectic
HEENT: Anicteric and Moist mucous membranes
Respiratory: Clear and Non Labored Respirations
Cardiac: S1/S2 and Regular Rhythm; No Tachycardia
GI: Soft and Non Tender
Genito-urinary: Other (Right Nephrostomy Tube with slightly dark but clear urine present in bag)
Musculoskeletal: No Clubbing, No Cyanosis and No Edema
Skin: Warm and Dry
Neuro: Awake, Alert, Oriented and Nonfocal/grossly intact
Psych: Calm and Intact Judgment/Insight
Laboratory Results
-
WBC 4.9
Hgb 10.8
Hct 33.5
Plt 231
Na 141
K 3.7
Cl 103
CO2 27
BUN 22
Cr 2.0
Glu 105
Laboratory Tests
08/26/24
21:15
Urine Color Yellow
Urine Clarity Slightly cloudy
Urine pH 6.0
Ur Specific [place] 1.015
Urine Ketones Negative
Ur Occult Blood Reflex 2+ A
Urine Nitrite (Reflex) Positive A
Leukocyte Esterase Rfl 3+ A
Urine RBC 16-20 A
Urine WBC (Reflex) 80-90 A
Ur Squamous Epith Cells 3-5
Urine Bacteria (Reflex) Many A
Data Reviewed
-
Lab Data: Labs Reviewed by me
Old Records: Reviewed
Impression/Plan
-
Complicated Urinary Tract Infection in setting of Right Percutaneous Nephrostomy Tube
-Continue Cefepime
-Await Urine Culture
-Consult IR for nephrostomy tube change
CKD Stage IIIA
-Creatinine slightly above baseline
-Continue IVFs
-Recheck creatinine in AM
Anxiety / Depression / Bipolar Disorder
-Continue fluoxetine, alprazolam and divalproex
Metastatic Cervical Cancer
Atrophic Left Kidney to due chronic obstruction
-Patient not undergoing any treatment
-Patient aware of prognosis
Severe Protein Malnutrition
-Consult Dietary
-Continue supplements
DVT Proph: SC Heparin
Code Status: DNR
--- NOTE | 2024-08-26 22:13 | W.PN.UPDATE ---
Update Note
Progress Note Update
This note serves as an addendum to the H&P by molecular biologist RUBY Lilli HENDRICKS
HPI
63F HX stage IV Cervical CA ( Dxed 2016 , XRT 2017) incomplete Hysterectomy 2019 residual cancer in the abdomen chose not to have operation or chemo, complicated by metastatic disease involving the omentum and resultant left kidney obstruction and
Lt Kidney failure and atrophy , right nephrostomy tube placement, CKD3 HX non functioning Lt Kidney seen at ER for due to foul-smelling urine.
VS
08/26/24
20:25
Temp 98.0 F
Pulse 67
Resp Rate 17
Blood pressure 116/66
SaO2 99
Oxygen Mode of Delivery Room air
PE
Gen: Not toxic
HEENT: anicteric ,
Neck: supple
Lungs: CTA
Cor: RRR S1 S2
Abdomen: no CVAT, right side nephrostomy
RELIEF MAP MODELER: AAO3
MS: mo edema
Psych: interactive and cooperative
Labs
Urinalysis 08/26/24
21:15
Urine Nitrite (Reflex) Positive A
Leukocyte Esterase Rfl 3+ A
Urine RBC 16-20 A
Urine WBC (Reflex) 80-90 A
Urine Bacteria (Reflex) Many A
Urine Albumin (Reflex) 2+ A
BCx sent
Data upon admission pending
Last hospitalist admission: 04/21/2024 - 04/26/2024
PDXs;
1. fever secondary to complicated urinary tractinfection versus tumor fever.
2. Ongoing vaginal discharge with concern for rectovaginal or vesicular vaginal fistula.
3. Metastatic cervical carcinoma.
4. Obstructive uropathy with right nephrostomy.
5. Deconditioning with moderate protein calorie malnutrition, bodymass index of 15.
ASSESSMENT & PLAN
Pending Rx reconciliation
Abnormal UA with significant pyuria fron Rt PCN presumed complicated UTI
Light yellow clear urine from Rt PCN which was placed since early June
DDX: Vesicle-vaginal fistula vs. malignancy vs. UTI
Prior HX Diphtheroid recovered from urine (presumably from nephrostomy) is contaminant. Prior UCx (?urethra) mixed carlene
Afebrile and hemodynamically stable
No RCV angle temderness
Prior HX Fever : -Tumor fever vs UTI
- BCx sent
- IV CFP at ER - continue
- F/U Temp curve
- IR consult for evaluation of Rt PCN change
LUCHO with Cr 2
Stage IIIa CKD with base browne Cr 1.7. 1.8
- IV NS
- f/u Cr
HX urethral/vaginal discharge
- Vesicle-vaginal fistula vs. malignancy vs. UTI
- Due to vaginal stenosis from XRT, unable to examine pelvis, per GY in the past
Stage IV cervical CA: Dx January 2016/ radiation 2016.
- Incomplete hysterectomy 2018 with residual cancer in the abdomen chose not to have operation or chemo complicated by recurrence and spread of cervical cancer to left kidney causing left kidney atrophy/failure
mass near her right kidney requiring right nephrostomy tube for drainage 12/08/2019 for first nephrostomy tube
Severe protein calorie malnutrition
HX Lactose intolerance
Patient was advised last admission to start calorie counts and nutritional shakes
- Regular diet, avoid lactose
Anemia of chronic disease secondary to cancer with suspected recurrence
Stable
Anxiety
- c/w divalproex 500 mg daily, fluoxetine 60 mg daily, Xanax 1 mg p.o. at bedtime
HX Migraines
DVT Px: SQH
DNR
IP MS
[2024-08-26] MEDS: LR 1000 IV (22:36)
[2024-08-26] MEDS: MAXIPIME 1000 MG IV (22:36)
[2024-08-26 22:56] LABS: Lactic Acid 0.8 mmol/L (0.7-2.0)
[2024-08-26 23:40] VITALS: BP 113/56
[2024-08-27 00:30] VITALS: BP 113/56
--- NOTE | 2024-08-27 00:30 | PTCARENOTE ---
Pt arrives from ED via stretcher. oob with steady gait. aaox3, cooperative. denies pain. R nephrostomy draining yellow urine. oriented to room. call warner within reach.
[2024-08-27 00:36] VITALS: BP 115/68; BMI 15.3
[2024-08-27] MEDS: NSS 1000 IV ×2 (01:06→13:38)
[2024-08-27] MEDS: XANAX 2 MG PO ×2 (01:25→21:20)
[2024-08-27 06:49] LABS: % Basophils 0.5 % (0-2); % Eosinophils 2.5 % (0-6); % Immature Granulocytes 0.2 % (0-0.5); % Lymphocytes 33.7 % (20.5-51.1); % Monocytes 9.4 % (1.7-9.3); % Neutrophils 53.7 % (42.2-75.2); Absolute Eosinophils 0.1 10^3/uL (0-0.7); Absolute Lymphocytes 1.4 10^3/uL (1.2-3.4); Absolute Monocytes 0.4 10^3/uL (0.1-0.6); Absolute Neutrophils 2.2 10^3/uL (1.4-6.5); Hematocrit 27.8 % (37.0-47.0); Hemoglobin 9.4 g/dL (12.0-16.0); Mean Corp Hgb Conc. 33.8 g/dL (33.0-37.0); Mean Corpuscular Hgb 29.5 pg (27.0-31.0); Mean Corpuscular Volume 87.1 fL (81.0-99.0); Mean Platelet Volume 10.1 fL (7.4-10.4); Nucleated Red Blood Cells % 0 %; Platelet Count 165 10^3/uL (130-400); Red Blood Cell Count 3.19 10^6/uL (4.20-5.40); Red Cell Dist. Width 12.2 % (11.5-14.5)
[2024-08-27 07:03] LABS: ALT (SGPT) < 10 U/L (0-35); AST (SGOT) 17 U/L (14-36); Albumin 2.8 g/dl (3.5-5.0); Alkaline Phosphatase 42 U/L (38-126); Blood Urea Nitrogen 22 mg/dl (7-17); Calcium 8.6 mg/dl (8.4-10.2); Carbon Dioxide 29 mmol/L (22-30); Chloride 111 mmol/L (98-107); Estimated Creatinine Clearance 29 ml/min; Glucose 81 mg/dl (70-99); Potassium 4.2 mmol/L (3.5-5.1); Sodium 141 mmol/L (135-145); Total Bilirubin 0.1 mg/dl (0.2-1.3); Total Protein 4.9 g/dl (6.3-8.2); eGFR 46.21
[2024-08-27 07:38] VITALS: BP 115/63
[2024-08-27] MEDS: MAXIPIME 1000 MG IV ×2 (08:11→20:04)
[2024-08-27] MEDS: DEPAKOTE (12 HR RELEASE) 500 MG PO (08:11)
[2024-08-27] MEDS: STERILE WATER FOR INJECTION 10 ML IV ×2 (08:11→20:04)
[2024-08-27] MEDS: PROZAC 60 MG PO (08:11)
--- NOTE | 2024-08-27 09:09 | VATNOTE ---
During routine assessment, pt noted to have PIV in her antecubital fossa with fluids running, however IV pump was beeping due to distal occlusion. Offered to restart pt's PIV site several times to move it out of a point of flexion, but pt adamantly
refused. States she will just keep her arm straight. No-no offered and accepted. Instructed pt to have PCN page if she changes her mind about restart.
--- NOTE | 2024-08-27 10:58 | VATNOTE ---
No-no received from SPD, applied to patient at pt request. Pt provided with additional blankets for comfort at pt request.
[2024-08-27 14:50] VITALS: BMI 15.3
[2024-08-27 15:11] VITALS: BP 122/61
[2024-08-27] MEDS: TYLENOL 650 MG PO (17:05)
[2024-08-27 23:20] VITALS: BP 102/53
[2024-08-28] MEDS: NSS 1000 IV (02:57)
[2024-08-28 07:47] VITALS: BP 116/59
[2024-08-28] MEDS: STERILE WATER FOR INJECTION 10 ML IV ×2 (09:03→20:54)
[2024-08-28] MEDS: MAXIPIME 1000 MG IV ×2 (09:03→20:52)
[2024-08-28] MEDS: PROZAC 60 MG PO (09:04)
[2024-08-28] MEDS: DEPAKOTE (12 HR RELEASE) 500 MG PO (09:05)
--- NOTE | 2024-08-28 09:25 | W.PN.HOSP.TC ---
Today's Communication/Plan
-
IV Abx
f/w ID recommendations
Assessment / Plan
Assessment / Plan
Physical Exam
General: Well Developed and Well Nourished
HEENT: Moist Mucous Membranes, Anicteric and PERRLA
Respiratory: Clear to Auscultation and Non-Labored Respirations; Negative Wheezes, Rales or Rhonchi
Cardiac: Regular Rhythm and S1/S2;
GI: Soft, Nontender, Nondistended and Normal Bowel Sounds
Musculoskeletal: No joint swelling. �Negative Edema, Left Lower Extrem
Skin: Warm, Dry and no rash
Neuro: Awake and AO x 3, non-focal exam.
Psych: Calm
A/P:
# Complicated urinary tract infection due to nephrostomy tube
Negative blood culture
Urine culture is pending
Continue IV antibiotics
Consulted ID, input appreciated.
IR consult for nephrostomy tube exchange
Anxiety with benzodiazepine dependency
Angy is pleasant and cooperative
Continue Xanax and fluoxetine
Bipolar disorder
Continue Depakote
Severe protein malnutrition due to cancer
with muscles atrophy mostly in limbs and temporal areas
Low BMI
Dietary continue supplement
CKD stage IIIA
# # Anemia of chronic disease
# Metastatic cervical cancer
Atrophic left kidney
Not undergoing any treatment
Aware of poor prognosis
DNR/DNI
Total time spent to see the patient, examine the patient, review data and lab result, discuss treatment plan with patient, nursing staff around 55 minutes
Anticipated Discharge: > 48 hours
Subjective/Interval History
-
Date of Service: August 28, 2024
No chest pain
No abdominal pain
No fevers
Objective Data
-
Vital Signs:
Vital Signs
Temp Pulse Resp BP Pulse Ox
97.8 F 51 16 116/59 100
08/28/24 07:47 08/28/24 07:47 08/28/24 07:47 08/28/24 07:47 08/28/24 07:47
I&O
08/27/24 08/28/24 08/29/24
06:59 06:59 06:59
Intake Total 480 / 480 3960 / 3960
Output Total 1000 / 1000 2550 / 2550 300 / 300
Balance -520 / -520 1410 / 1410 -300 / -300
--- NOTE | 2024-08-28 10:45 | CON.ID ---
Consultation
-
Date/Time Consultation Requested: August 28, 2024 0636
Date/Time Consultation Performed: August 28, 2024 1045
Requesting Provider: Dr. Julia Salas
Performing Provider: Dr. Shania Reilly
Reason for Consultation: UTI
Chief Complaint / Past History
Chief Complaint
Urinary symptoms
History of Present Illness
64-year-old female with stage IV cervical cancer,history of radiation hysterectomy with recurrence, patient declines further treatment, pelvic mass with left hydronephrosis nonfunctional kidney, right hydronephrosis status post percutaneous
nephrostomy last exchange 2024 who presented to the hospital on August 27 to new onset malodorous urine. 2 days ago, she noted nephrostomy bag urine was foul-smelling. No fevers or chills. No flank pain. She came to the ER yesterday.
Culture obtained from the nephrostomy which showed 100,000 CFU polymicrobial organisms likely contaminated. Today she reports that the urine is now clear. She is drinking plenty of fluids. She feels well.
Past History
Past Medical History: Other ( left kidney atrophy/dysfunction/chronic hydronephrosis with essentially solitary functioning right kidney, recent new right hydronephrosis status post right nephrostomy tube on 12/07, CKD, bipolar/depression, cachexia,
anemia of chronic disease, cervical carcinoma, chronic pancytopenia, migraines)
Additional Past Medical History:
Cervical CA s/p XRT, hysterectomy with recurrence, pt declined chemo
Chronic left hydro from pelvic mass
Hx right hydronephrosis s/p perc neph 11/2023
CKD3
Bipolar disorder
Anxiety/depression
Panic disorder
Migraines
Past Surgical History: Gynecological (Hysterectomy) and Other (Tonsillectomy, Ureteral stent, Right Nephrostomy tube)
Allergy History:
Milk Containing Products (Dairy) Allergy (Verified 04/21/24 11:25)
Unknown
nitrofurantoin macrocrystalline (From Macrodantin) Allergy (Verified 04/21/24 11:25)
fever
tuberculin,PPD,multi-puncture Allergy (Verified 04/21/24 11:25)
Rash
Medications Reviewed: Yes
Current Antibiotics:
Cefepime (d2)
Social History
Tobacco: Non-Smoker
Alcohol: None
Drug: None
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
Family History
Family History: Not Pertinent
Review of Systems
Review of Systems
General: Negative Fever or Chills
HEENT: Negative Sinus Problems or Headache
Respiratory: Negative Dyspnea or Cough
Gasteroenterology: Negative Nausea, Vomiting or Diarrhea
Genital / Urological: Negative Flank Pain
Endocrine: Negative Weakness
All systems: All other systems were reviewed and were negative
Vital Signs
Temp Pulse Resp BP Pulse Ox
97.8 F 51 16 116/59 100
08/28/24 07:47 08/28/24 07:47 08/28/24 07:47 08/28/24 07:47 08/28/24 07:47
Physical Exam
Physical Exam
Constitutional: No Acute Distress and Comfortable
Eyes: No Conjunctival Hemorrhage and Sclera Anicteric
Cardiovascular: Regular Rate and S1/S2
Pulmonary: Clear
Gastrointestinal: Soft, Non Tender, Non Distended and Normal Bowel Sounds
Genito-Urinary: Clear Urine (Right nephrostomy); Negative CVA Tenderness
Extremities: Negative Edema
Neurological: AO x 3
Lab / Diagnostic Study Results
08/27/24 05:27
08/27/24 05:27
Abs Immat Gran (auto) 0.0 10^3/uL (0-0.05) 08/27/24 05:27
Absolute Neuts (auto) 2.2 10^3/uL (1.4-6.5) 08/27/24 05:27
Absolute Lymphs (auto) 1.4 10^3/uL (1.2-3.4) 08/27/24 05:27
Absolute Monos (auto) 0.4 10^3/uL (0.1-0.6) 08/27/24 05:27
Absolute Basos (auto) 0.0 10^3/uL (0-0.2) 08/27/24 05:27
Immature Gran % 0.2 % (0-0.5) 08/27/24 05:27
Neutrophils % 53.7 % (42.2-75.2) 08/27/24 05:27
Lymphocytes % 33.7 % (20.5-51.1) 08/27/24 05:27
Monocytes % 9.4 % (1.7-9.3) H 08/27/24 05:27
Eosinophils % 2.5 % (0-6) 08/27/24 05:27
Basophils % 0.5 % (0-2) 08/27/24 05:27
Lactic Acid Cancelled 08/27/24 02:15
Ur Squamous Epith Cells 3-5 /LPF (Few) 08/26/24 21:15
Microbiology Results
Micro:
08/26/24 21:15 Urine Culture - Final
Urine
08/26/24 22:20 Blood Culture - Preliminary
Blood/Venous No Growth in 24 hours- Final report to follow
08/26/24 22:20 Blood Culture - Preliminary
Blood/Venous No Growth in 24 hours- Final report to follow
Assessment / Plan
# Chronic obstructive uropathy of right kidney due to cancer, chronic nephrostomy tube last exchange June 28, 2024
# Malodorous urine
- Urine odor is not an indication for UTI. I suspect she was somewhat dehydrated resulting in constant treated urine and thus the malodor and turbid urine.
- Urine culture with polymicrobial organisms suggestive of colonization which is common in setting of nephrostomy tube
- No fever. Patient feels well. Urine is now clear after hydration.
- No indication for nephrostomy tube change at this time nor further antibiotic.
- ID will sign off.
#Stage IV cervical ca
cervical cancer Dx January 2016/ radiation 2016
hysterectomy 2018 with residual cancer in the abdomen chose not to have operation or chemo
recurrence and spread of cervical cancer to left kidney causing left kidney atrophy/failure
mass near her right kidney requiring right nephrostomy tube for drainage 12/08/2019 for first nephrostomy tube
Care Review
Plan reviewed with: Physician (Dr. Salas)
[2024-08-28 13:30] VITALS: BP 111/55; BP_SYST 66
--- NOTE | 2024-08-28 14:58 | PTCARENOTE ---
Arrived to floor from IR post nephrostomy tube exchange. Dressing CDI.
--- NOTE | 2024-08-28 15:15 | PTOTSP ---
Patient demonstrates independence with functional mobility and does not demonstrate need for continued skilled therapy at this time. Will discharge.
If needs change, please re-consult.
[2024-08-28 15:23] VITALS: BP 103/52
--- NOTE | 2024-08-28 16:29 | CM ---
Alert awake oriented patient who lives with her SO Gaston in a 1 story home with 15 steps to enter. She is independent in activates of daily living.She does drive .She had a nephrostomy tube replaced to right side today . She declined VN she said
she knows how to care for tube.
No VN in past . No SNF hx
Pharmacy [facility]
PCP Dr Pereira
PLAN Home with no needs
[2024-08-28] MEDS: XANAX 2 MG PO (22:36)
[2024-08-28 23:45] VITALS: BP 107/57
[2024-08-29 07:30] VITALS: BP 108/64
--- NOTE | 2024-08-29 08:15 | W.PN.HOSP.TC ---
Today's Communication/Plan
-
dc
Assessment / Plan
Assessment / Plan
Physical Exam
General: Well Developed and Well Nourished
HEENT: Moist Mucous Membranes, Anicteric and PERRLA
Respiratory: Clear to Auscultation and Non-Labored Respirations; Negative Wheezes, Rales or Rhonchi
Cardiac: Regular Rhythm and S1/S2;
GI: Soft, Nontender, Nondistended and Normal Bowel Sounds
Musculoskeletal: No joint swelling. �Negative Edema, Left Lower Extrem
Skin: Warm, Dry and no rash
Neuro: Awake and AO x 3, non-focal exam.
Psych: Calm
A/P:
# Complicated urinary tract infection due to nephrostomy tube
Negative blood culture
Urine culture is mixed carlene.
Status post IV cefepime
Consulted ID, input appreciated. No indication for IV antibiotics. Not active UTI, only colonization and dehydration that led to the change in color and smell of the urine
IR consult for nephrostomy tube exchange, done on 08/28/24 with no complications, given script of Percocet.
Anxiety with benzodiazepine dependency
Angy is pleasant and cooperative
Continue Xanax and fluoxetine
Bipolar disorder
Continue Depakote
Severe protein malnutrition due to cancer
with muscles atrophy mostly in limbs and temporal areas
Low BMI
Dietary continue supplement
CKD stage IIIA
# # Anemia of chronic disease
# Metastatic cervical cancer
Atrophic left kidney
Not undergoing any treatment
Aware of poor prognosis
DNR/DNI
Total discharge time spent to see the patient, examine the patient, review data and lab result, discuss discharge plan with patient, nursing staff around 65 minutes
Anticipated Discharge: Today
Subjective/Interval History
-
Date of Service: August 29, 2024
She is feeling better. No abdominal pain. She wants a prescription for Percocet to go home with. She reported that the IR always gave her a few pills after tube exchange
No chest pain
No shortness of breath
No fever or chills
Output in nephrostomy tube clear urine
Objective Data
-
Vital Signs:
Vital Signs
Temp Pulse Resp BP Pulse Ox
97.5 F 60 16 107/57 97
08/28/24 23:45 08/28/24 23:45 08/28/24 23:45 08/28/24 23:45 08/28/24 23:45
I&O
08/28/24 08/29/24 08/30/24
06:59 06:59 06:59
Intake Total 3960 / 3960 1080 / 1080
Output Total 2550 / 2550 1625 / 1625
Balance 1410 / 1410 -545 / -545
[2024-08-29] MEDS: PROZAC 60 MG PO (08:59)
[2024-08-29] MEDS: DEPAKOTE (12 HR RELEASE) 500 MG PO (08:59)
[2024-08-29] MEDS: TYLENOL 1000 MG PO (09:41)
--- NOTE | 2024-08-29 10:33 | CM ---
MD entered order for discharge.
Pt had nephrostomy tube replaced via IR yesterday.
Pt comfortable with care and declined VN .
Family drove her home.
PLAN Home no needs
--- NOTE | 2024-08-29 14:47 | W.DCSUMMARY ---
Discharge Summary
Discharge Data
Date of Admission: 08/26/24
Date of Discharge: 08/29/24
-
Pending Results: No
Hospital Course
64 years old female who was referred from urgent care for treatment of possible urinary tract infection. Patient noted the urine and nephrostomy bag was dark and had an odor urine test showed slightly cloudy with positive nitrate and leukocyte
Estrace. Patient was started on empiric IV cefepime. Urine and blood culture did not show any growth. She did not have fever or leukocytosis. She was evaluated by ID doctor.. ID recommendation to stop antibiotics and maintain well hydration
status. Patient did not have fever or chills in the hospital. IR was consulted for catheter exchange that was done on 08/28/2024 with no complications. Creatinine was around 1.3 which is lower than baseline. Patient remained hemodynamically stable
and was discharged home in a stable condition. She declined home health services.
Discharge Plan
-
Patient Disposition: Home (Routine Discharge)
Discharge Diagnosis/Procedures: Status post tube exchange by IR
You were seen By ID and given IV antibiotic
Diet: As tolerated
Referrals:
UNKNOWN - PT DOES,NOT KNOW [Family Provider]
Prescriptions:
New
oxycodone-acetaminophen [Endocet] 5-325 mg tablet
1 tab PO Q8H PRN (Reason: severe pain) Qty: 10 0RF
Continued
fluoxetine 20 MG capsule
60 mg PO DAILY
alprazolam 1 mg tablet
2 mg PO HS
divalproex 500 mg tablet,delayed release (DR/EC)
500 mg PO DAILY
Discharge Orders:
Discharge Patient (As Directed); Ordered 08/29/24
Ordered By: Juan Miguel Salas
Discharge Date and Time
Discharge Date/Time: 08/29/24 10:13
Print Language: AMHARIC
== END 2024-08-29 10:13 | disposition home or self-care (01) | DRG 698 ==
LOC: 4 EAST ACU 22:49
PROVIDERS: Physician Assistant Medical; Radiology Vascular & Interventional Radiology; ADMITTING PHYSICIAN Internal Medicine; ATTENDING PHYSICIAN Internal Medicine; EMERGENCY PHYSICIAN Emergency Medicine; OTHER PHYSICIAN Internal Medicine Infectious Disease
PROC: 0T25X0Z Change Drainage Device in Kidney, External Approach (ICD-10-PCS; 2024-08-28)
DX: T83.512A Infection and inflammatory reaction due to nephrostomy catheter, initial encounter (principal); E43 Unspecified severe protein-calorie malnutrition; N39.0 Urinary tract infection, site not specified; Z68.1 Body mass index [BMI] 19.9 or less, adult; N17.9 Acute kidney failure, unspecified; N13.8 Other obstructive and reflux uropathy; F13.20 Sedative, hypnotic or anxiolytic dependence, uncomplicated; N26.1 Atrophy of kidney (terminal); F31.9 Bipolar disorder, unspecified; G43.909 Migraine, unspecified, not intractable, without status migrainosus; N18.32 Chronic kidney disease, stage 3b; F41.0 Panic disorder [episodic paroxysmal anxiety]; E86.0 Dehydration; E73.8 Other lactose intolerance; D63.0 Anemia in neoplastic disease; E73.9 Lactose intolerance, unspecified; Y84.6 Urinary catheterization as the cause of abnormal reaction of the patient, or of later complication, without mention of misadventure at the time of the procedure; Y92.9 Unspecified place or not applicable; Y73.2 Prosthetic and other implants, materials and accessory gastroenterology and urology devices associated with adverse incidents; Z66 Do not resuscitate; Z93.6 Other artificial openings of urinary tract status; Z86.61 Personal history of infections of the central nervous system; Z92.3 Personal history of irradiation; Z85.41 Personal history of malignant neoplasm of cervix uteri; Z90.710 Acquired absence of both cervix and uterus; Z88.7 Allergy status to serum and vaccine; Z88.3 Allergy status to other anti-infective agents
CPT/HCPCS: 50435; 80053; 81003; 81015; 83605; 85025; 87040; 87086; 96361; 96374; 97163; 97165; 99284; C1729

== ENCOUNTER 2024-09-23 10:19 | Emergency (ER) | payer OTHER, SELFPAY ==
[2024-09-23] VITALS (8 sets, daily range): BP systolic 101–121; BP diastolic 55–68; BMI 14.4
--- NOTE | 2024-09-23 11:37 | ED.GENMED ---
History of Present Illness
General
Chief Complaint: Fever
Source: patient
Exam Limitations: none
Time Seen by Provider: 09/23/24 11:30
History of Present Illness
History of Present Illness:
See MDM
Past History
Past History
ED Past Medical History: Cancer (cervical), Psychiatric (Bipolar, Depression, ) and Other (lactose intolerance, gallstones, migraines, meningitis, Left kidney atrophy)
ED Past Surgical History: Gynecological (Hysterectomy), Tonsilectomy (Adenoids) and Urological (Ureteral stent, Right Nephrostomy tube)
Social History
Tobacco: Non-smoker
Alcohol: Occasional
Drug: None
Personal: Single
Living: with family (Lives with mother)
Family History
Family History: Unable to obtain
Phy Exam
Physical Exam
Physical Exam:
See MDM
Sepsis
Sepsis Screening
Sepsis Assessment: Sepsis Ruled Out
Sepsis Screen
Sepsis Screen: Sepsis Ruled Out
Date: 09/23/24
Time: 14:00
Course
Orders/Labs/Results
Orders:
Orders
09/23/24 11:36
CT Abd/pel (oral only)-DH Only Urgent
Comment: hx cervical cancer
Reason For Exam: RLQ pain and fever
0.9% Sodium Chloride 1000 ml [Nss] 1,000 ml IV BOLUS
Iohexol [Omnipaque] See Protocol PO NOW STA
09/23/24 11:52
Complete Blood Count/With Diff Urgent
Comprehensive Metabolic Panel Urgent
PTT Urgent
Prothrombin Time Urgent
09/23/24 12:11
HYDROmorphone [Dilaudid] 0.5 mg .ROUTE .STK-MED ONE
HYDROmorphone [Dilaudid] 0.5 mg IV NOW STA
09/23/24 13:46
Urine Culture Urgent
JEREMÍAS Source: Urine
Specimen Description:
Obtained by: Nephrostomy
Date Specimen was Collected: 09/23/24
Time Specimen was Collected: 13:43
Abnormal Lab Results
09/23/24
11:52
RBC 3.79 L 10^6/uL
(4.20-5.40)
Hgb 10.7 L g/dL
(12.0-16.0)
Hct 32.1 L %
(37.0-47.0)
Absolute Lymphs (auto) 0.7 L 10^3/uL
(1.2-3.4)
Neutrophils % 82.8 H %
(42.2-75.2)
Lymphocytes % 9.6 L %
(20.5-51.1)
BUN 23 H mg/dl
(7-17)
Creatinine 1.5 H mg/dL
(0.6-1.0)
Total Protein 5.9 L g/dl
(6.3-8.2)
09/23/24 11:52
09/23/24 11:52
Vital Signs
Initial and Last Documented VS:
Initial Vital Signs
Temp Pulse Resp BP Pulse Ox
98.6 F 87 20 105/65 100
09/23/24 10:22 09/23/24 10:22 09/23/24 10:22 09/23/24 10:22 09/23/24 10:22
Last Documented Vital Signs
Temp Pulse Resp BP Pulse Ox
98.6 F 73 15 117/67 98
09/23/24 10:22 09/23/24 15:15 09/23/24 15:15 09/23/24 15:00 09/23/24 15:15
MDM/Problems Addressed
Differential Diagnosis Includes:
Note:
CHIEF COMPLAINT(S)
Severe lower right quadrant abdominal pain with accompanying fever.
HISTORY OF PRESENT ILLNESS
The patient is a 64-year-old female who presents with severe lower right quadrant abdominal pain that has persisted for one week. The patient initially thought the pain was due to gas but has become increasingly concerned that it might be
appendicitis. She reports that the pain is exacerbated when standing or walking, but applying pressure does not alleviate it. She has not experienced any relief from the pain while lying in bed at home. Accompanying her pain, the patient reports
having a fever.
The patient has a significant medical history of having only one functional kidney, located on the right side, draining through a nephrostomy tube due to atrophy of the left kidney. She expressed concern that if surgery is necessary, scar tissue
formation could impede the function of the nephrostomy bag which might lead to renal failure.
The patient has a history of cervical cancer, which is not operable or curable. She has refused chemotherapy and immunotherapy, having undergone radiation therapy and a complete hysterectomy (excluding the ovaries), neither of which fully resolved
the cancer. She is concerned about the use of intravenous contrast due to its potential nephrotoxic effects on her single functioning kidney.
PHYSICAL EXAM
General: Well appearing and non-toxic
HEENT: protecting airway. Dry mucous membranes
Neck: appears supple
CV: No evidence of cyanosis
Resp: No accessory muscle use
Abd: Non-distended. Tenderness to right lower quadrant
Back: Right side nephrostomy tube
Extremities: No deformities
Neuro: alert
Psych: Normal affect
Skin: Intact
- Nursing notes reviewed and vital signs reviewed.
PLAN
1. Administer intravenous fluids to keep the patient hydrated while avoiding oral intake in case surgery becomes necessary.
2. Conduct a computed tomography (CT) scan with oral contrast instead of intravenous contrast to protect kidney function.
3. Perform basic blood work to assess for infection or other irregularities.
4. Monitor and reassess based on the results from the CT scan and blood work.
DIFFERENTIAL DIAGNOSIS
The Differential Diagnosis includes, in no particular order and is not limited to:
1. Appendicitis
2. Renal colic
3. Urinary tract infection
4. Ovarian torsion
5. Pelvic inflammatory disease
6. Diverticulitis
7. Intra-abdominal abscess
8. Bowel obstruction
9. Ureteral obstruction
10. Mesenteric ischemia
Disposition:
SUMMARY OF ENCOUNTER
The patient, a 64-year-old female, presented to the emergency department with severe lower right quadrant abdominal pain and accompanying fever. Due to her concern about possible appendicitis and her significant medical history, a computed
tomography (CT) scan with oral contrast was conducted to avoid nephrotoxic effects on her single functioning kidney. Basic blood work was also performed. She was monitored and reassessed based on the results. The CT scan report and blood work
indicated there were incidental findings discussed with the patient. The patient experienced an episode of diarrhea, which alleviated some pain, and she reported feeling better and comfortable to be discharged home.
DISPOSITION
Discharge
PLAN
Continue outpatient follow-up and adhere to return precautions if symptoms worsen.
INDEPENDENT REVIEW OF LABS AND INTERPRETATION OF TESTS
My independent review of the CT scan is that there are incidental findings, which were discussed with the patient.
PATIENT EDUCATION AND COUNSELING
The patient was provided with a printout of both the CT scan report and blood work results. Discussed the results and incidental findings of the CT scan. The patient was advised on the importance of follow-up care and provided with return
precautions.
FOLLOW-UP INSTRUCTIONS
The patient is instructed to engage in outpatient follow-up and adhere to return precautions if symptoms worsen.
MEDICAL DECISION MAKING
-Complexity of Data Reviewed: Chronic conditions affecting care include a history of cervical cancer, and single functional kidney with a nephrostomy tube, and the differential diagnosis list considered includes appendicitis, renal colic, urinary
tract infection, ovarian torsion, pelvic inflammatory disease, diverticulitis, intra-abdominal abscess, bowel obstruction, ureteral obstruction, and mesenteric ischemia.
-Data Category 1: My independent interpretation of the CT scan indicates incidental findings that were appropriate for discharge.
-Risk: Consideration of Admission/Observation: Escalation of care including admission/observation was considered given the complexity and risk of the patients presenting complaint and her underlying comorbidities. However, ultimately I feel the
patient is safe for outpatient management with close follow-up. The work-up is reassuring and does not reveal any acute life-threatening processes. The patient�s symptoms were well-controlled upon reevaluation, her vitals were stable, and she is
agreeable with discharge and reliable for follow-up.
DIAGNOSIS
Abdominal pain, lower right quadrant (R10.31)
*Pulse Oximetry
SaO2: 98
Oxygen Mode of Delivery: Room air
Patient hypoxic: no
*Critical Care Note
Total Time (30-74mins, 75-104mins- exclusive of procedures): Not Applicable
ED Attending Note
-
Portions of this chart may have been created with voice recognition software.� Occasional wrong word or��sound alike� substitutions may have occurred due to the inherent limitations of voice recognition software.
Discharge Plan
Departure
Patient Disposition: Home (Routine Discharge)
Date of Disposition: 09/23/24
Time of Disposition: 15:34
Patient with high blood pressure during this ER visit?: No
Discharge Problem:
Abdominal pain
Prescriptions:
No Action
fluoxetine 20 MG capsule
60 mg PO DAILY
alprazolam 1 mg tablet
2 mg PO HS
divalproex 500 mg tablet,delayed release (DR/EC)
500 mg PO DAILY
oxycodone-acetaminophen [Endocet] 5-325 mg tablet
1 tab PO Q8H PRN (Reason: severe pain) Qty: 10 0RF
Referrals:
Jarek Pereira DO [Family Provider, Family Practice]
Activity Restrictions/Additional Instructions:
Please return for any worsening symptoms.
You may return at any time if you have further concerns.
Please follow up with your doctor at the first available appointment, preferably this week.
Please discuss the incidental findings on the CT scan with your doctor.
Thank you for choosing [facility].
Interventions
Interventions:
*Risk Screen - Suicide Last Done: 09/23/24 10:22
*General Assessment Last Done: 09/23/24 10:22
*Neglect/Abuse Screening Last Done: 09/23/24 10:22
*ED- Fall Risk Assessment Last Done: 09/23/24 11:16
*ED COVID-19 Vaccine History Last Done: 09/23/24 11:16
ED- Neurological Assessment Last Done: 09/23/24 11:14
ED-Skin Assessment Last Done: 09/23/24 11:15
Discharge Date and Time
Print Language: ARMENIAN
[2024-09-23] MEDS: OMNIPAQUE 50 ML PO (11:59)
[2024-09-23] MEDS: NSS 1000 IV (12:00)
[2024-09-23 12:11] LABS: Hematocrit 32.1 % (37.0-47.0); Hemoglobin 10.7 g/dL (12.0-16.0); Mean Corp Hgb Conc. 33.3 g/dL (33.0-37.0); Mean Corpuscular Volume 84.7 fL (81.0-99.0); Nucleated Red Blood Cells % 0 %; Platelet Count 160 10^3/uL (130-400); Red Cell Dist. Width 12.9 % (11.5-14.5)
[2024-09-23] MEDS: DILAUDID 0.5 MG IV (12:11)
[2024-09-23 12:39] LABS: ALT (SGPT) 11 U/L (0-35); AST (SGOT) 20 U/L (14-36); Albumin 3.6 g/dl (3.5-5.0); Alkaline Phosphatase 62 U/L (38-126); Blood Urea Nitrogen 23 mg/dl (7-17); Calcium 9.3 mg/dl (8.4-10.2); Carbon Dioxide 26 mmol/L (22-30); Chloride 105 mmol/L (98-107); Estimated Creatinine Clearance 24 ml/min; Glucose 86 mg/dl (70-99); INR 0.97; PT 13.2 Sec (11.4-14.6); Potassium 4.4 mmol/L (3.5-5.1); Sodium 135 mmol/L (135-145); Total Protein 5.9 g/dl (6.3-8.2); eGFR 38.91
[2024-09-23 12:40] LABS: APTT 27.1 Sec (23.4-35.0)
== END 2024-09-23 16:04 | disposition home or self-care (01) ==
LOC: EMR 10:19
PROVIDERS: EMERGENCY PHYSICIAN Student in an Organized Health Care Education/Training Program; FAMILY PHYSICIAN Family Medicine
DX: R10.31 Right lower quadrant pain (principal); Z85.41 Personal history of malignant neoplasm of cervix uteri
CPT/HCPCS: 99284; 96374; 96361; 74176; 80053; 85025; 85610; 85730; 87077; 87086; 87186

== ENCOUNTER 2024-09-27 14:22 | Inpatient (IN) | payer OTHER, SELFPAY ==
[2024-09-27 10:39] VITALS: BP 90/60
--- NOTE | 2024-09-27 11:35 | ED.GENMED ---
History of Present Illness
General
Chief Complaint: Abdominal Symptoms
Source: patient and records
Exam Limitations: none
Time Seen by Provider: 09/27/24 11:10
History of Present Illness
History of Present Illness:
64yoF with a history of metastatic cervical cancer s/p radiation in 2017 and hysterectomy in 2019 and nonfunctioning left kidney with right sided nephrostomy tube presenting for evaluation of abdominal pain. Patient has been experiencing
right-sided abdominal discomfort for the past 2 weeks. She has also had diarrhea for the past 10 days and is having 1 large bowel movement per day. She started to spike fevers about a week ago. Fevers tend to occur at night and Tmax is 101.5.
Patient was seen in the ED 2 days ago for the symptoms and CT was negative for any acute findings to explain her pain. A urine culture was sent which grew out Pseudomonas and Citrobacter. Patient is here with persistent fevers and abdominal pain.
Her pain is the same from 2 days ago and is not worsening. She also started to notice a foul smell from her nephrostomy bag last night.
Patient was told that her cervical cancer was metastatic. She currently follows with Dr. Saldivar at [place]. It was recommended that patient start chemotherapy/immunotherapy in the past which she has refused.
Past History
Past History
ED Past Medical History: Cancer (cervical), Psychiatric (Bipolar, Depression, ) and Other (lactose intolerance, gallstones, migraines, meningitis, Left kidney atrophy)
ED Past Surgical History: Gynecological (Hysterectomy), Tonsilectomy (Adenoids) and Urological (Ureteral stent, Right Nephrostomy tube)
Social History
Tobacco: Non-smoker
Alcohol: Occasional
Drug: None
Personal: Single
Living: with family (Lives with mother)
Family History
Family History: Unable to obtain
Phy Exam
Physical Exam
Physical Exam:
Chronically ill appearing female, frail, non-toxic
General Physical Exam
General Presentation: no apparent distress
General Skin: warm and dry
General Habitus: normal and frail
General Mental: alert
ENT Exam
ENT Exam: normocephalic
Pulmonary Exam
Pulmonary Exam: no respiratory distress
Gastrointestinal Exam
Gastrointestinal Exam: non tender, soft and non distended
External Findings: nephrostomy drain (R nephrostomy tube in place. No signs of surrounding cellulitis. )
Neurological Exam
Neurological Exam: alert
[place] Coma Scale
Eye Opening: Spontaneous
Verbal Response: Oriented
Motor Response: Obeys Commands
GCS Total Score: 15
Skin Exam
Skin Exam: normal color and warm/dry
Psychiatric Exam
Psychiatric Exam: normal mood/affect
Course
Orders/Labs/Results
Orders:
Orders
09/27/24 11:28
0.9% Sodium Chloride 1000 ml [Nss] 1,000 ml IV BOLUS
09/27/24 11:39
Cefepime HCl [Maxipime] 2,000 mg IV NOW STA
09/27/24 11:53
Complete Blood Count/With Diff Urgent
Comprehensive Metabolic Panel Urgent
Lactate Level [Lactic Acid] Urgent
Lipase Urgent
Magnesium Urgent
Urinalysis Reflex To Culture Urgent
Date Specimen was Collected: 09/27/24
Time Specimen was Collected: 11:38
Urine Microscopic Reflex Cult Urgent
Blood Culture Q30M
JEREMÍAS Source: Blood/Venous
Specimen Description:
Blood Culture Q30M
JEREMÍAS Source: Blood/Venous
Specimen Description:
Urine Culture Urgent
JEREMÍAS Source: U
Specimen Description:
Date Specimen was Collected: 09/27/24
Time Specimen was Collected: 11:38
09/27/24 13:39
Admit/Transfer Patient As Directed
Co-Sign Provider:
Level of Care: Inpatient admission
Assign to:: Telemetry
Physician / Group: [email or web address]
Diagnosis: complicated UTI - POS Pseudomonas and citrobacter.
Reason for Telemetry: Other
Other Reason for Telemetry: evoving sepsis
Date to Stop Telemetry: 09/29/24
Time to Stop Telemetry: 11:00
Reason for Hospitalization: complicated UTI - POS Pseudomonas and citrobacter.
Expected length of stay greater than two midnights?: Yes
ELOS- Estimated Length of Stay in days: 3
I certify the patient meets the requirements for IP care: Yes
09/27/24 13:41
Code Status As Directed
Resuscitation Status: Full Code
09/27/24 13:50
Code Status As Directed
Resuscitation Status: Do not resuscitate
Reached after discussion with pt or family/Healthcare POA: Yes
DNR Bracelet Application ONCE
09/29/24 11:00
DC Protocol for Telemetry ONCE
Abnormal Lab Results
09/27/24
11:53
WBC 4.3 L 10^3/uL
(4.8-10.8)
RBC 3.89 L 10^6/uL
(4.20-5.40)
Hgb 11.1 L g/dL
(12.0-16.0)
Hct 32.7 L %
(37.0-47.0)
Absolute Lymphs (auto) 0.7 L 10^3/uL
(1.2-3.4)
Neutrophils % 76.6 H %
(42.2-75.2)
Lymphocytes % 15.0 L %
(20.5-51.1)
BUN 24 H mg/dl
(7-17)
Creatinine 1.6 H mg/dL
(0.6-1.0)
Ur Occult Blood Reflex 4+ A
(Negative)
Leukocyte Esterase Rfl 3+ A
(Negative)
Urine RBC 3-6 A /HPF
(0-2)
Urine WBC (Reflex) >100 A /HPF
(0-5)
Urine Bacteria (Reflex) Many A
(Negative)
Urine Albumin (Reflex) 4+ A
(Neg - Trace)
09/27/24 11:53
09/27/24 11:53
Vital Signs
Initial and Last Documented VS:
Initial Vital Signs
Temp Pulse Resp BP Pulse Ox
97.8 F 84 20 90/60 98
09/27/24 10:39 09/27/24 10:39 09/27/24 10:39 09/27/24 10:39 09/27/24 10:39
Last Documented Vital Signs
Temp Pulse Resp BP Pulse Ox
97.8 F 82 18 102/74 98
09/27/24 10:39 09/27/24 14:20 09/27/24 14:20 09/27/24 14:20 09/27/24 14:20
MDM/Problems Addressed
Differential Diagnosis Includes:
64yoF here with persistent R sided abd pain and fevers. Seen in the ED 2 days ago for the same. Urine culture sent 2 days ago growing Pseudomonas and Citrobacter. BP 90/60 in triage. Remainder of vitals normal. She is chronically ill-appearing
and frail although in no distress. Abdominal exam is benign. Differential diagnosis includes but is not limited to: UTI, pyelonephritis, sepsis, failure to thrive, doubt appendicitis given normal CT 2 days ago
Initial ED plan: Will check septic workup and UA. IV cefepime ordered per urine culture susceptibilities.
*Pulse Oximetry
SaO2: 98
Oxygen Mode of Delivery: Room air
Patient hypoxic: no (98%)
*Critical Care Note
Total Time (30-74mins, 75-104mins- exclusive of procedures): Not Applicable
Update Note
Update Note:
Labs overall unremarkable including normal white count and lactate. Creatinine at baseline. She is not meeting any sepsis criteria although given underlying immunocompromised state and nephrostomy tube, will admit for complicated UTI.
ED Attending Note
-
Portions of this chart may have been created with voice recognition software.� Occasional wrong word or��sound alike� substitutions may have occurred due to the inherent limitations of voice recognition software.
Discharge Plan
Departure
Patient Disposition: Admit
Date of Disposition: 09/27/24
Time of Disposition: 13:13
Presentation/result/management discussed w/ accepting MD/DO: Hospitalist
Discharge Problem:
Complicated urinary tract infection
Interventions
Interventions:
*Risk Screen - Suicide Last Done: 09/27/24 10:39
*General Assessment Last Done: 09/27/24 10:39
*Neglect/Abuse Screening Last Done: 09/27/24 10:39
FE-Rtemow-Jeopuddhhw Assessment Last Done: 09/27/24 11:20
[2024-09-27] MEDS: NSS 1000 IV (11:54)
[2024-09-27] MEDS: MAXIPIME 2000 MG IV (11:54)
[2024-09-27 12:31] LABS: Hematocrit 32.7 % (37.0-47.0); Hemoglobin 11.1 g/dL (12.0-16.0); Mean Corp Hgb Conc. 33.9 g/dL (33.0-37.0); Mean Corpuscular Volume 84.1 fL (81.0-99.0); Nucleated Red Blood Cells % 0 %; Platelet Count 227 10^3/uL (130-400); Red Cell Dist. Width 12.9 % (11.5-14.5)
[2024-09-27 13:03] LABS: ALT (SGPT) 10 U/L (0-35); AST (SGOT) 20 U/L (14-36); Albumin 3.9 g/dl (3.5-5.0); Alkaline Phosphatase 53 U/L (38-126); Blood Urea Nitrogen 24 mg/dl (7-17); Calcium 9.3 mg/dl (8.4-10.2); Carbon Dioxide 24 mmol/L (22-30); Chloride 105 mmol/L (98-107); Glucose 92 mg/dl (70-99); Lipase 89 U/L (23-300); Magnesium 1.7 mg/dl (1.6-2.3); Potassium 3.9 mmol/L (3.5-5.1); Sodium 138 mmol/L (135-145); Total Protein 6.5 g/dl (6.3-8.2); eGFR 36.01
[2024-09-27 13:10] LABS: Urine Character Slightly Cloudy (Clear)
--- NOTE | 2024-09-27 13:21 | HPS.HSE ---
Family Physician
-
Family Physician: Jarek Pereira
Chief Complaint
-
R abdominal pain
History of Present Illness
HPI
64F HX metastatic cervical cancer - last XRT in 2017 and hysterectomy in 2019 and nonfunctioning left kidney with R PCN seen at ER:
- for evaluation Rt sided abdominal discomfort for the past 2 weeks. S
- diarrhea for the past 10 days and is having 1 large bowel movement per day.
- spike fevers and tend to occur at night and T max is 101.5.
- 09/23/24: Patient was seen in the ED 2 days ago for the symptoms and CT was negative for any acute finding
- 09/23/24 UCX + Pseudomonas and Citrobacter.
- She also started to notice a foul smell from her nephrostomy bag last night.
Patient was told that her cervical cancer was metastatic. She currently follows with Dr. Saldivar at [place]. It was recommended that patient start chemotherapy/immunotherapy in the past which she has refused.
Medical History
Past Medical History
Past Medical History: Reports Other
Additional Past Medical History:
Metastatic Cervical Cancer
Atrophic Left Kidney
Chronic Right Kidney Nephrostomy
CKD Stage IIIA
Anemia of Chronic Disease
Anxiety / Depression / Bipolar Disorder
Past Surgical History: Reports Other
Additional Past Surgical History:
Hysterectomy
Right Percutaneous Nephrostomy
Social History
Tobacco: Non-smoker
Alcohol: None
Drug: None
Family History
Family History: Not pertinent
Allergies / Home Medications
Allergies reflects when Allergies were last updated in [employer].
Home Medications with original date entered in [employer]
Allergy/Medication List:
Allergies
Allergy/AdvReac Type Severity Reaction Status Date / Time
Milk Containing Products Allergy Unknown Verified 04/21/24 11:25
(Dairy)
nitrofurantoin Allergy fever Verified 04/21/24 11:25
macrocrystalline (From
Macrodantin)
tuberculin,PPD,multi-puncture Allergy Rash Verified 04/21/24 11:25
Home Medications
fluoxetine 20 mg capsule 60 mg PO DAILY Mental Health/Anxiety 01/16/20
alprazolam 1 mg tablet 2 mg PO HS Mental Health/Anxiety 12/07/23
divalproex 500 mg tablet,delayed release 500 mg PO DAILY mental health 12/07/23
Review of Systems
-
Constitutional: Reports See HPI and Fever
EENT: Reports No Symptoms
Respiratory: Reports No Symptoms
Cardiac: Reports No Symptoms
Abdomen/GI: Reports No Symptoms
: Reports No Symptoms
Musculoskeletal: Reports No Symptoms
Skin: Reports No Symptoms
Neurological: Reports No Symptoms
Endocrine: Reports No Symptoms
Hematologic/Lymphatic: Reports No Symptoms
Psych: Reports No Symptoms
Physical Exam
Vital Signs
Vital Signs
Temp Pulse Resp BP Pulse Ox
97.8 F 84 20 90/60 98
09/27/24 10:39 09/27/24 10:39 09/27/24 10:39 09/27/24 10:39 09/27/24 11:39
Physical Exam
General: Comfortable, Conversant, Appears Chronically Ill and Cachectic
HEENT: Anicteric and Moist mucous membranes
Respiratory: Clear and Non Labored Respirations
Cardiac: S1/S2 and Regular Rhythm; No Tachycardia
GI: Soft and Non Tender
Genito-urinary: Other (Right Nephrostomy Tube with slightly dark but clear urine present in bag)
Musculoskeletal: No Clubbing, No Cyanosis and No Edema
Skin: Warm and Dry
Neuro: Awake, Alert, Oriented and Nonfocal/grossly intact
Psych: Calm and Intact Judgment/Insight
Laboratory Results
-
09/27/24 11:53
09/27/24 11:53
Laboratory Results
Lactic Acid 1.3 mmol/L (0.7-2.0) 09/27/24 11:53
Total Bilirubin 0.4 mg/dl (0.2-1.3) 09/27/24 11:53
AST 20 U/L (14-36) 09/27/24 11:53
ALT 10 U/L (0-35) 09/27/24 11:53
Alkaline Phosphatase 53 U/L (38-126) 09/27/24 11:53
Lipase 89 U/L (23-300) 09/27/24 11:53
Data Reviewed
-
CT Scan: Report Reviewed by me
Lab Data: Labs Reviewed by me
Old Records: Reviewed
Impression/Plan
-
VS
09/27/24
10:39
Temp 97.8 F
Pulse 84
Blood pressure 90/60
SaO2 98
Oxygen Mode of Delivery Room air
Laboratory Tests
09/23/24 09/27/24
11:52 11:53
WBC 4.3 L
Hgb 10.7 L 11.1 L
Creatinine 1.5 H 1.6 H
eGFR 38.91 36.01
Leukocyte Esterase Rfl 3+ A
Urine WBC (Reflex) Pending
09/23/24 13:46 Urine Culture - Final
Urine Pseudomonas aeruginosa
Citrobacter freundii
Citrobacter youngae
Last hospitalist admission: 08/26/24 - 08/29/24
Discharge Diagnosis/Procedures: Status post tube exchange by IR
ASSESSMENT & PLAN
Pending Rx reconciliation
Complicated UTI presumed pyelonephritis
- POS Pseudomonas and Citrobacter. UCX as of 09/23/24
- R sided abd pain and fevers up to 101.5 at home.
- R nephrostomy tube.
- Stable VSS
- Nl WCC and Nl LA
- LR IVF
- IV cefepime
CKD3b - Baseline ( Cr mid 1s + eGFR low 30)
Known atrophic left kidney
Anemia of chronic disease
Anxiety with benzodiazepine dependency
Angy is pleasant and cooperative
Continue Xanax and fluoxetine
Bipolar disorder
Continue Depakote
Severe protein malnutrition due to cancer
muscles atrophy mostly in limbs and temporal areas
Low BMI
Dietary continue supplement
Metastatic cervical CA
- recommended that patient start chemotherapy/immunotherapy in the past which she has refused.
- Not undergoing any treatment
- Aware of poor prognosis
follows with Dr. Saldivar at [place].
DVT Px:
Code: DNR
IP/Obs
[2024-09-27 14:20] VITALS: BP 102/74
[2024-09-27 14:45] LABS: Urine Squamous Cell 0-2 /LPF (Few)
[2024-09-27 14:47] LABS: Urine White Cell >100 /HPF (0-5)
--- NOTE | 2024-09-27 16:10 | CM ---
CM met with pt and her fiance/Syed bedside
They reside in a 2nd floor condo, no elevator, [address]
Pt is indep with her ADLs, no DMEs
Pt has a nephrostomy tube which she self manages
Her mother and brother are joint POAs
PCP- Jarek Pereira
Rx- [facility]
Discharge Disposition- home, no needs anticipated
[2024-09-27 16:38] VITALS: BP 111/76; BMI 14.5
--- NOTE | 2024-09-27 17:36 | PTCARENOTE ---
Received pt from ER via stretcher, accompanied by ER staff. Pt AAO x3, ESPINZOA well, ambulatory to bed, no c/o weakness/dizziness. VSS. Placed on telemetry:NSR. On room air- pulse ox 100%, no SOB noted. Abd soft, non-tender, to start full liquid
diet. Rt PCN tube P/I cloudy lt yellow urine; dsg over site replaced per pt request- reddened skin around insertion site; tube @ 16 cm at skin level; pt stated 'I told them not to suture it in'. oriented to 4$ast, currently resting in bed. Will
continue to monitor.
--- NOTE | 2024-09-27 17:39 | PTCARENOTE ---
Pt refusing lactic acid lab draw; stated 'I'm not getting stuck every 4 hours!'. Dr. Arias notified.
[2024-09-27] MEDS: LR 1000 IV (17:48)
[2024-09-27 19:26] VITALS: BP 100/56
[2024-09-27] MEDS: XANAX 2 MG PO (21:12)
[2024-09-27] MEDS: STERILE WATER FOR INJECTION 10 ML IV (23:02)
[2024-09-27] MEDS: MAXIPIME 1000 MG IV (23:02)
[2024-09-27] MEDS: ANESTHETIC LOZENGE 1 LOZENGE PO (23:10)
[2024-09-27 23:49] VITALS: BP 110/62
[2024-09-28 03:46] VITALS: BP 114/61
[2024-09-28 06:00] VITALS: BMI 14.5
[2024-09-28 06:53] LABS: Hematocrit 26.9 % (37.0-47.0); Hemoglobin 9.3 g/dL (12.0-16.0); Mean Corp Hgb Conc. 34.6 g/dL (33.0-37.0); Mean Corpuscular Volume 82.8 fL (81.0-99.0); Platelet Count 212 10^3/uL (130-400); Red Cell Dist. Width 12.7 % (11.5-14.5)
[2024-09-28 07:24] LABS: ALT (SGPT) < 10 U/L (0-35); AST (SGOT) 17 U/L (14-36); Albumin 2.9 g/dl (3.5-5.0); Alkaline Phosphatase 48 U/L (38-126); Blood Urea Nitrogen 16 mg/dl (7-17); Calcium 8.8 mg/dl (8.4-10.2); Carbon Dioxide 21 mmol/L (22-30); Chloride 111 mmol/L (98-107); Estimated Creatinine Clearance 28 ml/min; Glucose 82 mg/dl (70-99); Potassium 4.2 mmol/L (3.5-5.1); Sodium 137 mmol/L (135-145); Total Protein 5.0 g/dl (6.3-8.2); eGFR 46.21
--- NOTE | 2024-09-28 07:33 | W.PN.HOSP.TC ---
Today's Communication/Plan
-
IV antibiotics. IV fluid
Assessment / Plan
Assessment / Plan
Physical Exam
General: Comfortable, Conversant, Appears Chronically Ill and Cachectic
HEENT: Anicteric and Moist mucous membranes
Respiratory: Clear and Non Labored Respirations
Cardiac: S1/S2 and Regular Rhythm; No Tachycardia
GI: Soft and Non Tender
Genito-urinary: Other (Right Nephrostomy Tube with slightly dark but clear urine present in bag)
Musculoskeletal: No Clubbing, No Cyanosis and No Edema
Skin: Warm and Dry
Neuro: Awake, Alert, Oriented and Nonfocal/grossly intact
Psych: Calm and Intact Judgment/Insight
A/P:
Complicated UTI presumed pyelonephritis
- Pseudomonas and Citrobacter. UCX as of 09/23/24 reviewed sensitivities.
- R sided abd pain and fevers up to 101.5 at home.
- R nephrostomy tube.
- Stable VSS
- LR IVF--> stop today since renal function back to her baseline and hemodynamically stable. Can do re-boluses as needed
- Continue IV cefepime
- Follow-up with urology as outpatient
Diarrhea
Check C. difficile if persistent
Anemia of chronic disease
Continue to monitor hemoglobin
No signs of active bleeding
LUCHO on CKD3b - Baseline ( Cr mid 1s + eGFR low 30)
Known atrophic left kidney
Creatinine down to 1.3 today
Anxiety with benzodiazepine dependency
Mood is pleasant and cooperative
Continue Xanax and fluoxetine
Bipolar disorder
Continue Depakote
Severe protein malnutrition due to cancer
muscles atrophy mostly in limbs and temporal areas
Low BMI
Dietary continue supplement
Metastatic cervical CA
- recommended that patient start chemotherapy/immunotherapy in the past which she has refused.
- Not undergoing any treatment
- Aware of poor prognosis
follows with Dr. Saldivar at [place]. Follow-up with oncology as outpatient
DVT Px:
Code: DNR
Time spent 36 minutes
Anticipated Discharge: > 48 hours
Subjective/Interval History
-
Date of Service: September 28, 2024
Patient feels better overall today. She does not want to have cardiac monitoring on. She also complains of diarrhea. She does have right flank pain and overall improving. Nephrostomy output adequate. Afebrile
Objective Data
-
Labs:
Laboratory Results
09/28/24
06:09
WBC 3.5 L
Hgb 9.3 L
Hct 26.9 L
Plt Count 212
Sodium 137
Potassium 4.2
Chloride 111 H
Carbon Dioxide 21 L
BUN 16
Creatinine 1.3 H
Glucose 82
Calcium 8.8
Total Bilirubin 0.4
AST 17
ALT < 10
Alkaline Phosphatase 48
Vital Signs:
Vital Signs
Temp Pulse Resp BP Pulse Ox
98.0 F 62 16 114/61 98
09/28/24 03:46 09/28/24 03:46 09/28/24 03:46 09/28/24 03:46 09/28/24 03:46
I&O
09/27/24 09/28/24 09/29/24
06:59 06:59 06:59
Intake Total 700 / 700
Output Total 1150 / 1150
Balance -450 / -450
[2024-09-28 07:51] VITALS: BP 112/61
[2024-09-28] MEDS: VISBIOME 2 CAP PO (08:09)
[2024-09-28] MEDS: PROZAC 60 MG PO (08:09)
[2024-09-28] MEDS: DEPAKOTE (12 HR RELEASE) 500 MG PO (08:10)
[2024-09-28] MEDS: LR 1000 IV (10:01)
[2024-09-28 10:58] VITALS: BMI 14.5
[2024-09-28 11:19] VITALS: BP 97/56
[2024-09-28] MEDS: STERILE WATER FOR INJECTION 10 ML IV ×2 (11:21→23:32)
[2024-09-28] MEDS: MAXIPIME 1000 MG IV ×2 (11:21→23:32)
[2024-09-28 15:08] VITALS: BP 93/60
--- NOTE | 2024-09-28 17:31 | PTCARENOTE ---
Received patient this am AAOx3. Pt tolerated full liquids. Diet advanced to Low Residue. OOB ambulating in room independently with a steady gait. IVF capped as ordered. Pt offered no complaints. Made patient comfortable. Cont to assess patient
status.
[2024-09-28 19:44] VITALS: BP 93/65
[2024-09-28] MEDS: XANAX 2 MG PO (21:00)
[2024-09-28 23:18] VITALS: BP 102/63
[2024-09-29 06:00] VITALS: BMI 14.5
[2024-09-29 07:30] VITALS: BP 97/55
[2024-09-29 07:59] LABS: Hematocrit 31.1 % (37.0-47.0); Hemoglobin 10.4 g/dL (12.0-16.0); Mean Corp Hgb Conc. 33.4 g/dL (33.0-37.0); Mean Corpuscular Volume 85.7 fL (81.0-99.0); Nucleated Red Blood Cells % 0 %; Platelet Count 267 10^3/uL (130-400); Red Cell Dist. Width 12.8 % (11.5-14.5)
--- NOTE | 2024-09-29 08:01 | W.PN.HOSP.TC ---
Today's Communication/Plan
-
IV antibiotics. ID consult
Assessment / Plan
Assessment / Plan
Physical Exam
General: Comfortable, Conversant, Appears Chronically Ill and Cachectic
HEENT: Anicteric and Moist mucous membranes
Respiratory: Clear and Non Labored Respirations
Cardiac: S1/S2 and Regular Rhythm; No Tachycardia
GI: Soft and Non Tender
Genito-urinary: Other (Right Nephrostomy Tube with slightly dark but clear urine present in bag)
Musculoskeletal: No Clubbing, No Cyanosis and No Edema
Skin: Warm and Dry
Neuro: Awake, Alert, Oriented and Nonfocal/grossly intact
Psych: Calm and Intact Judgment/Insight
A/P:
Complicated UTI presumed pyelonephritis
- Pseudomonas and Citrobacter. UCX as of 09/23/24. Urine culture from 09/27 growing Pseudomonas and gram-negative rods
- ID consult for further advise-discussed with ID via tiger today
- R sided abd pain and fevers up to 101.5 at home.
- R nephrostomy tube.
- Stable VSS
- LR IVF--> stop today since renal function back to her baseline and hemodynamically stable. Can do re-boluses as needed
- Continue IV cefepime
- Follow-up with urology as outpatient
Diarrhea
Improved
Check C. difficile only if persistent-no need to order at this point.
Anemia of chronic disease
Hemoglobin today 10.4 which is close to her baseline
Continue to monitor hemoglobin
No signs of active bleeding
LUCHO on CKD3b - Baseline ( Cr mid 1s + eGFR low 30)
Creatinine today 1.3 which is her baseline
Known atrophic left kidney
Anxiety with benzodiazepine dependency
Mood is pleasant and cooperative
Continue Xanax and fluoxetine
Bipolar disorder
Continue Depakote
Severe protein malnutrition due to cancer
muscles atrophy mostly in limbs and temporal areas
Low BMI
Dietary continue supplement
Metastatic cervical CA
- recommended that patient start chemotherapy/immunotherapy in the past which she has refused.
- Not undergoing any treatment
- Aware of poor prognosis
follows with Dr. Saldivar at [place]. Follow-up with oncology as outpatient
DVT Px:
Code: DNR
Time spent 35 minutes
Anticipated Discharge: 24 - 48 hours
Subjective/Interval History
-
Date of Service: September 29, 2024
Patient denies any nausea or vomiting. Afebrile. 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
Objective Data
-
Labs:
Laboratory Results
09/29/24
06:11
WBC 3.7 L
Hgb 10.4 L
Hct 31.1 L
Plt Count 267 D
Sodium Pending
Potassium Pending
Chloride Pending
Carbon Dioxide Pending
BUN Pending
Creatinine Pending
Glucose Pending
Calcium Pending
Vital Signs:
Vital Signs
Temp Pulse Resp BP Pulse Ox
97.8 F 58 16 102/63 98
09/28/24 23:18 09/28/24 23:18 09/28/24 23:18 09/28/24 23:18 09/28/24 23:18
I&O
09/28/24 09/29/24 09/30/24
06:59 06:59 06:59
Intake Total 700 / 700 1440 / 1440
Output Total 1150 / 1150 2350 / 2350
Balance -450 / -450 -910 / -910
[2024-09-29] MEDS: PROZAC 60 MG PO (08:14)
[2024-09-29] MEDS: VISBIOME 2 CAP PO (08:14)
[2024-09-29] MEDS: DEPAKOTE (12 HR RELEASE) 500 MG PO (08:14)
[2024-09-29 08:20] LABS: Blood Urea Nitrogen 16 mg/dl (7-17); Calcium 8.7 mg/dl (8.4-10.2); Carbon Dioxide 25 mmol/L (22-30); Chloride 111 mmol/L (98-107); Estimated Creatinine Clearance 28 ml/min; Glucose 77 mg/dl (70-99); Potassium 4.5 mmol/L (3.5-5.1); Sodium 140 mmol/L (135-145); eGFR 46.21
[2024-09-29] MEDS: STERILE WATER FOR INJECTION 10 ML IV ×2 (11:03→23:08)
[2024-09-29] MEDS: MAXIPIME 1000 MG IV ×2 (11:03→23:08)
--- NOTE | 2024-09-29 12:43 | CON.ID ---
Consultation
-
Date/Time Consultation Requested: September 29, 2024 1001
Date/Time Consultation Performed: September 29, 2024 1245
Requesting Provider: Dr. Zhen Li
Performing Provider: Dr. Shania Reilly
Reason for Consultation: Pseudomonas UTI
Chief Complaint / Past History
Chief Complaint
Fever and Right side abd pain.
History of Present Illness
64-year-old female with stage IV cervical cancer,history of radiation hysterectomy with recurrence, patient declines further treatment, pelvic mass with left hydronephrosis nonfunctional kidney, right hydronephrosis status post percutaneous
nephrostomy last exchange August 28, 2024 who presented to the hospital on August 28 with persistent fever, right lower abdominal pain and malodorous urine. She initially presented to the ER on September 23. Urine specimen collected from nephrostomy. CT of
the abdomen and pelvis with contrast without new changes. She was discharged to home. She had diarrhea prior to ED visit. The oral contrast made her diarrhea worse and explosive. She continued to have fevers up to 103. She therefore came back
to the hospital September 27. The ER urine culture grew Pseudomonas and Citrobacter. Okay she was started on cefepime. Today she reports since being on cefepime, diarrhea has resolved. Fever resolved. The right lower abdominal pain is now intermittent
instead of constant. The urine looks clear.
Past History
Past Medical History: Other ( left kidney atrophy/dysfunction/chronic hydronephrosis with essentially solitary functioning right kidney, recent new right hydronephrosis status post right nephrostomy tube on 12/07, CKD, bipolar/depression, cachexia,
anemia of chronic disease, cervical carcinoma, chronic pancytopenia, migraines)
Additional Past Medical History:
Cervical CA s/p XRT, hysterectomy with recurrence, pt declined chemo
Chronic left hydro from pelvic mass
Hx right hydronephrosis s/p perc neph 11/2023
CKD3
Bipolar disorder
Anxiety/depression
Panic disorder
Migraines
Past Surgical History: Gynecological (Hysterectomy) and Other (Tonsillectomy, Ureteral stent, Right Nephrostomy tube)
Allergy History:
Milk Containing Products (Dairy) Allergy (Verified 09/27/24 17:06)
Unknown
nitrofurantoin macrocrystalline (From Macrodantin) Allergy (Verified 09/27/24 17:06)
fever
tuberculin,PPD,multi-puncture Allergy (Verified 09/27/24 17:06)
Rash
barium sulfate Adverse Reaction (Verified 09/27/24 17:06)
abd sx
Medications Reviewed: Yes
Current Antibiotics:
Cefepime (d3)
Social History
Tobacco: Non-Smoker
Alcohol: None
Drug: None
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
Family History
Family History: Not Pertinent
Review of Systems
Review of Systems
General: Fever and Chills
HEENT: Negative Sinus Problems or Headache
Respiratory: Negative Dyspnea or Cough
Gasteroenterology: Diarrhea (resolved); Negative Nausea or Vomiting
Genital / Urological: Flank Pain (right)
Endocrine: Weakness
All systems: All other systems were reviewed and were negative
Vital Signs
Temp Pulse Resp BP Pulse Ox
97.5 F 77 16 97/55 100
09/29/24 07:30 09/29/24 07:30 09/29/24 07:30 09/29/24 07:30 09/29/24 08:15
Physical Exam
Physical Exam
Constitutional: No Acute Distress and Comfortable
Eyes: No Conjunctival Hemorrhage and Sclera Anicteric
Cardiovascular: Regular Rate and S1/S2
Pulmonary: Clear
Gastrointestinal: Soft, Non Tender, Non Distended and Normal Bowel Sounds
Genito-Urinary: Clear Urine (Right nephrostomy); Negative CVA Tenderness
Extremities: Negative Edema
Neurological: AO x 3
Lab / Diagnostic Study Results
09/29/24 06:11
09/29/24 06:11
Abs Immat Gran (auto) 0.0 10^3/uL (0-0.05) 09/29/24 06:11
Absolute Neuts (auto) 2.0 10^3/uL (1.4-6.5) 09/29/24 06:11
Absolute Lymphs (auto) 1.3 10^3/uL (1.2-3.4) 09/29/24 06:11
Absolute Monos (auto) 0.3 10^3/uL (0.1-0.6) 09/29/24 06:11
Absolute Basos (auto) 0.0 10^3/uL (0-0.2) 09/29/24 06:11
Immature Gran % 0.5 % (0-0.5) 09/29/24 06:11
Neutrophils % 54.4 % (42.2-75.2) 09/29/24 06:11
Lymphocytes % 33.9 % (20.5-51.1) 09/29/24 06:11
Monocytes % 7.6 % (1.7-9.3) 09/29/24 06:11
Eosinophils % 3.3 % (0-6) 09/29/24 06:11
Basophils % 0.3 % (0-2) 09/29/24 06:11
Lactic Acid Cancelled 09/28/24 04:33
Ur Squamous Epith Cells 0-2 /LPF (Few) 09/27/24 11:53
Microbiology Results
Micro:
09/27/24 11:53 Blood Culture - Preliminary
Blood/Venous No Growth in 48 hours- Final report to follow
09/27/24 11:53 Blood Culture - Preliminary
Blood/Venous No Growth in 48 hours- Final report to follow
09/27/24 11:53 Urine Culture - Preliminary
Urine Pseudomonas species
Gram negative bacilli
Assessment / Plan
# Complicated UTI
# Chronic obstructive uropathy of right kidney due to cancer, chronic nephrostomy tube last exchange August 28, 2024
# CKD
- 09/23 Ucx Pseudomonas, Citrobacter freundii, Citrobacter youngae
- 09/27 Ucx Pseudomonas, GNR
- Can continue cefepime
- At time of dc, transition to cipro 500mg po qd through 10/11/23.
#Stage IV cervical ca
cervical cancer Dx January 2016/ radiation 2016
hysterectomy 2018 with residual cancer in the abdomen chose not to have operation or chemo
recurrence and spread of cervical cancer to left kidney causing left kidney atrophy/failure
mass near her right kidney requiring right nephrostomy tube for drainage 12/08/2019 for first nephrostomy tube
Care Review
Plan reviewed with: Physician (Dr. Salas)
[2024-09-29 15:15] VITALS: BP 106/59
--- NOTE | 2024-09-29 17:39 | CM ---
Pt has had a R nephrostomy tube .
She is comfortable with tube care.
Offered VN she declined need.
Family will drive her home.
PLAN : Home no needs
[2024-09-29] MEDS: XANAX 2 MG PO (23:08)
[2024-09-29 23:36] VITALS: BP 101/67
[2024-09-30 06:00] VITALS: BMI 14.5
[2024-09-30 06:58] LABS: Hematocrit 29.1 % (37.0-47.0); Hemoglobin 9.8 g/dL (12.0-16.0); Mean Corp Hgb Conc. 33.7 g/dL (33.0-37.0); Mean Corpuscular Volume 85.3 fL (81.0-99.0); Nucleated Red Blood Cells % 0 %; Platelet Count 230 10^3/uL (130-400); Red Cell Dist. Width 12.9 % (11.5-14.5)
[2024-09-30 07:24] LABS: Blood Urea Nitrogen 21 mg/dl (7-17); Calcium 8.5 mg/dl (8.4-10.2); Carbon Dioxide 26 mmol/L (22-30); Chloride 108 mmol/L (98-107); Estimated Creatinine Clearance 24 ml/min; Glucose 80 mg/dl (70-99); Potassium 4.2 mmol/L (3.5-5.1); Sodium 138 mmol/L (135-145); eGFR 38.91
--- NOTE | 2024-09-30 08:01 | W.PN.HOSP.TC ---
Today's Communication/Plan
-
Discharge planning today
Assessment / Plan
Assessment / Plan
Physical Exam
General: Comfortable, Conversant, Appears Chronically Ill and Cachectic
HEENT: Anicteric and Moist mucous membranes
Respiratory: Clear and Non Labored Respirations
Cardiac: S1/S2 and Regular Rhythm; No Tachycardia
GI: Soft and Non Tender
Genito-urinary: Other (Right Nephrostomy Tube with clear urine present in bag)
Musculoskeletal: No Clubbing, No Cyanosis and No Edema
Skin: Warm and Dry
Neuro: Awake, Alert, Oriented and Nonfocal/grossly intact
Psych: Calm and Intact Judgment/Insight
A/P:
Complicated UTI presumed pyelonephritis
Improved
Switch IV cefepime to oral Cipro today-give last dose of IV cefepime today.
ID consult appreciated
Plan to discharge today
Prior to today:
- Pseudomonas and Citrobacter. UCX as of 09/23/24. Urine culture from 09/27 growing Pseudomonas and gram-negative rods
- ID consult appreciated
- R sided abd pain and fevers up to 101.5 at home.
- R nephrostomy tube.
- Stable VSS
- LR IVF--> stop today since renal function back to her baseline and hemodynamically stable. Can do re-boluses as needed
- Continue IV cefepime
- Follow-up with urology as outpatient
Diarrhea
Improved
Check C. difficile only if persistent-no need to order at this point.
Anemia of chronic disease
Hemoglobin today 9.8 which is close to her baseline
Continue to monitor hemoglobin
No signs of active bleeding
LUCHO on CKD3b - Baseline ( Cr mid 1s + eGFR low 30)
Creatinine today 1.5 which is close to her baseline
Known atrophic left kidney
Anxiety with benzodiazepine dependency
Mood is pleasant and cooperative
Continue Xanax and fluoxetine
Bipolar disorder
Continue Depakote
Severe protein malnutrition due to cancer
muscles atrophy mostly in limbs and temporal areas
Low BMI
Dietary continue supplement
Metastatic cervical CA
- recommended that patient start chemotherapy/immunotherapy in the past which she has refused.
- Not undergoing any treatment
- Aware of poor prognosis
follows with Dr. Saldivar at [place]. Follow-up with oncology as outpatient
DVT Px:
Code: DNR
Anticipated Discharge: Today
Subjective/Interval History
-
Date of Service: September 30, 2024
Patient feels well today. Afebrile
Objective Data
-
Labs:
Laboratory Results
09/30/24
05:59
WBC 3.5 L
Hgb 9.8 L
Hct 29.1 L
Plt Count 230
Sodium 138
Potassium 4.2
Chloride 108 H
Carbon Dioxide 26
BUN 21 H
Creatinine 1.5 H
Glucose 80
Calcium 8.5
Vital Signs:
Vital Signs
Temp Pulse Resp BP Pulse Ox
98.2 F 62 18 101/67 98
09/29/24 23:36 09/29/24 23:36 09/29/24 23:36 09/29/24 23:36 09/29/24 23:36
I&O
09/29/24 09/30/24 10/01/24
06:59 06:59 06:59
Intake Total 1440 / 1440 1440 / 1440
Output Total 2350 / 2350 1275 / 1275
Balance -910 / -910 165 / 165
[2024-09-30 08:14] VITALS: BP 92/65
[2024-09-30] MEDS: VISBIOME 2 CAP PO (09:15)
[2024-09-30] MEDS: DEPAKOTE (12 HR RELEASE) 500 MG PO (09:15)
[2024-09-30] MEDS: PROZAC 60 MG PO (09:15)
--- NOTE | 2024-09-30 10:59 | W.PN.ID1 ---
Date of Service
Date of Service: September 30, 2024
Today's Communication
- transition cefepime to cipro 500mg po qd through 10/11/23.
Assessment / Plan
# Complicated UTI
# Chronic obstructive uropathy of right kidney due to cancer, chronic nephrostomy tube last exchange August 28, 2024
# CKD
- 09/23 Ucx Pseudomonas, Citrobacter freundii, Citrobacter youngae
- 09/27 Ucx Pseudomonas, GNR
- transition cefepime to cipro 500mg po qd through 10/11/23.
QTc 428
#Stage IV cervical ca
cervical cancer Dx January 2016/ radiation 2017
hysterectomy 2019 with residual cancer in the abdomen chose not to have operation or chemo
recurrence and spread of cervical cancer to left kidney causing left kidney atrophy/failure
mass near her right kidney requiring right nephrostomy tube for drainage 12/08/2019 for first nephrostomy tube
Chief Complaint
-: UTI
Subjective / Review of Systems
Feeling better. Is constipated.
Vital Signs / Physical Exam
Vital Signs
Vital Signs
Temp Pulse Resp BP Pulse Ox
97.9 F 61 18 92/65 99
09/30/24 08:14 09/30/24 08:14 09/30/24 08:14 09/30/24 08:14 09/30/24 08:14
Physical Exam
Constitutional: No Acute Distress
Cardiovascular: Regular Rate and S1/S2
Pulmonary: Clear
Gastrointestinal: Soft, Non Tender and Non Distended
Genito-Urinary: Clear Urine (Right nephrostomy)
Extremities: Negative Edema
Neurological: AO x 3
Objective Data
Lab Data
Lab Results
09/30/24 05:59
09/30/24 05:59
Estimated Creat Clear 24 ml/min 09/30/24 05:59
Lactic Acid Cancelled 09/28/24 04:33
Total Bilirubin 0.4 mg/dl (0.2-1.3) 09/28/24 06:09
AST 17 U/L (14-36) 09/28/24 06:09
ALT < 10 U/L (0-35) 09/28/24 06:09
Alkaline Phosphatase 48 U/L (38-126) 09/28/24 06:09
Most recent labs reviewed.
Micro Results:
09/27/24 11:53 Urine Culture - Preliminary
Urine Pseudomonas species
Gram negative bacilli
09/27/24 11:53 Blood Culture - Preliminary
Blood/Venous No Growth in 48 hours- Final report to follow
09/27/24 11:53 Blood Culture - Preliminary
Blood/Venous No Growth in 48 hours- Final report to follow
[2024-09-30] MEDS: STERILE WATER FOR INJECTION 10 ML IV (11:28)
[2024-09-30] MEDS: MAXIPIME 1000 MG IV (11:28)
--- NOTE | 2024-09-30 13:46 | W.DCSUMMARY ---
Discharge Summary
Discharge Data
Date of Admission: 09/27/24
Date of Discharge: 09/30/24
Total time spent discharging patient (in min): 37
-
Pending Results: No
Hospital Course
Patient is 64 years old female history of cervical cancer, CKD, chronic obstructive uropathy came into the hospital with complicated UTI. She was given broad-spectrum IV antibiotics. ID consulted. Patient urine cultures grew MDR organisms and she
received appropriate IV antibiotics and ID recommended to switch to oral antibiotics upon discharge. Patient has remained afebrile and hemodynamically stable. She had her nephrostomy tubes last exchanged on 08/28. Her urine culture from 09/23 grew
Pseudomonas and Citrobacter freundii and youngae; last urine culture from 09/27 grew Pseudomonas and gram-negative rods. She is to follow-up with oncology and PCP as outpatient and urology as deemed appropriate. ID has cleared her for discharge.
She will be discharged in stable condition today to complete a course of antibiotic through 10/10. No other events were noticed.
Discharge duration: 37 minutes
Discharge Plan
-
Patient Disposition: Home (Routine Discharge)
Discharge Diagnosis/Procedures: Complicated urinary tract infection due to Pseudomonas. Chronic kidney disease stage IV. Chronic obstructive uropathy of the right kidney with chronic nephrostomy. Stage IV cervical cancer.
Diet: Regular
Activity: As tolerated
Blood Work: Please PCP to order CBC, BMP within 1 week
Referrals:
Jarek Pereira DO [Family Provider, Family Practice] - in less than 1 week
Prescriptions:
New
ciprofloxacin HCl [Cipro] 500 mg tablet
500 mg PO DAILY 10 Days Qty: 10 0RF
Continued
fluoxetine 20 MG capsule
60 mg PO DAILY
alprazolam 1 mg tablet
2 mg PO HS
divalproex 500 mg tablet,delayed release (DR/EC)
500 mg PO DAILY
ascorbic acid (vitamin C) [Vitamin C] 500 mg Tablet,Chewable
500 mg PO DAILY
Discharge Orders:
Discharge Patient (As Directed); Ordered 09/30/24
Ordered By: Zhen Li
Discharge Date and Time
Discharge Date/Time: 09/30/24 14:50
Print Language: IVORIAN
[2024-09-30 14:35] VITALS: BP 98/54
--- NOTE | 2024-09-30 16:52 | CM ---
Patient with Dx Complicated UTI presumed pyelonephritis. Room air. Per nurse; ambulatory by self in room.
Met with patient who was preparing for discharge.
The patient says she feels ready for discharge home today. IMM completed.
Her mother or fiancee will provide transport home.
No CM d/c needs identified.
Plan home today.
== END 2024-09-30 14:50 | disposition home or self-care (01) | DRG 698 ==
LOC: 4 EAST ACU 14:22
PROVIDERS: Physician Assistant; ADMITTING PHYSICIAN Internal Medicine; ATTENDING PHYSICIAN Hospitalist; CONSULT PHYSICIAN Internal Medicine Infectious Disease; EMERGENCY PHYSICIAN Emergency Medicine; FAMILY PHYSICIAN Family Medicine
DX: T83.512A Infection and inflammatory reaction due to nephrostomy catheter, initial encounter (principal); E43 Unspecified severe protein-calorie malnutrition; D84.9 Immunodeficiency, unspecified; N18.4 Chronic kidney disease, stage 4 (severe); F13.20 Sedative, hypnotic or anxiolytic dependence, uncomplicated; Z68.1 Body mass index [BMI] 19.9 or less, adult; N13.6 Pyonephrosis; N17.9 Acute kidney failure, unspecified; C53.9 Malignant neoplasm of cervix uteri, unspecified; F31.9 Bipolar disorder, unspecified; G43.909 Migraine, unspecified, not intractable, without status migrainosus; N26.1 Atrophy of kidney (terminal); D63.8 Anemia in other chronic diseases classified elsewhere; F41.0 Panic disorder [episodic paroxysmal anxiety]; R19.09 Other intra-abdominal and pelvic swelling, mass and lump; R19.7 Diarrhea, unspecified; B96.5 Pseudomonas (aeruginosa) (mallei) (pseudomallei) as the cause of diseases classified elsewhere; Y83.1 Surgical operation with implant of artificial internal device as the cause of abnormal reaction of the patient, or of later complication, without mention of misadventure at the time of the procedure; Y92.9 Unspecified place or not applicable; Z66 Do not resuscitate; Z92.3 Personal history of irradiation; Z90.710 Acquired absence of both cervix and uterus; Z93.6 Other artificial openings of urinary tract status; Z88.7 Allergy status to serum and vaccine; Z88.3 Allergy status to other anti-infective agents; Z91.011 Allergy to milk products; Z86.61 Personal history of infections of the central nervous system
CPT/HCPCS: 80048; 80053; 81003; 81015; 83605; 83690; 83735; 85025; 85027; 87040; 87071; 87077; 87086; 87186; 93005; 96361; 96374; 99285

== ENCOUNTER 2024-10-19 09:38 | Emergency (ER) | payer OTHER, SELFPAY ==
[2024-10-19 09:41] VITALS: BP 117/71
[2024-10-19 11:08] VITALS: BP 121/64
[2024-10-19 11:28] LABS: Urine Character Clear (Clear)
[2024-10-19 11:30] LABS: Hematocrit 33.7 % (37.0-47.0); Hemoglobin 11.3 g/dL (12.0-16.0); Mean Corp Hgb Conc. 33.5 g/dL (33.0-37.0); Mean Corpuscular Volume 87.3 fL (81.0-99.0); Nucleated Red Blood Cells % 0 %; Platelet Count 188 10^3/uL (130-400); Red Cell Dist. Width 14.5 % (11.5-14.5)
[2024-10-19] MEDS: NSS 1000 IV (11:30)
--- NOTE | 2024-10-19 11:33 | ED.GENMED ---
History of Present Illness
General
Chief Complaint: Weakness
Source: patient, records, spouse and previous hospital records
Exam Limitations: none
Time Seen by Provider: 10/19/24 11:07
Nursing documentation reviewed up to this point in time: agreed with
History of Present Illness
History of Present Illness:
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 antibiotics has been off antibiotics for about 2 weeks has fatigue decreased p.o. intake no fever no back pain,
supposed to have some outpatient urine and blood work yesterday missed the appointment time came here been followed by infectious disease patient did have some headaches, she used Excedrin with some relief
Past History
Past History
ED Past Medical History: Cancer (cervical), Psychiatric (Bipolar, Depression, ) and Other (lactose intolerance, gallstones, migraines, meningitis, Left kidney atrophy)
ED Past Surgical History: Gynecological (Hysterectomy), Tonsilectomy (Adenoids) and Urological (Ureteral stent, Right Nephrostomy tube)
Social History
Tobacco: Non-smoker
Alcohol: Occasional
Drug: None
Personal: Single
Living: with family (Lives with mother)
Family History
Family History: Unable to obtain
Review of Systems
Review of Systems
All Other Systems: Not applicable
Constitutional: Reports fatigue; Denies fever or chills
Respiratory: Reports no symptoms
Cardiac: Reports no symptoms
ABD/GI: Reports no symptoms
: Denies dysuria, flank pain or urgency
Neurological: Reports headache and weakness
Phy Exam
Physical Exam
Physical Exam:
Physical Exam
General: Nontoxic female dry lips
Neck: No jaw
Heart: s1/s2 regular rate and rhythm, no murmur. equal radial pulses.
Lungs: no acute respiratory distress. clear bilaterally
Abdomen: Soft nontender nephrostomy tube draining dark urine
Neuro: alert and oriented. no focal neurological deficits
Skin: no rash
Psychiatric: well kept. interactive and cooperative
Extremities: no edema.
Course
Orders/Labs/Results
Orders:
Orders
10/19/24 11:18
Complete Blood Count/With Diff Urgent
Comprehensive Metabolic Panel Urgent
10/19/24 11:20
Urinalysis Reflex To Culture Urgent
Date Specimen was Collected: 10/19/24
Time Specimen was Collected: 11:20
Urine Microscopic Reflex Cult Urgent
Urine Culture Urgent
JEREMÍAS Source: U
Specimen Description:
Date Specimen was Collected: 10/19/24
Time Specimen was Collected: 11:20
10/19/24 11:25
0.9% Sodium Chloride 1000 ml [Nss] 1,000 ml IV BOLUS
10/19/24 12:52
INFECTIOUS DISEASE CONSULT Routine
Consulting Provider: Jf Eugene
Was physician already notified: Yes
10/19/24 12:53
Add On- LAB Urgent
Tests Added?: Urine culture
10/19/24 14:31
Ciprofloxacin HCl [Cipro] 500 mg PO NOW STA
Abnormal Lab Results
10/19/24 10/19/24
11:18 11:20
RBC 3.86 L 10^6/uL
(4.20-5.40)
Hgb 11.3 L g/dL
(12.0-16.0)
Hct 33.7 L %
(37.0-47.0)
Absolute Lymphs (auto) 0.8 L 10^3/uL
(1.2-3.4)
Neutrophils % 80.0 H %
(42.2-75.2)
Lymphocytes % 13.3 L %
(20.5-51.1)
BUN 25 H mg/dl
(7-17)
Creatinine 1.5 H mg/dL
(0.6-1.0)
Ur Occult Blood Reflex 3+ A
(Negative)
Urine Nitrite (Reflex) Positive A
(Negative)
Leukocyte Esterase Rfl 3+ A
(Negative)
Urine RBC 3-6 A /HPF
(0-2)
Urine WBC (Reflex) 30-40 A /HPF
(0-5)
Urine Bacteria (Reflex) Many A
(Negative)
Urine Albumin (Reflex) 3+ A
(Neg - Trace)
10/19/24 11:18
10/19/24 11:18
Vital Signs
Initial and Last Documented VS:
Initial Vital Signs
Temp Pulse Resp BP Pulse Ox
97.8 F 84 16 117/71 100
10/19/24 09:41 10/19/24 09:41 10/19/24 09:41 10/19/24 09:41 10/19/24 09:41
Last Documented Vital Signs
Temp Pulse Resp BP Pulse Ox
97.8 F 84 16 121/64 100
10/19/24 09:41 10/19/24 09:41 10/19/24 09:41 10/19/24 11:08 10/19/24 11:34
MDM/Problems Addressed
Differential Diagnosis Includes:
UTI dehydration electrolyte abnormality
MDM/Problems Addressed:
Fatigue headache
Chronic conditions affecting care: Kidney disease and Cancer
Acute Exacerbation and/or Progression of Chronic Illness: Kidney disease and Cancer
*Pulse Oximetry
SaO2: 100
Oxygen Mode of Delivery: Room air
Patient hypoxic: no
*Critical Care Note
Total Time (30-74mins, 75-104mins- exclusive of procedures): Not Applicable
Update Note
Update Note:
12:45 PM update patient feeling better after IV fluids looks well smiling laughing would like to go home will touch base with infectious disease who is been managing her as an outpatient labs noted urine noted culture pending
Discussed with ID will discharge with Cipro
ED Attending Note
-
Portions of this chart may have been created with voice recognition software.� Occasional wrong word or��sound alike� substitutions may have occurred due to the inherent limitations of voice recognition software.
Discharge Plan
Departure
Patient Disposition: Home (Routine Discharge)
Date of Disposition: 10/19/24
Time of Disposition: 14:32
Patient with high blood pressure during this ER visit?: No
Condition: Good
Discharge Problem:
Urinary tract infection
Prescriptions:
New
ciprofloxacin HCl [Cipro] 500 mg tablet
500 mg PO DAILY Qty: 14 0RF
No Action
fluoxetine 20 MG capsule
60 mg PO DAILY
alprazolam 1 mg tablet
2 mg PO HS
divalproex 500 mg tablet,delayed release (DR/EC)
500 mg PO DAILY
ascorbic acid (vitamin C) [Vitamin C] 500 mg Tablet,Chewable
500 mg PO DAILY
ciprofloxacin HCl [Cipro] 500 mg tablet
500 mg PO DAILY 10 Days Qty: 10 0RF
Referrals:
Jarek Pereira DO [Family Provider, Family Practice]
Activity Restrictions/Additional Instructions:
Plenty of fluids follow-up with your family doctor and Dr. Reilly
Interventions
Interventions:
*Risk Screen - Suicide Last Done: 10/19/24 09:43
*Neglect/Abuse Screening Last Done: 10/19/24 09:43
ED- Cardiac Assessment Last Done: 10/19/24 11:33
ED- Neurological Assessment Last Done: 10/19/24 11:33
ED- Pulmonary Assessment Last Done: 10/19/24 11:33
Discharge Date and Time
Print Language: BULGARIAN
[2024-10-19 11:41] LABS: Urine Squamous Cell 0-2 /LPF (Few)
[2024-10-19 11:42] LABS: Urine White Cell 30-40 /HPF (0-5)
[2024-10-19 11:50] LABS: ALT (SGPT) 12 U/L (0-35); AST (SGOT) 22 U/L (14-36); Albumin 4.0 g/dl (3.5-5.0); Alkaline Phosphatase 62 U/L (38-126); Blood Urea Nitrogen 25 mg/dl (7-17); Calcium 9.3 mg/dl (8.4-10.2); Carbon Dioxide 28 mmol/L (22-30); Chloride 105 mmol/L (98-107); Glucose 98 mg/dl (70-99); Potassium 4.0 mmol/L (3.5-5.1); Sodium 140 mmol/L (135-145); Total Protein 6.4 g/dl (6.3-8.2); eGFR 38.91
--- NOTE | 2024-10-19 14:09 | CON.ID ---
Consultation
-
Date/Time Consultation Requested: October 19, 2024 1252
Date/Time Consultation Performed: October 19, 2024 1350
Requesting Provider: Dr. Ga Clayton
Performing Provider: Dr. Shania Reilly
Reason for Consultation: UTI
Chief Complaint / Past History
Chief Complaint
Weakness and fever
History of Present Illness
64-year-old female with stage IV cervical cancer,history of radiation hysterectomy with recurrence, patient declines further treatment, pelvic mass with left hydronephrosis nonfunctional kidney, right hydronephrosis status post percutaneous
nephrostomy last exchange August 28, 2024 recently hospitalized from September 27-September 30 with fever and complicated UTI for which she was discharged on ciprofloxacin 500 mg p.o. daily through October 10. Patient was doing well until October 16 when she
started feeling weaker with malaise. Complains of chills, low-grade temps. No flank pain. Last night she felt worse chills and sweats and therefore she came to the ER today. Urine from the nephrostomy positive nitrite, 3+ LE, 30-40 white blood
cells. Urine culture pending. She is afebrile. Normal white count.
Past History
Past Medical History: Other ( left kidney atrophy/dysfunction/chronic hydronephrosis with essentially solitary functioning right kidney, recent new right hydronephrosis status post right nephrostomy tube on 12/07, CKD, bipolar/depression, cachexia,
anemia of chronic disease, cervical carcinoma, chronic pancytopenia, migraines)
Additional Past Medical History:
Cervical CA s/p XRT, hysterectomy with recurrence, pt declined chemo
Chronic left hydro from pelvic mass
Hx right hydronephrosis s/p perc neph 11/2023
CKD3
Bipolar disorder
Anxiety/depression
Panic disorder
Migraines
Past Surgical History: Gynecological (Hysterectomy) and Other (Tonsillectomy, Ureteral stent, Right Nephrostomy tube)
Allergy History:
Milk Containing Products (Dairy) Allergy (Verified 09/27/24 17:06)
Unknown
nitrofurantoin macrocrystalline (From Macrodantin) Allergy (Verified 09/27/24 17:06)
fever
tuberculin,PPD,multi-puncture Allergy (Verified 09/27/24 17:06)
Rash
barium sulfate Adverse Reaction (Verified 09/27/24 17:06)
abd sx
Medications Reviewed: Yes
Current Antibiotics:
none
Social History
Tobacco: Non-Smoker
Alcohol: None
Drug: None
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
Family History
Family History: Not Pertinent
Review of Systems
Review of Systems
General: Fever, Chills and Change in Appetite
HEENT: Negative Sinus Problems, Headache or Pharyngitis
Cardiovascular: Negative Chest Pain or Dyspnea
Respiratory: Negative Dyspnea or Cough
Gasteroenterology: Negative Nausea, Vomiting or Diarrhea
Genital / Urological: Negative Flank Pain
Endocrine: Weakness
Neurological: Negative Dizziness
All systems: All other systems were reviewed and were negative
Vital Signs
Temp Pulse Resp BP Pulse Ox
97.8 F 84 16 121/64 100
10/19/24 09:41 10/19/24 09:41 10/19/24 09:41 10/19/24 11:08 10/19/24 11:34
Physical Exam
Physical Exam
Constitutional: Comfortable and Cachetic
Eyes: No Conjunctival Hemorrhage and Sclera Anicteric
Cardiovascular: Regular Rate and S1/S2
Pulmonary: Clear
Gastrointestinal: Soft, Non Tender, Non Distended and Normal Bowel Sounds
Genito-Urinary: Clear Urine (R nephrostomy tube); Negative CVA Tenderness
Extremities: Negative Edema
Neurological: AO x 3
Lab / Diagnostic Study Results
10/19/24 11:18
10/19/24 11:18
Abs Immat Gran (auto) 0.0 10^3/uL (0-0.05) 10/19/24 11:18
Absolute Neuts (auto) 4.9 10^3/uL (1.4-6.5) 10/19/24 11:18
Absolute Lymphs (auto) 0.8 10^3/uL (1.2-3.4) L 10/19/24 11:18
Absolute Monos (auto) 0.4 10^3/uL (0.1-0.6) 10/19/24 11:18
Absolute Basos (auto) 0.0 10^3/uL (0-0.2) 10/19/24 11:18
Immature Gran % 0.2 % (0-0.5) 10/19/24 11:18
Neutrophils % 80.0 % (42.2-75.2) H 10/19/24 11:18
Lymphocytes % 13.3 % (20.5-51.1) L 10/19/24 11:18
Monocytes % 6.3 % (1.7-9.3) 10/19/24 11:18
Eosinophils % 0.0 % (0-6) 10/19/24 11:18
Basophils % 0.2 % (0-2) 10/19/24 11:18
Ur Squamous Epith Cells 0-2 /LPF (Few) 10/19/24 11:20
Microbiology Results
Micro:
10/19/24 11:20 Urine Culture - Pending
Urine
Assessment / Plan
# Suspect complicated UTI
# Chronic obstructive uropathy of right kidney due to cancer, chronic nephrostomy tube last exchange August 28, 2024
# CKD3
- Ucx pending.
- Most recent 09/27 Ucx Pseudomonas, Citrobacter freundii, Citrobacter youngae
- cipro 500mg po qd through 10/11/23.
- Recommend dc home on cipro 500mg po daily x 14 days.
#Stage IV cervical ca
cervical cancer Dx January 2016/ radiation 2017
hysterectomy 2019 with residual cancer in the abdomen chose not to have operation or chemo
recurrence and spread of cervical cancer to left kidney causing left kidney atrophy/failure
mass near her right kidney requiring right nephrostomy tube for drainage 12/08/2019 for first nephrostomy tube
Care Review
Plan reviewed with: Physician (Dr. Clayton)
[2024-10-19] MEDS: CIPRO 500 MG PO (14:38)
[2024-10-19 15:03] VITALS: BP 134/86
== END 2024-10-19 15:09 | disposition home or self-care (01) ==
LOC: EMR 09:38
PROVIDERS: EMERGENCY PHYSICIAN Emergency Medicine; FAMILY PHYSICIAN Family Medicine; OTHER PHYSICIAN Internal Medicine Infectious Disease
DX: N39.0 Urinary tract infection, site not specified (principal); N13.8 Other obstructive and reflux uropathy; C53.9 Malignant neoplasm of cervix uteri, unspecified; N18.30 Chronic kidney disease, stage 3 unspecified; Z92.3 Personal history of irradiation; Z93.6 Other artificial openings of urinary tract status
CPT/HCPCS: 96360; 99284; 80053; 81003; 81015; 85025; 87077; 87086; 87186

== ENCOUNTER 2024-10-25 20:04 | Emergency (ER) | payer OTHER, SELFPAY ==
[2024-10-25 20:06] VITALS: BP 108/76
[2024-10-25 22:13] VITALS: BP 119/66
--- NOTE | 2024-10-25 22:46 | ED.GENMED ---
History of Present Illness
General
Chief Complaint: Catheter/Tube Problem
Source: patient
Exam Limitations: none
Time Seen by Provider: 10/25/24 20:51
Nursing documentation reviewed up to this point in time: agreed with
History of Present Illness
History of Present Illness:
Patient is a 64-year-old female who presents to the emergency department with concerns of a leak from nephrostomy bag. Patient states that earlier this evening she noticed that the bag from her nephrostomy tube was leaking urine. She states that
it has continued to drain appropriately however there seems to be a crack in the bag. She denies any pain or discomfort around nephrostomy tube site. No fevers or chills.
She has nephrostomy tube replaced every 12 weeks with IR. The next replacement is due in approximately 1 month.
No other concerns today.
Past History
Past History
ED Past Medical History: Cancer (cervical), Psychiatric (Bipolar, Depression, ) and Other (lactose intolerance, gallstones, migraines, meningitis, Left kidney atrophy)
ED Past Surgical History: Gynecological (Hysterectomy), Tonsilectomy (Adenoids) and Urological (Ureteral stent, Right Nephrostomy tube)
Social History
Tobacco: Non-smoker
Alcohol: Occasional
Drug: None
Personal: Single
Living: with family (Lives with mother)
Family History
Family History: Unable to obtain
Review of Systems
Review of Systems
Allergies reviewed?: Yes
All Other Systems: ROS reviewed and negative except as documented in HPI and ROS
Phy Exam
Physical Exam
Physical Exam:
Vitals: Mildly tachycardic on arrival, improved HUNTER. Afebrile
General: Patient is well appearing, no acute distress
Skin: Warm and dry, no rashes or lesions. No erythema or rash surrounding nephrostomy tube site on right flank.
Head: Normocephalic, atraumatic
Throat: Protecting airway
Neck: Normal ROM, no cervical spine tenderness
Cardiac: Regular rate
Pulm: No apparent respiratory distress
Abdomen: Nondistended
Back: Right-sided nephrostomy tube in place draining clear yellow urine into bag.
Extremities: No evidence of cyanosis or edema
Neuro: Grossly intact
Psychiatric: Normal affect.
Course
Vital Signs
Initial and Last Documented VS:
Initial Vital Signs
Temp Pulse Resp BP Pulse Ox
98.0 F 110 20 108/76 99
10/25/24 20:06 10/25/24 20:06 10/25/24 20:06 10/25/24 20:06 10/25/24 20:06
Last Documented Vital Signs
Temp Pulse Resp BP Pulse Ox
98.0 F 65 16 119/66 100
10/25/24 20:06 10/25/24 22:13 10/25/24 22:13 10/25/24 22:13 10/25/24 22:50
MDM/Problems Addressed
Differential Diagnosis Includes:
Not limited to: Nephrostomy tube complication, etc.
MDM/Problems Addressed:
63-year-old female presents with leaking nephrostomy tube bag which began earlier this evening. Urine continues to drain however is leaking from bag. No fevers, pain, redness around nephrostomy tube site. Vitals and exam as above. Nephrostomy
tube in right flank in place without any evidence of surrounding cellulitis. It is draining clear yellow urine, however leaking from bag.
Discussed with interventional radiology. I was able to obtain a new nephrostomy tube bag from the IR suite and it was replaced successfully. Monitored patient in ED briefly and it appears to be draining clear yellow urine. Stable for discharge
home with continued IR follow-up for nephrostomy tube changes as scheduled. Return precautions discussed.
Chronic conditions affecting care:
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
Acute Exacerbation and/or Progression of Chronic Illness:
N/A
*Pulse Oximetry
SaO2: 100
Oxygen Mode of Delivery: Room air
Patient hypoxic: no
*EKG
Interpreted by ED Provider?: NA
*Chemical Engineer Interpretation
Rate: Chemical Engineer- N/A
*Critical Care Note
Total Time (30-74mins, 75-104mins- exclusive of procedures): Not Applicable
Patient Management
Discussion with other providers: Balloon Pilot (Case discussed with interventional radiology)
ED Attending Note
-
Portions of this chart may have been created with voice recognition software.� Occasional wrong word or��sound alike� substitutions may have occurred due to the inherent limitations of voice recognition software.
Discharge Plan
Departure
Patient Disposition: Home (Routine Discharge)
Date of Disposition: 10/25/24
Time of Disposition: 22:06
Patient with high blood pressure during this ER visit?: No
Condition: Good
Discharge Problem:
Complication of nephrostomy
Instructions: How to care for a nephrostomy tube
Prescriptions:
No Action
fluoxetine 20 MG capsule
60 mg PO DAILY
alprazolam 1 mg tablet
2 mg PO HS
divalproex 500 mg tablet,delayed release (DR/EC)
500 mg PO DAILY
ascorbic acid (vitamin C) [Vitamin C] 500 mg Tablet,Chewable
500 mg PO DAILY
ciprofloxacin HCl [Cipro] 500 mg tablet
500 mg PO DAILY 10 Days Qty: 10 0RF
ciprofloxacin HCl [Cipro] 500 mg tablet
500 mg PO DAILY Qty: 14 0RF
Referrals:
[facility], [Other]
Jarek Pereira DO [Family Provider, Family Practice]
Darrell Canada DO [Active, Radiology]
Activity Restrictions/Additional Instructions:
RETURN TO THE EMERGENCY DEPARTMENT WITH ANY FEVERS, PAIN AROUND NEPHROSTOMY TUBE SITE, ANY DISLODGMENT OF NEPHROSTOMY TUBE, OR ANY OTHER CONCERNS
- As discussed�your nephrostomy tube bag replaced while in the emergency department today. It was draining clear yellow urine prior to discharge.
- Please continue to care for your nephrostomy tube as instructed. Follow-up with interventional radiology for replacement as scheduled.
Monitor your symptoms closely and return to the emergency department with any acute worsening/new symptoms or any other concerns
Interventions
Interventions:
*Risk Screen - Suicide Last Done: 10/25/24 20:40
*General Assessment Last Done: 10/25/24 20:06
*Neglect/Abuse Screening Last Done: 10/25/24 20:40
*Nursing Disposition Last Done: 10/25/24 22:14
BU-Gcltye-Fuobklncdy Assessment Last Done: 10/25/24 20:40
ED-Female Genitourinary Assessment Last Done: 10/25/24 20:39
Discharge Date and Time
Discharge Date/Time: 10/25/24 22:14
Print Language: TURKMEN
== END 2024-10-25 22:14 | disposition home or self-care (01) ==
LOC: EMR 20:04
PROVIDERS: EMERGENCY PHYSICIAN Emergency Medicine; FAMILY PHYSICIAN Family Medicine
DX: T83.032A Leakage of nephrostomy catheter, initial encounter (principal); X58.XXXA Exposure to other specified factors, initial encounter; Z90.710 Acquired absence of both cervix and uterus
CPT/HCPCS: 99283

== ENCOUNTER → 2024-11-28 11:45 | Outpatient (REF) | payer OTHER, SELFPAY ==
[2024-11-28 12:45] VITALS: BP 125/60; BP_SYST 58
[2024-11-28 13:32] VITALS: BP 119/56; BP_SYST 59
[2024-11-28 13:44] VITALS: BP 119/56
== END ==
LOC: RADI 11:45
PROVIDERS: ATTENDING PHYSICIAN Specialist
DX: N13.1 Hydronephrosis with ureteral stricture, not elsewhere classified (principal)
CPT/HCPCS: 50432; C1729; C1769

== ENCOUNTER 2025-01-20 14:14 | Emergency (ER) | payer OTHER, SELFPAY ==
[2025-01-20 14:14] VITALS: BMI 15.8
[2025-01-20 14:17] VITALS: BP 95/54
[2025-01-20 15:12] LABS: Hematocrit 32.9 % (37.0-47.0); Hemoglobin 11.3 g/dL (12.0-16.0); Mean Corp Hgb Conc. 34.3 g/dL (33.0-37.0); Mean Corpuscular Volume 83.3 fL (81.0-99.0); Nucleated Red Blood Cells % 0 %; Platelet Count 197 10^3/uL (130-400); Red Cell Dist. Width 13.7 % (11.5-14.5)
[2025-01-20 15:28] LABS: ALT (SGPT) 11 U/L (0-35); AST (SGOT) 23 U/L (14-36); Albumin 3.7 g/dl (3.5-5.0); Alkaline Phosphatase 44 U/L (38-126); Blood Urea Nitrogen 29 mg/dl (7-17); Calcium 9.3 mg/dl (8.4-10.2); Carbon Dioxide 29 mmol/L (22-30); Chloride 99 mmol/L (98-107); Glucose 92 mg/dl (70-99); Lipase 71 U/L (23-300); Potassium 4.8 mmol/L (3.5-5.1); Sodium 132 mmol/L (135-145); Total Protein 6.1 g/dl (6.3-8.2); eGFR 42.27
--- NOTE | 2025-01-20 16:15 | ED.GENMED ---
History of Present Illness
General
Chief Complaint: Abdominal Symptoms
Source: patient
Exam Limitations: none
Time Seen by Provider: 01/20/25 16:00
History of Present Illness
History of Present Illness:
64-year-old female presents with lower abdominal discomfort and ongoing loose stools. She notes 10-12 loose stools over a 24-hour period over the past several days. She is on Cipro 250 mg daily for urinary tract infection. She has cervical cancer
with metastasis to the abdomen. She has an atrophied left kidney with chronic kidney disease and has a nephrostomy tube to the right kidney. She denies fever. She notes that the bowel is advertising editor brown in color and does not have a foul odor. She
denies any dark or tarry stools. No other complaints at this time
Past History
Past History
ED Past Medical History: Cancer (cervical), Psychiatric (Bipolar, Depression, ) and Other (lactose intolerance, gallstones, migraines, meningitis, Left kidney atrophy)
ED Past Surgical History: Gynecological (Hysterectomy), Tonsilectomy (Adenoids) and Urological (Ureteral stent, Right Nephrostomy tube)
Social History
Tobacco: Non-smoker
Alcohol: Occasional
Drug: None
Personal: Single
Living: with family (Lives with mother)
Family History
Family History: Unable to obtain
Phy Exam
Physical Exam
Physical Exam:
General: cachectic appearing female no acute respiratory distress
HEENT: Normal cephalic atraumatic
Heart: Regular rate and rhythm
Lungs: Clear no wheeze
Abdomen soft mildly diffusely tender nondistended no guarding right nephrostomy tube present with clear appearing urine in the bag
Extremities: No cyanosis
Course
Orders/Labs/Results
Orders:
Orders
01/20/25 14:50
IV Insert/Care/Rem.- Treatment PRN
01/20/25 15:04
Complete Blood Count/With Diff Urgent
Comprehensive Metabolic Panel Urgent
Lipase Urgent
01/20/25 16:14
CT Abd/pel Without Iv Or Oral Urgent
Comment:
Reason For Exam: abdominal pain
0.9% Sodium Chloride 1000 ml [Nss] 1,000 ml IV BOLUS
01/20/25 16:33
STOOL [C difficile Antigen & Toxins] Urgent
JEREMÍAS Source: Feces/Stool
Specimen Description:
Date Specimen was Collected: 01/20/25
Time Specimen was Collected: 16:31
Stool Culture Urgent
JEREMÍAS Source: Feces/Stool
Specimen Description:
Date Specimen was Collected: 01/20/25
Time Specimen was Collected: 16:31
Abnormal Lab Results
01/20/25
15:04
RBC 3.95 L 10^6/uL
(4.20-5.40)
Hgb 11.3 L g/dL
(12.0-16.0)
Hct 32.9 L %
(37.0-47.0)
Absolute Lymphs (auto) 1.1 L 10^3/uL
(1.2-3.4)
Monocytes % 9.7 H %
(1.7-9.3)
Sodium 132 L mmol/L
(135-145)
BUN 29 H mg/dl
(7-17)
Creatinine 1.4 H mg/dL
(0.6-1.0)
Total Protein 6.1 L g/dl
(6.3-8.2)
01/20/25 15:04
01/20/25 15:04
Vital Signs
Initial and Last Documented VS:
Initial Vital Signs
Temp Pulse Resp BP Pulse Ox
98.4 F 73 22 95/54 99
01/20/25 14:17 01/20/25 14:17 01/20/25 14:17 01/20/25 14:17 01/20/25 14:17
Last Documented Vital Signs
Temp Pulse Resp BP Pulse Ox
98.4 F 69 16 101/64 99
01/20/25 19:01 01/20/25 19:01 01/20/25 19:01 01/20/25 19:01 01/20/25 19:01
MDM/Problems Addressed
Differential Diagnosis Includes:
Patient with abdominal pain and ongoing loose stools currently on Cipro. Question adverse effect of Cipro versus C. difficile versus bacterial or viral involvement. Also concern for possible dehydration or electrolyte abnormality given ongoing
diarrhea.
Will check labs given the tenderness on exam order CT. Considered IV and/or oral contrast however she has a significant adverse reaction to oral contrast and has 1 remaining kidney with a GFR of only 42. Will hold off on IV contrast for now
*Pulse Oximetry
SaO2: 99
Oxygen Mode of Delivery: Room air
Patient hypoxic: no
*Critical Care Note
Total Time (30-74mins, 75-104mins- exclusive of procedures): Not Applicable
Update Note
Update Note:
CT shows no obvious change in the underlying processes. There is a known mass within the pelvis that is unchanged. There is unchanged hydronephrosis of the left kidney. Patient was able to provide a stool culture. These results are not back yet.
There was a formed stool I do not suspect C. difficile but this test is pending. No indication for admission recommend she follow-up with her oncology team if this becomes too problematic I did suggest you can use a dose of Imodium that she has at
home if needed.
ED Attending Note
-
Portions of this chart may have been created with voice recognition software.� Occasional wrong word or��sound alike� substitutions may have occurred due to the inherent limitations of voice recognition software.
Discharge Plan
Departure
Patient Disposition: Home (Routine Discharge)
Date of Disposition: 01/20/25
Time of Disposition: 21:08
Patient with high blood pressure during this ER visit?: No
Discharge Problem:
Diarrhea
Instructions: Diarrhea in teens and adults
Prescriptions:
No Action
fluoxetine 20 MG capsule
60 mg PO DAILY
alprazolam 1 mg tablet
1 mg PO HS
divalproex 500 mg tablet,delayed release (DR/EC)
500 mg PO DAILY
ascorbic acid (vitamin C) [Vitamin C] 500 mg Tablet,Chewable
500 mg PO DAILY
cholecalciferol (vitamin D3) [Vitamin D3] 25 mcg (1,000 unit) Tablet
25 mcg PO DAILY
Referrals:
Jarek Pereira, DO [Family Provider, Family Practice]
Activity Restrictions/Additional Instructions:
Stay hydrated. Consider using Imodium if the diarrhea persist. You should receive a call if your stool cultures are positive
Interventions
Interventions:
*Risk Screen - Suicide Last Done: 01/20/25 14:17
*General Assessment Last Done: 01/20/25 14:17
*Neglect/Abuse Screening Last Done: 01/20/25 14:17
*ED- Fall Risk Assessment Last Done: 01/20/25 19:01
AD-Qucgar-Pfaviucmjf Assessment Last Done: 01/20/25 16:36
Discharge Date and Time
Print Language: TURKISH
[2025-01-20] MEDS: NSS 1000 IV (16:32)
[2025-01-20 19:01] VITALS: BP 101/64
== END 2025-01-20 21:21 | disposition home or self-care (01) ==
LOC: EMR 14:14
PROVIDERS: Emergency Medicine; EMERGENCY PHYSICIAN Emergency Medicine; FAMILY PHYSICIAN Family Medicine
DX: R19.7 Diarrhea, unspecified (principal); C53.9 Malignant neoplasm of cervix uteri, unspecified; C79.89 Secondary malignant neoplasm of other specified sites; N18.9 Chronic kidney disease, unspecified; N26.1 Atrophy of kidney (terminal); F31.9 Bipolar disorder, unspecified; E73.9 Lactose intolerance, unspecified; Z93.6 Other artificial openings of urinary tract status; Z90.710 Acquired absence of both cervix and uterus
CPT/HCPCS: 99284; 74176; 80053; 83690; 85025; 87045; 87046; 87324; 87427; 87449

== ENCOUNTER → 2025-02-27 12:43 | Outpatient (REF) | payer OTHER, SELFPAY ==
[2025-02-27 13:05] VITALS: BP 146/70; BP_SYST 69
[2025-02-27 13:41] VITALS: BP 136/71
== END ==
LOC: RADI 12:43
PROVIDERS: ATTENDING PHYSICIAN Radiology Vascular & Interventional Radiology; FAMILY PHYSICIAN Family Medicine
DX: Z43.6 Encounter for attention to other artificial openings of urinary tract (principal); N13.1 Hydronephrosis with ureteral stricture, not elsewhere classified
CPT/HCPCS: 50435; C1729; C1769